=== PATIENT | female | born 1975 | race Caucasian/White ===

== ENCOUNTER 2018-11-21 14:20 | Emergency (ER) | payer BC ==
[2018-11-21] MEDS ORDERED: METOCLOPRAMIDE 10 MG/2mL INJ ONE (15:02)
[2018-11-21] MEDS ORDERED: DIPHENHYDRAMINE 50 MG/ML VIAL ONE (15:02)
[2018-11-21] MEDS ORDERED: IBUPROFEN 400 MG TAB ONE (15:02)
[2018-11-21] MEDS ORDERED: NA CHLORIDE 0.9% 1,000 ML ONE (15:03)
[2018-11-21] MEDS ORDERED: IBUPROFEN 200 MG TAB PO ONE (15:03)
[2018-11-21 15:04] LABS: Urine Blood NEGATIVE (NEG); Urine Glucose NEGATIVE (NEG); Urine Protein 1+ (NEG)
[2018-11-21 15:11] LABS: Urine Bacteria <20 /HPF (<20); Urine Culture Reflex Order NOT NEEDED; Urine RBC NONE SEEN /HPF (NONE SEEN)
[2018-11-21 15:40] LABS: Absolute Lymphocytes (CBC) 2.6 K/uL (0.7-4.9); Basophils % 1.1 % (0-1.3); Hematocrit 32.8 % (36.0-45.0); Lymphocytes % 39.5 % (15.3-44.8); MPV 9.4 fL (7.6-11.3); RBC Red Blood Cell Count 4.95 M/uL (3.86-4.86)
[2018-11-21 15:55] LABS: Albumin 3.3 g/dL (3.4-5.0); Bilirubin Total 0.4 mg/dL (0.2-1.0); Potassium 3.8 mmol/L (3.5-5.1); Protein, Total 7.6 g/dL (6.4-8.2)
[2018-11-21 16:47] LABS: Anisocytosis 1+; Blood Morphology Comment NOTED (NOT SEEN); Hypochromasia 1+; Platelet Estimate ADEQ; Urine White Blood Cell Casts OK
--- NOTE | 2018-11-21 17:20 | ER ---
Nurse's Notes [facility] Name: Torri Fine Age: 43 yrs Sex: Female : 1975 Arrival Date: 11/21/2018 Time: 14:25 Bed 17 Private MD: Diagnosis: Headache;Fever, unspecified Presentation: 11/21 14:31 Presenting complaint: Patient states: Fever and CLANCY since Friday. Took 1500mg of la1 tylenol at 1300 today. Went to urgent care and they sent me here because they were afraid I might have menengitis. Transition of care: patient was not received from another setting of care. Onset of symptoms was November 21, 2018. Risk Assessment: Do you want to hurt yourself or someone else? Patient reports no desire to harm self or others. Initial Sepsis Screen: Does the patient meet any 2 criteria? No. Patient's initial sepsis screen is negative. Does the patient have a suspected source of infection? No. Patient's initial sepsis screen is negative. Care prior to arrival: None. 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 - Social history:: Smoking status: Patient/guardian denies using tobacco. - Ebola Screening: : No symptoms or risks identified at this time. Screenin:50 Abuse screen: Denies threats or abuse. Nutritional screening: No deficits noted. em Tuberculosis screening: No symptoms or risk factors identified. Fall Risk None identified. Assessment: 14:50 General: Appears in no apparent distress. uncomfortable, Behavior is calm, cooperative, em Reports fever for > 3 days, fatigue for >3 days. Pain: Complains of pain in right eye and left eye Pain currently is 7 out of 10 on a pain scale. Pain began 4 days ago. Neuro: Level of Consciousness is awake, alert, obeys commands, Oriented to person, place, time, situation, Moves all extremities. Reports headache frontal area, since 4 days, does not feel like a typical migraine Denies weakness blurred vision photophobia. Cardiovascular: Capillary refill < 3 seconds Patient's skin is warm and dry. Respiratory: Airway is patent Respiratory effort is even, unlabored, Respiratory pattern is regular, symmetrical, Denies cough. GI: Reports nausea, Patient currently denies abdominal pain. : Denies burning with urination. EENT: Denies nasal congestion. Derm: Skin is intact, is healthy with good turgor, Skin is pink, warm \T\ dry. Musculoskeletal: Capillary refill < 3 seconds, Range of motion: intact in all extremities. 14:50 Reassessment: I agree with assessment completed by Claudio Coreas LVN . aa5 15:28 Reassessment: Patient appears in no apparent distress at this time. Patient and/or em family updated on plan of care and expected duration. Pain level reassessed. Patient is alert, oriented x 3, equal unlabored respirations, skin warm/dry/pink. 16:26 Reassessment: Patient appears in no apparent distress at this time. Patient and/or em family updated on plan of care and expected duration. Pain level reassessed. Patient is alert, oriented x 3, equal unlabored respirations, skin warm/dry/pink. reports pain is unchanged, rates pain 7/10, provider notified Patient states symptoms have not improved. 17:06 Reassessment: reports pain is 6/10, provider notified. em Vital Signs: 14:32 BP 113 / 75; Pulse 103; Resp 18; Temp 100.2; Pulse Ox 100% on R/A; Weight 124.74 kg; la1 Height 5 ft. 8 in. (172.72 cm); 15:52 BP 108 / 63; Pulse 92; Resp 20; Pulse Ox 99% on R/A; Pain 8/10; em 16:20 BP 108 / 54; Pulse 84; Resp 16; Pulse Ox 99% on R/A; Pain 7/10; em 17:29 BP 113 / 77; Pulse 75; Resp 18; Temp 98.5(O); Pulse Ox 99% on R/A; Pain 6/10; em 14:32 Body Mass Index 41.81 (124.74 kg, 172.72 cm) la1 ED Course: 14:25 Patient arrived in ED. mr 14:32 Triage completed. la1 14:33 Arm band placed on right wrist. la1 14:35 Dirk Joel PA is PHCP. [facility] 14:35 Jessee Hobbs MD is Attending Physician. bob 14:42 Claudio Coreas LVN is Primary Nurse. em 14:50 Patient has correct armband on for positive identification. Placed in gown. Bed in low em position. Call light in reach. Pulse ox on. NIBP on. 15:15 First set of blood cultures drawn. lt1 15:25 Initial lab(s) drawn, by ne, sent to lab. Inserted saline lock: 22 gauge in left em antecubital area, using aseptic technique. Blood collected. 15:39 Missed attempt(s): 22 gauge in right antecubital area. lt1 17:26 No provider procedures requiring assistance completed. IV discontinued, intact, em bleeding controlled, No redness/swelling at site. Pressure dressing applied. Administered Medications: 15:09 Drug: Motrin 600 mg Route: PO; em 16:20 Follow up: Response: No adverse reaction; Pain is unchanged, physician notified em 15:28 Drug: Reglan 10 mg Route: IVP; Site: left antecubital; aa5 16:51 Follow up: Response: No adverse reaction; Pain is unchanged, physician notified; Nausea em is decreased 15:28 Drug: NS 0.9% 1000 ml Route: IV; Rate: 1 bolus; Site: left antecubital; aa5 17:06 Follow up: IV Status: Completed infusion; IV Intake: 1000ml em 15:30 Drug: diphenhydrAMINE 12.5 mg Route: IVP; Site: left antecubital; aa5 16:52 Follow up: Response: No adverse reaction em Intake: 17:06 IV: 1000ml; Total: 1000ml. em Outcome: 17:19 Discharge ordered by . [facility] 17:27 Discharged to home ambulatory. em 17:27 Condition: good 17:27 Discharge instructions given to patient, Instructed on discharge instructions, follow up and referral plans. medication usage, Demonstrated understanding of instructions, follow-up care, medications, Prescriptions given X 1. 17:31 Patient left the ED. em Signatures: Dirk Joel PA PA eris Quijanoeleni Aretha mr Claudio Coreas LVN LVN em Yulia العلي, CINDI RN aa5 Judd Niño RN RN la1 Franci Chu lt1 Corrections: (The following items were deleted from the chart) 17:29 17:29 BP 113 / 77; Pulse 75bpm; Resp 18bpm; Pulse Ox 99% RA; Pain 08/31; em em
--- NOTE | 2018-11-21 17:20 | EDPHYS ---
Physician Documentation [facility] Name: Torri Fine Age: 43 yrs Sex: Female : 1975 Arrival Date: 11/21/2018 Time: 14:25 Bed 17 Private MD: ED Physician Jessee Hobbs HPI: 11/21 14:31 This 43 yrs old Female presents to ER via Ambulatory with complaints of jmm Headache, Fever. 14:31 The patient complains of pain to the right eye and left eye. The patient describes the jmm headache as aching. Onset: The symptoms/episode began/occurred gradually, 3 day(s) ago. Associated signs and symptoms: Pertinent positives: fever, Pertinent negatives: neck stiffness. This is a 43 year old female with a history of asthma, migraines that presents to the ED with complaints of headache with fever beginning this past Friday. Patient denies neck stiffness, headache was gradual onset. Denies cough, denies shortness of breath, denies abdominal pain, denies vomiting, denies sensitive to light. . 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 - Social history:: Smoking status: Patient/guardian denies using tobacco. - Ebola Screening: : No symptoms or risks identified at this time. ROS: 14:31 Cardiovascular: Negative for chest pain, palpitations, and edema, Respiratory: Negative jmm for shortness of breath, cough, wheezing, and pleuritic chest pain, Abdomen/GI: Negative for abdominal pain, nausea, vomiting, diarrhea, and constipation, Back: Negative for injury and pain. 14:31 Constitutional: Positive for fever. 14:31 Neuro: Positive for headache. 14:31 All other systems are negative. Exam: 14:31 Constitutional: This is a well developed, well nourished patient who is awake, alert, jmm and in no acute distress. Head/Face: atraumatic. Eyes: EOMI, no conjunctival erythema appreciated ENT: Moist Mucus Membranes Neck: Trachea midline, Supple Chest/axilla: Normal chest wall appearance and motion. Cardiovascular: Regular rate and rhythm. No edema appreciated Respiratory: Normal respirations, no respiratory distress appreciated Abdomen/GI: Non distended, soft Back: Normal ROM Skin: General appearance color normal MS/ Extremity: Moves all extremities, no obvious deformities appreciated, no edema noted to the lower extremities Neuro: Awake and alert, normal gait Psych: Behavior is normal, Mood is normal, Patient is cooperative and pleasant Vital Signs: 14:32 BP 113 / 75; Pulse 103; Resp 18; Temp 100.2; Pulse Ox 100% on R/A; Weight 124.74 kg; la1 Height 5 ft. 8 in. (172.72 cm); 15:52 BP 108 / 63; Pulse 92; Resp 20; Pulse Ox 99% on R/A; Pain 8/10; em 16:20 BP 108 / 54; Pulse 84; Resp 16; Pulse Ox 99% on R/A; Pain 7/10; em 17:29 BP 113 / 77; Pulse 75; Resp 18; Temp 98.5(O); Pulse Ox 99% on R/A; Pain 6/10; em 14:32 Body Mass Index 41.81 (124.74 kg, 172.72 cm) la1 MDM: 14:41 Patient medically screened. jose 17:17 Data reviewed: vital signs, nurses notes. Counseling: I had a detailed discussion with [facility] the patient and/or guardian regarding: the historical points, exam findings, and any diagnostic results supporting the discharge/admit diagnosis, lab results, the need for outpatient follow up, to return to the emergency department if symptoms worsen or persist or if there are any questions or concerns that arise at home. 17:17 ED course: Headache relieved in the ED. Patient refuses LP. Patient advised to follow [facility] up with pcp and otherwise given strict return precautions. Patient understood and agrees with the plan of care. . 11/21 14:31 Order name: Urine Culture [facility] 11/21 14:31 Order name: Urine Microscopic Only; Complete Time: 15:22 [facility] 11/21 14:51 Order name: CBC with Diff; Complete Time: 16:49 [facility] 11/21 14:51 Order name: CMP; Complete Time: 16:12 [facility] 11/21 14:51 Order name: Lactate; Complete Time: 16:12 [facility] 11/21 14:51 Order name: Procalcitonin; Complete Time: 16:12 [facility] 11/21 14:51 Order name: Blood Culture Adult (2) [facility] 11/21 14:52 Order name: Andrew Screen Profile; Complete Time: 16:12 [facility] 11/21 15:02 Order name: Urine Dipstick--Ancillary (enter results); Complete Time: 15:22 11/21 15:02 Order name: Urine --Ancillary (enter results); Complete Time: 15:22 11/21 15:51 Order name: Flu; Complete Time: 16:55 [facility] 11/21 16:44 Order name: CBC Smear Scan; Complete Time: 16:49 EDMS 11/21 14:31 Order name: Urine Dipstick-Ancillary (obtain specimen); Complete Time: 14:59 snw 11/21 14:51 Order name: Saline Lock; Complete Time: 15:39 [facility] 11/21 14:51 Order name: Urine Test (obtain specimen); Complete Time: 14:59 jm Administered Medications: 15:09 Drug: Motrin 600 mg Route: PO; em 16:20 Follow up: Response: No adverse reaction; Pain is unchanged, physician notified em 15:28 Drug: Reglan 10 mg Route: IVP; Site: left antecubital; aa5 16:51 Follow up: Response: No adverse reaction; Pain is unchanged, physician notified; Nausea em is decreased 15:28 Drug: NS 0.9% 1000 ml Route: IV; Rate: 1 bolus; Site: left antecubital; aa5 17:06 Follow up: IV Status: Completed infusion; IV Intake: 1000ml em 15:30 Drug: diphenhydrAMINE 12.5 mg Route: IVP; Site: left antecubital; aa5 16:52 Follow up: Response: No adverse reaction em Disposition: 11/21/18 17:19 Discharged to Home. Impression: Headache, Fever, unspecified. - Condition is Stable. - Discharge Instructions: Fever, Adult, General Headache Without Cause. - Prescriptions for Fiorinal 50- 325-40 mg Oral Capsule - take 1 capsule by ORAL route every 4 hours As needed - not to exceed 6 capsules per day; 12 capsule. - Medication Reconciliation Form, Thank You Letter, Antibiotic Education, Prescription Opioid Use form. - Follow up: Private Physician; When: 2 - 3 days; Reason: Recheck today's complaints, Continuance of care, Re-evaluation by your physician. Addendum: 11/23/2018 09:10 Co-signature as Attending Physician, Jessee Hobbs MD I agree with the assessment and c martino plan of care. Signatures: Dispatcher [employer] EDJessee Georges MD MD cha Therrien, Shelly, PROJECT DIRECTOR-C PROJECT DIRECTOR-Csnw Dirk Joel PA PA mikey Claudio Coreas, ENGINEERING DESIGNER ENGINEERING DESIGNER em Yulia العلي, RN RN aa5 Judd Niño RN RN la1 Corrections: (The following items were deleted from the chart) 11/21 17:31 17:19 11/21/2018 17:19 Discharged to Home. Impression: Headache; Fever, unspecified. em Condition is Stable. Forms are Medication Reconciliation Form, Thank You Letter, Antibiotic Education, Prescription Opioid Use. Follow up: Private Physician; When: 2 - 3 days; Reason: Recheck today's complaints, Continuance of care, Re-evaluation by your physician. bob
== END 2018-11-21 17:31 | disposition home or self-care (01) ==
LOC: ER 14:20
DX: R51 Headache (principal); R50.9 Fever, unspecified; Z88.2 Allergy status to sulfonamides; Z88.6 Allergy status to analgesic agent; Z88.1 Allergy status to other antibiotic agents
CPT/HCPCS: 96361; 87040 ×2; 87088; 85025; 87086; 36415; 86308; 81025; 83605; 80053; 84145; 87804 ×2; 96375; 96374; 99284; J2765; J7030; 81003; 81015

== ENCOUNTER 2019-02-16 18:50 | Emergency (ER) | payer BC ==
--- OUTSIDE RECORDS SUMMARY | 2019-02-16 18:52 | XMS REPORT ---
:1975 [facility] Address [address] [place] [address] [place] [id number] Care Team Providers Name Role Phone Unavailable Unavailable Unavailable Problems This patient has no known problems. Allergies, Adverse Reactions, Alerts This patient has no known allergies or adverse reactions. Medications This patient has no known medications.
--- OUTSIDE RECORDS SUMMARY | 2019-02-16 18:53 | XMS REPORT | Encounter Summary ---
:1975 Author Care Team Providers Name Role Phone Manuelito Cole MD Primary Care Provider [phone] Olivier Mcdowell Wig Maker [phone] Reason for Visit acid reflux Instructions 1. Gastroesophageal reflux disease general surgery referral 2. Viral syndrome Discussion Note: None recorded.Patient educational handouts: No information available. Plan of Care Reminders Provider Appointments None recorded. Lab None recorded. Referral General Aki Ewing MD Surgery Referral 09/10/2018 Procedures None recorded. Surgeries None recorded. Imaging None recorded. Medications Name Start Date EpiPen 2-Des 0.3 mg/0.3 mL injection, auto-injector Take 1 auto every day by injection route. use as needed for acute allergic reaction Medications Administered None recorded. Vitals Height Weight BMI Blood Pressure 68 in 278 lbs 42.3 kg/m2 126/81 mm[Hg] Lab Results None recorded. Allergies Code Code System Name Reaction Severity Status Onset Ceclor Vomiting Mild to Active Moderate 2670 RxNorm Codeine Hives Mild to Active Moderate Sulfa Other Active (Sulfonamide Antibiotics) Problems Name Status Onset Date Source Chronic Low Back Pain Active 10/17/2016 Asthma Active 11/12/2016 Encounter Depression Active 07/17/2017 Left Flank Pain Active 09/05/2017 Acute Maxillary Sinusitis Active 11/11/2017 Oral Contraception Active 12/08/2017 Contraception Education Active 12/08/2017 Gynecologic Examination Active 12/08/2017 Screening for Malignant Neoplasm of Active 12/08/2017 Breast History of Endometriosis Active 12/08/2017 Acute Allergic Reaction Active 01/26/2018 Intervertebral Disc Prolapse Active 04/10/2018 Low Back Pain Active 04/10/2018 Lumbar Radiculopathy Active 04/10/2018 Amenorrhea Active 07/13/2018 Urgent Desire to Urinate Active 07/13/2018 Viral Syndrome Active 08/25/2018 Gastroesophageal Reflux Disease Active 08/25/2018 Hypercholesterolemia Active Encounter Obesity Active Encounter Migraine Active Encounter Papilledema - Optic Disc Edema Due to Active Encounter Raised Intracranial Pressure HPV - Human Papillomavirus Test Positive Active Encounter Procedures Date Name Performed by 01/23/2016 Appendectomy Information not available Remove Tonsils and Adenoids Information not available Breast Surgery Information not available Cholecystectomy Information not available ENT Surgery Information not available Laparoscopy Information not available Vaccine List Vaccine Type influenza, intradermal, quadrivalent, preservative free 02/25/20170.1 mL influenza, recombinant, quadrIvalent,injectable, preservative free 01/26/20180.5 mL Social History Smoking Status Never Smoker Past Encounters 08/25/2018 Gastroesophageal Reflux Disease; Viral Syndrome Manuelito Cole MD: [address] [place] [address], [address], [place] [address], Ph. History of Present Illness Note: CC chronic GERD<div>hpi pt has had this x 20 yrs has been off and on PPI and H2 blockers for yrs has recently had worsening of sx</div>& lt;div>CC cough and cold sx</div><div>hpi family sick with virus& lt;/div><div>ros</div><div>gen above</div><div> cv neg</div><div>res above</div><div>gi above</div&gt ;Review of Systems: ROS as noted in the HPI Review of Systems None recorded. Physical Exam Dr. Cole Brief Adult Exam - M/F Reported By: Patient Constitutional: General Appearance: well-developed, obese. Level of Distress: mild distress. Ambulation: ambulating normally ENMT: Ears: no lesions on external ear, EACs clear, TMs clear, TM mobility normal. Nose: nares patent, nasal passages clear. Oropharynx: moist mucous membranes, no erythema, no exudates, tonsils not enlarged Lungs: Auscultation: breath sounds normal, good air movement, CTA except as noted, no wheezing, no rales/crackles, no rhonchi Cardiovascular: Heart Auscultation: RRR
--- OUTSIDE RECORDS SUMMARY | 2019-02-16 18:53 | XMS REPORT | Encounter Summary ---
:1975 Author Care Team Providers Name Role Phone Manuelito Cole MD Primary Care Provider [phone] Olivier Mcdowell Training Personnel Supervisor [phone] Reason for Visit Lower Back Pain Instructions 1. Lumbar radiculopathy MRI, lumbar spine, w/o contrast - pain in lower back radiating into left hip and leg 2. Low back pain 3. Intervertebral disc prolapse deciding about surgery for a herniated disc physical therapy referral Discussion Note: None recorded. Plan of Care Reminders Provider Appointments Return to on or around Manuelito Cole MD Office 05/11/2018 Lab None recorded. Referral Physical 04/17/2018 [facility] Referral [facility] (Physical Therapy) Procedures None recorded. Surgeries None recorded. Imaging MRI, Lumbar 04/10/2018 [place] [facility], W/o Contrast [facility] (Scheduling) Medications Name Start Date EpiPen 2-Des 0.3 mg/0.3 mL injection, auto-injector Take 1 auto every day by injection route. use as needed for acute allergic reaction Relpax 40 mg tablet Take 1 tablet every day by oral route. take as previously directed for migraine Xopenex HFA 45 mcg/actuation aerosol inhaler Inhale 2 puffs every 6 hours by inhalation route. use for asthma Medications Administered None recorded. Vitals Height Weight BMI Blood Pressure 68 in 281 lbs 42.7 kg/m2 174/74 mm[Hg] Lab Results Date Name Specimen Result Interpretation Description Value Range Status Address 03/25/2018 Rapid Strep Group Results Final [place] [facility], Throat [facility] (Lab): [address] [facility] 03/25/2018 Streptococcus No observation [facility], Culture, recorded. [facility] (Lab): [address] [facility] Allergies Code Code System Name Reaction Severity [...] Pain Active 04/10/2018 Lumbar Radiculopathy Active 04/10/2018 Hypercholesterolemia Active Encounter Obesity Active Encounter Migraine [...] Information not available Laparoscopy Information not available 04/10/2018 MRI, Lumbar Spine, W/o Contrast [facility] (Scheduling) [address] [place] [address] (Work Place) Vaccine List Vaccine Type influenza, intradermal, quadrivalent, preservative free 02/25/20170.1 mL influenza, recombinant, quadrIvalent,injectable, preservative free 01/26/20180.5 mL Social History Smoking Status Never Smoker Past Encounters 04/10/2018 Lumbar Radiculopathy; Low Back Pain; Intervertebral Disc Prolapse Manuelito Cole MD: [address] [place] [address], [address], [place] [address], Ph. 03/25/2018 Anthony Cantu MD: [address] [facility], [address], [place] [address], Ph. History of Present Illness Note: CC acute lower back pain <div>hpi pt has hx of this intermittent pain last yr she was set up to get MRI and was so did not get it, during the she had a bout with it and washosp with Iv Morphine to control the pain.</div><div>this episode has been present for several days, went to ED told had UTI and given macrobid and has not helped. pain across her lower back and into left hip and radiating down the left leg lilliana walking up stairs. moderate severity, has hadn/v with the pain</div> Review of Systems: ROS as noted in the HPI Review of Systems None recorded. Physical Exam Notes: vs reviewed<div>gen moderate pain</div><div>back exam pain across lower back into the left gluteal region into the upper leg, reflex present</div>
--- OUTSIDE RECORDS SUMMARY | 2019-02-16 18:53 | XMS REPORT | Continuity of Care Document ---
:1975 Author Organization [facility] Address [address] [place] [address] Phone Unavailable Care Team Providers Name Role Phone SHAE PACHECO MD Primary Care Physician Insurance Providers Guarantor Nayely Fine Address [address] [place] [address] Email [email or web address] Payer [facility] Policy Number [id number] Subscriber's Name Geronimo Fine Relationship Spouse Group Number [id number] Group Name NA Effective Date 16 Advance Directives Directive Response Recorded Date/Time Advance Directives No 07/17/15 6:19pm Advance Directive on File No 03/25/18 3:00pm Directive to Physicians/Living Will No 07/17/15 6:19pm Health Care Proxy No 07/17/15 6:19pm Organ Donor No 07/17/15 6:19pm Medical Power of Tile Molder No 07/17/15 6:19pm Patient/Family Given Education Material R/T Y - 03/25/18...SBM 03/25/18 3: 00pm Directives? Chief Complaint and Reason for Visit Chief Complaint Dyspnea/Respdistress Reason for Visit Upper respiratory infection UTI (urinary tract infection) Problems Medical Problem Onset Date Status 29 weeks gestation of Unknown 37 weeks gestation of Unknown Asthma with acute exacerbation in adult Unknown Bronchitis Unknown Cervicogenic headache Unknown Acute delivery delivered Unknown Diarrhea Unknown Acute Endometriosis Unknown Acute LVH (left ventricular hypertrophy) Unknown Macrosomia affecting management of mother Unknown Medication adverse effect Unknown Acute Nausea Unknown Acute Neck pain on right side Unknown Acute Pelvic pain Unknown Acute Pre-eclampsia Unknown UTI (urinary tract infection) Unknown Acute Past Problems Medical Problem Onset Date Status Acute bronchitis Unknown Acute Acute left flank pain Unknown Acute Cystitis Unknown Acute Left sided abdominal pain of unknown cause Unknown Acute Migraine headache Unknown Acute Nausea and vomiting Unknown Acute Unknown Acute Upper respiratory infection Unknown Acute Medications Current Home Medications Medication Dose Units Route Directions Days Qty Instructions Start Date Fluticasone 1 Puff RESPIRATORY Twice A Day 1 Inh Propionate/Juanjose (INHALATION) for Asthma 8 meterol * (Advair Diskus *) 500 /50 Aer Ibuprofen 1 Tab ORAL Every 6 Hours 30 (Motrin 800 As Needed as Tablet 8 Mg*) 800 Mg needed for Tab Pain 1 Tab ORAL Daily 90 Multivit-Min Tablet W/Fe-Fa * ( *) Tab Past Home Medications Medication Directions Ordered Status Montelukast Sodium (Singulair 4 Daily As Needed Discontinued Mg *) 4 Mg Gra, 4 Mg Oral Multiple Vitamin (Daily Vitamin) Once Daily Discontinued Vitamin Tab, 1 Tab Oral Ondansetron Hcl (Zofran Odt *) 4 Every 6 Hours (07-02-15) as Discontinued Mg Tab, 1 Tab Sublingual needed for Nausea Ondansetron Hcl (Zofran *) 4 Mg Every 6 Hours (07-02-15) Discontinued Tab, 1 Tab Oral Multivit-Min W/Fe-Fa * Daily Discontinued ( *) Tab, 1 Tab Oral Social History Social History Problem Response Recorded Date/Time Onset Date Status Hx Physical Abuse No 03/25/2018 3:00pm Not Applicable Not Applicable Smoking Status Start Date Stop Date Never smoker Hospital Discharge Instructions No hospital discharge instruction information available. Plan of Care Discharge Date 03/25/18 5:31pm Instructions/Education Provided Upper Respiratory Infection, Adult Urinary Tract Infection, Adult Forms Provided Portal Welcome Letter Prescriptions See Medication Section Referrals SHAE PACHECO MD Address: [address] [place] [id number] Additional Instructions/Education DIAGNOSIS: UTI, UPPER RESPIRATORY INFECTION PRESCRIPTION: MACROBID 100MG TWICE A DAY FOR 7 DAYS, BROMFED DM 10ML EVERY 4- 6 HOURS NEEDED FOR COUGH AND CONGESTION FOLLOW UP: WITH PRIMARY CARE IN 2 DAYS * RETURN TO EMERGENCY DEPARTMENT FOR ANY CHANGE IN CONDITION OR WORSENING* INSTRUCTIONS: DRINK PLENTY OF FLUIDS GOOD HANDWASHING MAY TAKE CLARITIN NEEDED DAILY PER DIRECTIONS FOR ALLERGIES MAY TAKE TYLENOL OR IBUPROFEN PER BOTTLE DIRECTIONS Functional Status No functional status information available. Allergies, Adverse Reactions, Alerts Allergen Type Severity Reaction Status Last Updated Cefaclor Allergy Severe Active 02/27/17 Codeine ([id number]) Allergy Severe Active 02/27/17 Nalbuphine ([id number]) Allergy Severe Active 01/12/18 Cephalosporins ([id number]) Allergy Severe Active 02/27/17 Sulfa Antibiotics ([id number]) Allergy Severe Active 02/27/17 Immunizations No immunization information available. Vital Signs Acute Vital Signs Vital Response Date/Time Blood Pressure 110/59 mm Hg 03/25/2018 5:37pm Pulse Pulse Rate (adult) 72 beats per minute (60 - 100) 03/25/2018 5:37pm Respiratory Rate 18 breaths per minute (10 - 24) 03/25/2018 5:37pm Temperature Source Oral 03/25/2018 5:37pm Height 5 ft 8 in 03/25/2018 3:00pm Weight 275 lb 03/25/2018 3:00pm Body Mass Index 41.8 kg/m^2 03/25/2018 3:00pm Results Laboratory Results Test Name Result Units Flags Reference Collection Result Comments Date/Time Date/Time Urine Color YELLOW 03/25/2018 03/25/2018 4:32pm 4:42pm Urine CLEAR CLEAR 03/25/2018 03/25/2018 Appearance 4:32pm 4:42pm Urine Glucose NEGATIVE NEGATIVE 03/25/2018 03/25/2018 4:32pm 4:42pm Urine Bilirubin NEGATIVE NEGATIVE 03/25/2018 03/25/2018 4:32pm 4:42pm Urine Ketones NEGATIVE NEGATIVE 03/25/2018 03/25/2018 4:32pm 4:42pm Urine Specific 1.029 1.003-1.030 03/25/2018 03/25/2018 [place] 4:32pm 4:42pm Urine Blood 2+ H NEGATIVE 03/25/2018 03/25/2018 (MODERATE) 4:32pm 4:42pm Urine pH 5.500 5-9 03/25/2018 03/25/2018 4:32pm 4:42pm Urine Protein TRACE NEGATIVE 03/25/2018 03/25/2018 4:32pm 4:42pm Urine NORMAL mg/dL 0.2-1.0 03/25/2018 03/25/2018 Urobilinogen 4:32pm 4:42pm Urine Nitrate NEGATIVE NEGATIVE 03/25/2018 03/25/2018 4:32pm 4:42pm Urine Leukocyte 3+ H NEGATIVE 03/25/2018 03/25/2018 Esterase 4:32pm 4:42pm Urine RBC 1-5 /hpf 0-5 03/25/2018 03/25/2018 4:32pm 4:42pm Urine WBC 20-29 /hpf H 0-5 03/25/2018 03/25/2018 4:32pm 4:42pm Urine 1-5 /hpf 0-5 03/25/2018 03/25/2018 Epithelial 4:32pm 4:42pm Cells Urine Bacteria SMALL(1+) /hpf None Detect 03/25/2018 03/25/2018 4:32pm 4:42pm Urine Casts 6-10 /lpf H None Detect 03/25/2018 03/25/2018 4:32pm 4:42pm Urine Culture YES 03/25/2018 03/25/2018 Reflexed 4:32pm 4:42pm Urine None seen /hpf None Detect 03/25/2018 03/25/2018 Pathogenic 4:32pm 4:42pm Casts Urine HCG, NEGATIVE NEG 03/25/2018 03/25/2018 Qualitative 4:32pm 4:39pm If a negative result is obtained but is suspected, a new specimen should be collected after 48-72 hours and tested. If waiting 48 hrs is not medically advisable, the test result should be confirmed with at quantitative hCG assay. Procedures Procedure Status Date Provider(s) X-ray of chest, two views Completed 03/25/18 MARTHA GUERIN CONSTRUCTION CHECKER, BENEFITS TECHNICIAN-BC Encounters Encounter Location Arrival/Admit Date Discharge/Depart Date Attending Provider Departed [place] 03/25/18 2:55pm 03/25/18 5:31pm ELEONORA FIGUEREDO MD Emergency Room [facility] Recent Diagnosis
--- OUTSIDE RECORDS SUMMARY | 2019-02-16 18:53 | XMS REPORT | Continuity of Care Document ---
:1975 Author Organization [facility] Address [address] [place] [address] Phone Unavailable Care Team Providers Name Role Phone SHAE PACHECO MD Primary Care Physician Insurance Providers Guarantor Nayely Fine Address [address] [place] [address] Email [email or web address] Payer [facility] Policy Number [id number] Subscriber's Name Geronimo Fine Relationship Spouse Group Number [id number] Group Name NA Effective Date 16 Payer Medicaid Policy Number [id number] Subscriber's Name Nayely Fine Relationship Self / Same As Patient Group Number NA Group Name NA Advance Directives Directive Response Recorded Date/Time Advance Directives No 07/17/15 6:19pm Advance Directive on File No 01/12/18 9:12am Directive to Physicians/Living Will No 07/17/15 6:19pm Health Care Proxy No 07/17/15 6:19pm Organ Donor No 07/17/15 6:19pm Medical Power of Loan Processing Supervisor No 07/17/15 6:19pm Patient/Family Given Education Material R/T Y - 01/12/18...[place] 01/12/18 9: 28am Directives? Chief Complaint and Reason for Visit Chief Complaint Dyspnea/Respdistress Reason for Visit Migraine headache Cystitis Problems Medical Problem Onset Date Status 29 [...] Nausea and vomiting Unknown Acute Unknown Acute Medications Current Home Medications Medication [...] Onset Date Status Hx Physical Abuse No 01/12/2018 9:12am Not Applicable Not Applicable Smoking Status Start Date Stop Date Never smoker Hospital Discharge Instructions No hospital discharge instruction information available. Plan of Care Discharge Date 01/12/18 11:48am Instructions/Education Provided Urinary Tract Infection, Adult Migraine Headache Forms Provided Portal Welcome Letter Prescriptions See Medication Section Referrals SHAE PACHECO MD Address: [address] [place] [address] Additional Instructions/Education WORK EXCUSE FOR TODAY. MACROBID Rx. TAKE TYLENOL & IBUPROFEN EVERY 6HRS NEEDED FOR HEADACHE. FOLLOW UP WITH PCP IF NOT BETTER WITHION 2-3 DAYS. Functional Status No functional status information available. Allergies, Adverse Reactions, Alerts Allergen Type Severity Reaction Status Last Updated Cefaclor Allergy Severe Active 02/27/17 Codeine ([id number]) Allergy Severe Active 02/27/17 Nalbuphine ([id number]) Allergy Severe Active 01/12/18 Cephalosporins ([id number]) Allergy Severe Active 02/27/17 Sulfa Antibiotics ([id number]) Allergy Severe Active 02/27/17 Immunizations No immunization information available. Vital Signs Acute Vital Signs Vital Response Date/Time Blood Pressure 106/61 mm Hg 01/12/2018 12:26pm Pulse Pulse Rate (adult) 71 beats per minute (60 - 100) 01/12/2018 12:26pm Respiratory Rate 20 breaths per minute (10 - 24) 01/12/2018 12:26pm Temperature Source Oral 01/12/2018 9:12am Height 5 ft 8 in 01/12/2018 9:12am Weight 290 lb 01/12/2018 9:12am Body Mass Index 44.1 kg/m^2 01/12/2018 9:12am Results Laboratory Results Test Name Result Units Flags Reference Collection Result Comments Date/Time Date/Time White Blood Count 9.5 K/ul 4.0-11.5 01/12/2018 01/12/2018 9:37am 9:55am Red Blood Count 5.25 M/ul H 3.80-5.20 01/12/2018 01/12/2018 9:37am 9:55am Hemoglobin 10.5 g/dl 10.5-15.7 01/12/2018 01/12/2018 9:37am 9:55am Hematocrit 35.7 % 34.0-50.0 01/12/2018 01/12/2018 9:37am 9:55am Mean Corpuscular 68.0 fl L 78-98 01/12/2018 01/12/2018 Volume 9:37am 9:55am Mean Corpuscular 20.0 pg L 26.2-33.4 01/12/2018 01/12/2018 Hemoglobin 9:37am 9:55am Mean Corpuscular 29.4 g/dl L 31.5-36.2 01/12/2018 01/12/2018 Hemoglobin Concent 9:37am 9:55am Red Cell 14.9 % 11.5-15.5 01/12/2018 01/12/2018 Distribution Width 9:37am 9:55am Platelet Count 406 K/ul H 137-338 01/12/2018 01/12/2018 9:37am 9:55am Mean Platelet 9.9 fl 8.4-11.8 01/12/2018 01/12/2018 Volume 9:37am 9:55am Neutrophils (%) 69.1 % 44.4-80.1 01/12/2018 01/12/2018 (Auto) 9:37am 9:55am Lymphocytes (%) 21.9 % 10.0-50.0 01/12/2018 01/12/2018 (Auto) 9:37am 9:55am Monocytes (%) 5.1 % 3.6-12.04 01/12/2018 01/12/2018 (Auto) 9:37am 9:55am Eosinophils (%) 2.8 % 0.0-5.41 01/12/2018 01/12/2018 (Auto) 9:37am 9:55am Basophils (%) 1.1 % H 0.0-0.79 01/12/2018 01/12/2018 (Auto) 9:37am 9:55am D-Dimer 428 ng/mL <500 01/12/2018 01/12/2018 9:40am 10:06am Prothrombin Time 9.9 SECONDS L 10.3-12.3 01/12/2018 01/12/2018 9:40am 10:23am THERAPEUTIC LEVEL: 1.5 to 1.9 times normal range of PT Prothromb Time 0.90 01/12/2018 01/12/2018 International 9:40am 10:23am Recommended therapeutic range for patients receiving Ratio warfarin (coumadin) therapy: INR is 2.0 to 3.0 Recommended range for patients with mechanical prosthetic heart valves: INR is 2.5 to 3.5 Activated Partial 24.5 SECONDS 22.5-37.0 01/12/2018 01/12/2018 Thromboplast Time 9:40am 10:23am Urine Color YELLOW 01/12/2018 01/12/2018 10:18am 10:30am Urine Appearance SL CLOUDY A CLEAR 01/12/2018 01/12/2018 10:18am 10:30am Urine Glucose NEGATIVE NEGATIVE 01/12/2018 01/12/2018 10:18am 10:30am Urine Bilirubin NEGATIVE NEGATIVE 01/12/2018 01/12/2018 10:18am 10:30am Urine Ketones NEGATIVE NEGATIVE 01/12/2018 01/12/2018 10:18am 10:30am Urine Specific 1.027 1.003-1.03 01/12/2018 01/12/2018 [place] 0 10:18am 10:30am Urine Blood NEGATIVE NEGATIVE 01/12/2018 01/12/2018 10:18am 10:30am Urine pH 6.000 5-9 01/12/2018 01/12/2018 10:18am 10:30am Urine Protein 1+ (30 H NEGATIVE 01/12/2018 01/12/2018 mg/dL) 10:18am 10:30am Urine Urobilinogen NORMAL mg/dL 0.2-1.0 01/12/2018 01/12/2018 10:18am 10:30am Urine Nitrate NEGATIVE NEGATIVE 01/12/2018 01/12/2018 10:18am 10:30am Urine Leukocyte NEGATIVE NEGATIVE 01/12/2018 01/12/2018 Esterase 10:18am 10:30am Urine RBC 1-5 /hpf 0-5 01/12/2018 01/12/2018 10:18am 10:29am Urine WBC 1-5 /hpf 0-5 01/12/2018 01/12/2018 10:18am 10:29am Urine Epithelial 6-10 /hpf 0-5 01/12/2018 01/12/2018 Cells 10:18am 10:29am Urine Bacteria LARGE /hpf H None 01/12/2018 01/12/2018 (3+) Detect 10:18am 10:29am Urine Casts 20-29 /lpf H None 01/12/2018 01/12/2018 Detect 10:18am 10:29am Urine Culture NO 01/12/2018 01/12/2018 Reflexed 10:18am 10:29am Random Glucose 127 mg/dL H 74-106 01/12/2018 01/12/2018 9:37am 9:55am Blood Urea 12 mg/dL 6-20 01/12/2018 01/12/2018 Nitrogen 9:37am 9:55am Serum Osmolality 277 L 280-300 01/12/2018 01/12/2018 9:37am 9:55am Creatinine 0.7 mg/dL 0.50-0.90 01/12/2018 01/12/2018 9:37am 9:55am Glomerular > 60.00 01/12/2018 01/12/2018 GFR RESULTS ARE REPORTED IN mL/min/1.73m2. Filtration Rate 9:37am 9:55am Calc Normal GFR: >60mL/min Moderately decreased GFR: 30-59 mL/min Severely decreased GFR: 15-29 mL/min Kidney Failure (or Dialysis): <15 mL/min The calculated eGFR is not valid for patients younger than 18 years or older than 75 years. BUN/Creatinine 17.1 1201/12/2018 01/12/2018 Ratio 9:37am 9:55am Sodium Level 138 mmol/L 135-145 01/12/2018 01/12/2018 9:37am 9:55am Potassium Level 3.5 mmol/L 3.5-5.2 01/12/2018 01/12/2018 9:37am 9:55am Chloride Level 101 mmol/L 98-108 01/12/2018 01/12/2018 9:37am 9:55am Carbon Dioxide 21 mmol/L 21-32 01/12/2018 01/12/2018 Level 9:37am 9:55am Anion Gap 19.5 mEq/L -01/12/2018 01/12/2018 9:37am 9:55am Calcium Level 9.1 mg/dL 8.6-10.0 01/12/2018 01/12/2018 9:37am 9:55am Total Protein 7.1 g/dL 6.6-8.7 01/12/2018 01/12/2018 9:37am 9:55am Albumin 4.0 g/dL 3.5-5.2 01/12/2018 01/12/2018 9:37am 9:55am Globulin 3.1 gm/dL 01/12/2018 01/12/2018 9:37am 9:55am Albumin/Globulin 1.3 >1.0 01/12/2018 01/12/2018 Ratio 9:37am 9:55am Total Bilirubin 0.3 mg/dL 0.0-1.2 01/12/2018 01/12/2018 9:37am 9:55am Aspartate Amino 18 U/L 15-32 01/12/2018 01/12/2018 Transf (AST/SGOT) 9:37am 9:55am Alanine 25 U/L 0-33 01/12/2018 01/12/2018 Aminotransferase 9:37am 9:55am (ALT/SGPT) XE-Ffn-T-Type 154 pg/mL H 0-125 01/12/2018 01/12/2018 Natriuretic 9:37am 10:00am Peptide Total Alkaline 69 U/L 35-105 01/12/2018 01/12/2018 Phosphatase 9:37am 9:55am Urine HCG, NEGATIVE NEG 01/12/2018 01/12/2018 Qualitative 10:18am 10:29am If a negative result is obtained but is suspected, a new specimen should be collected after 48-72 hours and tested. If waiting 48 hrs is not medically advisable, the test result should be confirmed with at quantitative hCG assay. Creatine Kinase 153 U/L 20-180 01/12/2018 01/12/2018 9:37am 9:55am Troponin I < 0.30 ng/mL 0.0-0.5 01/12/2018 01/12/2018 9:37am 10:00am Creatine Kinase MB 2.8 ng/ml 0.0-3.6 01/12/2018 01/12/2018 9:37am 10:00am DIAGNOSTIC CITERIA: CKMB CKMB RELATIVE INDEX SUGGESTIVE OF NON-AMI < or=5 N/A DOYLE ZONE (INCONCLUSIVE) > 5 < or=4 SUGGESTIVE OF AMI >5 > 4 Myoglobin 55 ng/mL 25-58 01/12/2018 01/12/2018 9:37am 10:10am Procedures Procedure Status Date Provider(s) CYTOPATH C/V THIN LAYER Completed 12/08/17 SCR MAMMO BI INCL CAD Completed 12/16/17 BREAST TOMOSYNTHESIS BI Completed 12/16/17 X-ray of chest, single view Completed 01/12/18 ELEONORA FIGUEREDO MD Encounters Encounter Location Arrival/Admit Date Discharge/Depart Date Attending Provider Departed [place] 01/12/18 9:08am 01/12/18 11:48am ELEONORA FIGUEREDO MD Emergency Room [facility] Registered [place] 12/16/17 3:15pm ADAIR HAYES [facility] Registered [place] [facility] Recent Diagnosis
--- OUTSIDE RECORDS SUMMARY | 2019-02-16 18:53 | XMS REPORT | Encounter Summary ---
:1975 Author Care Team Providers Name Role Phone Manuelito Cole MD Primary Care Provider [phone] Olivier Mcdowell Tool Profiling Machine Set Up Operator [phone] Reason for Visit possible UTI Instructions 1. Urgent desire to urinate urinalysis, dipstick 2. Amenorrhea secondary amenorrhea: care instructions hCG, qualitative, serum Discussion Note: None recorded. Plan of Care Reminders Provider Appointments None recorded. Lab Urinalysis, In-House Results Dipstick 07/13/2018 hCG, [facility] Qualitative, Serum 07/13/2018 Medical Center (Lab) Referral None recorded. Procedures None recorded. Surgeries None recorded. Imaging None recorded. Medications Name Start Date EpiPen 2-Des 0.3 mg/0.3 mL injection, auto-injector Take 1 auto every day by injection route. use as needed for acute allergic reaction Medications Administered None recorded. Vitals Height Blood Pressure 68 in 126/84 mm[Hg] Lab Results Date Name Specimen Result Interpretation Description Value Range Status Address 07/13/2018 Urinalysis, Leukocytes Negative In-House Dipstick Results: For Internal Use Only Nitrite negative In-House Results: For Internal Use Only Urobilinogen .2 In-House Results: For Internal Use Only Protein 30 In-House Results: For Internal Use Only Ph 5.5 In-House Results: For Internal Use Only Blood Negative In-House Results: For Internal Use Only Specific 1.030 In-House [place] Results: For Internal Use Only Ketone Negative In-House Results: For Internal Use Only Bilirubin Small In-House Results: For Internal Use Only Glucose Negative In-House Results: For Internal Use Only Appearance Clear In-House Results: For Internal Use Only Color Yellow In-House Results: For Internal Use Only Allergies Code Code System Name Reaction Severity [...] 07/13/2018 Urgent Desire to Urinate Active 07/13/2018 Hypercholesterolemia Active Encounter Obesity Active Encounter Migraine [...] History Smoking Status Never Smoker Past Encounters 07/13/2018 Urgent Desire to Urinate; Amenorrhea Manuelito Cole MD: [address] [place] [address], [address], [place] [address], Ph. History of Present Illness Note: CC urinary urgency<div>hpi is 1 wk late on period never late has had polyuria x 4 last night</div>Review of Systems: ROS as noted in the HPI Review of Systems None recorded. Physical Exam Notes: consult
--- OUTSIDE RECORDS SUMMARY | 2019-02-16 18:53 | XMS REPORT | Continuity of Care Document ---
:1975 Author Organization [facility] Address [address] [place] [address] Phone Unavailable Care Team Providers Name Role Phone SHAE PACHECO MD Primary Care Physician Insurance Providers Guarantor Nayely Fine Address [address] [place] [address] Email [email or web address] Payer [facility] Policy Number [id number] Subscriber's Name Geronimo Fine Relationship Spouse Group Number [id number] Group Name NA Effective Date 16 Advance Directives Directive Response Recorded Date/Time Advance Directives No 07/17/15 6:19pm Directive to Physicians/Living Will No 07/17/15 6:19pm Health Care Proxy No 07/17/15 6:19pm Organ Donor No 07/17/15 6:19pm Medical Power of Electronic Commerce Specialist No 07/17/15 6:19pm Patient/Family Given Education Material R/T Directives? No 06/04/18 1:53pm Problems Medical Problem Onset Date Status 29 weeks gestation of Unknown 37 weeks gestation of Unknown Asthma with acute exacerbation in adult Unknown Bronchitis Unknown Cervicogenic headache Unknown Acute delivery delivered Unknown Chronic radicular low back pain Unknown Diarrhea Unknown Acute Endometriosis Unknown Acute LVH (left ventricular hypertrophy) Unknown Low back pain Unknown Macrosomia affecting management of mother Unknown Medication adverse effect Unknown Acute Nausea Unknown Acute Neck pain on right side Unknown Acute Pelvic pain Unknown Acute Pre-eclampsia Unknown Thoracic, thoracolumbar and lumbosacral intervertebral disc Unknown disorder UTI (urinary tract infection) Unknown Acute Past [...] Route Directions Days Qty Instructions Start Date Ibuprofen 1 Tab ORAL Every 6 Hours 30 Tablet (Motrin *) As Needed as 8 800 Mg Tab needed for Pain 1 Tab ORAL Daily 90 Tablet Multivit-Min W/Fe-Fa * ( *) Tab Salmeterol 1 Puff RESPIRATORY Twice A Day 1 Inh Xinafoate/Flu (INHALATION) for Asthma 8 ticasone (Advair Diskus *) 500 /50 Aer Past Home Medications Medication Directions Ordered Status [...] discharge instruction information available. Plan of Care Prescriptions See Medication Section Functional Status No functional status information available. Allergies, Adverse Reactions, Alerts Allergen Type Severity Reaction Status Last Updated Cefaclor ([id number]) Allergy Severe Active 02/27/17 Codeine ([id number]) Allergy Severe Active 02/27/17 Nalbuphine ([id number]) Allergy Severe Active 01/12/18 Cephalosporins (K4137716171) Allergy Severe Active 02/27/17 Sulfa Antibiotics ([id number]) Allergy Severe Active 02/27/17 Immunizations No immunization information available. Vital Signs No vital sign information available. Results No relevant diagnostic test, laboratory data and/or discharge summary information available. Procedures No procedure information available. Encounters Encounter Location Arrival/Admit Date Discharge/Depart Date Attending Provider Discharged [place] 06/04/18 1:54pm 06/21/18 11:59pm SHAE PACHECO [facility] Recent Diagnosis Thoracic, thoracolumbar and lumbosacral intervertebral disc disorder Low back pain Chronic radicular low back pain
--- OUTSIDE RECORDS SUMMARY | 2019-02-16 18:54 | XMS REPORT | Encounter Summary ---
:1975 Author Care Team Providers Name Role Phone Manuelito Cole MD Primary Care Provider [phone] Olivier Mcdowell Legal Director [phone] Reason for Visit Problem Visit Instructions 1. Menstrual period late beta-HCG, quantitative, serum or plasma test, urine Discussion Note: None recorded.Patient educational handouts: No information available. Plan of Care Reminders Provider Appointments Well Woman Olivier Mcdowell, Exam 01/05/2019 9:00AM Lab beta-HCG, [place] Quantitative, Serum or 12/04/2018 [facility] Plasma [place] (Lab) In-House Results Test, Urine 12/05/2018 Referral None recorded. Procedures None recorded. Surgeries None recorded. Imaging None recorded. Medications Name Start Date EpiPen 2-Des 0.3 mg/0.3 mL injection, auto-injector Take 1 auto every day by injection route. use as needed for acute allergic reaction Medications Administered None recorded. Vitals Height Weight BMI Blood Pressure 5 ft 8 in 276.1 lbs 42 kg/m2 144/77 mm[Hg] Lab Results Date Name Specimen Result Interpretation Description Value Range Status Address 12/04/2018 beta-HCG, Normal HCG <0.1 0-5 Final [place] Quantitative, Quantitative mIU/mL mIU/mL [facility] Serum or Plasma [facility] (Lab): [address] [facility] Test, negative In-House Urine Test Results: For Internal Use Only Allergies Code Code System Name Reaction Severity Status Onset Ceclor Vomiting Mild to Active Moderate 8430 RxNorm Codeine Hives Mild to Active Moderate [...] Active 08/25/2018 Gastroesophageal Reflux Disease Active 08/25/2018 Acute Pharyngitis Active 10/16/2018 Acute Upper Respiratory Infection Active 12/03/2018 Seasonal Allergic Rhinitis Active 12/03/2018 Hypercholesterolemia Active Encounter Obesity Active Encounter Migraine Active Encounter Papilledema - Optic Disc Edema Due to Active Encounter Raised Intracranial Pressure HPV - Human Papillomavirus Test Positive Active Encounter Procedures Date Name Performed by 06/24/2017 Delivery Information not available 01/23/2016 Appendectomy Information not available Remove Tonsils and Adenoids Information not available Breast Surgery Information not available Cholecystectomy Information not available ENT Surgery Information not available Laparoscopy Information not available Vaccine List Vaccine Type influenza, intradermal, quadrivalent, preservative free 02/25/20170.1 mL influenza, recombinant, quadrIvalent,injectable, preservative free 01/26/20180.5 mL Social History Tobacco Smoking Status Never Smoker Past Encounters 12/04/2018 Menstrual Period Late Olivier Mcdowell MD: [address], [place] [address], Ph. [phone] 12/03/2018 Acute Upper Respiratory Infection; Seasonal Allergic Rhinitis Manuelito Cole MD: [address], [place] [address], Ph. History of Present Illness Note: Problem visit. Menses now two weeks late. Usually has very regular menses q month. She is currently seeking . No nausea, breast tenderness, or "feeling ." Home testsnegative. 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 Reported By: Patient Constitutional: Constitutional: no fatigue, no fever, no significant weight gain, no significant weight loss Skin: Skin: no abnormal moles, no rashes Eyes: Eyes: no irritation, no vision changes ENMT: ENMT: no hearing loss, no ear pain, no nose/sinus problems, no sore throat, no snoring, no dry mouth, no mouth ulcers Respiratory: Respiratory: no dyspnea / shortness of breath, no cough, no sputum production, no hemoptysis, no wheezing Cardiovascular: Cardiovascular: no chest pain, no palpitations, no orthopnea Gastrointestinal: Gastrointestinal: no heartburn, no dysphagia, no nausea, no vomiting, no abdominal pain, no bowel movement changes, no diarrhea, no constipation, no rectal bleeding Genitourinary: Genitourinary: no hematuria, no abnormal bleeding, no flank pain, no trouble urinating, no incontinence, no rash, no lesion, no discharge, no vaginal odor, no vaginal itching Endocrine: Menstrual: no menstrual problems, no PMDD symptoms. Menopausal: no menopausal symptoms. Sexual: no sexual problems Musculoskeletal: Musculoskeletal: no muscle aches, no muscle weakness, no arthralgias/joint pain, no back pain Neurological: Neurologic: no headaches, no dizziness, no LOC, no weakness, no numbness, no seizures Psychological: Psych: no depression, no alcoholism, no sleep disturbances Physical Exam None recorded.
--- OUTSIDE RECORDS SUMMARY | 2019-02-16 18:54 | XMS REPORT | Encounter Summary ---
:1975 Author Care Team Providers Name Role Phone Manuelito Cole MD Primary Care Provider [phone] Olivier Mcdowell Inspector And Tester [phone] Reason for Visit sore throat Instructions 1. Acute pharyngitis sore throat: care instructions rapid strep group A, throat Zithromax Z-Des 250 mg tablet Discussion Note: None recorded. Plan of Care Reminders Provider Appointments None recorded. Lab Rapid Strep 10/16/2018 In-House Results Group a, Throat Referral None recorded. Procedures None recorded. Surgeries None recorded. Imaging None recorded. Medications Name Start Date Ciprodex 0.3 %-0.1 % ear drops,suspension EpiPen 2-Des 0.3 mg/0.3 mL injection, auto-injector Take 1 auto every day by injection route. use as needed for acute allergic reaction estradiol 1 mg tablet letrozole 2.5 mg tablet progesterone micronized 200 mg capsule Zithromax Z-Des 250 mg tablet TAKE 2 TABLETS (500 MG) BY ORAL ROUTE ONCE DAILY FOR 1 DAY THEN 1 TABLET (250 MG) BY ORAL ROUTE ONCE DAILY FOR 4 DAYS take for throat infection Medications Administered None recorded. Vitals Height Weight BMI Blood Pressure 68 in 277 lbs 42.1 kg/m2 120/85 mm[Hg] Lab Results None recorded. Allergies Code [...] Disease Active 08/25/2018 Acute Pharyngitis Active 10/16/2018 Hypercholesterolemia Active Encounter Obesity Active Encounter Migraine [...] Tobacco Smoking Status Never Smoker Past Encounters 10/16/2018 Acute Pharyngitis Manuelito Cole MD: [address] [place] [address], [address], [place] [address], Ph. History of Present Illness Note: CC sore throat and ache x 2 days<div>hpi has recurrent strep, no n/v no cough </div><div>ros gen above</div><div>cv neg& lt;/div><div>heent above</div><div>resp neg</div> Review of Systems: ROS as noted in [...] clear. Oropharynx: moist mucous membranes, no erythema, tonsils not enlarged, exudates Lungs: Auscultation: breath sounds normal, good air movement, CTA except as noted, no wheezing, no rales/crackles, no rhonchi Cardiovascular: Heart Auscultation: RRR, no rubs, no gallops
--- OUTSIDE RECORDS SUMMARY | 2019-02-16 18:54 | XMS REPORT | Encounter Summary ---
:1975 Author Care Team Providers Name Role Phone Manuelito Cole MD Primary Care Provider [phone] Olivier Mcdowell Drilling Field Operator [phone] Reason for Visit congestion; cough / wheezing Instructions 1. Acute upper respiratory infection upper respiratory infection (cold): care instructions 2. Seasonal allergic rhinitis seasonal allergies: care instructions dexamethasone 10 mg/mL injection solution Depo-Medrol 40 mg/mL suspension for injection Discussion Note: None recorded. Plan of Care Reminders Provider Appointments Well Woman 01/05/2019 Olivier Mcdowell MD Exam 9:00AM Lab None recorded. Referral None recorded. Procedures None recorded. Surgeries None recorded. Imaging None recorded. Medications Name Start Date EpiPen 2-Des 0.3 mg/0.3 mL injection, auto-injector Take 1 auto every day by injection route. use as needed for acute allergic reaction estradiol 1 mg tablet hydrocodone 5 mg-acetaminophen 325 mg tablet letrozole 2.5 mg tablet progesterone micronized 200 mg capsule Medications Administered None recorded. Vitals Height Weight BMI Blood Pressure 68 in 275 lbs 16 oz 42 kg/m2 116/90 mm[Hg] Lab Results None recorded. Allergies Code [...] Tobacco Smoking Status Never Smoker Past Encounters 12/03/2018 Acute Upper Respiratory Infection; Seasonal Allergic Rhinitis Manuelito Cole MD: [address] [place] [address], [address], [place] [address], Ph. History of Present Illness Note: CC cough and congestion<div>hpi pt has been sick off and on x 2 wks with head congestion and cough went to ED and w/up neg</div><div&gt ;ros</div><div>gen above</div><div>heent sore throat< /div><div>resp above</div>Review of Systems: ROS as noted in the HPI Review of Systems None recorded. Physical Exam Dr. Cole Brief Adult Exam - M/F Reported By: Patient Constitutional: General Appearance: healthy-appearing, well-nourished, well-developed. Level of Distress: NAD. Ambulation: ambulating normally Neck: Neck: supple, trachea midline, no masses, FROM. Lymph Nodes: no cervical LAD, no supraclavicular LAD Lungs: Auscultation: rhonchi; few ronchi
--- OUTSIDE RECORDS SUMMARY | 2019-02-16 18:54 | XMS REPORT | Encounter Summary ---
:1975 Author Care Team Providers Name Role Phone Manuelito Cole MD Primary Care Provider [phone] Olivier Mcdowell Payment Analyst [phone] Reason for Visit Well woman exam Instructions 1. Gynecologic examination pap test, thinprep, cervical urinalysis, dipstick 2. Family history of malignant neoplasm of breast in first degree relative 3. Screening for malignant neoplasm of breast unlisted imaging order - mammo bilateral screening 4. History of cardiomyopathy 5. Trying to conceive FSH (follicle-stimulating hormone), serum 6. Bacterial disease screening wet [place], vaginal Discussion Note Pap done. Schedule mammogram. Counseled regarding prevention of STD's and discussed contraceptive options. Advised avoidance of tobacco, alcohol, and drugs . Encouraged good nutrition, regular exercise, and ideal body weight. Patient educational handouts: No information available. Plan of Care Reminders Provider Appointments None recorded. Lab [place], In-House Results Vaginal 01/12/2019 Pap Test, [facility] Thinprep, Cervical 01/12/2019 [facility] (Lab) Urinalysis, In-House Results Dipstick 01/12/2019 [facility] (Follicle-stimulating 01/12/2019 [facility] (Labs) Hormone), Serum (Xray) Referral None recorded. Procedures None recorded. Surgeries None recorded. Imaging Unlisted [facility] Imaging Order 01/12/2019 [facility] (Imaging) Medications Name Start Date EpiPen 2-Des 0.3 mg/0.3 mL injection, auto-injector Take 1 auto every day by injection route. use as needed for acute allergic reaction Women's Multivitamin Medications Administered None recorded. Vitals Height Weight BMI Blood Pressure 5 ft 8 in 271.9 lbs 41.3 kg/m2 112/75 mm[Hg] Results Lab Results Date Name Specimen Result Interpretation Description Value Range Status Address 01/12/2019 Urinalysis, Leukocytes Negative In-House Dipstick Results: For Internal Use Only Nitrite negative In-House Results: For Internal Use Only Urobilinogen .2 In-House Results: For Internal Use Only Protein Negative In-House Results: For Internal Use Only Ph 6.0 In-House Results: For Internal Use Only Blood Negative In-House Results: For Internal Use Only Specific 1.020 In-House [place] Results: For Internal Use Only Ketone Negative In-House Results: For Internal Use Only Bilirubin Negative In-House Results: For Internal Use Only Glucose Negative In-House Results: For Internal Use Only Appearance Clear In-House Results: For Internal Use Only Color Yellow In-House Results: For Internal Use Only [place], Clue Cells negative In-House Vaginal Results: For Internal Use Only Wbcs negative In-House Results: For Internal Use Only Trichomonads negative In-House Results: For Internal Use Only Epithelial normal In-House Cells Results: For Internal Use Only Rbcs negative In-House Results: For Internal Use Only Allergies [...] Active 12/03/2018 Seasonal Allergic Rhinitis Active 12/03/2018 Family History of Malignant Neoplasm of Active 01/12/2019 Breast in First Degree Relative Hypercholesterolemia Active Encounter Obesity Active Encounter Migraine [...] Information not available Laparoscopy Information not available 01/12/2019 Unlisted Imaging Order [facility] (Imaging) [address] [place] [address] (Work Place) Vaccine List Vaccine Type influenza, intradermal, quadrivalent, preservative free 02/25/20170.1 mL influenza, recombinant, quadrIvalent,injectable, preservative free 01/26/20180.5 mL Social History Tobacco Smoking Status Never Smoker Past Encounters 01/12/2019 Gynecologic Examination; Family History of Malignant Neoplasm of Breast in First Degree Relative; Screening for Malignant Neoplasm of Breast; History of Cardiomyopathy; Trying to Conceive; Bacterial Disease Screening Olivier Mcdowell MD: [address] [place] [address] [address], [place] [address], Ph. [phone] History of Present Illness Note: Well woman visit. 43 y/o , trying to conceive for the past one year. She has regular cycles (had isolated prolonged cycle of 42 days October to November). Menses 4-5 days, heavy and painfulthe first two days. No irregular bleeding. She has h/o endometriosis. had severe UTI, possible testiculitis during patient's last . Pre-eclampsia and possible cardiomyopathy at 37 weeks last . Mother of breast cancer at age 49. 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 Mood and Affect: active and alert, normal mood, normal affect Skin: Appearance: no rashes, no lesions Neck: Neck: supple, trachea midline, no masses, FROM. Thyroid: no enlargement, no nodules, non-tender Lungs: Respiratory Effort: no intercostal retractions, no accessory muscle usage. Auscultation: clear to auscultation, no wheezing, no rales/crackles, no rhonchi Cardiovascular: Auscultation: RRR, no murmur. Peripheral Vascular: no LLE edema, no RLE edema, no varicosities, no calf tenderness, no palpable cords, pedal pulses intact Abdomen: Auscultation/Inspection/Palpation: soft, non-distended, no tenderness, no hepatomegaly, no splenomegaly, no masses. Hernia: none palpated Breast: Inspection/Palpation: no skin changes, no abnormal secretions, nipple appearance normal, no tenderness, no distinct masses Female Genitalia: Vulva: no masses, no atrophy, no lesions. Vagina: no tenderness, no erythema, no abnormal vaginal discharge, no vesicle(s) or ulcers, no cystocele, no rectocele. Cervix: grossly normal, no discharge, no cervical motion tenderness, sample taken for a Pap smear. Uterus: normal size, normal shape, midline, no uterine prolapse, mobile, non-tender. Bladder/Urethra: normal meatus, no urethral discharge, no urethral mass, bladder non distended. Adnexa/Parametria: no parametrial tenderness, no parametrial mass, no adnexal tenderness, no ovarian mass Lymph Nodes: Palpation: non tender submandibular nodes, non tender axillary nodes, non tender inguinal nodes Rectal Exam: Rectum: normal perianal skin, no hemorrhoids
--- OUTSIDE RECORDS SUMMARY | 2019-02-16 18:54 | XMS REPORT | Encounter Summary ---
:1975 Author Care Team Providers Name Role Phone Manuelito Cole MD Primary Care Provider [phone] Olivier Mcdowell Plastic Molder [phone] Reason for Visit congestion; cough / wheezing Instructions 1. Acute maxillary sinusitis sinusitis: care instructions Zithromax Z-Des 250 mg tablet Discussion Note: [...] use as needed for acute allergic reaction Zithromax Z-Des 250 mg tablet TAKE 2 TABLETS (500 MG) BY ORAL ROUTE ONCE DAILY FOR 1 DAY THEN 1 TABLET (250 MG) BY ORAL ROUTE ONCE DAILY FOR 4 DAYS take as directed for sinus infection Medications Administered None recorded. Vitals Height Weight BMI Blood Pressure 68 in 247 lbs 7 oz 37.6 kg/m2 122/73 mm[Hg] Lab Results Date Name Specimen Result Interpretation Description Value Range Status Address 12/04/2018 beta-HCG, Normal HCG <0.1 0-5 Final [place] Quantitative, Quantitative mIU/mL mIU/mL [facility] Serum or [facility] ([facility] [address] [facility] Test, negative In-House Urine Test Results: For [...] Tobacco Smoking Status Never Smoker Past Encounters 12/09/2018 Acute Maxillary Sinusitis Manuelito Cole MD: [address], [place] [address], Ph. [phone] 12/04/2018 Menstrual Period Late Olivier Mcdowell MD: [address], [place] [address], Ph. [phone] 12/03/2018 Acute Upper Respiratory Infection; Seasonal Allergic Rhinitis Manuelito Cole MD: [address], [place] [address], Ph. [phone] History of Present Illness Note: CC f/up to steroid shot <div>hpi now having sig sinus drainage and congestion </div><div>CC not </div><div>hpi had menses 2 wks late</div>Review of Systems: ROS as noted in the HPI Review of Systems None recorded. Physical Exam Dr. Cole Brief Adult Exam - M/F Reported By: Patient Constitutional: General Appearance: healthy-appearing, well-nourished, well-developed. Level of Distress: NAD. Ambulation: ambulating normally ENMT: Ears: no lesions on external ear, EACs clear, TMs clear, TM mobility normal. Nose: nares patent, nasal passages clear. Oropharynx: moist mucous membranes, no erythema, no exudates, tonsils not enlarged Lungs: Auscultation: breath sounds normal, good air movement, CTA except as noted, no wheezing, no rales/crackles, no rhonchi Cardiovascular: Heart Auscultation: RRR, no rubs, no gallops Notes: sig max sinus pressure
[2019-02-16] MEDS ORDERED: NA CHLORIDE 0.9% 1,000 ML ONE (19:47)
[2019-02-16] MEDS ORDERED: ONDANSETRON 4 MG/2 ML VIAL ONE (19:47)
[2019-02-16] MEDS ORDERED: MORPHINE 4 MG/ML SYR ONE (19:47)
[2019-02-16 20:00] LABS: Absolute Lymphocytes (CBC) 1.6 K/uL (0.7-4.9); Basophils % 0.5 % (0-1.3); Hematocrit 34.6 % (36.0-45.0); RBC Red Blood Cell Count 5.27 M/uL (3.86-4.86)
[2019-02-16 20:05] LABS: ALT/SGPT 27 U/L (12-78); AST/SGOT 19 U/L (15-37); Albumin 3.5 g/dL (3.4-5.0); Alkaline Phosphatase 68 U/L (45-117); BUN Blood Urea Nitrogen 12 mg/dL (7-18); Bicarbonate 27 mmol/L (21-32); Bilirubin Direct < 0.1 mg/dL (0-0.2); Bilirubin Total 0.4 mg/dL (0.2-1.0); Glucose Level 86 mg/dL (74-106); Lipase 112 U/L (73-393); Potassium 3.6 mmol/L (3.5-5.1); Protein, Total 7.7 g/dL (6.4-8.2); Sodium Level 137 mmol/L (136-145)
[2019-02-16 20:11] LABS: Urine Blood NEGATIVE (NEG); Urine Glucose NEGATIVE (NEG); Urine Protein NEGATIVE (NEG); Urine Specific Gravity 1.015 (1.005-1.030); Urine pH 5.5 (5.0-7.0)
[2019-02-16 20:18] LABS: Blood Morphology Comment NOTED (NOT SEEN); Hypochromasia 1+; Platelet Estimate ADEQ; Urine White Blood Cell Casts OK
--- NOTE | 2019-02-16 21:00 | RAD REPORT ---
EXAM DESCRIPTION: CT - Abdomen Pelvis W Contrast - 02/16/2019 8:39 pm CLINICAL HISTORY: vomiting;Abd pain COMPARISON: None. TECHNIQUE: Biphasic, helical CT imaging of the abdomen and pelvis was performed following 100 ml non -ionic IV contrast. No oral contrast. All CT scans are performed using dose optimization technique as appropriate and may include automated exposure control or mA/KV adjustment according to patient size. FINDINGS: No suspicious findings in the lung bases. The liver, spleen, and pancreas show no suspicious findings. Cholecystectomy clips are present. No bi liary tree dilatation. Symmetric renal function is seen with no hydronephrosis or suspicious renal mass. No pyelonephritis o r acute parenchymal process. Urinary bladder is mostly contracted. No acute findings seen. No adrenal abnormality seen. Multiple pelvic floor phleboliths are present. Uterus and right ovary show no susp icious findings. Left ovary contains a 3.4 centimeter cyst. No cyst rupture or hemorrhage findings. No gastric dilatation or wall thickening. No dilated large or small bowel. There are multiple fluid-f illed nondilated small bowel loops that may reflect a nonspecific enteritis. No evidence for appendic itis. There appear to be clips the tip of the cecum so the patient may be status post appendectomy No free air, free fluid or inflammatory stranding. No hernia, mass or bulky lymphadenopathy. No suspicious bony findings. IMPRESSION: Mildly prominent nondilated small bowel loops are present and may reflect a nonspecific gastroenteritis. No obstruction, free air or surgically emergent finding. A 3.4 centimeter left ovarian cyst is present. No evidence for cyst rupture or hemorrhage.
--- NOTE | 2019-02-16 21:23 | EDPHYS ---
Physician Documentation [facility] Name: Torri Fine Age: 43 yrs Sex: Female : 1975 Arrival Date: 02/16/2019 Time: 19:14 Bed 6 Private MD: ED Physician Wilmar Bass HPI: 02/16 19:32 This 43 yrs old Female presents to ER via Ambulatory with complaints of pkl Nausea/Vomiting. 19:32 The patient presents to the emergency department with nausea, vomiting. Onset: The pkl symptoms/episode began/occurred just prior to arrival, 1.5 hour(s) ago. Associated signs and symptoms: Pertinent positives: abdominal pain. 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 - Social history:: Smoking status: Patient/guardian denies using tobacco, Patient/guardian denies using alcohol, street drugs. - Ebola Screening: : Patient negative for fever greater than or equal to 101.5 degrees Fahrenheit, and additional compatible Ebola Virus Disease symptoms Patient denies exposure to infectious person Patient denies travel to an Ebola-affected area in the 21 days before illness onset. ROS: 19:32 Eyes: Negative for injury, pain, redness, and discharge, ENT: Negative for injury, pkl pain, and discharge, Neck: Negative for injury, pain, and swelling, Cardiovascular: Negative for chest pain, palpitations, and edema, Respiratory: Negative for shortness of breath, cough, wheezing, and pleuritic chest pain. 19:32 Abdomen/GI: Positive for abdominal pain, nausea and vomiting, of the epigastric area. 19:32 Back: Negative for acute changes. 19:32 : Negative for urinary symptoms. 19:32 MS/extremity: Negative for acute changes. 19:32 Skin: Negative for rash. 19:32 Neuro: Negative for altered mental status. Exam: 19:32 Head/Face: Normocephalic, atraumatic. Eyes: Pupils equal round and reactive to light, pkl extra-ocular motions intact. Lids and lashes normal. Conjunctiva and sclera are non-icteric and not injected. Cornea within normal limits. Periorbital areas with no swelling, redness, or edema. ENT: Nares patent. No nasal discharge, no septal abnormalities noted. Tympanic membranes are normal and external auditory canals are clear. Oropharynx with no redness, swelling, or masses, exudates, or evidence of obstruction, uvula midline. Mucous membranes moist. Neck: Trachea midline, no thyromegaly or masses palpated, and no cervical lymphadenopathy. Supple, full range of motion without nuchal rigidity, or vertebral point tenderness. No Meningismus. Chest/axilla: Normal chest wall appearance and motion. Nontender with no deformity. No lesions are appreciated. Cardiovascular: Regular rate and rhythm with a normal S1 and S2. No gallops, murmurs, or rubs. Normal PMI, no JVD. No pulse deficits. Respiratory: Lungs have equal breath sounds bilaterally, clear to auscultation and percussion. No rales, rhonchi or wheezes noted. No increased work of breathing, no retractions or nasal flaring. 19:32 Abdomen/GI: Bowel sounds: normal, Palpation: soft, moderate abdominal tenderness, in the epigastric area. 19:32 Back: Exam negative for acute changes. 19:32 : Exam negative for acute changes. 19:32 Musculoskeletal/extremity: Exam is negative for acute changes. 19:32 Skin: Exam negative for rash. 19:32 Neuro: Orientation: is normal, Mentation: is normal, Cranial nerves: grossly normal, Motor: is normal. Vital Signs: 19:22 BP 117 / 84; Pulse 73; Resp 16; Temp 98.0(O); Pulse Ox 100% on R/A; Weight 104.33 kg ao (R); Height 5 ft. 5 in. (165.10 cm) (R); Pain 7/10; 20:27 BP 113 / 72; Pulse 72; Resp 18; Pulse Ox 100% ; ao 19:22 Body Mass Index 38.27 (104.33 kg, 165.10 cm) ao MDM: 19:16 Patient medically screened. pkl 21:21 Data reviewed: vital signs, nurses notes, lab test result(s), radiologic studies, CT pkl scan. 02/16 19:31 Order name: Basic Metabolic Panel; Complete Time: 20:30 pkl 02/16 19:31 Order name: CBC with Diff; Complete Time: 20:30 pkl 02/16 19:31 Order name: Creatinine for Radiology; Complete Time: 20:05 pkl 02/16 19:31 Order name: Hepatic Function; Complete Time: 20:30 pkl 02/16 19:31 Order name: Lipase; Complete Time: 20:30 pkl 02/16 19:55 Order name: Urine Dipstick--Ancillary (enter results); Complete Time: 20:30 mw2 02/16 19:31 Order name: CT Abd/Pelvis - IV Contrast Only; Complete Time: 21:15 pkl 02/16 19:55 Order name: Urine --Ancillary (enter results); Complete Time: 20:30 mw2 02/16 20:18 Order name: CBC Smear Scan; Complete Time: 20:30 EDMS 02/16 19:31 Order name: IV Saline Lock; Complete Time: 19:44 pkl 02/16 19:31 Order name: Labs collected and sent; Complete Time: 19:44 pkl Administered Medications: 19:50 Drug: NS 0.9% 1000 ml Route: IV; Rate: 1000 ml; Site: right antecubital; ao 19:51 Drug: morphine 4 mg Route: IVP; Site: left antecubital; ao 20:13 Follow up: Response: No adverse reaction; Pain is decreased; RASS: Alert and Calm (0) ao 19:51 Drug: Zofran 4 mg Route: IVP; Site: right antecubital; ao 20:13 Follow up: Response: No adverse reaction ao 21:33 Drug: Phenergan 12.5 mg Route: IVP; Site: right antecubital; ao 21:43 Follow up: Response: No adverse reaction ao 21:33 Drug: GI Cocktail without - (Maalox Suspension 30 ml, Lidocaine Liquid 2 % 15 ao ml) Route: PO; 21:43 Follow up: Response: No adverse reaction ao Disposition: 02/16/19 21:23 Discharged to Home. Impression: Abdominal pain ( Epigastric ). - Condition is Stable. - Prescriptions for Protonix 40 mg Oral Tablet, Delayed Release (E.C.) - take 1 tablet by ORAL route once daily; 15 tablet. Zofran 4 mg Oral Tablet - take 1 tablet by ORAL route every 12 hours As needed; 6 tablet. - Work release form, Medication Reconciliation Form, Thank You Letter, Antibiotic Education, Prescription Opioid Use form. - Follow up: Private Physician; When: 2 - 3 days; Reason: Re-evaluation by your physician. - Problem is new. - Symptoms have improved. Signatures: Dispatcher [employer] EDNY Wilmar Bass MD MD pkl Mert Melgoza RN RN ao Corrections: (The following items were deleted from the chart) 21:43 21:23 02/16/2019 21:23 Discharged to Home. Impression: Abdominal pain ( Epigastric ). ao Condition is Stable. Forms are Medication Reconciliation Form, Thank You Letter, Antibiotic Education, Prescription Opioid Use. Follow up: Private Physician; When: 2 - 3 days; Reason: Re-evaluation by your physician. Problem is new. Symptoms have improved. pkl
--- NOTE | 2019-02-16 21:23 | ER ---
Nurse's Notes [facility] Name: Torri Fine Age: 43 yrs Sex: Female : 1975 Arrival Date: 02/16/2019 Time: 19:14 Bed 6 Private MD: Diagnosis: Abdominal pain ( Epigastric ) Presentation: 02/16 19:19 Presenting complaint: Patient states: Abdominal pain started today with vomiting 6 ao times within 1 1/2 hours. Pt points to the epigastric area. Pt denies fever, diarrhea. Transition of care: patient was not received from another setting of care. Onset of symptoms was February 16, 2019 at 17:00. 19:19 Method Of Arrival: Ambulatory ao 19:21 Risk Assessment: Do you want to hurt yourself or someone else? Patient reports no ao desire to harm self or others. Initial Sepsis Screen: Does the patient meet any 2 criteria? Temp <36.0*C (96.8*F)) or > 38.3*C (100.9*F). No. Patient's initial sepsis screen is negative. Does the patient have a suspected source of infection? No. Patient's initial sepsis screen is negative. Care prior to arrival: None. 19:21 Acuity: OLIVER 3 ao Triage Assessment: 19:26 General: Appears in no apparent distress. uncomfortable. GI: Reports upper abdominal ao pain. 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 - Social history:: Smoking status: Patient/guardian denies using tobacco, Patient/guardian denies using alcohol, street drugs. - Ebola Screening: : Patient negative for fever greater than or equal to 101.5 degrees Fahrenheit, and additional compatible Ebola Virus Disease symptoms Patient denies exposure to infectious person Patient denies travel to an Ebola-affected area in the 21 days before illness onset. Screenin:26 Abuse screen: Denies threats or abuse. Denies injuries from another. Nutritional ao screening: No deficits noted. Tuberculosis screening: No symptoms or risk factors identified. Fall Risk None identified. Assessment: 19:24 General: Appears in no apparent distress. uncomfortable, Behavior is calm, cooperative, ao appropriate for age. Pain: Complains of pain in epigastric area Pain does not radiate. Pain currently is 7 out of 10 on a pain scale. Neuro: Level of Consciousness is awake, alert, obeys commands, Oriented to person, place, time, situation, Appropriate for age Moves all extremities. Full function Speech is normal. Cardiovascular: Capillary refill < 3 seconds Patient's skin is warm and dry. Respiratory: Airway is patent Respiratory effort is even, unlabored, Respiratory pattern is regular, symmetrical. GI: Abdomen is round obese, Bowel sounds present X 4 quads. : No signs and/or symptoms were reported regarding the genitourinary system. EENT: No signs and/or symptoms were reported regarding the EENT system. Derm: Skin is intact, Skin temperature is warm. Musculoskeletal: Circulation, motion, and sensation intact. Range of motion:. 20:27 Reassessment: Patient appears in no apparent distress at this time. Patient and/or ao family updated on plan of care and expected duration. Pain level reassessed. Vital Signs: 19:22 BP 117 / 84; Pulse 73; Resp 16; Temp 98.0(O); Pulse Ox 100% on R/A; Weight 104.33 kg ao (R); Height 5 ft. 5 in. (165.10 cm) (R); Pain 7/10; 20:27 BP 113 / 72; Pulse 72; Resp 18; Pulse Ox 100% ; ao 19:22 Body Mass Index 38.27 (104.33 kg, 165.10 cm) ao ED Course: 19:14 Patient arrived in ED. cl3 19:16 Wilmar Bass MD is Attending Physician. pkl 19:19 Mert Melgoza, RN is Primary Nurse. ao 19:21 Triage completed. ao 19:23 Arm band placed on right wrist. Patient placed in an exam room, on a stretcher, on ao pulse oximetry, Patient notified of wait time. 19:26 Patient has correct armband on for positive identification. Pulse ox on. NIBP on. ao 19:33 Radiology exam delayed due to lab results not completed at this time. (BUN/Creatinine). vm2 19:44 Inserted saline lock: 20 gauge in right antecubital area, using aseptic technique. ao Blood collected. 19:46 Radiology exam delayed due to lab results not completed at this time. (BUN/Creatinine). vm2 20:40 CT completed. Patient tolerated procedure well. Patient moved to CT. Patient moved back ny from CT. 20:40 CT Abd/Pelvis - IV Contrast Only In Process Unspecified. EDMS 21:42 No provider procedures requiring assistance completed. IV discontinued, intact, ao bleeding controlled, No redness/swelling at site. Pressure dressing applied. Administered Medications: 19:50 Drug: NS 0.9% 1000 ml Route: IV; Rate: 1000 ml; Site: right antecubital; ao 19:51 Drug: morphine 4 mg Route: IVP; Site: left antecubital; ao 20:13 Follow up: Response: No adverse reaction; Pain is decreased; RASS: Alert and Calm (0) ao 19:51 Drug: Zofran 4 mg Route: IVP; Site: right antecubital; ao 20:13 Follow up: Response: No adverse reaction ao 21:33 Drug: Phenergan 12.5 mg Route: IVP; Site: right antecubital; ao 21:43 Follow up: Response: No adverse reaction ao 21:33 Drug: GI Cocktail without - (Maalox Suspension 30 ml, Lidocaine Liquid 2 % 15 ao ml) Route: PO; 21:43 Follow up: Response: No adverse reaction ao Outcome: 21:23 Discharge ordered by . chanelle 21:42 Discharged to home ambulatory. ao 21:42 Condition: stable 21:42 Discharge instructions given to patient, Instructed on discharge instructions, follow up and referral plans. Demonstrated understanding of instructions, follow-up care, medications, Prescriptions given X 2. 21:43 Patient left the ED. ao Signatures: Dispatcher [employer] EDMS Wilmar Bass MD MD pkl Ortiz, Alex RN RN Colin Garzon Victoria 2 Mohinder Jensen 3
[2019-02-16] MEDS ORDERED: MAGNE/ALUM HYDROXD 30 ML UCUP ONE (21:29)
[2019-02-16] MEDS ORDERED: PROMETHAZINE 25 MG/ML VIAL ONE (21:29)
[2019-02-16] MEDS ORDERED: LIDOCAINE VISCOUS 2% SOLN 15 ML UDC ONE (21:30)
[2019-02-16 23:47] VITALS: TEMP 98; O2SAT 100
[2019-02-16 23:48] VITALS: BP 113/72
== END 2019-02-16 21:43 | disposition home or self-care (01) ==
LOC: ER 18:50
DX: R10.13 Epigastric pain (principal); Z88.2 Allergy status to sulfonamides; Z88.5 Allergy status to narcotic agent; Z88.8 Allergy status to other drugs, medicaments and biological substances
CPT/HCPCS: 85025; 80048; 36415; 81025; 80076; 81003; 83690; 74177; 99284; Q9967; J2550; J7030; J2405

== ENCOUNTER 2019-02-18 09:20 | Emergency (ER) | payer BC ==
--- OUTSIDE RECORDS SUMMARY | 2019-02-18 09:21 | XMS REPORT ---
:1975 [facility] [facility] [address] [place] [id number] Care Team Providers Name Role Phone Unavailable Unavailable Unavailable Problems This patient has no known problems. Allergies, Adverse Reactions, Alerts This patient has no known allergies or adverse reactions. Medications This patient has no known medications.
[2019-02-18] MEDS ORDERED: ONDANSETRON 4 MG/2 ML VIAL ONE (09:53)
[2019-02-18] MEDS ORDERED: NA CHLORIDE 0.9% 1,000 ML ONE (09:53)
[2019-02-18] MEDS ORDERED: DICYCLOMINE HCL 10 MG CAP ONE (09:53)
[2019-02-18] MEDS ORDERED: MEPERIDINE HCL 25 MG/0.5 ML ONE (09:53)
[2019-02-18 10:39] LABS: Absolute Lymphocytes (CBC) 1.4 K/uL (0.7-4.9); Basophils % 0.7 % (0-1.3); Lymphocytes % 23.7 % (15.3-44.8); MPV 9.5 fL (7.6-11.3); RBC Red Blood Cell Count 5.32 M/uL (3.86-4.86)
[2019-02-18 11:46] LABS: Anisocytosis 1+; Blood Morphology Comment NOTED (NOT SEEN); Hypochromasia 1+; Platelet Estimate ADEQ; Urine White Blood Cell Casts OK
[2019-02-18 11:50] LABS: ALT/SGPT 36 U/L (12-78); AST/SGOT 20 U/L (15-37); Albumin 3.4 g/dL (3.4-5.0); Alkaline Phosphatase 67 U/L (45-117); BUN Blood Urea Nitrogen 13 mg/dL (7-18); Bicarbonate 25 mmol/L (21-32); Bilirubin Direct < 0.1 mg/dL (0-0.2); Bilirubin Total 0.4 mg/dL (0.2-1.0); Glucose Level 84 mg/dL (74-106); Lipase 104 U/L (73-393); Potassium 3.3 mmol/L (3.5-5.1); Protein, Total 7.8 g/dL (6.4-8.2); Sodium Level 138 mmol/L (136-145)
[2019-02-18] MEDS ORDERED: POTASSIUM CL SA 10 MEQ TAB PO ONE (11:59)
--- NOTE | 2019-02-18 12:01 | ER ---
Nurse's Notes [facility] Name: Torri Fnie Age: 43 yrs Sex: Female : 1975 Arrival Date: 02/18/2019 Time: 09:21 Bed 15 Private MD: Diagnosis: Diarrhea, unspecified;Gastroenteritis Presentation: 02/18 09:27 Presenting complaint: Patient states: She was here on Friday for the same complaint, rb1 CT was done but did not show anything. Transition of care: patient was not received from another setting of care. Onset of symptoms was February 16, 2019. Risk Assessment: Do you want to hurt yourself or someone else? Patient reports no desire to harm self or others. Initial Sepsis Screen: Does the patient meet any 2 criteria? No. Patient's initial sepsis screen is negative. Does the patient have a suspected source of infection? No. Patient's initial sepsis screen is negative. Care prior to arrival: None. 09: Method Of Arrival: Ambulatory rb1 : Acuity: OLIVER 3 rb1 Triage Assessment: : General: Appears in no apparent distress. comfortable, Behavior is calm, cooperative, rb1 Reports fever for 12-24 hours. Pain: Complains of pain in epigastric area, right upper quadrant and left upper quadrant Pain currently is 7 out of 10 on a pain scale. Pain began Friday. Neuro: Level of Consciousness is awake, alert, obeys commands, Oriented to person, place, time, situation. Cardiovascular: Capillary refill < 3 seconds is brisk in bilateral fingers. Respiratory: Airway is patent Respiratory effort is even, unlabored, Respiratory pattern is regular, symmetrical. GI: Reports diarrhea, nausea, vomiting. : No signs and/or symptoms were reported regarding the genitourinary system. Derm: Skin is pink, warm \T\ dry. 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 - Social history:: Smoking status: Patient/guardian denies using tobacco. - Ebola Screening: : Patient negative for fever greater than or equal to 101.5 degrees Fahrenheit, and additional compatible Ebola Virus Disease symptoms. Screenin:27 Abuse screen: Denies threats or abuse. Nutritional screening: Has had N/V for 3 or more rb1 days. Tuberculosis screening: No symptoms or risk factors identified. Fall Risk None identified. Assessment: 09:27 General: See triage assessment. rb1 09:27 GI: Bowel sounds present X 4 quads. Abd is soft. rb1 10:27 Reassessment: Patient appears in no apparent distress at this time. No changes from rb1 previously documented assessment. 11:25 Reassessment: Patient appears in no apparent distress at this time. Patient and/or rb1 family updated on plan of care and expected duration. Pain level reassessed. Patient is alert, oriented x 3, equal unlabored respirations, skin warm/dry/pink. Vital Signs: 09:27 BP 102 / 68; Pulse 86; Resp 20; Temp 98.0(O); Pulse Ox 100% on R/A; Weight 120.2 kg rb1 (R); Height 5 ft. 8 in. (172.72 cm) (R); Pain 7/10; 10:27 BP 98 / 68; Pulse 72; Resp 18; Pulse Ox 99% on R/A; rb1 11:25 BP 100 / 68; Pulse 85; Resp 16; Pulse Ox 99% on R/A; rb1 09:27 Body Mass Index 40.29 (120.20 kg, 172.72 cm) rb1 ED Course: 09:21 Patient arrived in ED. mr 09:27 Arm band placed on right wrist. rb1 09:27 Patient has correct armband on for positive identification. Bed in low position. Call rb1 light in reach. Side rails up X 1. Pulse ox on. NIBP on. Warm blanket given. 09:34 Ivan Flynn PA is PHCP. jr8 09:35 Jessee Hobbs MD is Attending Physician. jr8 09:35 Julianne Hand, CINDI is Primary Nurse. rb1 09:38 Triage completed. rb1 10:28 Inserted saline lock: 22 gauge in left antecubital area, using aseptic technique. Blood rb1 collected. 11:59 Ligia Jenkins MD is Referral Physician. jr8 12:09 No provider procedures requiring assistance completed. IV discontinued, intact, rb1 bleeding controlled, No redness/swelling at site. Pressure dressing applied. Administered Medications: 10:28 Drug: Zofran 4 mg Route: IVP; Site: left antecubital; rb1 10:43 Follow up: Response: No adverse reaction rb1 10: Drug: Bentyl 20 mg Route: PO; rb1 10:43 Follow up: Response: No adverse reaction rb1 10: Drug: Demerol 25 mg Route: IVP; Site: left antecubital; rb1 10:43 Follow up: Response: No adverse reaction; Pain is decreased rb1 10: Drug: NS 0.9% 1000 ml Route: IV; Rate: 1000 ml; Site: left antecubital; rb1 11:23 Follow up: IV Status: Completed infusion rb1 12:00 Drug: Potassium Chloride 40 mEq Route: PO; rb1 12:50 Follow up: Response: Medication administered at discharge. rb1 Output: 10:05 Stool: 1 (Loose Stool) ; Total: 0ml. rb1 Outcome: 12:01 Discharge ordered by jrMarylin 12:09 Patient left the ED. rb1 12:09 Discharged to home ambulatory. rb1 12:09 Condition: stable 12:09 Discharge instructions given to patient, Instructed on discharge instructions, follow up and referral plans. medication usage, Demonstrated understanding of instructions, follow-up care, medications, Prescriptions given X 4. Signatures: Aretha Wilkinson Josh, PA PA jr8 Julianne Hand, RN RN rb1
--- NOTE | 2019-02-18 12:02 | EDPHYS ---
Physician Documentation [facility] Name: Torri Fine Age: 43 yrs Sex: Female : 1975 Arrival Date: 02/18/2019 Time: 09:21 Bed 15 Private MD: ED Physician Jessee Hobbs HPI: 02/18 10:10 This 43 yrs old Female presents to ER via Ambulatory with complaints of jr8 Abdominal Pain, Nausea/Vomiting/Diarrhea. 10:10 The patient presents with abdominal pain in the upper abdomen. Onset: The jr8 symptoms/episode began/occurred gradually, 3 day(s) ago. The symptoms do not radiate. Associated signs and symptoms: Pertinent positives: nausea, vomiting, and diarrhea. The symptoms are described as crampy. Modifying factors: The symptoms are alleviated by nothing, the symptoms are aggravated by nothing. Severity of pain: At its worst the pain was moderate in the emergency department the pain is unchanged. The patient has not experienced similar symptoms in the past. The patient has been recently seen at the [facility] Emergency Department, this week, for similar complaints labs were performed, CT scan was performed, the patient was told to return for a recheck. Patient was evaluated 3 days ago for same complaint. Came back today for worsening of pain and feels dehydrated. Stated that she had near syncopal episode while in shower. Multiple episodes of large volume diarrhea. Had doxycycline about 2 weeks prior to this for bronchitis. No recent travel or sick contacts . 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 - Social history:: Smoking status: Patient/guardian denies using tobacco. - Ebola Screening: : Patient negative for fever greater than or equal to 101.5 degrees Fahrenheit, and additional compatible Ebola Virus Disease symptoms. ROS: 10:10 Constitutional: Negative for fever, chills, and weight loss. jr8 10:10 Abdomen/GI: Positive for abdominal pain, nausea, vomiting, and diarrhea, abdominal cramps, Negative for abdominal distension, anorexia, dysphagia, hematemesis, black/tarry stool, rectal pain, rectal bleeding, bowel incontinence, flatulence. 10:10 All other systems are negative. Exam: 10:10 Eyes: Pupils equal round and reactive to light, extra-ocular motions intact. Lids and jr8 lashes normal. Conjunctiva and sclera are non-icteric and not injected. Cornea within normal limits. Periorbital areas with no swelling, redness, or edema. ENT: Nares patent. No nasal discharge, no septal abnormalities noted. Tympanic membranes are normal and external auditory canals are clear. Oropharynx with no redness, swelling, or masses, exudates, or evidence of obstruction, uvula midline. Mucous membranes moist. Neck: Trachea midline, no thyromegaly or masses palpated, and no cervical lymphadenopathy. Supple, full range of motion without nuchal rigidity, or vertebral point tenderness. No Meningismus. Cardiovascular: Regular rate and rhythm with a normal S1 and S2. No gallops, murmurs, or rubs. Normal PMI, no JVD. No pulse deficits. Respiratory: Lungs have equal breath sounds bilaterally, clear to auscultation and percussion. No rales, rhonchi or wheezes noted. No increased work of breathing, no retractions or nasal flaring. Back: No spinal tenderness. No costovertebral tenderness. Full range of motion. Skin: Warm, dry with normal turgor. Normal color with no rashes, no lesions, and no evidence of cellulitis. MS/ Extremity: Pulses equal, no cyanosis. Neurovascular intact. Full, normal range of motion. Neuro: Awake and alert, GCS 15, oriented to person, place, time, and situation. Cranial nerves II-XII grossly intact. Motor strength 5/5 in all extremities. Sensory grossly intact. Cerebellar exam normal. Normal gait. 10:10 Abdomen/GI: Inspection: obese Bowel sounds: active, all quadrants, Palpation: soft, in all quadrants, moderate abdominal tenderness, in the right upper quadrant and left upper quadrant, mass, is not appreciated, rebound tenderness, is not appreciated, voluntary guarding, is not appreciated, involuntary guarding, is not appreciated, no appreciated organomegaly, Indicators: McBurney's point is not tender, Diallo's sign is negative, Rovsing's sign is negative, Liver: tenderness, is not appreciated. Vital Signs: 09:27 BP 102 / 68; Pulse 86; Resp 20; Temp 98.0(O); Pulse Ox 100% on R/A; Weight 120.2 kg rb1 (R); Height 5 ft. 8 in. (172.72 cm) (R); Pain 7/10; 10:27 BP 98 / 68; Pulse 72; Resp 18; Pulse Ox 99% on R/A; rb1 11:25 BP 100 / 68; Pulse 85; Resp 16; Pulse Ox 99% on R/A; rb1 09:27 Body Mass Index 40.29 (120.20 kg, 172.72 cm) rb1 MDM: 09:36 Patient medically screened. [facility] 11:51 Data reviewed: vital signs, nurses notes, lab test result(s), and as a result, I will jr8 discharge patient. Data interpreted: Pulse oximetry: on room air is 99 %. Interpretation: normal. 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 ED course: Patient improving. No acute guarding or rebound tenderness on abdominal exam. Labs not grossly different from 3 days ago. Recommend f/u with GI at this time. Stool cultures obtained and pending results. Return precautions given . 02/18 09:36 Order name: Basic Metabolic Panel [facility] 02/18 09:36 Order name: CBC with Diff [facility] 02/18 09:36 Order name: Creatinine for Radiology [facility] 02/18 09:36 Order name: Hepatic Function [facility] 02/18 09:36 Order name: Lipase [facility] 02/18 10:04 Order name: Occult Blood [facility] 02/18 10:04 Order name: Stool Culture [facility] 02/18 10:04 Order name: Ova And Parasites [facility] 02/18 10:04 Order name: Fecal Leukocyte Stain [facility] 02/18 10:04 Order name: CDIFF [facility] 02/18 10:42 Order name: CBC with Automated Diff; Complete Time: 11:50 EDMS 02/18 11:16 Order name: Creatinine (Radiology Only); Complete Time: 11:17 EDMS 02/18 11:46 Order name: CBC Smear Scan; Complete Time: 11:50 EDMS 02/18 11:50 Order name: Basic Metabolic Panel; Complete Time: 11:50 EDMS 02/18 09:36 Order name: IV Saline Lock; Complete Time: :33 jr8 02/18 09:36 Order name: Labs collected and sent; Complete Time: :33 jr8 02/18 09:46 Order name: Misc. Order: Need stool sample; Complete Time: : 8 02/18 11:50 Order name: Liver (Hepatic) Function; Complete Time: 11:50 EDMS 02/18 11:50 Order name: Lipase; Complete Time: 11:50 EDMS Administered Medications: 10:28 Drug: Zofran 4 mg Route: IVP; Site: left antecubital; rb1 10:43 Follow up: Response: No adverse reaction rb1 10:28 Drug: Bentyl 20 mg Route: PO; rb1 10:43 Follow up: Response: No adverse reaction rb1 10:28 Drug: Demerol 25 mg Route: IVP; Site: left antecubital; rb1 10:43 Follow up: Response: No adverse reaction; Pain is decreased rb1 10:28 Drug: NS 0.9% 1000 ml Route: IV; Rate: 1000 ml; Site: left antecubital; rb1 11:23 Follow up: IV Status: Completed infusion rb1 12:00 Drug: Potassium Chloride 40 mEq Route: PO; rb1 12:50 Follow up: Response: Medication administered at discharge. rb1 Disposition: 02/18/19 12:01 Discharged to Home. Impression: Diarrhea, unspecified, Gastroenteritis. - Condition is Stable. - Discharge Instructions: Diarrhea, Adult. - Prescriptions for Bentyl 20 mg Oral Tablet - take 1 tablet by ORAL route every 6 hours As needed; 20 tablet. Cipro 500 mg Oral Tablet - take 1 tablet by ORAL route every 12 hours for 10 days; 20 tablet. Flagyl 500 mg Oral Tablet - take 1 tablet by ORAL route every 6 hours for 10 days; 40 tablet. Zofran 4 mg Oral Tablet - take 1 tablet by ORAL route every 12 hours As needed; 20 tablet. - Medication Reconciliation Form, Thank You Letter, Antibiotic Education, Prescription Opioid Use form. - Follow up: Ligia Jenkins MD; When: 5 - 6 days; Reason: Recheck today's complaints, Continuance of care, Re-evaluation by your physician. - Problem is new. - Symptoms have improved. Addendum: 02/22/2019 10:36 Co-signature as Attending Physician, Jessee Hobbs MD I agree with the assessment and c martino plan of care. Signatures: Dispatcher [employer] EDAZ Jessee Hobbs MD MD cha Roszak, Josh, PA PA jr8 Julianne Hand, RN RN rb1 Corrections: (The following items were deleted from the chart) 02/18 12:09 12:01 02/18/2019 12:01 Discharged to Home. Impression: Diarrhea, unspecified; rb1 Gastroenteritis. Condition is Stable. Forms are Medication Reconciliation Form, Thank You Letter, Antibiotic Education, Prescription Opioid Use. Follow up: Ligia Jenkins; When: 5 - 6 days; Reason: Recheck today's complaints, Continuance of care, Re-evaluation by your physician. Problem is new. Symptoms have improved. jr8
[2019-02-18 12:24] VITALS: TEMP 98
[2019-02-18 12:25] VITALS: BP 98/68; O2SAT 99
[2019-02-18 14:09] LABS: C.diff Antigen/Toxin Ag neg : Tox neg (NEG : NEG)
== END 2019-02-18 12:09 | disposition home or self-care (01) ==
LOC: ER 09:20
DX: K52.9 Noninfective gastroenteritis and colitis, unspecified (principal); Z88.1 Allergy status to other antibiotic agents; Z88.2 Allergy status to sulfonamides; Z88.5 Allergy status to narcotic agent
CPT/HCPCS: 96361; 87045; 85025; 80048; 36415; 89055; 87177; 82274; 80076; 87046; 87209; 87324; 83690; 87449; 96375; 96374; 99284; J2175; J7030; J2405

== ENCOUNTER 2019-04-02 01:33 | Emergency (ER) | payer BC ==
--- OUTSIDE RECORDS SUMMARY | 2019-04-02 01:36 | XMS REPORT ---
:1975 [facility] Address [facility] [place] [address] [place] [id number] Care Team Providers Name Role Phone Unavailable Unavailable Unavailable Problems This patient has no known problems. Allergies, Adverse Reactions, Alerts This patient has no known allergies or adverse reactions. Medications This patient has no known medications.
[2019-04-02] MEDS ORDERED: ONDANSETRON 4 MG/2 ML VIAL ONE (02:11)
[2019-04-02] MEDS ORDERED: NA CHLORIDE 0.9% 1,000 ML ONE (02:11)
[2019-04-02] MEDS ORDERED: MORPHINE 4 MG/ML SYR ONE (02:13)
[2019-04-02] MEDS ORDERED: KETOROLAC 30 MG/ML INJ ONE (02:50)
[2019-04-02 02:57] LABS: ALT/SGPT 27 U/L (12-78); AST/SGOT 15 U/L (15-37); Albumin 3.3 g/dL (3.4-5.0); Alkaline Phosphatase 70 U/L (45-117); BUN Blood Urea Nitrogen 13 mg/dL (7-18); Bicarbonate 24 mmol/L (21-32); Bilirubin Direct < 0.1 mg/dL (0-0.2); Bilirubin Total 0.2 mg/dL (0.2-1.0); Glucose Level 112 mg/dL (74-106); Lipase 147 U/L (73-393); Potassium 3.9 mmol/L (3.5-5.1); Protein, Total 7.4 g/dL (6.4-8.2); Sodium Level 139 mmol/L (136-145)
[2019-04-02 02:59] LABS: Absolute Lymphocytes (CBC) 2.5 K/uL (0.7-4.9); Basophils % 1.1 % (0-1.3); Hematocrit 32.6 % (36.0-45.0); Lymphocytes % 26.4 % (15.3-44.8); RBC Red Blood Cell Count 4.98 M/uL (3.86-4.86)
[2019-04-02 03:30] LABS: Urine Blood 3+ (NEG); Urine Glucose NEGATIVE (NEG); Urine Protein 3+ (NEG); Urine Specific Gravity 1.025 (1.005-1.030)
[2019-04-02 03:31] LABS: Urine Bacteria 20-50 /HPF (<20); Urine Culture Reflex Order NOT NEEDED; Urine RBC >50 /HPF (NONE SEEN); Urine Urothelial Cells <5 /HPF (NONE SEEN)
--- NOTE | 2019-04-02 04:02 | ER ---
Nurse's Notes [facility] Name: Torri Fine Age: 43 yrs Sex: Female : 1975 Arrival Date: 04/02/2019 Time: 01:37 Bed 5 Private MD: Diagnosis: Urinary tract infection. Bilateral ovarian cysts Presentation: 04/02 01:55 Presenting complaint: Patient states: she woke up from sleeping with severe L low back aa1 pain and feeling the urge to urinate. States she thinks she may have a kidney stone. Transition of care: patient was not received from another setting of care. Onset of symptoms was April 02, 2019. Risk Assessment: Do you want to hurt yourself or someone else? Patient reports no desire to harm self or others. Initial Sepsis Screen: Does the patient meet any 2 criteria? HR > 90 bpm. Does the patient have a suspected source of infection? No. Patient's initial sepsis screen is negative. Care prior to arrival: None. 01:55 Method Of Arrival: Ambulatory aa1 01:55 Acuity: OLIVER 3 aa1 Triage Assessment: 01:58 General: Appears in no apparent distress. uncomfortable, Behavior is cooperative, aa1 appropriate for age, restless. 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 - Social history:: Smoking status: Patient/guardian denies using tobacco. - Ebola Screening: : No symptoms or risks identified at this time. Screenin:31 Abuse screen: Denies threats or abuse. Nutritional screening: No deficits noted. jd3 Tuberculosis screening: No symptoms or risk factors identified. Fall Risk IV access (20 points). Ambulatory Aid- None/Bed Rest/Nurse Assist (0 pts). Gait- Normal/Bed Rest/Wheelchair (0 pts) Mental Status- Oriented to own ability (0 pts). Total Abraham Fall Scale indicates No Risk (0-24 pts). Assessment: 02:00 General: Appears in no apparent distress. uncomfortable, Behavior is calm, cooperative, jd3 appropriate for age. 02:00 Pain: Complains of pain in left flank Quality of pain is described as sharp. Neuro: jd3 Level of Consciousness is awake, alert, obeys commands, Oriented to person, place, time, situation. Cardiovascular: Denies chest pain, Capillary refill < 3 seconds Patient's skin is warm and dry. Respiratory: Airway is patent Respiratory effort is even, unlabored, Respiratory pattern is regular, symmetrical, Denies cough, shortness of breath. GI: Reports nausea, Patient currently denies diarrhea, vomiting. : Reports pain in left flank(s), urgency. EENT: No signs and/or symptoms were reported regarding the EENT system. Derm: Skin is intact, Skin is dry, Skin is normal, Skin temperature is warm. Musculoskeletal: Circulation, motion, and sensation intact. Range of motion: intact in all extremities. 03:49 Reassessment: Patient appears in no apparent distress at this time. Patient and/or jd3 family updated on plan of care and expected duration. Pain level reassessed. Patient is alert, oriented x 3, equal unlabored respirations, skin warm/dry/pink. Patient states feeling better. 04:11 Reassessment: Patient appears in no apparent distress at this time. Patient and/or jd3 family updated on plan of care and expected duration. Pain level reassessed. Patient is alert, oriented x 3, equal unlabored respirations, skin warm/dry/pink. awaiting IV medication to infuse before discharge. Patient states feeling better. 05:17 Reassessment: Patient appears in no apparent distress at this time. Patient and/or jd3 family updated on plan of care and expected duration. Pain level reassessed. Patient is alert, oriented x 3, equal unlabored respirations, skin warm/dry/pink. pt reported understanding of discharge instructions. even and steady gait to front of ER. Patient states feeling better. Vital Signs: 01:58 BP 126 / 70; Pulse 91; Resp 20; Temp 99.1; Pulse Ox 100% on R/A; Weight 120.2 kg; aa1 Height 5 ft. 8 in. (172.72 cm); Pain 8/10; 03:49 Pulse 85; Resp 18 S; Pulse Ox 99% on R/A; jd3 04:11 BP 93 / 50; Pulse 88; Resp 18 S; Pulse Ox 100% on R/A; jd3 01:58 Body Mass Index 40.29 (120.20 kg, 172.72 cm) aa1 ED Course: 01:37 Patient arrived in ED. cl3 01:40 Wilmar Bass MD is Attending Physician. pkl 01:56 Lauri Amaro RN is Primary Nurse. jd3 01:57 Triage completed. aa1 01:58 Arm band placed on right wrist. aa1 02:30 Inserted saline lock: 20 gauge in right wrist, using aseptic technique. Blood collected.jd3 02:31 Patient has correct armband on for positive identification. Placed in gown. Bed in low jd3 position. Call light in reach. Side rails up X 1. 03:10 CT completed. Patient tolerated procedure well. Patient moved to CT via stretcher. Patient moved back from CT. 03:[address] In Process Unspecified. EDMS 05:18 No provider procedures requiring assistance completed. IV discontinued, intact, jd3 bleeding controlled, No redness/swelling at site. Pressure dressing applied. Administered Medications: 02:30 Drug: Zofran 4 mg Route: IVP; Site: right wrist; jd3 04:13 Follow up: Response: No adverse reaction jd3 02:31 Drug: NS 0.9% 1000 ml Route: IV; Rate: 1000 ml; Site: right wrist; jd3 03:30 Follow up: Response: No adverse reaction; IV Status: Completed infusion; IV Intake: jd3 1000ml 02:31 Drug: morphine 4 mg Route: IVP; Site: right wrist; jd3 03:30 Follow up: Response: No adverse reaction; RASS: Alert and Calm (0) jd3 02:51 Drug: TORadol 30 mg Route: IVP; Site: right wrist; jd3 03:50 Follow up: Response: No adverse reaction jd3 04:11 Drug: Cipro 400 mg Volume: 200 ml; Route: IVPB; Infused Over: 60 mins; Site: right jd3 wrist; 05:18 Follow up: Response: No adverse reaction; IV Status: Completed infusion jd3 Intake: 03:30 IV: 1000ml; Total: 1000ml. jd3 Outcome: 04:02 Discharge ordered by . chanelle 05:18 Discharged to home ambulatory, with family. jd3 05:18 Condition: stable 05:18 Discharge instructions given to patient, Instructed on discharge instructions, follow up and referral plans. medication usage, Demonstrated understanding of instructions, follow-up care, medications, Prescriptions given X 2. 05:19 Patient left the ED. jcaity Signatures: Dispatcher [employer] EDEvelyn Campos RN RN aa1 Wilmar Bass MD MD pkl Hagler, Ervin eh Davies, Jonathon, RN RN jd3 Mohinder Jensen cl3 Corrections: (The following items were deleted from the chart) 03:49 02:00 : Reports pain in left flank(s), angela miller
--- NOTE | 2019-04-02 04:03 | EDPHYS ---
Physician Documentation [facility] Name: Torri Fine Age: 43 yrs Sex: Female : 1975 Arrival Date: 04/02/2019 Time: 01:37 Bed 5 Private MD: ED Physician Wilmar Bass HPI: 04/02 02:04 This 43 yrs old Female presents to ER via Ambulatory with complaints of pkl Possible Kidney Stone. 02:04 The patient complains of pain in the left flank. The pain does not radiate. Onset: The pkl symptoms/episode began/occurred just prior to arrival, 1 hour(s) ago. Associated signs and symptoms: Pertinent positives: nausea. 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 - Social history:: Smoking status: Patient/guardian denies using tobacco. - Ebola Screening: : No symptoms or risks identified at this time. ROS: 02:04 Eyes: Negative for injury, pain, redness, and discharge, ENT: Negative for injury, pkl pain, and discharge, Neck: Negative for injury, pain, and swelling, Cardiovascular: Negative for chest pain, palpitations, and edema, Respiratory: Negative for shortness of breath, cough, wheezing, and pleuritic chest pain, Abdomen/GI: Negative for abdominal pain, nausea, vomiting, diarrhea, and constipation. 02:04 Back: Positive for flank pain, on the left. 02:04 : Positive for urinary symptoms, urgency . 02:04 MS/extremity: Negative for acute changes. 02:04 Skin: Negative for rash. 02:04 Neuro: Negative for altered mental status, loss of consciousness. Exam: 02:04 Head/Face: Normocephalic, atraumatic. Eyes: Pupils equal round and reactive to light, pkl extra-ocular motions intact. Lids and lashes normal. Conjunctiva and sclera are non-icteric and not injected. Cornea within normal limits. Periorbital areas with no swelling, redness, or edema. ENT: Nares patent. No nasal discharge, no septal abnormalities noted. Tympanic membranes are normal and external auditory canals are clear. Oropharynx with no redness, swelling, or masses, exudates, or evidence of obstruction, uvula midline. Mucous membranes moist. Neck: Trachea midline, no thyromegaly or masses palpated, and no cervical lymphadenopathy. Supple, full range of motion without nuchal rigidity, or vertebral point tenderness. No Meningismus. Chest/axilla: Normal chest wall appearance and motion. Nontender with no deformity. No lesions are appreciated. Cardiovascular: Regular rate and rhythm with a normal S1 and S2. No gallops, murmurs, or rubs. Normal PMI, no JVD. No pulse deficits. Respiratory: Lungs have equal breath sounds bilaterally, clear to auscultation and percussion. No rales, rhonchi or wheezes noted. No increased work of breathing, no retractions or nasal flaring. Abdomen/GI: Soft, non-tender, with normal bowel sounds. No distension or tympany. No guarding or rebound. No evidence of tenderness throughout. 02:04 Back: pain, that is moderate, of the left flank. 02:04 : Exam negative for acute changes. 02:04 Musculoskeletal/extremity: Exam is negative for acute changes. 02:04 Skin: Exam negative for rash. 02:04 Neuro: Orientation: is normal, Mentation: is normal, Cranial nerves: grossly normal, Motor: is normal. Vital Signs: 01:58 BP 126 / 70; Pulse 91; Resp 20; Temp 99.1; Pulse Ox 100% on R/A; Weight 120.2 kg; aa1 Height 5 ft. 8 in. (172.72 cm); Pain 8/10; 03:49 Pulse 85; Resp 18 S; Pulse Ox 99% on R/A; jd3 04:11 BP 93 / 50; Pulse 88; Resp 18 S; Pulse Ox 100% on R/A; jd3 01:58 Body Mass Index 40.29 (120.20 kg, 172.72 cm) aa1 MDM: 01:41 Patient medically screened. pkl 04:00 Data reviewed: vital signs, nurses notes, lab test result(s), radiologic studies, CT pkl scan. 04/02 01:52 Order name: Urine Culture 04/02 01:52 Order name: Urine Microscopic Only; Complete Time: 03:51 04/02 01:55 Order name: Basic Metabolic Panel; Complete Time: 03:24 04/02 01:55 Order name: CBC with Diff 04/02 01:55 Order name: Creatinine for Radiology; Complete Time: 03:24 04/02 01:55 Order name: Hepatic Function; Complete Time: 03:24 04/02 01:55 Order name: Lipase; Complete Time: 03:24 04/02 01:55 Order name: Stone Protocol CT 04/02 02:13 Order name: Urine Dipstick--Ancillary (enter results); Complete Time: 03:51 04/02 02:13 Order name: Urine --Ancillary (enter results); Complete Time: 03:51 04/02 01:55 Order name: IV Saline Lock; Complete Time: 02:27 04/02 01:55 Order name: Labs collected and sent; Complete Time: 02:27 aa Administered Medications: 02:30 Drug: Zofran 4 mg Route: IVP; Site: right wrist; jd3 04:13 Follow up: Response: No adverse reaction jd3 02:31 Drug: NS 0.9% 1000 ml Route: IV; Rate: 1000 ml; Site: right wrist; jd3 03:30 Follow up: Response: No adverse reaction; IV Status: Completed infusion; IV Intake: jd3 1000ml 02:31 Drug: morphine 4 mg Route: IVP; Site: right wrist; jd3 03:30 Follow up: Response: No adverse reaction; RASS: Alert and Calm (0) jd3 02:51 Drug: TORadol 30 mg Route: IVP; Site: right wrist; jd3 03:50 Follow up: Response: No adverse reaction jd3 04:11 Drug: Cipro 400 mg Volume: 200 ml; Route: IVPB; Infused Over: 60 mins; Site: right jd3 wrist; 05:18 Follow up: Response: No adverse reaction; IV Status: Completed infusion jd3 Disposition: 04/02/19 04:02 Discharged to Home. Impression: Urinary tract infection. Bilateral ovarian cysts. - Condition is Stable. - Prescriptions for Ultram 50 mg Oral Tablet - take 1 tablet by ORAL route every 8 hours As needed; 15 tablet. Cipro 500 mg Oral Tablet - take 1 tablet by ORAL route 2 times per day for 7 days; 14 tablet. - Medication Reconciliation Form, Thank You Letter, Antibiotic Education, Prescription Opioid Use form. - Follow up: Private Physician; When: 2 - 3 days; Reason: Re-evaluation by your physician. - Problem is new. - Symptoms have improved. Signatures: Dispatcher [employer] EDEvelyn Campos RN RN aa1 Wilmar Bass MD MD pkl Lauri Amaro RN RN jd3 Corrections: (The following items were deleted from the chart) 05:19 04:02 04/02/2019 04:02 Discharged to Home. Impression: Urinary tract infection. jd3 Bilateral ovarian cysts. Condition is Stable. Forms are Medication Reconciliation Form, Thank You Letter, Antibiotic Education, Prescription Opioid Use. Follow up: Private Physician; When: 2 - 3 days; Reason: Re-evaluation by your physician. Problem is new. Symptoms have improved. pkl
[2019-04-02] MEDS ORDERED: CIPROFLOXACIN 400mg IV 400 MG/200 ML BAG IV ONE (04:09)
[2019-04-02 05:32] VITALS: TEMP 99.1
[2019-04-02 05:34] VITALS: BP 93/50; O2SAT 100
[2019-04-02 07:02] LABS: Anisocytosis 1+; Blood Morphology Comment NOTED (NOT SEEN); Hypochromasia 1+; Platelet Estimate ADEQ; Platelets, Giant FEW PRESENT; Urine White Blood Cell Casts OK
--- NOTE | 2019-04-02 12:44 | RAD REPORT ---
EXAM DESCRIPTION: CT - Stone Protocol - 04/02/2019 3:59 am CLINICAL HISTORY: The patient is 43 years old and is Female; FLANK PAIN TECHNIQUE: Axial computed tomography images of the abdomen and pelvis without intravenous contrast. Sagittal and coronal reformatted images were created and reviewed. This CT exam was performed usi ng one or more of the following dose reduction techniques: automated exposure control, adjustment o f the mA and/or kV according to patient size, and/or use of iterative reconstruction technique. DLP: 1517 mGy*cm COMPARISON: CT abdomen and pelvis with IV contrast dated February 16, 2019. FINDINGS: LUNG BASES: Lung bases are clear. HEART: Visualized heart is normal. ABDOMEN: LIVER: Unremarkable. GALLBLADDER AND BILE DUCTS: Prior cholecystectomy. No ductal dilation. PANCREAS: Unremarkable. No ductal dilation. SPLEEN: Multiple splenic granulomas. ADRENALS: Unremarkable. No mass. KIDNEYS AND URETERS: Unremarkable. No obstructing stones. No hydronephrosis. STOMACH AND BOWEL: Unremarkable. No obstruction. No mucosal thickening. PELVIS: APPENDIX: Prior appendectomy. BLADDER: Bladder is decompressed. No stones. REPRODUCTIVE: Bilateral ovarian cysts measuring up to 3.6 cm on the left. ABDOMEN and PELVIS: INTRAPERITONEAL SPACE: Unremarkable. No free air. No significant fluid collection. BONES/JOINTS: No acute fracture. No dislocation. SOFT TISSUES: Unremarkable. VASCULATURE: Multiple pelvic phleboliths. No abdominal aortic aneurysm. LYMPH NODES: Unremarkable. No enlarged lymph nodes. IMPRESSION: 1. No acute abdominal or pelvic abnormality. 2. Bilateral ovarian cysts measuring up to 3.6 cm on the left. Recommend follow-up pelvic US in 6-1 2 weeks. Reference: J Am Tin Radiol 2013;10:675-681. 3. Continued splenic evidence of prior or granulomatous disease. Electronically signed by: Sathish Lopez DO 04/02/2019 3:25 AM RURAL MAIL CARRIER Due to temporary technical issues with the PACS/Fluency reporting system, reports are being signed by the in house radiologist as a courtesy to ensure prompt reporting. The interpreting radiologist is lilly kennedy responsible for the content of the report.
== END 2019-04-02 05:19 | disposition home or self-care (01) ==
LOC: ER 01:33
DX: N39.0 Urinary tract infection, site not specified (principal); N83.202 Unspecified ovarian cyst, left side; N83.201 Unspecified ovarian cyst, right side; R11.0 Nausea; Z88.1 Allergy status to other antibiotic agents; Z88.2 Allergy status to sulfonamides; Z88.5 Allergy status to narcotic agent
CPT/HCPCS: 96365; 96361; 87088; 85025; 87086; 80048; 36415; 81025; 80076; 83690; 76377; 74176; 96375; 99284; J7030; J2405; J0744; 81003; 81015

== ENCOUNTER 2019-04-05 07:49 | Emergency (ER) | payer BC ==
--- OUTSIDE RECORDS SUMMARY | 2019-04-05 07:50 | XMS REPORT ---
:1975 [facility] [facility] [address] [place] [address] Care Team Providers Name Role Phone Unavailable Unavailable Unavailable Problems This patient has no known problems. Allergies, Adverse Reactions, Alerts This patient has no known allergies or adverse reactions. Medications This patient has no known medications.
[2019-04-05 08:40] LABS: Urine Blood NEGATIVE (NEG); Urine Glucose NEGATIVE (NEG); Urine Protein NEGATIVE (NEG); Urine Specific Gravity >1.030 (1.005-1.030)
[2019-04-05 08:40] LABS: Urine Bacteria <20 /HPF (<20); Urine Culture Reflex Order NOT NEEDED; Urine RBC <5 /HPF (NONE SEEN)
--- NOTE | 2019-04-05 08:42 | EDPHYS ---
Physician Documentation [facility] Name: Torri Fine Age: 43 yrs Sex: Female : 1975 Arrival Date: 04/05/2019 Time: 07:51 Bed 14 Private MD: ED Physician Geo Hughes HPI: 04/05 10:17 This 43 yrs old Female presents to ER via Ambulatory with complaints of Low snw Back Pain, Urinary Problem. 10:17 The patient presents with pain continued lower abd/back pressure with dysuria, taking snw Cipro. W/u in ED a few days ago. No culture info available. Will add abx and have pt continue current abx therapy. 10:19 The patient presents with urinary symptoms, dysuria, frequency. Onset: The snw symptoms/episode began/occurred gradually, 1 week(s) ago, and became persistent. Associated signs and symptoms: The patient has no apparent associated signs or symptoms. Severity of symptoms: At their worst the symptoms were moderate. The patient has experienced similar episodes in the past. The patient has been recently seen at the [facility] Emergency Department, this week, for similar complaints labs were performed, CT scan was performed, was given a prescription for antibiotics, was given a prescription for pain medications. Pt understands and agrees with plan of care. 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 - Social history:: Smoking status: Patient/guardian denies using tobacco. - Ebola Screening: : Patient negative for fever greater than or equal to 101.5 degrees Fahrenheit, and additional compatible Ebola Virus Disease symptoms Patient denies exposure to infectious person Patient denies travel to an Ebola-affected area in the 21 days before illness onset No symptoms or risks identified at this time. ROS: 10:16 Constitutional: Negative for fever, chills, and weight loss, Eyes: Negative for injury, snw pain, redness, and discharge, ENT: Negative for injury, pain, and discharge, Neck: Negative for injury, pain, and swelling, Cardiovascular: Negative for chest pain, palpitations, and edema, Respiratory: Negative for shortness of breath, cough, wheezing, and pleuritic chest pain, Abdomen/GI: Negative for abdominal pain, nausea, vomiting, diarrhea, and constipation, Back: Negative for injury and pain, MS/Extremity: Negative for injury and deformity, Skin: Negative for injury, rash, and discoloration, Neuro: Negative for headache, weakness, numbness, tingling, and seizure, Psych: Negative for depression, anxiety, suicide ideation, homicidal ideation, and hallucinations. 10:16 : Positive for urinary symptoms, burning with urination, lower abdominal pressure, small, frequent voids. Exam: 10:16 Constitutional: This is a well developed, well nourished patient who is awake, alert, snw and in no acute distress. Head/Face: Normocephalic, atraumatic. Eyes: Pupils equal round and reactive to light, extra-ocular motions intact. Lids and lashes normal. Conjunctiva and sclera are non-icteric and not injected. Cornea within normal limits. Periorbital areas with no swelling, redness, or edema. ENT: Nares patent. No nasal discharge, no septal abnormalities noted. Tympanic membranes are normal and external auditory canals are clear. Oropharynx with no redness, swelling, or masses, exudates, or evidence of obstruction, uvula midline. Mucous membranes moist. Neck: Trachea midline, no thyromegaly or masses palpated, and no cervical lymphadenopathy. Supple, full range of motion without nuchal rigidity, or vertebral point tenderness. No Meningismus. Chest/axilla: Normal chest wall appearance and motion. Nontender with no deformity. No lesions are appreciated. Cardiovascular: Regular rate and rhythm with a normal S1 and S2. No gallops, murmurs, or rubs. Normal PMI, no JVD. No pulse deficits. Respiratory: Lungs have equal breath sounds bilaterally, clear to auscultation and percussion. No rales, rhonchi or wheezes noted. No increased work of breathing, no retractions or nasal flaring. Abdomen/GI: Soft, non-tender, with normal bowel sounds. No distension or tympany. No guarding or rebound. No evidence of tenderness throughout. Back: No spinal tenderness. No costovertebral tenderness. Full range of motion. Skin: Warm, dry with normal turgor. Normal color with no rashes, no lesions, and no evidence of cellulitis. MS/ Extremity: Pulses equal, no cyanosis. Neurovascular intact. Full, normal range of motion. Neuro: Awake and alert, GCS 15, oriented to person, place, time, and situation. Cranial nerves II-XII grossly intact. Motor strength 5/5 in all extremities. Sensory grossly intact. Cerebellar exam normal. Normal gait. Psych: Awake, alert, with orientation to person, place and time. Behavior, mood, and affect are within normal limits. Vital Signs: 08:00 BP 118 / 55; Pulse 89; Resp 16; Temp 97.9; Pulse Ox 99% on R/A; Weight 120.2 kg; Height iw 5 ft. 8 in. (172.72 cm); Pain 6/10; 08:00 Body Mass Index 40.29 (120.20 kg, 172.72 cm) iw MDM: 08:18 Patient medically screened. snw 08:45 Data reviewed: vital signs, nurses notes. Data interpreted: Pulse oximetry: on room air snw is 99 %. Interpretation: normal. Counseling: I had a detailed discussion with the patient and/or guardian regarding: the historical points, exam findings, and any diagnostic results supporting the discharge/admit diagnosis, lab results, the need for outpatient follow up, to return to the emergency department if symptoms worsen or persist or if there are any questions or concerns that arise at home. Special discussion: Based on the history and exam findings, there is no indication for further emergent testing or inpatient evaluation. I discussed with the patient/guardian the need to see the primary care provider for further evaluation of the symptoms. I discussed with the patient/guardian the need to see the urologist for further evaluation of the symptoms. 04/05 08:20 Order name: Urine Culture snw 04/05 08:20 Order name: Urine Microscopic Only; Complete Time: 08:45 snw 04/05 08:37 Order name: Urine Dipstick--Ancillary (enter results); Complete Time: 08:40 bd 04/05 08:37 Order name: Urine --Ancillary (enter results); Complete Time: 08:40 bd 04/05 08:20 Order name: Urine Dipstick-Ancillary (obtain specimen); Complete Time: 08:20 snw Administered Medications: 08:51 Drug: Macrobid 100 mg Route: PO; jl7 09:11 Follow up: Response: No adverse reaction jl7 08:52 Drug: TORadol 30 mg Route: IM; Site: left deltoid; jl7 09:10 Follow up: Response: No adverse reaction jl7 Disposition: 17:20 Co-signature as Attending Physician, Geo Hughes MD. rn Disposition: 04/05/19 08:41 Discharged to Home. Impression: Urinary tract infection, site not specified, Other and unspecified ovarian cysts. - Condition is Stable. - Discharge Instructions: Dysuria, Urinary Tract Infection, Adult, Dietary Guidelines to Help Prevent Kidney Stones, Rehydration, Adult. - Prescriptions for Macrobid 100 mg Oral Capsule - take 1 capsule by ORAL route every 12 hours for 10 days; 20 capsule. Diclofenac Sodium 75 mg Oral Tablet Sustained Release - take 1 tablet by ORAL route 2 times per day; 30 tablet. - Work release form, Medication Reconciliation Form, Thank You Letter, Antibiotic Education, Prescription Opioid Use form. - Follow up: Emergency Department; When: As needed; Reason: Worsening of condition. Follow up: Private Physician; When: 2 - 3 days; Reason: Recheck today's complaints, Continuance of care, Re-evaluation by your physician. Signatures: Dispatcher [employer] EDMS Ольга Franks, AKASH-C CORPORATE LAW SPECIALIST-Csnw Veronica Rose RN RN iw Nieto, Roman, MD MD rn Leal, Jahala, RN RN jl7 Corrections: (The following items were deleted from the chart) 09:11 08:41 04/05/2019 08:41 Discharged to Home. Impression: Urinary tract infection, site jl7 not specified; Other and unspecified ovarian cysts. Condition is Stable. Forms are Medication Reconciliation Form, Thank You Letter, Antibiotic Education, Prescription Opioid Use. Follow up: Emergency Department; When: As needed; Reason: Worsening of condition. Follow up: Private Physician; When: 2 - 3 days; Reason: Recheck today's complaints, Continuance of care, Re-evaluation by your physician. snw
--- NOTE | 2019-04-05 08:42 | ER ---
Nurse's Notes [facility] Name: Torri Fine Age: 43 yrs Sex: Female : 1975 Arrival Date: 04/05/2019 Time: 07:51 Bed 14 Private MD: Diagnosis: Urinary tract infection, site not specified;Other and unspecified ovarian cysts Presentation: 04/05 07:57 Presenting complaint: Patient states: 2 days ago had urinary frequency, blood in urine, iw and flank pain, felt like a kidney stone, was seen here and was put on cipro, still having left flank pain, blood in urine, only urinating small amount. Transition of care: patient was not received from another setting of care. Onset of symptoms was April 03, 2019. Risk Assessment: Do you want to hurt yourself or someone else? Patient reports no desire to harm self or others. Initial Sepsis Screen: Does the patient meet any 2 criteria? No. Patient's initial sepsis screen is negative. Does the patient have a suspected source of infection? No. Patient's initial sepsis screen is negative. Care prior to arrival: None. 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 - Social history:: Smoking status: Patient/guardian denies using tobacco. - Ebola Screening: : Patient negative for fever greater than or equal to 101.5 degrees Fahrenheit, and additional compatible Ebola Virus Disease symptoms Patient denies exposure to infectious person Patient denies travel to an Ebola-affected area in the 21 days before illness onset No symptoms or risks identified at this time. Screenin:15 Abuse screen: Denies threats or abuse. Denies injuries from another. Nutritional jl7 screening: No deficits noted. Tuberculosis screening: No symptoms or risk factors identified. Fall Risk None identified. Assessment: 08:15 General: Appears in no apparent distress. uncomfortable, Behavior is calm, cooperative, jl7 appropriate for age. Pain: Complains of pain in left flank Pain currently is 8 out of 10 on a pain scale. Quality of pain is described as sharp, Pain began 2-3 days ago. Is continuous. Neuro: Level of Consciousness is awake, alert, obeys commands, Oriented to person, place, time, situation. Cardiovascular: Patient's skin is warm and dry. Respiratory: Airway is patent Respiratory effort is even, unlabored, Respiratory pattern is regular, symmetrical. : Reports pain in left flank(s), urinary frequency. Derm: Skin is pink, warm \T\ dry. Vital Signs: 08:00 BP 118 / 55; Pulse 89; Resp 16; Temp 97.9; Pulse Ox 99% on R/A; Weight 120.2 kg; Height iw 5 ft. 8 in. (172.72 cm); Pain 6/10; 08:00 Body Mass Index 40.29 (120.20 kg, 172.72 cm) iw ED Course: 07:51 Patient arrived in ED. rg4 07:59 Triage completed. iw 08:00 Arm band placed on. iw 08:02 Vadim Martin, RN is Primary Nurse. jl7 08:15 Patient has correct armband on for positive identification. Bed in low position. Call jl7 light in reach. Pulse ox on. NIBP on. 08:15 Urine collected: clean catch specimen. dh3 08:16 Ольга Franks [facility]-C [facility] snw 08:16 Geo Hughes MD is Attending Physician. snw 08:55 No provider procedures requiring assistance completed. Patient did not have IV access jl7 during this emergency room visit. Administered Medications: 08:51 Drug: Macrobid 100 mg Route: PO; jl7 09:11 Follow up: Response: No adverse reaction jl7 08:52 Drug: TORadol 30 mg Route: IM; Site: left deltoid; jl7 09:10 Follow up: Response: No adverse reaction jl7 Outcome: 08:41 Discharge ordered by . snw 09:11 Discharged to home ambulatory. jl7 09:11 Condition: stable 09:11 Discharge instructions given to patient, family, Instructed on discharge instructions, follow up and referral plans. medication usage, Demonstrated understanding of instructions, follow-up care, medications, Prescriptions given X 2. 09:11 Patient left the ED. jl7 Signatures: Ольга Franks, SIZE WORKER-C SIZE WORKER-Csnw Veronica Rose, RN Kiya Jaramillo rg4 Vadim Martin RN RN jl7 Jo Desai 3
[2019-04-05] MEDS ORDERED: KETOROLAC 30 MG/ML INJ ONE (08:49)
[2019-04-05] MEDS ORDERED: NITROFURAN MACRO 100 MG CAP PO ONE (08:49)
[2019-04-05 09:18] VITALS: BP 118/55; TEMP 97.9; O2SAT 99
== END 2019-04-05 09:11 | disposition home or self-care (01) ==
LOC: ER 07:49
DX: N39.0 Urinary tract infection, site not specified (principal); N83.209 Unspecified ovarian cyst, unspecified side; Z88.6 Allergy status to analgesic agent; Z88.2 Allergy status to sulfonamides; Z88.1 Allergy status to other antibiotic agents
CPT/HCPCS: 81003; 81015; 81025; 87086; 87088; 96372; 99284

== ENCOUNTER 2019-07-10 18:25 | Emergency (ER) | payer BC ==
--- OUTSIDE RECORDS SUMMARY | 2019-07-10 18:27 | XMS REPORT ---
:1975 Author Organization [facility] t Address [address] [facility] [address] [place] [address] Care Team Providers Name Role Phone Unavailable Unavailable Unavailable Problems This patient has no known problems. Allergies, Adverse Reactions, Alerts This patient has no known allergies or adverse reactions. Medications This patient has no known medications.
--- OUTSIDE RECORDS SUMMARY | 2019-07-10 18:30 | XMS REPORT | Encounter Summary ---
:1975 Author Care Team Providers Name Role Phone Manuelito Cole MD Primary Care Provider [phone] Olivier Mcdowell Construction Equipment Mechanic Helper [phone] Reason for Visit Problem Visit Instructions 1. Low back pain urinalysis, dipstick 2. Acute cystitis 3. Cyst of right ovary US, transvaginal 4. Cyst of left ovary Discussion Note At least 15 min. of face to face ti me with the patient, >50% spent on counseling. Patient educational handouts: No information available. Plan of Care Reminders Provider Appointments None recorded. Lab Urinalysis, In-Ho use Results Dipstick 04/05/2019 Referral None recorded. Procedures None recorded. Surgeries None recorded. Imaging US, In-House Re sults Transvaginal 04/05/2019 Medications Name Start Date Advair HFA 45 mcg-21 mcg/actuation aerosol inhaler amoxicillin 875 mg-potassium clavulanate 125 mg tablet ciyjomekhvyijuz-olojexgojuhnxot-MX 2 mg-30 mg-10 mg/5 mL oral syrup ciprofloxacin 500 mg tablet diclofenac sodium 75 mg tablet,delayed release doxycycline hyclate 100 mg tablet EpiPen 2-Des 0.3 mg/0.3 mL injection, auto-injector Take 1 auto every day by injection route. use as needed for acute allergic reaction letrozole 2.5 mg tablet nitrofurantoin monohydrate/macrocrystals 100 mg capsul e prednisone 20 mg tablet tramadol 50 mg tablet Women's Multivitamin Medications Administered None recorded. Vitals Height Weight BMI Blood Pressure 5 ft 8 in 137.1 lbs 20.8 kg/m2 109/74 mm[Hg] Results Lab Results Date Name Specimen Result Interpretation Description Value Range Status Address 04/05/2019 Urinalysis, Leukocytes Negative In-House Dipstick Results: For Internal Use Only Nitrite negative In-Leni se Results: For Internal Use Only Urobilinogen .2 In- House Results: For Internal Use Only Protein Trace In-House Results: For Internal Use Only Ph 5.5 In-House Results: For Internal Use Only Blood Negative In-House Results: For Internal Use Only Specific 1.030 In-Hous e [place] Results: For Internal Use Only Ketone Trace In-House Results: For Internal Use Only Bilirubin Negative In-H ouse Results: For Internal Use Only Glucose Negative In-Leni se Results: For Internal Use Only Appearance Clear In-Ho use Results: For Internal Use Only Color Yellow In-House Results: For Internal Use Only US, Transvaginal No observation In-House recorded. Results : For Internal Use Only Allergies Code Code [...] Family History of Malignant Neoplasm of Active 01/13/20 19 Breast in First Degree Relative Hypercholesterolemia Active Encounter Obesity Active Encounter Migraine Active Encounter Papilledema - Optic Disc Edema Due to Active Encounter Raised Intracranial Pressure HPV - Human Papillomavirus Test Positive Active Encounter Procedures Date Name Performed by 06/24/2017 Delivery Information not avai lable 01/23/2016 Appendectomy Information not avai lable Remove Tonsils and Adenoids Information not available Breast Surgery Information not avai lable Cholecystectomy Information not avai lable ENT Surgery Information not avai lable Laparoscopy Information not avai lable 04/05/2019 US, Transvaginal [place] [address] Vaccine List Vaccine Type influenza, intradermal, quadrivalent, pr eservative free 02/25/20170.1 mL influenza, recombinant, quadrIvalent,inj ectable, preservative free 01/26/20180.5 mL Social History Tobacco Smoking Status Never Smoker Past Encounters 04/05/2019 Low Back Pain; Acute Cystitis; Cyst of R ight Ovary; Cyst of Left Ovary Olivier Mcdowell MD: [address] [place] [address] [address], [place] [address], Ph. [phone] History of Present Illness Note: Problem visit. Complains of sudden onset of left lower back pain three days ago. She also had urinary frequency, urgency, and hematuria. Went to ER at [facility] in [place] - CT showed "bilateral ovarian cysts, measuring up to 3.6 cm on the left. No obstructing stones. No hydronephrosis." She was prescribed Cipro, Macrobid, and Ultram. The pain has persisted as well as the hematuria. Review of Systems None recorded. Physical Exam Pelvic Reported By: Patient Magnetizer: Magnetizer: present Female Genitalia: Vulva: no masses, no atrophy , no lesions. Bladder/Urethra: normal meatus, no urethral discharg e, no urethral mass, bladder non distended. Vagina no tendern ess, no erythema, no abnormal vaginal discharge, no vesicle(s) or ulcers, no cystocele, no rectocele. Cervix: grossly normal, no d ischarge, cervical motion tenderness. Uterus: normal size, normal shape, midline, mobile, no uterine prolapse, tender. Adnexa/Par ametria: no parametrial tenderness, no parametrial mass, no ovarian mass, adnexal tenderness
[2019-07-10 18:53] LABS: Urine Blood NEGATIVE (NEG); Urine Glucose NEGATIVE (NEG); Urine Protein NEGATIVE (NEG); Urine Specific Gravity >1.030 (1.005-1.030)
[2019-07-10] MEDS ORDERED: ONDANSETRON 4 MG/2 ML VIAL ONE (18:53)
[2019-07-10] MEDS ORDERED: NA CHLORIDE 0.9% 1,000 ML ONE (18:53)
[2019-07-10] MEDS ORDERED: MORPHINE 4 MG/ML SYR ONE (18:53)
[2019-07-10 19:14] LABS: Absolute Lymphocytes (CBC) 2.5 K/uL (0.7-4.9); Basophils % 1.4 % (0-1.3); Hematocrit 38.4 % (36.0-45.0); Lymphocytes % 28.9 % (15.3-44.8); MPV 9.6 fL (7.6-11.3); RBC Red Blood Cell Count 5.37 M/uL (3.86-4.86)
[2019-07-10 19:25] LABS: ALT/SGPT 23 U/L (12-78); AST/SGOT 15 U/L (15-37); Albumin 3.4 g/dL (3.4-5.0); Alkaline Phosphatase 72 U/L (45-117); BUN Blood Urea Nitrogen 15 mg/dL (7-18); Bicarbonate 29 mmol/L (21-32); Bilirubin Direct < 0.1 mg/dL (0-0.2); Bilirubin Total 0.2 mg/dL (0.2-1.0); Glucose Level 92 mg/dL (74-106); Lipase 171 U/L (73-393); Potassium 3.8 mmol/L (3.5-5.1); Protein, Total 7.9 g/dL (6.4-8.2); Sodium Level 141 mmol/L (136-145)
--- NOTE | 2019-07-10 19:33 | RAD REPORT ---
EXAM DESCRIPTION: CT - Stone Protocol - 07/10/2019 7:12 pm CLINICAL HISTORY: Flank pain. FLANK PAIN COMPARISON: Stone Protocol dated 04/02/2019 TECHNIQUE: Axial images were obtained without oral or IV contrast. Lack of contrast limits solid org an and vascular assessment. The [id number] spans the entirety of the system partially obscuring uppermost abdomen and lung bases. Coronal reformatted images were obtained and reviewed. All CT scans are performed using dose optimization technique as appropriate and may include automated exposure control or mA/KV adjustment according to patient size. FINDINGS: The lower lung martinez are clear. Cholecystectomy clips. Imaged portions of the liver and spleen show no suspicious findings on non-contrast imaging. The panc reas and adrenal glands are normal. No pathologic lymphadenopathy in the abdomen or pelvis. No urinary tract stones or obstructive uropathy. No bowel obstruction, free air, free fluid or abscess. Appendectomy. No significant bony abnormality. Small bilateral ovarian follicles. IMPRESSION: No urinary tract stones or obstructive uropathy.
[2019-07-10 19:41] LABS: Anisocytosis 1+; Blood Morphology Comment NOTED (NOT SEEN); Hypochromasia 1+; Platelet Estimate ADEQ; Urine White Blood Cell Casts OK
[2019-07-10] MEDS ORDERED: DIAZEPAM 10 MG/2 ML INJ SYRINGE ONE (19:53)
[2019-07-10] MEDS ORDERED: KETOROLAC 30 MG/ML INJ ONE (19:58)
--- NOTE | 2019-07-10 21:11 | RAD REPORT ---
EXAM DESCRIPTION: US - Pelvis Complete - 07/10/2019 8:47 pm CLINICAL HISTORY: pelvic pain Pelvic pain. COMPARISON: No comparisons FINDINGS: The uterus is normal in size, shape and echotexture. The uterus measures 9.2 x 6.1 x 5.1 c m. The endometrial stripe measures 7 mm, normal. Both ovaries are normal in size, shape and echotexture. The right ovary measures 4.0 x 2.9 x 1.9 cm. The left ovary measures 4.5 x 3.9 x 3.3 cm. 3.5 cm left ovarian follicle. 3.1 cm right ovarian foll icle. No adnexal masses. Normal Doppler blood flow was demonstrated to both ovaries. No significant pelvic ascites. IMPRESSION: No acute abnormality detected.
[2019-07-10] MEDS ORDERED: FENTANYL CITR 100 MCG/2 ML ONE (21:31)
--- NOTE | 2019-07-10 21:36 | ER ---
Nurse's Notes [facility] Name: Torri Fine Age: 43 yrs Sex: Female : 1975 Arrival Date: 07/10/2019 Time: 18:26 Bed 5 Private MD: Diagnosis: Abdominal and pelvic pain Presentation: 07/09 18:30 Chief complaint: Patient states: RLQ and RL back pain started around 1600 today. ca1 Reports burning with urination. Denies Urinary urgency and frequency. Reports history of Kidney stones. Denies N/V/diarrhea. Coronavirus screen: Proceed with normal triage. Patient denies a cough. Patient denies shortness of breath or difficulty breathing. Patient denies measured and/or subjective temperature greater than 100.4F prior to today's visit. Patient denies travel on a cruise ship or to a country the [facility] currently lists as an affected area. Patient denies contact with known and/or suspected case of COVID-19. Ebola Screen: Patient negative for fever greater than or equal to 101.5 degrees Fahrenheit, and additional compatible Ebola Virus Disease symptoms Patient denies exposure to infectious person. Patient denies travel to an Ebola-affected area in the 21 days before illness onset. No symptoms or risks identified at this time. Initial Sepsis Screen: Does the patient meet any 2 criteria? No. Patient's initial sepsis screen is negative. Does the patient have a suspected source of infection? No. Patient's initial sepsis screen is negative. Risk Assessment: Do you want to hurt yourself or someone else? Patient reports no desire to harm self or others. Onset of symptoms was July 10, 2019. 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 - Social history:: Smoking status: Patient denies any tobacco usage or history of. Screenin:39 Abuse screen: Denies threats or abuse. Denies injuries from another. Nutritional ls4 screening: No deficits noted. Tuberculosis screening: No symptoms or risk factors identified. Fall Risk Assessment: 16:45 General: Appears in no apparent distress. uncomfortable, Behavior is calm, cooperative, jl7 appropriate for age. Pain: Complains of pain in right low back and right lower quadrant Pain currently is 8 out of 10 on a pain scale. Quality of pain is described as stabbing, Pain began suddenly, 3 hours ago. Is continuous. Neuro: Level of Consciousness is awake, alert, obeys commands, Oriented to person, place, time, situation. Cardiovascular: Patient's skin is warm and dry. Respiratory: Airway is patent Respiratory effort is even, unlabored, Respiratory pattern is regular, symmetrical. GI: Abdomen is round non-distended, Patient currently denies diarrhea, nausea, vomiting. : Denies burning with urination. Derm: Skin is pink, warm \T\ dry. 19:21 General: Appears in no apparent distress. comfortable, Behavior is calm, cooperative, rr5 appropriate for age, came back from CT scan. Pain: Complains of pain in abdomen Pain radiates to back Pain currently is 6 out of 10 on a pain scale. Quality of pain is described as aching, Pain began suddenly, Is intermittent. Neuro: Level of Consciousness is awake, alert, obeys commands, Oriented to person, place, time, situation. Cardiovascular: Capillary refill < 3 seconds Patient's skin is warm and dry. Respiratory: Airway is patent Respiratory effort is even, unlabored, Respiratory pattern is regular, symmetrical. GI: Abdomen is round non-distended, Bowel sounds present X 4 quads. Abd is soft and non tender X 4 quads. Reports lower abdominal pain, Patient currently denies nausea, vomiting. : No signs and/or symptoms were reported regarding the genitourinary system. EENT: No signs and/or symptoms were reported regarding the EENT system. Derm: Skin is intact, is healthy with good turgor, Skin temperature is warm. Musculoskeletal: Circulation, motion, and sensation intact. Capillary refill < 3 seconds. 19:51 Reassessment: Patient appears in no apparent distress at this time. BP 98/58 mmHg ED rr5 provider aware. Valium order not given, other intervention used. 20:40 Reassessment: Patient appears in no apparent distress at this time. No changes from rr5 previously documented assessment. Patient is alert, oriented x 3, equal unlabored respirations, skin warm/dry/pink. ultrasound at bedside. 21:15 Reassessment: Patient appears in no apparent distress at this time. ED provider ordered rr5 additional pain medicine. Patient states symptoms have not improved. 21:51 Reassessment: Patient appears in no apparent distress at this time. Patient is alert, rr5 oriented x 3, equal unlabored respirations, skin warm/dry/pink. discharge instruction given and explained without complaints made. awaiting for ride home. Patient states feeling better. Patient states symptoms have improved. Vital Signs: 18:30 BP 118 / 52; Pulse 79; Resp 18 S; Temp 98.2(O); Pulse Ox 100% ; Weight 122.47 kg (R); ca1 Height 5 ft. 8 in. (172.72 cm) (R); Pain 8/10; 19:20 BP 101 / 55; Pulse 58; Resp 17; Temp 97.9; Pulse Ox 100% ; Pain 6/10; rr5 19:52 BP 98 / 58; Pulse 57; Resp 19; Pulse Ox 99% ; rr5 21:00 BP 110 / 62; Pulse 59; Resp 19; Pulse Ox 99% ; Pain 7/10; rr5 21:51 BP 108 / 72; Pulse 58; Resp 16; Temp 97.8; Pulse Ox 100% on R/A; rr5 18:30 Body Mass Index 41.05 (122.47 kg, 172.72 cm) ca1 ED Course: 16:55 Missed attempt(s): 20 gauge in left forearm. Bleeding controlled, band aid applied, jl7 catheter tip intact. 18:26 Patient arrived in ED. as 18:28 Dirk Joel PA is PHCP. bob 18:28 Geo Hughes MD is Attending Physician. jmm 18:32 Triage completed. ca1 18:33 Arm band placed on right wrist. ca1 18:39 Patient has correct armband on for positive identification. Bed in low position. Call ls4 light in reach. Side rails up X 1. 18:45 Urine collected: clean catch specimen, clear, Amount Voided: 80mL. ca1 18:55 Inserted saline lock: 22 gauge in right antecubital area, using aseptic technique. kj1 Blood collected. 18:55 Initial lab(s) drawn, by me, sent to lab. kj1 19:05 Vadim Martin, CINDI is Primary Nurse. jl7 19:06 Primary Nurse role handed off by Vadim Martin RN jl7 19:12 CT completed. Patient tolerated procedure well. Patient moved back from CT. mw3 19:12 CT Stone Protocol In Process Unspecified. EDMS 19:21 Farooq Smyth, RN is Primary Nurse. rr5 20:46 Ultrasound completed. Patient tolerated well. sg3 20:47 US Pelvis Complete In Process Unspecified. EDMS 22:22 No provider procedures requiring assistance completed. IV discontinued, intact, rr5 bleeding controlled, No redness/swelling at site. Pressure dressing applied. Administered Medications: 19:00 Drug: NS 0.9% 1000 ml Route: IV; Rate: 1 bolus; Site: right antecubital; jl7 20:30 Follow up: Response: No adverse reaction; IV Status: Completed infusion; IV Intake: rr5 1000ml 19:01 Drug: Zofran (Ondansetron) 4 mg Route: IVP; Site: right antecubital; jl7 20:00 Follow up: Response: No adverse reaction rr5 19:03 Drug: morphine 4 mg Route: IVP; Site: right antecubital; jl7 20:55 Follow up: Response: No adverse reaction; Pain is decreased; RASS: Alert and Calm (0) rr5 19:55 Drug: Ketorolac 30 mg Route: IVP; Site: right antecubital; rr5 20:55 Follow up: Response: No adverse reaction; No change in condition; Pain is unchanged, rr5 physician notified 19:56 Not Given (Other Intervention Used): Valium 5 mg IVP once rr5 21:31 Drug: fentaNYL (PF) 50 mcg {Note: rass 0.} Route: IVP; Site: right antecubital; rr5 22:22 Follow up: Response: No adverse reaction; Pain is decreased; RASS: Alert and Calm (0) rr5 Intake: 20:30 IV: 1000ml; Total: 1000ml. rr5 Outcome: 21:35 Discharge ordered by . jmm 22:22 Discharged to home via wheelchair, with family. rr5 22:22 Condition: stable 22:22 Discharge instructions given to patient, Instructed on discharge instructions, follow up and referral plans. medication usage, Demonstrated understanding of instructions, follow-up care, medications, Prescriptions given X 2. 22:25 Patient left the ED. rr5 Signatures: Dispatcher [employer] EDMS Dirk Joel PA PA jmm Martinez, Amelia as Leal, Jahala, RN RN jl7 Parvin Sawant 3 Sara Amado 3 Amy Richter RN RN ls4 Farooq Smyth RN RN rr5 Lupe Alvarez RN RN ca1 Ilsa Goldstein kj1 Corrections: (The following items were deleted from the chart) 19:37 19:21 GI: Abdomen is round non-distended, Bowel sounds present X 4 quads. Abd is soft rr5 and non tender X 4 quads. Reports upper abdominal pain, Patient currently denies nausea, vomiting, rr5
--- NOTE | 2019-07-10 21:36 | EDPHYS ---
Physician Documentation [facility] Name: Torri Fine Age: 43 yrs Sex: Female : 1975 Arrival Date: 07/10/2019 Time: 18:26 Bed 5 Private MD: ED Physician Geo Hughes HPI: 07/09 18:00 This 43 yrs old Female presents to ER via Ambulatory with complaints of jmm Abdominal Pain, Back Pain. 18:00 The patient presents with abdominal pain in the right upper quadrant, right lower jmm quadrant. Onset: The symptoms/episode began/occurred acutely, 2 hour(s) ago. Associated signs and symptoms: Pertinent negatives: nausea and vomiting, diarrhea. The symptoms are described as achy, sharp. Modifying factors: The symptoms are alleviated by nothing, the symptoms are aggravated by movement. 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 - Social history:: Smoking status: Patient denies any tobacco usage or history of. ROS: 18:00 Constitutional: Negative for fever, chills, and weight loss, Cardiovascular: Negative jmm for chest pain, palpitations, and edema, Respiratory: Negative for shortness of breath, cough, wheezing, and pleuritic chest pain. 18:00 Abdomen/GI: Positive for abdominal pain. 18:00 Back: Positive for pain at rest. 18:00 All other systems are negative. Exam: 18:00 Constitutional: This is a well developed, well nourished patient who is awake, alert, jmm and in no acute distress. Head/Face: atraumatic. Eyes: EOMI, no conjunctival erythema appreciated ENT: Moist Mucus Membranes Neck: Trachea midline, Supple Chest/axilla: Normal chest wall appearance and motion. Cardiovascular: Regular rate and rhythm. No edema appreciated Respiratory: Normal respirations, no respiratory distress appreciated Abdomen/GI: Non distended, soft Back: Normal ROM Skin: General appearance color normal MS/ Extremity: Moves all extremities, no obvious deformities appreciated, no edema noted to the lower extremities Neuro: Awake and alert, normal gait Psych: Behavior is normal, Mood is normal, Patient is cooperative and pleasant Vital Signs: 18:30 BP 118 / 52; Pulse 79; Resp 18 S; Temp 98.2(O); Pulse Ox 100% ; Weight 122.47 kg (R); ca1 Height 5 ft. 8 in. (172.72 cm) (R); Pain 8/10; 19:20 BP 101 / 55; Pulse 58; Resp 17; Temp 97.9; Pulse Ox 100% ; Pain 6/10; rr5 19:52 BP 98 / 58; Pulse 57; Resp 19; Pulse Ox 99% ; rr5 21:00 BP 110 / 62; Pulse 59; Resp 19; Pulse Ox 99% ; Pain 7/10; rr5 21:51 BP 108 / 72; Pulse 58; Resp 16; Temp 97.8; Pulse Ox 100% on R/A; rr5 18:30 Body Mass Index 41.05 (122.47 kg, 172.72 cm) ca1 MDM: 18:41 Patient medically screened. [facility] 21:15 Data reviewed: vital signs, nurses notes. Counseling: I had a detailed discussion with bob the patient and/or guardian regarding: the historical points, exam findings, and any diagnostic results supporting the discharge/admit diagnosis, lab results, radiology results, the need for outpatient follow up, smoking cessation. ED course: Pain in the ED has mildly decreased. 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 Patient is otherwise given strict return precautions. Patient understood and agrees with the plan of care. . 07/09 18:44 Order name: Basic Metabolic Panel; Complete Time: 19:29 [facility] 07/09 18:44 Order name: CBC with Diff; Complete Time: 19:45 [facility] 07/09 18:44 Order name: Creatinine for Radiology; Complete Time: 19:29 [facility] 07/09 18:44 Order name: Hepatic Function; Complete Time: 19:29 [facility] 07/09 18:44 Order name: Lipase; Complete Time: 19:29 [facility] 07/09 18:46 Order name: Urine Dipstick--Ancillary (enter results); Complete Time: 19:09 [facility] 07/09 18:44 Order name: CT Stone Protocol; Complete Time: 19:37 [facility] 07/09 18:46 Order name: Urine --Ancillary (enter results); Complete Time: 19:09 tn5 07/09 19:41 Order name: CBC Smear Scan; Complete Time: 19:45 EDMS 07/09 19:46 Order name: US Pelvis Complete; Complete Time: 21:12 [facility] 07/09 18:38 Order name: Urine Test (obtain specimen); Complete Time: 18:44 ca1 07/09 18:38 Order name: Urine Dipstick-Ancillary (obtain specimen); Complete Time: 18:44 ca1 07/09 18:44 Order name: IV Saline Lock; Complete Time: 19:06 [facility] 07/09 18:44 Order name: Labs collected and sent; Complete Time: 19:06 [facility] Administered Medications: 19:00 Drug: NS 0.9% 1000 ml Route: IV; Rate: 1 bolus; Site: right antecubital; jl7 20:30 Follow up: Response: No adverse reaction; IV Status: Completed infusion; IV Intake: rr5 1000ml 19:01 Drug: Zofran (Ondansetron) 4 mg Route: IVP; Site: right antecubital; jl7 20:00 Follow up: Response: No adverse reaction rr5 19:03 Drug: morphine 4 mg Route: IVP; Site: right antecubital; jl7 20:55 Follow up: Response: No adverse reaction; Pain is decreased; RASS: Alert and Calm (0) rr5 19:55 Drug: Ketorolac 30 mg Route: IVP; Site: right antecubital; rr5 20:55 Follow up: Response: No adverse reaction; No change in condition; Pain is unchanged, rr5 physician notified 19:56 Not Given (Other Intervention Used): Valium 5 mg IVP once rr5 21:31 Drug: fentaNYL (PF) 50 mcg {Note: rass 0.} Route: IVP; Site: right antecubital; rr5 22:22 Follow up: Response: No adverse reaction; Pain is decreased; RASS: Alert and Calm (0) rr5 Disposition: 07/10 07:12 Co-signature as Attending Physician, Geo Hughes MD. rn Disposition: 07/10/19 21:35 Discharged to Home. Impression: Abdominal and pelvic pain. - Condition is Stable. - Discharge Instructions: Abdominal Pain, Adult, Pelvic Pain, Female. - Prescriptions for Ultracet 37.5- 325 mg Oral Tablet - take 1 tablet by ORAL route every 6 hours - for up to 5 days; do not exceed 8 tablets per day.; 20 tablet. orphenadrine citrate 100 mg Oral Tablet Sustained Release - take 1 tablet by ORAL route 2 times per day As needed; 20 tablet. - Medication Reconciliation Form, Thank You Letter, Antibiotic Education, Prescription Opioid Use form. - Follow up: Private Physician; When: 2 - 3 days; Reason: Recheck today's complaints, Continuance of care, Re-evaluation by your physician. Signatures: Dispatcher [employer] EDDirk Munson PA PA jmm Nieto, Roman, MD MD rn Vadim Martin RN RN jl7 Farooq Smyth RN RN rr5 Lupe Alvarez RN RN ca1 Corrections: (The following items were deleted from the chart) 07/09 22:25 21:35 07/10/2019 21:35 Discharged to Home. Impression: Abdominal and pelvic pain. rr5 Condition is Stable. Forms are Medication Reconciliation Form, Thank You Letter, Antibiotic Education, Prescription Opioid Use. Follow up: Private Physician; When: 2 - 3 days; Reason: Recheck today's complaints, Continuance of care, Re-evaluation by your physician. bob
[2019-07-10 22:39] VITALS: BP 108/72; TEMP 97.8; O2SAT 100
== END 2019-07-10 22:25 | disposition home or self-care (01) ==
LOC: ER 18:25
DX: R10.2 Pelvic and perineal pain (principal); Z87.442 Personal history of urinary calculi; Z88.1 Allergy status to other antibiotic agents; Z88.2 Allergy status to sulfonamides; Z88.5 Allergy status to narcotic agent
CPT/HCPCS: 96361; 85025; 80048; 36415; 81025; 80076; 81003; 83690; 76377; 74176; 76856; 96375; 96374; 99284; J3360; J3010; J7030; J2405

== ENCOUNTER 2021-12-22 05:06 | Emergency (ER) | payer BC ==
--- OUTSIDE RECORDS SUMMARY | 2021-12-22 05:11 | XMS REPORT | Continuity of Care Document ---
:1975 Author Organization [facility] t Address [address] [place] [address] Care Team Providers Name Role Phone PCP, PATIENT DOES NOT HAVE A Primary Care Physician Unavaila ble CHRETIEN_F Attending Clinician Unavailable Laly Britton Attending Clinician [phone] G_Pappas Attending Clinician Unavailable JOHN NORTON Attending Clinician Unavailable Yaya Lai Attending Clinician John Norton MD Attending Clinician HEAVEN ANDRADE Attending Clinician Unavailable Heaven Samson Attending Clinician WATERS_S Attending Clinician Unavailable Ольга Okeefe Attending Clinician [phone] Pippa Shine Attending Clinician Unknown, Attending Attending Clinician Unavailable PIPPA BEAVERS Attending Clinician Unavailable Doctor Unassigned, Carlton Attending Clinician Unavailable Jailyn Arredondo MD Attending Clinician HORTENCIA Attending Clinician Unavailable CHRETIEN_F Admitting Clinician Unavailable G_Pappas Admitting Clinician Unavailable WATERS_S Admitting Clinician Unavailable TURNER_FA Admitting Clinician Unavailable Payers Payer Name Policy Type Policy Number Effective Date Expiration Date Sergio martinez [place] [id number] 2017 00:00:00 [place] [id number] 2017 00:00:00 [place] [id number] 2017 00:00:00 Problems Condition Condition Condition Status Onset Resolution Last Treating Co mments Source Name Details Category Date Date Treatment Clinician Date Missed Missed Problem Active [place] miscarriag Miscarriag 5-06 da e e 00:00: Medical 00 Group Uterine Uterine Problem Active [place] scar from Scar from 4-21 da previous Previous 00:00: Medica l surgery in Surgery in 00 Gr oup , , childbirth Childbirth and the and the puerperium [place]uer[place] with with problem Problem Multigravi Multigravi Problem Active [facility] da of da of 4-21 da advanced Advanced 00:00: Medica l maternal Maternal 00 Group age Age History of History of Problem Active [facility] delivery Delivery 4-21 da of of 00:00: Medical macrosomal Macrosomal 00 Gr oup infant Infant History of History of Problem Active [facility] pre-eclamp Pre-eclamp 4-21 da sherron sherron 00:00: Medical 00 Group Secondary 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 Dysmenorrh 8-24 da ea ea 00:00: Medical 00 Group Menorrhagi Menorrhagi Problem Active [facility] a a 8-24 da 00:00: Medical 00 Group Family Family Problem Active 2018-03 [place] history of History of 0-22 da malignant Malignant 00:00: Medi waqar neoplasm Neoplasm 00 Group of breast of Breast in first in First degree Degree relative Relative Seasonal Seasonal Problem Active [facility] allergic Allergic 9-12 da rhinitis Rhinitis 00:00: Medica l 00 Group Gastroesop Gastroesop Problem Active [facility] hageal hageal 6-04 da reflux Reflux 00:00: Medical disease Disease 00 Group Amenorrhea Amenorrhea Problem Active 2019-0 [facility] 4-22 da 00:00: Medical 00 Group Interverte Interverte Problem Active [facility] bral disc bral Disc 1-18 da prolapse Prolapse 00:00: Medica l 00 Group Low back Low Back Problem Active [facility] pain Pain 1-18 da 00:00: Medical 00 Group Lumbar Lumbar Problem Active [facility] radiculopa Radiculopa 1-18 da thy thy 00:00: Medical Group History of History of Problem Active [facility] endometrio Endometrio 9-17 da sis sis 00:00: Medical Group Left flank Left Flank Problem Active [facility] pain Pain 6-15 da 00:00: Medical Group Asthma Asthma Problem Active [facility] 8-22 da 00:00: Medical Group Chronic Chronic Problem Active [facility] low back Low Back 7-27 da pain Pain 00:00: Medical Group No known No known Disease Unive rs active active ity of problems problems [facility] Hyperchole Hyperchole Problem Active M [facility] sterolemia sterolemia da Medical Group Obesity Obesity Problem Active [facility] Migraine Migraine Problem Active [facility] Papilledem Papilledem Problem Active M [facility] a - optic a - Optic da disc edema Disc Edema Me dical due to Due to Group raised Raised intracrani Intracrani al al pressure Pressure 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 Un bhupinder (Sulfona ty to See comments 0-25 it y of mide adverse 00:00: [place] Antibiot reaction 00 Medica l ics) s Branch Cefaclor Propensi Active Nausea 2018-03 Univer s ty to and/or 0-25 ity of adverse Vomiting 00:00: [place] reaction 00 Medical s Branch Codeine Propensi Active Hives 2018-03 Univers ty to 0-25 ity of adverse 00:00: [place] reaction 00 Medical s Branch Sulfa Propensi Active Unknown - 2018-03 Eye drop. Un bhupinder (Sulfona ty to See comments 0-25 it y of mide adverse 00:00: [place] Antibiot reaction 00 Medica l ics) s Branch CEFACLOR DRUG Active N/V 2018-03 Univers INGREDI 0-25 ity of 00:00: [place] 00 Medical Branch CECLOR Allergy Active Mild to Vomiting [place] [facility] to moderate da substanc Medical e Group Codeine Allergy Active Mild to Hives [place] to moderate da substan Medical e Group SULFA Allergy Active Other [place] (SULFONA to da MIDE substan Medical ANTIBIOT e Group ICS) Social History Social Habit Start Date Stop Date Quantity Comments Source ASSERTION [facility] Medical [place] History [facility] o f Alcohol Std [place] [facility] Drinks Branch History [facility] University o f Alcohol Binge [place] Medic al Branch History [facility] o f Alcohol Comment [place] [facility] ical Branch Exposure to 2021-08-30 2021-09-09 Not sure [facility] SARS-CoV-2 00:00:00 09:42:00 [facility] (event) Branch Alcohol intake 2021-09-09 2021-09-09 Ex-drinker [facility] 00:00:00 00:00:00 (finding) [facility] Tobacco use and 2019-01-15 2019-01-15 Smokeless tobacco Un iversity of exposure 00:00:00 00:00:00 non-user [place] [facility] [place] History SDOH 2019-01-15 2019-01-15 2 University o f Alcohol Frequency 00:00:00 00:00:00 [facility] edical Branch Sex Ass[birth year] At [birth year] Universit y of 00:00:00 00:00:00 [facility] Smoking Status Start Date Stop Date Source Never smoked tobacco [facility] Medications Ordered Filled Start Stop Current Ordering Indication Dosage Frequency Signature Comments Components Source Medication Medication Date Date Medication? Clinician (SIG) Name Name methylPREDN Yes [id number] Take by Univers ISolone 8-01 mouth ity of (MEDROL, 00:00: SEE-INSTRU [place] JIM,) 4 mg 00 CTIONS. Medica l tablets follow Branch package directions methylPREDN 0 Yes [id number] Take by Univers ISolone 09-09 mouth ity of (MEDROL, 00:00: SEE-INSTRU [place] JIM,) 4 mg 00 CTIONS. Medica l tablets follow Branch package directions methylPREDN 2021- No [id number] Take by Univers ISolone 6 08-01 mouth ity of (MEDROL, 00:00: [place] 4 mg 00 :00 CTIONS. Medica l tablets follow Branch package directions amoxicillin 2021- No [id number] 1{tbl} Take 1 Univers -clavulanat 4-10 -18 tablet by it y of e [id number] 00:00: 04:59 [place] mg per 00 :00 (two) Medical tablet times Branch daily for 7 days. citalopram 2021- No citalopram Univers 20 mg 2-06 02-06 20 mg ity of tablet 11:08: 00:00 tablet TK [place] 29 :00 1 T PO QD Medical Branch azithromyci 0 Yes [id number] 250mg Take 1 Univers n 2-06 tablet by ity of (ZITHROMAX) 00:00: mouth [place] 250 mg 00 daily. Medical tablet Branch methylPREDN 0 Yes [id number] Take by Univers ISolone 2-06 mouth ity of (MEDROL, 00:00: SEE-INSTRU [place] JIM,) 4 mg 00 CTIONS. Medica l tablets follow Branch package directions azithromyci 2021-0 Yes [id number] 250mg Take 1 Univers n 2-06 tablet by ity of (ZITHROMAX) 00:00: mouth [place] 250 mg 00 daily. Medical tablet Branch methylPREDN 2021-0 Yes [id number] Take by Univers ISolone 2-06 mouth ity of (MEDROL, 00:00: SEE-INSTRU [place] JIM,) 4 mg 00 CTIONS. Medica l tablets follow Branch package directions azithromyci 0 Yes [id number] 250mg Take 1 Univers n 2-06 tablet by ity of (ZITHROMAX) 00:00: mouth [place] 250 mg 00 daily. Medical tablet Branch methylPREDN 0 Yes [id number] Take by [facility] ISolone 2-06 mouth ity of (MEDROL, 00:00: SEE-INSTRU [place] as JIM,) 4 mg 00 CTIONS. Medica l tablets follow Branch package directions azithromyci 0 Yes [id number] 250mg Take 1 Univers n 2- tablet by ity of (ZITHROMAX) 00:00: mouth [place] 250 mg 00 daily. Medical tablet Branch methylPREDN 2021- No [id number] Take by [facility] ISolone 2-06 08-01 mouth ity of (MEDROL, 00:00: 00:00 [place] JIM,) 4 mg 00 :00 CTIONS. Medica l tablets follow Branch package directions maalox:diph 2020-03 Yes [id number] [facility] enhydrAMINE 1-13 spit 5 mL ity of :lidocaine 00:00: before [place] 2 % viscous 00 meals. Medica l 1:1:1 Branch maalox:diph 2020-03 Yes [id number] [facility] enhydrAMINE 1-13 spit 5 mL ity of :lidocaine 00:00: before [place] 2 % viscous 00 meals. Medica l 1:1:1 Branch maalox:diph 2020-03 Yes [id number] [facility] enhydrAMINE 1-13 spit 5 mL ity of :lidocaine 00:00: before [place] 2 % viscous 00 meals. Medica l 1:1:1 Branch maalox:diph 2020-03 Yes [id number] [facility] enhydrAMINE 1-13 spit 5 mL ity of :lidocaine 00:00: before [place] 2 % viscous 00 meals. Medica l 1:1:1 Branch maalox:diph 2020-03 Yes [id number] [facility] enhydrAMINE 1-13 spit 5 mL ity of :lidocaine 00:00: before [place] 2 % viscous 00 meals. Medica l 1:1:1 Branch maalox:diph 2020-03 Yes [id number] [facility] enhydrAMINE 1-13 spit 5 mL ity of :lidocaine 00:00: before [place] 2 % viscous 00 meals. Medica l 1:1:1 Branch citalopram Yes citalopram U nivers 20 mg 6-06 20 mg ity of tablet 09:13: tablet TK [place] 1 T PO QD Medical Branch citalopram Yes citalopram U nivers 20 mg 6-06 20 mg ity of tablet 09:13: tablet TK [place] 1 T PO QD Medical Branch naproxen Yes [id number] 500mg Take 1 Univers 500 mg 3-24 [id number] tablet by ity of tablet 00:00: mouth 2 [place] (two) Medical times Branch daily with meals. naproxen Yes [id number] 500mg Take 1 Univers 500 mg 3-24 [id number] tablet by ity of tablet 00:00: mouth 2 [place] (two) Medical times Branch daily with meals. naproxen 2021- No [id number] 500mg Take 1 Univers 500 mg 3-24 02-06 [id number] tablet by ity o f tablet 00:00: 00:00 mouth 2 [place] 00 :00 (two) Medical times Branch daily with meals. proMETHazin Yes [id number] 25mg Take 1 Univers e 25 mg 1-03 tablet by ity of tablet 00:00: mouth [place] 00 every 4 Medical (four) Branch hours as needed for Nausea and Vomiting (N/V). proMETHazin Yes [id number] 25mg Take 1 Univers e 25 mg 1-03 tablet by ity of tablet 00:00: mouth [place] 00 every 4 Medical (four) Branch hours as needed for Nausea and Vomiting (N/V). proMETHazin 2021- No [id number] 25mg Take 1 Univers e 25 mg 1-03 02-06 tablet by ity of tablet 00:00: 00:00 mouth [place] 00 :00 every 4 Medical (four) Branch hours as needed for Nausea and Vomiting (N/V). Advair Advair No Advair [place] Diskus 500 Diskus 500 Diskus 500 da mcg-50 mcg-50 mcg-50 Medical mcg/dose mcg/dose mcg/dose Viji up powder for powder for powder for inhalation inhalation inhalation INHALE ONE INHALE ONE INHALE ONE PUFF BY PUFF BY PUFF BY MOUTH TWICE MOUTH TWICE MOUTH DAILY DAILY TWICE DAILY Advair HFA Advair HFA No Advair HFA [place] 45 mcg-21 45 mcg-21 45 mcg-21 da mcg/actuati mcg/actuati mcg/actuat Medical on aerosol on aerosol ion Viji up inhaler inhaler aerosol inhaler albuterol albuterol No albuterol [place] sulfate 2.5 sulfate 2.5 sulfate da mg/3 mL mg/3 mL 2.5 mg/3 Medic al (0.083 %) (0.083 %) mL (0.083 Group solution solution %) for for solution nebulizatio nebulizatio for n USE 1 n USE 1 nebulizati AMPULE VIA AMPULE VIA on USE 1 NEBULIZER NEBULIZER AMPULE VIA EVERY 6 TO EVERY 6 TO NEBULIZER 8 HOURS FOR 8 HOURS FOR EVERY 6 TO 7 DAYS 7 DAYS 8 HOURS FOR 7 DAYS albuterol albuterol No albuterol [place] sulfate HFA sulfate HFA sulfate da 90 90 HFA 90 Medical mcg/actuati mcg/actuati mcg/actuat Group on aerosol on aerosol ion inhaler inhaler aerosol INHALE 2 INHALE 2 inhaler PUFFS BY PUFFS BY INHALE 2 MOUTH EVERY MOUTH EVERY PUFFS BY 6 TO 8 6 TO 8 MOUTH HOURS FOR 7 HOURS FOR 7 EVERY 6 TO DAYS DAYS 8 HOURS FOR 7 DAYS EpiPen EpiPen No 1auto(s Q1D EpiPen [place] [facility] 2-Jim 0.3 2-Jim 0.3 ) 2-Jim 0.3 da mg/0.3 mL mg/0.3 mL mg/0.3 mL Medical injection, injection, injection, Group auto-inject auto-inject auto-injec or Take 1 or Take 1 tor Take 1 auto every auto every auto every day by day by day by injection injection injection route. use route. use route. use as needed as needed as needed for acute for acute for acute allergic allergic allergic reaction reaction reaction FeroSul 325 FeroSul 325 No FeroSul [place] mg (65 mg mg (65 mg 325 mg (65 da iron) iron) mg iron) Medical tablet TAKE tablet TAKE tablet Group 1 TABLET BY 1 TABLET BY TAKE 1 MOUTH WITH MOUTH WITH TABLET BY FOOD TWICE FOOD TWICE MOUTH WITH DAILY. DAILY. FOOD TWICE DAILY. ibuprofen ibuprofen No ibuprofen [place] 800 mg 800 mg 800 mg da tablet one tablet one tablet one Medical p.o. q 6 p.o. q 6 p.o. q 6 Viji up hrs PRN hrs PRN hrs PRN pain pain pain methylpredn methylpredn No methylpred [place] isolone 4 isolone 4 nisolone 4 da mg tablets mg tablets mg tablets Medical in a dose in a dose in a dose Group pack FOLLOW pack FOLLOW pack PACKAGE PACKAGE FOLLOW DIRECTIONS. DIRECTIONS. PACKAGE DIRECTIONS . progesteron progesteron No progestero [place] e e ne da micronized micronized micronized Medical 200 mg 200 mg 200 mg Group capsule capsule capsule TAKE 1 TAKE 1 TAKE 1 CAPSULE BY CAPSULE BY CAPSULE BY MOUTH TWICE MOUTH TWICE MOUTH DAILY DAILY TWICE DAILY Women's Women's No Women's [place] [facility] Multivitami Multivitami Multivitam da n n in Medical Group Immunizations Ordered Immunization Filled Immunization Date Status Commen ts Source Name Name influenza, influenza, 2018-01-26 Completed [place] recombinant, recombinant, 14:35:00 Medical Gr oup quadrIvalent,injecta quadrIvalent,inject ble, preservative able, preservative free free influenza, influenza, 2017-02-25 Completed [place] intradermal, intradermal, 15:04:07 Medical Gr oup quadrivalent, quadrivalent, preservative free preservative free Vital Signs Vital Name Observation Time Observation Value Comments Source Systolic blood 2021-10-22 23:00:00 107 mm[Hg] [facility] Diastolic blood 2021-10-22 23:00:00 75 mm[Hg] [facility] Heart rate 2021-10-22 23:00:00 91 /min [facility] Body temperature 2021-10-22 23:00:00 36.67 Ema [facility] Respiratory rate 2021-10-22 23:00:00 16 /min [facility] Body height 2021-10-22 23:00:00 172.7 cm [facility] Body weight 2021-10-22 23:00:00 137.122 kg [facility] BMI 2021-10-22 23:00:00 45.96 kg/m2 [facility] Oxygen saturation in 2021-10-22 23:00:00 97 /min [facility] blood by [facility] Pulse oximetry Branch Systolic blood 2021-09-09 14:43:00 118 mm[Hg] Univer sity of pressure [facility] Diastolic blood 2021-09-09 14:43:00 81 mm[Hg] Unive rsity of pressure [facility] Heart rate 2021-09-09 14:43:00 92 /min Universi [facility] Body temperature 2021-09-09 14:43:00 37.17 Ema [facility] 2021-09-09 14:43:00 19 /min [facility] Body height 2021-09-09 14:43:00 172.7 cm Universi ty [facility] Body weight 2021-09-09 14:43:00 139.027 kg Universi ty [facility] BMI 2021-09-09 14:43:00 46.60 kg/m2 [facility] Oxygen saturation in 2021-09-09 14:43:00 97 /min University of Arterial blood by [facility] Pulse oximetry Branch BP Diastolic 2021-08-07 00:00:00 90 mm[Hg] [facility] Height 2021-08-07 00:00:00 68 [in_i] [facility] BMI (Body Mass 2021-08-07 00:00:00 46.6 kg/m2 [facility] Medical Index) Group BP Systolic 2021-08-07 00:00:00 152 mm[Hg] [facility] Body Weight 2021-08-07 00:00:00 306.2 [lb_av] [facility] BP Diastolic 2021-07-27 00:00:00 77 mm[Hg] [facility] Height 2021-07-27 00:00:00 68 [in_i] [facility] BMI (Body Mass 2021-07-27 00:00:00 46 kg/m2 [facility] Medical Index) Group BP Systolic 2021-07-27 00:00:00 125 mm[Hg] [facility] Body Weight 2021-07-27 00:00:00 302.7 [lb_av] [facility] BP Diastolic 2021-07-13 00:00:00 85 mm[Hg] [facility] Height 2021-07-13 00:00:00 68 [in_i] [facility] BMI (Body Mass 2021-07-13 00:00:00 45.9 kg/m2 [facility] Medical Index) Group BP Systolic 2021-07-13 00:00:00 138 mm[Hg] [facility] Body Weight 2021-07-13 00:00:00 301.8 [lb_av] [facility] Systolic blood 2021-07-01 14:57:00 97 mm[Hg] Univer sity of pressure [facility] Diastolic blood 2021-07-01 14:57:00 68 mm[Hg] Unive rsity of [facility] Heart rate 2021-07-01 14:57:00 87 /min Universi ty of [facility] Body temperature 2021-07-01 14:57:00 36.94 Ema Univ ersity of [facility] Respiratory rate 2021-07-01 14:57:00 17 /min Univ ersity of [facility] Body height 2021-07-01 14:57:00 172.7 cm Universi ty of [facility] Body weight 2021-07-01 14:57:00 136.714 kg Universi ty of [facility] BMI 2021-07-01 14:57:00 45.83 kg/m2 Universi ty [facility] Oxygen saturation in 2021-07-01 14:57:00 98 /min University Arterial blood by [facility] Pulse oximetry Branch Systolic blood 2021-04-29 16:59:00 121 mm[Hg] Univer sity of pressure [facility] Diastolic blood 2021-04-29 16:59:00 74 mm[Hg] Unive rsity of pressure [facility] Heart rate 2021-04-29 16:59:00 99 /min Universi ty of [facility] Body temperature 2021-04-29 16:59:00 37 Ema Univ ersity of [facility] Respiratory rate 2021-04-29 16:59:00 18 /min Univ ersity of [facility] Body height 2021-04-29 16:59:00 172.7 cm Universi ty of [facility] Body weight 2021-04-29 16:59:00 137.803 kg Universi ty [facility] BMI 2021-04-29 16:59:00 46.19 kg/m2 Universi ty [facility] Oxygen saturation in 2021-04-29 16:59:00 97 /min University of Arterial blood by [facility] Pulse oximetry Branch Systolic blood 2021-02-03 16:37:00 126 mm[Hg] Univer sity of pressure [facility] Diastolic blood 2021-02-03 16:37:00 85 mm[Hg] Unive rsity of pressure [facility] Heart rate 2021-02-03 16:37:00 76 /min Universi ty [facility] Body temperature 2021-02-03 16:37:00 36.56 [facility] 2021-02-03 16:37:00 18 /min Univ ersity [facility] Body weight 2021-02-03 16:37:00 140.161 kg Universi ty [facility] BMI 2021-02-03 16:37:00 46.98 kg/m2 Universi ty [facility] Oxygen saturation in 2021-02-03 16:37:00 100 /min [facility] Arterial blood by [facility] Pulse oximetry Branch BP Diastolic 2020-11-14 00:00:00 93 mm[Hg] [facility] Height 2020-11-14 00:00:00 68 [in_i] [facility] BMI (Body Mass 2020-11-14 00:00:00 47.1 kg/m2 [facility] BP Systolic 2020-11-14 00:00:00 136 mm[Hg] [facility] Body Weight 2020-11-14 00:00:00 309.5 [lb_av] [facility] BP Diastolic 2020-04-18 00:00:00 88 mm[Hg] [facility] Height 2020-04-18 00:00:00 68 [in_i] [facility] BMI (Body Mass 2020-04-18 00:00:00 44.2 kg/m2 [facility] [place] Medical Index) Group BP Systolic 2020-04-18 00:00:00 111 mm[Hg] [facility] Body Weight 2020-04-18 00:00:00 290.8 [lb_av] [facility] BP Diastolic 2020-02-01 00:00:00 89 mm[Hg] [facility] Height 2020-02-01 00:00:00 68 [in_i] [facility] BMI (Body Mass 2020-02-01 00:00:00 46.5 kg/m2 [facility] Medical Index) Group BP Systolic 2020-02-01 00:00:00 127 mm[Hg] [facility] Body Weight 2020-02-01 00:00:00 306 [lb_av] [facility] BP Diastolic 2019-04-05 00:00:00 74 mm[Hg] [facility] Height 2019-04-05 00:00:00 68 [in_i] [facility] BMI (Body Mass 2019-04-05 00:00:00 20.8 kg/m2 [facility] Medical Index) Group BP Systolic 2019-04-05 00:00:00 109 mm[Hg] [facility] Body Weight 2019-04-05 00:00:00 137.1 [lb_av] [facility] BP Diastolic 2019-01-12 00:00:00 75 mm[Hg] [facility] Height 2019-01-12 00:00:00 68 [in_i] [facility] BMI (Body Mass 2019-01-12 00:00:00 41.3 kg/m2 [facility] Medical Index) Group BP Systolic 2019-01-12 00:00:00 112 mm[Hg] [facility] Body Weight 2019-01-12 00:00:00 271.9 [lb_av] [facility] BP Diastolic 2018-12-09 00:00:00 73 mm[Hg] [facility] Height 2018-12-09 00:00:00 68 [in_i] [facility] BMI (Body Mass 2018-12-09 00:00:00 37.6 kg/m2 [facility] Medical Index) Group BP Systolic 2018-12-09 00:00:00 122 mm[Hg] [facility] Body Weight 2018-12-09 00:00:00 3959 [oz_av] [facility] BP Diastolic 2018-12-04 00:00:00 77 mm[Hg] [facility] Height 2018-12-04 00:00:00 68 [in_i] [facility] BMI (Body Mass 2018-12-04 00:00:00 42 kg/m2 [facility] Medical Index) Group BP Systolic 2018-12-04 00:00:00 144 mm[Hg] [facility] Body Weight 2018-12-04 00:00:00 276.1 [lb_av] [facility] BP Diastolic 2018-12-03 00:00:00 90 mm[Hg] [facility] Height 2018-12-03 00:00:00 68 [in_i] [facility] BMI (Body Mass 2018-12-03 00:00:00 42 kg/m2 [facility] Medical Index) Group BP Systolic 2018-12-03 00:00:00 116 mm[Hg] [facility] Body Weight 2018-12-03 00:00:00 4416 [oz_av] [facility] BP Diastolic 2018-10-16 00:00:00 85 mm[Hg] [facility] Height 2018-10-16 00:00:00 68 [in_i] [facility] BMI (Body Mass 2018-10-16 00:00:00 42.1 kg/m2 [facility] Medical Index) Group BP Systolic 2018-10-16 00:00:00 120 mm[Hg] [facility] Body Weight 2018-10-16 00:00:00 4432 [oz_av] [facility] BP Diastolic 2018-08-25 00:00:00 81 mm[Hg] [facility] Height 2018-08-25 00:00:00 68 [in_i] [facility] BMI (Body Mass 2018-08-25 00:00:00 42.3 kg/m2 [facility] Medical Index) Group BP Systolic 2018-08-25 00:00:00 126 mm[Hg] [facility] Body Weight 2018-08-25 00:00:00 4448 [oz_av] [facility] BP Diastolic 2018-07-13 00:00:00 84 mm[Hg] [facility] Height 2018-07-13 00:00:00 68 [in_i] [facility] BP Systolic 2018-07-13 00:00:00 126 mm[Hg] [facility] BP Diastolic 2018-04-10 00:00:00 74 mm[Hg] [facility] Height 2018-04-10 00:00:00 68 [in_i] [facility] BMI (Body Mass 2018-04-10 00:00:00 42.7 kg/m2 [facility] pl[facility] cutter Medical Index) Group BP Systolic 2018-04-10 00:00:00 174 mm[Hg] [facility] Body Weight 2018-04-10 00:00:00 4496 [facility] [facility] Procedures Procedure Date / Time Performing Clinician Source Performed POCT SARS-COV-2 ANTIGEN 2021-10-22 23:15:00 Yaya Samaniego [facility] (BINAX NOW) Medical Branch POCT MOLECULAR STREP 2021-10-22 23:02:00 John Norton [facility] ULTRASOUND, 2021-07-27 00:00:00 [facility] WITH Group IMAGE DOCUMENTAITON, TRANSVAGINAL ULTRASOUND, 2021-07-13 00:00:00 [place] UTERUS REAL TIME WITH Group IMAGE DOCUMENTAITON, TRANSVAGINAL POCT MOLECULAR STREP 2021-04-29 17:04:00 Unknown, Attending [facility] ASSIGNMENT OF BENEFITS 2021-04-29 16:45:27 Doctor Unassigned, Un [facility] COVID-19 (MOLECULAR 2021-02-03 16:36:00 John Norton [facility] TESTING [facility] NUCLEIC ACID AMPLIFICATION) LAB ONLY COVID 2021-02-03 16:36:00 John Norton [place] [facility] [place] INTERPRETATION Medical Branch US, transvaginal 2019-04-05 00:00:00 Sabiha christine Group unlisted imaging order 2019-01-12 00:00:00 [facility] MRI, lumbar spine, w/o 2018-04-10 00:00:00 [place] [facility] contrast Group Delivery 2017-06-24 00:00:00 [facility] Appendectomy 2016-01-23 00:00:00 [facility] Remove Tonsils and [facility] Dilation & Curettage [facility] Plan of Care Planned Activity Planned Date Details Comments Source Diagnostic Test 2021-08-07 urinalysis, [facility] Pending 00:00:00 dipstick [code = Group urinalysis, dipstick] Encounters Start End Encounter Admission Attending Care Care Encounter Source Date/Time Date/Time Type Type Clinicians Facility Department ID 2021-12-19 2021-12-19 Outpatient CHRETIEN_F [facility] [id number] [place] 00:00:00 00:00:00 [facility] 2021-12-04 2021-12-04 Outpatient CHRETIEN_F [facility] [id number] [place] 00:00:00 00:00:00 913 [facility] 2021-12-04 2021-12-04 Outpatient Tobi [facility] [id number] 00:00:00 00:00:00 Laly [id number] 2021-11-07 2021-11-07 Outpatient CHRETIEN_F [facility] [id number] [place] 00:00:00 00:00:00 [facility]17 [facility] 2021-11-04 2021-11-04 Outpatient G_[facility]appas [facility] [id number] [place] 00:00:00 00:00:00 0814 [facility] 2021-10-24 2021-10-24 Outpatient CHRETIEN_F [facility] [id number] [place] 00:00:00 00:00:00 803 [facility] 2021-10-24 2021-10-24 Outpatient Chretien, [facility] [id number] adc-[id number] 00:00:00 00:00:00 Laly [id number] 2021-10-24 2021-10-24 Outpatient Chretien, [facility] [id number] 00:00:00 00:00:00 Laly [id number] 2021-10-22 2021-10-22 [facility] [id number] Univers 18:00:00 18:29:12 [facility] 2021-10-22 2021-10-22 Urgent FedeYaya schulte [facility] [id number] Univers 18:00:00 18:29:12 [facility] [id number] [facility] [id number] Tor as STEVE?BLEA [phone] [address] MEDICAL OFFICE BUILDING 2021-10-22 2021-10-22 Outpatient R [facility] [id number] Univers 18:00:00 18:00:00 [id number] [facility] 2021-10-09 2021-10-09 Outpatient CHRETIEN_F [facility] 7906 - [place] 02:53:00 02:53:00 719 [facility] 2021-09-10 2021-09-10 Outpatient CHRETIEN_F [facility] 7906 - [place] 04:32:00 04:32:00 620 [facility] 2021-09-10 2021-09-10 Outpatient Chretien, [facility] [id number] 00:00:00 00:00:00 Laly [id number] 2021-09-09 2021-09-09 [facility] [id number] Univers 09:40:00 10:03:27 [facility] 2021-09-09 2021-09-09 [facility] [id number] Univers 09:40:00 10:03:27 [facility] [id number] it y of [place] [id number] Tor as STEVE?BLEA [phone] Me ignacio [address] MEDICAL OFFICE BUILDING 2021-09-09 2021-09-09 Outpatient R [facility] [id number] Univers 09:40:00 09:40:00 [id number] ity [facility] 2021-08-30 2021-08-30 Outpatient G_Pappas MMG [facility] [id number] [place] 02:34:00 02:34:00 0609 da [facility] 2021-08-29 2021-08-29 Outpatient CHRETIEN_F [facility] [id number] [place] 02:29:00 02:29:00 608 [facility] 2021-08-07 2021-08-07 Oliv[place] Villar[place] - [id number] [place] 00:00:00 00:00:00 Discovery July 0517 beba MD: [address] [place] [address] , Ph. [phone] 2021-07-27 2021-07-27 Olivier Villarreal_[place] - [address] 2 [place] 00:00:00 00:00:00 Discovery July 0506 beba WALLER: [address] [place] [address] , Ph. [phone] 2021-07-13 2021-07-13 [place]app[place] - [address] 2 [place] 00:00:00 00:00:00 Discovery July 0422 da MD: [address] [place] [address] , Ph. [phone] 2021-07-12 2021-07-12 Outpatient G_Pappas MMG [facility] [id number] [place] 10:47:00 10:47:00 0421 [facility] 2021-07-01 2021-07-01 Urgent Heaven Andrade [facility] [id number] Univers 10:00:00 10:20:00 Care Song, [facility] [id number] ity [facility] [id number] Tor as STEVE?BLEA [phone] [address] MEDICAL OFFICE BUILDING 2021-07-01 2021-07-01 Outpatient R [facility] [id number] Univers 10:00:00 10:00:00 [id number] [facility] 2021-07-01 2021-07-01 Out[facility] R [facility] [id number] Univers 10:00:00 10:00:00 [facility] 2021-06-29 2021-06-29 Outpatient WATERS_S [facility] [id number] [place] 12:35:00 12:35:00 408 [facility] 2021-05-22 2021-05-22 Outpatient WATERS_S [facility] [id number] [place] 05:20:00 05:20:00 301 [facility] 2021-05-22 2021-05-22 Outpatient Okeefe, [facility] [id number] 00:00:00 00:00:00 Ольга [id number] 2021-05-09 2021-05-09 Outpatient WATERS_S [facility] [id number] [place] 04:53:00 04:53:00 216 [facility] 2021-05-09 2021-05-09 Outpatient Okeefe, [facility] [id number] 00:00:00 00:00:00 Ольга [id number] 2021-04-29 2021-04-29 Urgent Pippa Beavers [facility] [id number] Univers 11:00:00 11:18:22 Care Unknown, [facility] [id number] ity of [place] [id number] Tor as STEVE?BLEA [phone] Oh ignacio [address] MEDICAL OFFICE BUILDING 2021-04-29 2021-04-29 Outpatient R [facility] [id number] Univers 11:00:00 11:18:22 PIPPA ity [facility] 2021-04-29 2021-04-29 Outpatient R [facility] [id number] Univers 11:00:00 11:00:00 [id number] ity [facility] 2021-04-29 2021-04-29 Orders Doctor ABHISHEK 1.2.840.114 [id number] Univers 00:00:00 00:00:00 Only Unassigned, LUCINDA [id number] [facility] [id number] Tor as [phone] [address] 2021-02-27 2021-02-27 Outpatient WATERS_S [facility] [id number] [place] 04:26:00 04:26:00 207 [facility] 2021-02-27 2021-02-27 Outpatient Okeeef, [facility] [id number] 00:00:00 00:00:00 Ольга [id number] 2021-02-05 2021-02-05 Outpatient WATERS_S [facility] [id number] [place] 04:46:00 04:46:00 115 [facility] 2021-02-05 2021-02-05 Outpatient [place]keefe, [facility] [id number] 00:00:00 00:00:00 Ольга [id number] 2021-02-05 2021-02-05 Outpatient [place]keefe, [facility] [id number] 00:00:00 00:00:00 Ольга [id number] 2021-02-03 2021-02-03 Jailyn Isaacs [facility] 1.2.840.114 [id number] Univers 10:25:27 11:09:44 [facility] [id number] david malone [place] [id number] Tor as STEVE?BLEA [phone] Oh ignacio [address] MEDICAL OFFICE BUILDING 2021-01-24 2021-01-24 Outpatient WATERS_S [facility] [id number] [place] 12:36:00 12:36:00 103 [facility] 2021-01-24 2021-01-24 Outpatient [place]keefe, [facility] [id number] 00:00:00 00:00:00 Ольга [id number] 2020-12-13 2020-12-13 Outpatient WATERS_S [facility] [id number] [place] 03:17:00 03:17:00 922 [facility] 2020-12-13 2020-12-13 Outpatient [place]fe, [facility] [id number] 00:00:00 00:00:00 Ольга [id number] 2020-11-17 2020-11-17 Outpatient WATERS_S [facility] [id number] [place] 12:33:00 12:33:00 827 [facility] 2020-11-16 2020-11-16 Outpatient WATERS_S [facility] [id number] [place] 01:00:00 01:00:00 826 [facility] 2020-11-16 2020-11-16 Outpatient [place]keefe, [facility] [id number] 00:00:00 00:00:00 Ольга [id number] 2020-11-16 2020-11-16 Outpatient [place], [facility] [id number] 00:00:00 00:00:00 Ольга [id number] 2020-11-14 2020-11-14 Olivier De La Cruz [facility] [place] [place] - [id number] [place] 00:00:00 00:00:00 Discovery July 0824 beba WALLER: 600 [facility] [address], [place] [address] , Ph. [phone] 2020-09-18 2020-09-18 Outpatient WATERS_S [facility] [id number] [place] 04:01:00 04:01:00 628 [facility] 2020-09-18 2020-09-18 Outpatient [place]fe, [facility] [id number] 00:00:00 00:00:00 Ольга [id number] 2020-09-18 2020-09-18 Outpatient [place]keefe, [facility] [id number] 00:00:00 00:00:00 Ольга [id number] 2020-08-29 2020-08-29 Outpatient WATERS_S [facility] [id number] [place] 10:39:00 10:39:00 608 [facility] 2020-08-29 2020-08-29 Outpatient Okeefe, [facility] [id number] 00:00:00 00:00:00 Ольга [id number] 2020-07-20 2020-07-20 Outpatient WATERS_S [facility] [id number] [place] 12:28:00 12:28:00 429 [facility] 2020-07-20 2020-07-20 Outpatient [place], [facility] [id number] 00:00:00 00:00:00 Ольга [id number] 2020-04-18 2020-04-18 Olivier De La Cruz [facility] [place] [place] - [address] [place] 00:00:00 00:00:00 Discovery July 0126 beba WALLER: 600 [facility] [address], [place] [address] , Ph. [phone] 2020-03-10 2020-03-10 Outpatient TURNER_FA [facility] [id number] [place] 08:57:00 08:57:00 218 [facility] 2020-02-09 2020-02-09 Outpatient G_Pappas MMG [facility] [id number] [place] 02:24:00 02:24:[address] [facility] 2020-02-01 2020-02-01 Olivier G_[place] MM[place] - [id number] [place] 00:00:00 00:00:00 Discovery July 1110 beba MD: [address] [place] [address] , Ph. [phone] 2020-01-21 2020-01-21 Outpatient G_Pappas MMG [facility] [id number] [place] 11:55:00 11:55:00 1030 da [facility] 2019-04-08 2019-04-08 Outpatient G_Pappas MMG MMG [id number] [place] 11:52:00 11:52:00 0116 beba [facility] 2019-04-05 2019-04-05 Olivier G_[place] MM[place] - [id number] [place] 00:00:00 00:00:00 Discovery July 0113 beba MD: [address] [place] [phone] , Ph. [phone] 2019-01-12 2019-01-12 [place] - [id number] [place] 00:00:00 00:00:00 Discovery July 1022 beba MD: [address] [place] [address], [place] [address] , Ph. [phone] 2018-12-09 2018-12-09 Shae Ascencio [facility] [place] [place] - [id number] [place] 00:00:00 00:00:00 MD Tara: [address] [place] [address] 201[facility] [address] , Ph. 2018-12-04 2018-12-04 [place] - [address] [place] 00:00:00 00:00:00 Discovery July 0913 beba WALLER: [address] [place] [address] [facility] [address], [place] [address] , Ph. [phone] 2018-12-03 2018-12-03 [place] - [address] [place] 00:00:00 00:00:00 MD Tara: [address] [place] [address] [facility] [address], [facility] [address] , Ph. 2018-10-16 2018-10-16 [place] - [id number] [place] 00:00:00 00:00:00 MD Tara: [address] [place] [address], [facility] [address], [facility] [address] , Ph. 2018-08-25 2018-08-25 [place] - [id number] [place] 00:00:00 00:00:00 MD Tara: [address] [place] [address], [facility] [address], [place] [address] , Ph. 2018-07-13 2018-07-13 [place] - [id number] [place] 00:00:00 00:00:00 MD Tara: [address] [place] [address], [place] [address], [place] [address] , Ph. 2018-04-10 2018-04-10 [place] - [id number] [place] 00:00:00 00:00:00 MD Tara: [address] [place] [address], [place] [address], [place] [address] , Ph. 2018-03-25 2018-03-25 [place] - [address] [place] 00:00:00 00:00:00 [place] 0102 beba Cantu, Medical Medical MD: 600 [facility] [address], [place] [address] , Ph. Results Test Description Test Time Test Comments Results Result Comments Source POCT SARS-COV-2 ANTIGEN ([facility]AX NOW) 2021-10-22 23:30:00 Test Item Value Reference Range Interpretation Comme nts POCT SARS-COV-2 ANTIGEN (test code = 5076) Not Detected Not Detecte d On board controls acceptable with C Line (test code = Yes 3574) Lab Interpretation (test code = 53345-6) Normal [facility] [id number] 23:10:36 Test Item Value Reference Range Interpretation Comments POCT Molecular Strep (test code = Negative Negative 56908-2) Lab Interpretation (test code = Normal 87185-5) [facility] macro (dipstick) panel - Urine 2021-08-07 09:27:09 Test Item Value Reference Range Interpretation Comments Leukocytes (test code = Leukocytes) Negative Nitrite (test code = Nitrite) negative Urobilinogen (test code = .2 Urobilinogen) Protein (test code = Protein) Negative pH (test code = pH) 6.0 Blood (test code = Blood) Small Specific [place] (test code = 1.025 Specific [place]) Ketone (test code = Ketone) Negative Bilirubin (test code = Bilirubin) Negative Glucose (test code = Glucose) Negative Appearance (test code = Appearance) Clear Color (test code = Color) Yellow [facility] W Auto Differential panel - [id number] 08:25:00 Test Item Value Reference Range Interpretation Comments white blood count (test code = 8.7 K/uL 4.0-11.5 white blood count) red blood count (test code = red 5.11 M/uL 3.80-5.20 blood count) hemoglobin (test code = 12.1 g/dL 10.5-15.7 hemoglobin) hematocrit (test code = 40.9 % 34.0-50.0 hematocrit) MCV [Entitic volume] (test code = 80.0 fL 86.0-100.0 L 67097-5) mean corpuscular hemoglobin (test 23.7 pg 26.2-33.4 L code = mean corpuscular hemoglobin) mean corpuscular HGB conc (test 29.6 g/dL 30.0-34.0 L code = mean corpuscular HGB conc) red cell distribution width (test 14.6 % 12.0-15.5 code = red cell distribution width) platelet count (test code = 349 K/uL 165-450 platelet count) mean platelet volume (test code = 11.8 fL 9.4-12.6 mean platelet volume) Segmented neutrophils/100 62.8 % 44.4-80.1 leukocytes in Blood (test code = 23464-1) Immature granulocytes [#/volume] 0.04 K/uL 0.00-0.03 H in Blood (test code = 27540-3) lymphocyte% (test code = 27.6 % 10.0-50.0 lymphocyte%) mono % (test code = mono %) 6.1 % 3.6-12.0 eos % (test code = eos %) 2.4 % 0.0-5.4 Basophils/100 leukocytes in 0.6 % 0.1-1.2 Specimen (test code = 44701-0) Band form neutrophils [#/volume] 5.48 K/uL 1.56-6.13 in Blood (test code = 10312-2) Lymphocytes [#/volume] in Specimen 2.41 K/uL 1.18-3.74 by Automated count (test code = 77633-2) mono # (test code = mono #) 0.53 K/uL 0.24-0.86 eos # (test code = eos #) 0.21 K/uL 0.04-0.36 basophil # (test code = basophil 0.05 K/uL 0.01-0.08 #) NRBC% (test code = NRBC%) 0 /100 WBC 0-0.2 NRBC# (test code = NRBC#) 0 K/uL [facility] Group[facility] macro (dipstick) panel - [id number] 10:17:35 Test Item Value Reference Range Interpretation Comments Leukocytes (test code = Leukocytes) Negative Nitrite (test code = Nitrite) negative Urobilinogen (test code = .2 Urobilinogen) Protein (test code = Protein) Negative pH (test code = pH) 5.5 Blood (test code = Blood) Negative Specific [place] (test code = 1.025 Specific [place]) Ketone (test code = Ketone) Negative Bilirubin (test code = Bilirubin) Negative Glucose (test code = Glucose) Negative Appearance (test code = Appearance) Clear Color (test code = Color) Yellow [facility] (dipstick) panel - [id number] 10:17:35 Test Item Value Reference Range Interpretation Comments Leukocytes (test code = Leukocytes) Negative Nitrite (test code = Nitrite) negative Urobilinogen (test code = .2 Urobilinogen) Protein (test code = Protein) Negative pH (test code = pH) 5.5 Blood (test code = Blood) Negative Specific [place] (test code = 1.025 Specific [place]) Ketone (test code = Ketone) Negative Bilirubin (test code = Bilirubin) Negative Glucose (test code = Glucose) Negative Appearance (test code = Appearance) Clear Color (test code = Color) Yellow [facility] + reflex to HR HPV if [id number] 00:00:00 Test Item Value Reference Range Interpretation Comments TP reflex HPV ASCUS (test code = TP normal reflex HPV ASCUS) [facility] + reflex to HR HPV if [id number] 00:00:00 Test Item Value Reference Range Interpretation Comments TP reflex HPV ASCUS (test code = TP normal reflex HPV ASCUS) [facility] observation [Identifier] in Vaginal fluid by Wet [id number] 16:05:37 Test Item Value Reference Range Interpretation Comments Clue Cells (test code = Clue Cells) negative WBCs (test code = WBCs) negative Trichomonads (test code = negative Trichomonads) Epithelial cells (test code = normal Epithelial cells) RBCs (test code = RBCs) negative [facility] GroupMicroscopic observation [Identifier] in Vaginal fluid by Wet [id number] 16:05:37 Test Item Value Reference Range Interpretation Comments Clue Cells (test code = Clue Cells) negative WBCs (test code = WBCs) negative Trichomonads (test code = negative Trichomonads) Epithelial cells (test code = normal Epithelial cells) RBCs (test code = RBCs) negative [facility] [Identifier] in Vaginal fluid by Wet [id number] 16:05:37 Test Item Value Reference Range Interpretation Comments Clue Cells (test code = Clue Cells) negative WBCs (test code = WBCs) negative Trichomonads (test code = negative Trichomonads) Epithelial cells (test code = normal Epithelial cells) RBCs (test code = RBCs) negative [facility] HospitalUrinalysis macro (dipstick) panel - [id number] 09:48:10 Test Item Value Reference Range Interpretation Comments Leukocytes (test code = Leukocytes) Negative Nitrite (test code = Nitrite) negative Urobilinogen (test code = .2 Urobilinogen) Protein (test code = Protein) Negative pH (test code = pH) 5.5 Blood (test code = Blood) Negative Specific [place] (test code = 1.030 Specific [place]) Ketone (test code = Ketone) Negative Bilirubin (test code = Bilirubin) Negative Glucose (test code = Glucose) Negative Appearance (test code = Appearance) Clear Color (test code = Color) Yellow [facility] HospitalUrinalysis macro (dipstick) panel - [id number] 09:48:10 Test Item Value Reference Range Interpretation Comments Leukocytes (test code = Leukocytes) Negative Nitrite (test code = Nitrite) negative Urobilinogen (test code = .2 Urobilinogen) Protein (test code = Protein) Negative pH (test code = pH) 5.5 Blood (test code = Blood) Negative Specific [place] (test code = 1.030 Specific [place]) Ketone (test code = Ketone) Negative Bilirubin (test code = Bilirubin) Negative Glucose (test code = Glucose) Negative Appearance (test code = Appearance) Clear Color (test code = Color) Yellow [facility] Hospital[facility]ysis macro (dipstick) panel - [id number] 09:48:10 Test Item Value Reference Range Interpretation Comments Leukocytes (test code = Leukocytes) Negative Nitrite (test code = Nitrite) negative Urobilinogen (test code = .2 Urobilinogen) Protein (test code = Protein) Negative pH (test code = pH) 5.5 Blood (test code = Blood) Negative Specific [place] (test code = 1.030 Specific [place]) Ketone (test code = Ketone) Negative Bilirubin (test code = Bilirubin) Negative Glucose (test code = Glucose) Negative Appearance (test code = Appearance) Clear Color (test code = Color) Yellow [facility] test, [id number] 09:47:14 Test Item Value Reference Range Interpretation Comments Test (test code = positive Test) [facility], [id number] 09:47:14 Test Item Value Reference Range Interpretation Comments Test (test code = positive Test) [facility], [id number] 09:47:14 Test Item Value Reference Range Interpretation Comments Test (test code = positive Test) [facility] HospitalBacteria identified in Urine by [id number] 09:30:00Bacteria Ur [facility] W Auto Differential panel - [id number] 09:30:00 Test Item Value Reference Range Interpretation Comments white blood count (test code = 9.3 K/uL 4.0-11.5 white blood count) red blood count (test code = red 5.10 M/uL 3.80-5.20 blood count) hemoglobin (test code = 12.2 g/dL 10.5-15.7 hemoglobin) hematocrit (test code = 40.1 % 34.0-50.0 hematocrit) MCV [Entitic volume] (test code = 78.6 fL 86.0-100.0 L 02696-4) mean corpuscular hemoglobin (test 23.9 pg 26.2-33.4 L code = mean corpuscular hemoglobin) mean corpuscular HGB conc (test 30.4 g/dL 30.0-34.0 code = mean corpuscular HGB conc) red cell distribution width (test 14.7 % 12.0-15.5 code = red cell distribution width) platelet count (test code = 376 K/uL 165-450 platelet count) mean platelet volume (test code = 11.4 fL 9.4-12.6 mean platelet volume) Segmented neutrophils/100 69.6 % 44.4-80.1 leukocytes in Blood (test code = 01715-3) Immature granulocytes [#/volume] 0.04 K/uL 0.00-0.03 H in Blood (test code = 37218-3) lymphocyte% (test code = 21.5 % 10.0-50.0 lymphocyte%) mono % (test code = mono %) 6.3 % 3.6-12.0 eos % (test code = eos %) 1.7 % 0.0-5.4 Basophils/100 leukocytes in 0.5 % 0.1-1.2 Specimen (test code = 38060-7) Band form neutrophils [#/volume] 6.49 K/uL 1.56-6.13 H in Blood (test code = 01504-2) Lymphocytes [#/volume] in Specimen 2.01 K/uL 1.18-3.74 by Automated count (test code = 50616-3) mono # (test code = mono #) 0.59 K/uL 0.24-0.86 eos # (test code = eos #) 0.16 K/uL 0.04-0.36 basophil # (test code = basophil 0.05 K/uL 0.01-0.08 #) NRBC% (test code = NRBC%) 0 /100 WBC 0-0.2 NRBC# (test code = NRBC#) 0 K/uL [facility] in [id number] 09:30:00 Test Item Value Reference Range Interpretation Comments Rh [Type] in Blood (test code = 4+ 31477-1) ABO and Rh group panel - Blood Ab positive (test code = 37231-5) [facility] [Presence] in Serum or Plasma 2021-07-13 09:30:00 Test Item Value Reference Range Interpretation Comments Blood group antibody screen negative [Presence] in Serum or Plasma (test code = 890-4) [facility]lamydia trachomatis+Neisseria gonorrhoeae DNA [Presence] in Cervix by ELENO with probe [id number] 09:30:00 Test Item Value Reference Range Interpretation Comments Chlamydia sp Ag [Presence] in CT not detected Specimen (test code = 67361-8) [id number] (test code = gtc0602) NG not detected [facility] sensitivity testing, [id number] 09:30:00 Test Item Value Reference Range Interpretation Comments Gentamicin [Susceptibility] by <=2 Minimum inhibitory concentration (BREE) (test code = 267-5) Ampicillin [Susceptibility] by >16 Minimum inhibitory concentration (BREE) (test code = 28-1) Cefazolin [Susceptibility] by 2 ug/mL Minimum inhibitory concentration (BREE) (test code = 76-0) Trimethoprim+Sulfamethoxazole =0.5 [Susceptibility] by Minimum inhibitory concentration (BREE) (test code = 516-5) Tetracycline [Susceptibility] by <=2 Minimum inhibitory concentration (BREE) (test code = 496-0) Amoxicillin+Clavulanate =4/2 [Susceptibility] by Minimum inhibitory concentration (BREE) (test code = 20-8) Tobramycin [Susceptibility] by <=2 Minimum inhibitory concentration (BREE) (test code = 508-2) Nitrofurantoin [Susceptibility] by 32 ug/mL Minimum inhibitory concentration (BREE) (test code = 363-2) cefOXitin [Susceptibility] by <=4 Minimum inhibitory concentration (BREE) (test code = 116-4) levoFLOXacin [Susceptibility] by <=0.5 Minimum inhibitory concentration (BREE) (test code = 42316-7) cefTAZidime [Susceptibility] by <=2 Minimum inhibitory concentration (BREE) (test code = 133-9) cefTRIAXone [Susceptibility] by <=1 Minimum inhibitory concentration (BREE) (test code = 141-2) Ciprofloxacin [Susceptibility] by <=0.25 Minimum inhibitory concentration (BREE) (test code = 185-9) Ampicillin+Sulbactam =8/4 [Susceptibility] by Minimum inhibitory concentration (BREE) (test code = 32-3) Ertapenem [Susceptibility] by <=0.25 Minimum inhibitory concentration (BREE) (test code = 38633-2) Aztreonam [Susceptibility] by <=2 Minimum inhibitory concentration (BREE) (test code = 44-8) Cefepime [Susceptibility] by Minimum <=1 inhibitory concentration (BREE) (test code = 6644-9) Meropenem [Susceptibility] by <=0.5 Minimum inhibitory concentration (BREE) (test code = 6652-2) Moxifloxacin [Susceptibility] by <=1 Minimum inhibitory concentration (BREE) (test code = 88193-8) Amikacin [Susceptibility] by Minimum <=8 inhibitory concentration (BREE) (test code = 12-5) Piperacillin+Tazobactam =4/4 [Susceptibility] by Minimum inhibitory concentration (BREE) (test code = 412-7) Ceftaroline [Susceptibility] by <=0.25 Minimum inhibitory concentration (BREE) (test code = 56363-0) Tigecycline [Susceptibility] by <=1 Minimum inhibitory concentration (BREE) (test code = 21446-2) [facility] by [id number] 09:30:00Bacteria Ur [facility] W Auto Differential panel - [id number] 09:30:00 Test Item Value Reference Range Interpretation Comments white blood count (test code = 9.3 K/uL 4.0-11.5 white blood count) red blood count (test code = red 5.10 M/uL 3.80-5.20 blood count) hemoglobin (test code = 12.2 g/dL 10.5-15.7 hemoglobin) hematocrit (test code = 40.1 % 34.0-50.0 hematocrit) MCV [Entitic volume] (test code = 78.6 fL 86.0-100.0 L 20160-0) mean corpuscular hemoglobin (test 23.9 pg 26.2-33.4 L code = mean corpuscular hemoglobin) mean corpuscular HGB conc (test 30.4 g/dL 30.0-34.0 code = mean corpuscular HGB conc) red cell distribution width (test 14.7 % 12.0-15.5 code = red cell distribution width) platelet count (test code = 376 K/uL 165-450 platelet count) mean platelet volume (test code = 11.4 fL 9.4-12.6 mean platelet volume) Segmented neutrophils/100 69.6 % 44.4-80.1 leukocytes in Blood (test code = 86113-5) Immature granulocytes [#/volume] 0.04 K/uL 0.00-0.03 H in Blood (test code = 70647-2) lymphocyte% (test code = 21.5 % 10.0-50.0 lymphocyte%) mono % (test code = mono %) 6.3 % 3.6-12.0 eos % (test code = eos %) 1.7 % 0.0-5.4 Basophils/100 leukocytes in 0.5 % 0.1-1.2 Specimen (test code = 30470-0) Band form neutrophils [#/volume] 6.49 K/uL 1.56-6.13 H in Blood (test code = 41070-6) Lymphocytes [#/volume] in Specimen 2.01 K/uL 1.18-3.74 by Automated count (test code = 52001-8) mono # (test code = mono #) 0.59 K/uL 0.24-0.86 eos # (test code = eos #) 0.16 K/uL 0.04-0.36 basophil # (test code = basophil 0.05 K/uL 0.01-0.08 #) NRBC% (test code = NRBC%) 0 /100 WBC 0-0.2 NRBC# (test code = NRBC#) 0 K/uL [facility] GroupABO and Rh group [Type] in [id number] 09:30:00 Test Item Value Reference Range Interpretation Comments Rh [Type] in Blood (test code = 4+ 37399-3) ABO and Rh group panel - Blood Ab positive (test code = 35135-9) [facility] GroupBlood [facility] antibody screen [Presence] in Serum or Plasma 2021-07-13 09:30:00 Test Item Value Reference Range Interpretation Comments Blood group antibody screen negative [Presence] in Serum or Plasma (test code = 890-4) [facility] GroupChlamydia trachomatis+Neisseria gonorrhoeae DNA [Presence] in Cervix by ELENO with probe [id number] 09:30:00 Test Item Value Reference Range Interpretation Comments Chlamydia sp Ag [Presence] in CT not detected Specimen (test code = 00078-1) [id number] (test code = mbn5807) NG not detected [facility] Groupantibiotic sensitivity testing, [id number] 09:30:00 Test Item Value Reference Range Interpretation Comments Gentamicin [Susceptibility] by <=2 Minimum inhibitory concentration (BREE) (test code = 267-5) Ampicillin [Susceptibility] by >16 Minimum inhibitory concentration (BREE) (test code = 28-1) Cefazolin [Susceptibility] by 2 ug/mL Minimum inhibitory concentration (BREE) (test code = 76-0) Trimethoprim+Sulfamethoxazole =0.5 [Susceptibility] by Minimum inhibitory concentration (BREE) (test code = 516-5) Tetracycline [Susceptibility] by <=2 Minimum inhibitory concentration (BREE) (test code = 496-0) Amoxicillin+Clavulanate =4/2 [Susceptibility] by Minimum inhibitory concentration (BREE) (test code = 20-8) Tobramycin [Susceptibility] by <=2 Minimum inhibitory concentration (BREE) (test code = 508-2) Nitrofurantoin [Susceptibility] by 32 ug/mL Minimum inhibitory concentration (BREE) (test code = 363-2) cefOXitin [Susceptibility] by <=4 Minimum inhibitory concentration (BREE) (test code = 116-4) levoFLOXacin [Susceptibility] by <=0.5 Minimum inhibitory concentration (BREE) (test code = 19479-0) cefTAZidime [Susceptibility] by <=2 Minimum inhibitory concentration (BREE) (test code = 133-9) cefTRIAXone [Susceptibility] by <=1 Minimum inhibitory concentration (BREE) (test code = 141-2) Ciprofloxacin [Susceptibility] by <=0.25 Minimum inhibitory concentration (BREE) (test code = 185-9) Ampicillin+Sulbactam =8/4 [Susceptibility] by Minimum inhibitory concentration (BREE) (test code = 32-3) Ertapenem [Susceptibility] by <=0.25 Minimum inhibitory concentration (BREE) (test code = 08936-6) Aztreonam [Susceptibility] by <=2 Minimum inhibitory concentration (BREE) (test code = 44-8) Cefepime [Susceptibility] by Minimum <=1 inhibitory concentration (BREE) (test code = 6644-9) Meropenem [Susceptibility] by <=0.5 Minimum inhibitory concentration (BREE) (test code = 6652-2) Moxifloxacin [Susceptibility] by <=1 Minimum inhibitory concentration (BREE) (test code = 99187-2) Amikacin [Susceptibility] by Minimum <=8 inhibitory concentration (BREE) (test code = 12-5) Piperacillin+Tazobactam =4/4 [Susceptibility] by Minimum inhibitory concentration (BREE) (test code = 412-7) Ceftaroline [Susceptibility] by <=0.25 Minimum inhibitory concentration (BREE) (test code = 04595-5) Tigecycline [Susceptibility] by <=1 Minimum inhibitory concentration (BREE) (test code = 54713-9) [facility]HIV [facility] [Presence] in [id number] 00:00:00HIV P24 AgHIV-1/2 [facility]MaThe[facility] GroupReagin Ab [Presence] in Serum by RPR 2021-07-13 00:00:00 Test Item Value Reference Range Interpretation Comments Reagin Ab [Presence] in Serum by nonreactive nonreactive RPR (test code = 26845-2) [facility]Hepatitis B virus surface Ag [Presence] in Serum 2021-07-13 00:00:00 Test Item Value Reference Range Interpretation Comments .hepatitis B surface antigen (test negative negative code = .hepatitis B surface antigen) [facility]HIV [facility] [Presence] in [id number] 00:00:00HIV P24 AgHIV-1/2 AbSt. [facility] HospitalReagin Ab [Presence] in Serum by RPR 2021-07-13 00:00:00 Test Item Value Reference Range Interpretation Comments Reagin Ab [Presence] in Serum by nonreactive nonreactive RPR (test code = 95486-0) [facility]Hep[facility] virus surface Ag [Presence] in Serum 2021-07-13 00:00:00 Test Item Value Reference Range Interpretation Comments .hepatitis B surface antigen (test negative negative code = .hepatitis B surface antigen) [facility] HospitalPOCT MOLECULAR [id number] 17:11:45 Test Item Value Reference Range Interpretation Comments POCT Molecular Strep (test code = Negative Negative 01209-1) Lab Interpretation (test code = Normal 05645-5) [facility], [id number] 10:29:00 Test Item Value Reference Range Interpretation Comments Test (test code = negative Test) [facility] HospitalUrinalysis macro (dipstick) panel - [id number] 10:21:00 Test Item Value Reference Range Interpretation Comments Leukocytes (test code = Leukocytes) Negative Nitrite (test code = Nitrite) negative Urobilinogen (test code = .2 Urobilinogen) Protein (test code = Protein) Negative pH (test code = pH) 5.5 Blood (test code = Blood) Negative Specific [place] (test code = 1.025 Specific [place]) Ketone (test code = Ketone) Negative Bilirubin (test code = Bilirubin) Negative Glucose (test code = Glucose) Negative Appearance (test code = Appearance) Clear Color (test code = Color) [facility] - [id number] 16:13:50 Test Item Value Reference Range Interpretation Comments Leukocytes (test code = Leukocytes) Trace Nitrite (test code = Nitrite) negative Urobilinogen (test code = .2 Urobilinogen) Protein (test code = Protein) Negative pH (test code = pH) 6.5 Blood (test code = Blood) Negative Specific [place] (test code = 1.025 Specific [place]) Ketone (test code = Ketone) Trace Bilirubin (test code = Bilirubin) Negative Glucose (test code = Glucose) Negative Appearance (test code = Appearance) Clear Color (test code = Color) [facility] (dipstick) panel - [id number] 15:30:32 Test Item Value Reference Range Interpretation Comments Leukocytes (test code = Leukocytes) Negative Nitrite (test code = Nitrite) negative Urobilinogen (test code = .2 Urobilinogen) Protein (test code = Protein) Trace pH (test code = pH) 5.5 Blood (test code = Blood) Negative Specific [place] (test code = 1.030 Specific [place]) Ketone (test code = Ketone) Trace Bilirubin (test code = Bilirubin) Negative Glucose (test code = Glucose) Negative Appearance (test code = Appearance) Clear Color (test code = Color) [facility]Ur[facility] macro (dipstick) panel - [id number] 09:12:32 Test Item Value Reference Range Interpretation Comments Leukocytes (test code = Leukocytes) Negative Nitrite (test code = Nitrite) negative Urobilinogen (test code = .2 Urobilinogen) Protein (test code = Protein) Negative pH (test code = pH) 6.0 Blood (test code = Blood) Negative Specific [place] (test code = 1.020 Specific [place]) Ketone (test code = Ketone) Negative Bilirubin (test code = Bilirubin) Negative Glucose (test code = Glucose) Negative Appearance (test code = Appearance) Clear Color (test code = Color) [facility] HospitalChoriogonadotropin.beta subunit [Units/volume] in Serum or [id number] 01:03:00 Test Item Value Reference Range Interpretation Comments HCG quantitative (test code = HCG <0.1 0-5 quantitative) [facility] HospitalChoriogonadotropin.beta subunit [Units/volume] in Serum or [id number] 01:03:00 Test Item Value Reference Range Interpretation Comments HCG quantitative (test code = HCG <0.1 0-5 quantitative) [facility] HospitalUrinalysis macro (dipstick) panel - [id number] 14:48:00 Test Item Value Reference Range Interpretation Comments Leukocytes (test code = Leukocytes) Negative Nitrite (test code = Nitrite) negative Urobilinogen (test code = .2 Urobilinogen) Protein (test code = Protein) 30 pH (test code = pH) 5.5 Blood (test code = Blood) Negative Specific [place] (test code = 1.030 Specific [place]) Ketone (test code = Ketone) Negative Bilirubin (test code = Bilirubin) Small Glucose (test code = Glucose) Negative Appearance (test code = Appearance) Clear Color (test code = Color) Yellow [facility]rap[facility], [id number] 02:06:00Results [facility]
[2021-12-22] MEDS ORDERED: PHENAZOPYRIDINE 100MG TAB PO ONE (05:31)
[2021-12-22] MEDS ORDERED: NA CHLORIDE 0.9% 1,000 ML ONE ×2 (05:32→06:11)
[2021-12-22] MEDS ORDERED: Levofloxacin 750mg IV 750 MG/150 ML BAG IV ONE (05:32)
[2021-12-22] MEDS ORDERED: ONDANSETRON 4 MG/2 ML VIAL ONE (05:32)
[2021-12-22] MEDS ORDERED: HYDROMORPHONE HCL 1 MG/ML INJ ONE (05:32)
[2021-12-22 05:53] LABS: Urine Blood 3+ (Negative); Urine Glucose Trace (Negative); Urine Protein 3+ (Negative); Urine Specific Gravity 1.025 (1.005-1.030)
[2021-12-22 06:12] LABS: Absolute Lymphocytes (CBC) 2.3 K/uL (0.7-4.9); Hematocrit 37.8 % (36.0-45.0); Lymphocytes % 17.9 % (15.3-44.8); MCV 73.4 fL (80-100); MPV 8.8 fL (7.6-11.3); RBC Red Blood Cell Count 5.15 M/uL (3.86-4.86)
[2021-12-22 06:14] LABS: Urine Specific Gravity/Preg 1.025 (1.005-1.030)
[2021-12-22 06:28] LABS: Albumin 3.6 g/dL (3.4-5.0); Bilirubin Total 0.4 mg/dL (0.2-1.0); Potassium 3.6 mmol/L (3.5-5.1); Protein, Total 8.2 g/dL (6.4-8.2)
--- NOTE | 2021-12-22 06:37 | RAD REPORT ---
EXAM DESCRIPTION: CT - Stone Protocol - 12/22/2021 6:11 am CLINICAL HISTORY: FLANKpain, dysuria, hematuria and history of kidney stones COMPARISON: Stone Protocol dated 07/10/2019; Pelvis Complete dated 07/10/2019; Abdomen Pelvis W Cont rast dated 02/16/2019 TECHNIQUE: Axial 3 mm thick images were obtained without oral or IV contrast. The [id number] span s the entirety of the system including uppermost abdomen and lung bases. All CT scans are performed using dose optimization technique as appropriate and may include automated exposure control or mA/KV adjustment according to patient size. FINDINGS: No hydronephrosis is present and no obstructing ureteral calculi. Numerous phleboliths are seen along the pelvic floor. No nonobstructing calculi seen. No suspicious renal masses. Isodense ma sses and pyelonephritis are not excluded on a stone protocol CT scan. No significant adrenal finding. Urinary bladder is fully contracted. No bladder calculi are seen. Cystitis cannot be excluded. Asher of the bladder are slightly shaggy but difficult to fully assessed in the contracted state. Uterus and right ovary are similar to prior imaging. Size and shape of the left ovary have not change d. Left ovary is positioned superiorly in the pelvis. There is an exophytic 6.0 centimeter homogeneou s cystic mass (12 HU) projecting from the left lateral margin of the ovary. This has enlarged from 3. 7 cm on the 2020 study. No septation, thickened capsule, mural nodule, calcification or other complic ating characteristic. Imaged portions of the liver, spleen and pancreas show no suspicious findings on non-contrast imaging . No gallbladder or biliary tree abnormality identified. No suspicious bowel findings. No appendicitis findings. No active GI process seen. No hernia, mass or bulky lymphadenopathy noted. No free air, free fluid or inflammatory stranding. No significant bony abnormality. IMPRESSION: Asher of the urinary bladder are shaggy in appearance. However, assessment is quite limi emelina in the fully contracted state. Cystitis is not excluded on this examination. There is no hydronephrosis, obstructing calculus or acute renal/ ureteral finding. Isodense masses and pyelonephritis are not excluded on stone protocol technique. The patient has a 6 cm homogeneous left ovarian cystic mass that shows benign characteristics but has enlarged from 3.7 centimeter measurement in 2020. This may still be a functional cyst but cystadenom a is a differential consideration and continued surveillance is needed. Density is lower than usually seen with endometrioma.
[2021-12-22 07:27] LABS: Urine Bacteria >50 /HPF (<20); Urine RBC >50 /HPF (None Seen)
[2021-12-22 07:28] LABS: Urine Mucus 1+ /HPF (None Seen)
[2021-12-22] MEDS ORDERED: TOBRAMYCIN IV ONE (08:00)
[2021-12-22] MEDS ORDERED: NA CHLORIDE 0.9% IV ONE (08:00)
[2021-12-22] MEDS ORDERED: KETOROLAC 30 MG/ML INJ ONE (08:17)
--- NOTE | 2021-12-22 09:04 | RAD REPORT ---
EXAM DESCRIPTION: US - Transvaginal Study Probe - 12/22/2021 8:17 am CLINICAL HISTORY: ABD PAIN COMPARISON: Pelvis Complete dated 07/10/2019; Stone Protocol dated 12/22/2021 TECHNIQUE: Endovaginal sonography was performed. FINDINGS: Endometrial stripe is 10 mm with no focal endometrial abnormality. No myometrial mass. A 6.5 cm thin-walled anechoic cyst is present in the left adnexa. A separate or discrete left ovary w as not seen. The CT study did not show a suspicious ovarian stroma process. This left adnexal cyst is the correlate to the cyst seen on the CT study. No mural nodule, septation or other non simple cyst feature. No blood or fluid in the cul de sac. IMPRESSION: A 6.5 cm anechoic cyst in the left adnexae is correlate to the CT finding. The cyst shows benign or simple cyst characteristics but there has been growth since [address] imaging. Continued surveillance is needed. Follow-up sonography in 6 months could be performed to monitor for any further growth or change in characteristics.
--- NOTE | 2021-12-22 09:18 | ER ---
Nurse's Notes [facility] Name: Torri Fine Age: 46 yrs Sex: Female : 1975 Arrival Date: 12/22/2021 Time: 05:10 Bed 16 Private MD: Diagnosis: UTI/ Urinary tract infection, site not specified;Dysuria;Other ovarian cysts Presentation: 12/22 05:12 Chief complaint: Patient states: "I am having severe urinary frequency, burning, as6 there's blood in my urine and I am having a lot of pressure". Coronavirus screen: At this time, the client does not indicate any symptoms associated with coronavirus-19. Ebola Screen: No symptoms or risks identified at this time. Initial Sepsis Screen: Does the patient meet any 2 criteria? No. Patient's initial sepsis screen is negative. Does the patient have a suspected source of infection? No. Patient's initial sepsis screen is negative. Risk Assessment: Do you want to hurt yourself or someone else? Patient reports no desire to harm self or others. Onset of symptoms was December 22, 2021. 05:12 Method Of Arrival: Ambulatory as6 05:12 Acuity: OLIVER 3 as6 Triage Assessment: 05:18 General: Appears uncomfortable, Behavior is cooperative, restless. Pain: Complains of as6 pain in suprapubic area Quality of pain is described as pressure. : Reports burning with urination, urgency, urinary frequency. 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 - Social history:: Smoking status: Patient denies any tobacco usage or history of. - Family history:: not pertinent. Screenin:15 Abuse screen: Denies threats or abuse. Nutritional screening: No deficits noted. ke1 Tuberculosis screening: No symptoms or risk factors identified. Fall Risk None identified. Assessment: 06:20 Pain: Complains of pain in suprapubic area Pain currently is 8 out of 10 on a pain ke1 scale. Quality of pain is described as crampy. 07:15 General: Appears uncomfortable, Behavior is cooperative. Pain: Complains of pain in em6 suprapubic area Pain does not radiate. Pain currently is 4 out of 10 on a pain scale. Quality of pain is described as crampy. Neuro: Level of Consciousness is awake, alert, obeys commands, Oriented to person, place, time, situation. Cardiovascular: Heart tones present Patient's skin is warm and dry. Respiratory: Airway is patent Respiratory effort is even, unlabored, Respiratory pattern is regular, symmetrical, Breath sounds are clear bilaterally. GI: Abdomen is non-distended, Reports lower abdominal pain. : Reports urinary frequency. EENT: No signs and/or symptoms were reported regarding the EENT system. Derm: No signs and/or symptoms reported regarding the dermatologic system. Musculoskeletal: Circulation, motion, and sensation intact. Range of motion: intact in all extremities. 08:30 Reassessment: No changes from previously documented assessment. Patient and/or family em6 updated on plan of care and expected duration. Pain level reassessed. Patient is alert, oriented x 3, equal unlabored respirations, skin warm/dry/pink. notified provider of pain. new order given . 08:30 Pain: Complains of pain in suprapubic area Pain does not radiate. Pain currently is 7 em6 out of 10 on a pain scale. Quality of pain is described as crampy, pressure. 09:25 Reassessment: Patient and/or family updated on plan of care and expected duration. Pain em6 level reassessed. Patient is alert, oriented x 3, equal unlabored respirations, skin warm/dry/pink. Reassessment: waiting on tobramycin to finish to discharge . Pain: Complains of pain in suprapubic area Pain does not radiate. Pain currently is 4 out of 10 on a pain scale. Vital Signs: 05:12 BP 133 / 67; Pulse 85; Resp 18 S; Temp 98.1(O); Pulse Ox 95% on R/A; Weight 136.08 kg as6 (R); Height 5 ft. 8 in. (172.72 cm) (R); Pain 8/10; 06:46 Pain 6/10; ke1 06:46 Pain 6/10; ke1 07:30 BP 121 / 64; Pulse 75; Resp 18; Pulse Ox 100% on R/A; em6 08:30 BP 123 / 66; Pulse 73; Resp 16; Pulse Ox 99% on R/A; em6 09:46 BP 116 / 66; Pulse 68; Resp 16; Pulse Ox 99% on R/A; em6 05:12 Body Mass Index 45.61 (136.08 kg, 172.72 cm) as6 ED Course: 05:10 Patient arrived in ED. bp1 05:11 Jessee Hobbs MD is Attending Physician. jose 05:16 Triage completed. as6 05:17 Arm band placed on. as6 05:28 Nicole Denise, RN is Primary Nurse. ke1 06:20 Inserted saline lock: 20 gauge in right antecubital area, using aseptic technique. tw5 06:43 Bed in low position. Call light in reach. Side rails up X 1. ke1 07:54 Primary Nurse role handed off by Nicole Denise, RN em6 07:54 Kiki Hagan, RN is Primary Nurse. em6 08:10 Urine Culture Sent. em6 08:10 Urine Microscopic Only Sent. em6 08:10 CBC with Diff Sent. em6 08:10 Comprehensive Metabolic Panel Sent. em6 08:10 Urine --Ancillary (enter results) Sent. em6 09:10 US Transvaginal Study (Probe) Sent. eb 09:18 Lavon Cope MD is Referral Physician. sd2 09:18 Sally Gaines MD is Referral Physician. sd2 09:46 No provider procedures requiring assistance completed. IV discontinued, intact, em6 bleeding controlled, No redness/swelling at site. Pressure dressing applied. Administered Medications: 06:30 Drug: Dilaudid (HYDROmorphone) 1 mg Route: IVP; Site: right antecubital; ke1 06:46 Follow up: Pain 6/10 Adult; Response: Pain is decreased ke1 06:30 Drug: Zofran (Ondansetron) 4 mg Route: IVP; Site: right antecubital; ke1 06:46 Follow up: Response: Nausea is decreased ke1 06:30 Drug: Pyridium (phenazopyridine) 200 mg Route: PO; ke1 06:46 Follow up: Pain 6/10 Adult; Response: Pain is decreased ke1 06:31 Drug: levofloxacin 750 mg Volume: 150 ml; Route: IVPB; Infused Over: 90 mins; Site: ke1 right antecubital; 08:41 Follow up: Response: No adverse reaction; IV Status: Completed infusion; IV Intake: em6 150ml 06:31 Drug: NS 0.9% 1000 ml Route: IV; Rate: 1 bolus; Site: right antecubital; ke1 07:53 Follow up: Response: No adverse reaction; IV Status: Completed infusion; IV Intake: em6 1000ml 06:31 Drug: NS 0.9% 1000 ml Route: IV; Rate: 1 bolus; Site: right antecubital; ke1 07:53 Follow up: Response: No adverse reaction; IV Status: Completed infusion; IV Intake: em6 1000ml 07:35 Not Given (Other Intervention Used): Tobramycin 400 mg IVPB once over 1 hrs; (mix in jd3 100 mL NS) 08:24 Drug: Ketorolac 15 mg Route: IVP; Site: right antecubital; em6 09:18 Follow up: Response: No adverse reaction em6 08:41 Drug: Tobramycin 400 mg Route: IVPB; Infused Over: 1 hrs; Site: right antecubital; em6 09:47 Follow up: Response: No adverse reaction; IV Status: Completed infusion; IV Intake: em6 100ml Medication: 09:27 VIS not applicable for this client. em6 Intake: 07:53 IV: 1000ml; Total: 1000ml. em6 07:53 IV: 1000ml; Total: 2000ml. em6 08:41 IV: 150ml; Total: 2150ml. em6 09:47 IV: 100ml; Total: 2250ml. em6 Outcome: 09:18 Discharge ordered by . sd2 09:46 Discharged to home ambulatory. em6 09:46 Condition: stable 09:46 Discharge instructions given to patient, Instructed on discharge instructions, follow up and referral plans. medication usage, Demonstrated understanding of instructions, follow-up care, medications, Prescriptions given X 3. 09:47 Patient left the ED. em6 Signatures: Jessee Hobbs MD MD cha Botello, Elizabeth eb Paniauga, Brittany bp1 Wood, Tiffany tw5 Dong Trujillo RN RN as6 Nicole Denise RN RN ke1 Heather Hill MD MD sd2 Kiki Hagan RN RN em6 Lauri Amaro RN jd3 Corrections: (The following items were deleted from the chart) 08:43 08:30 Reassessment: No changes from previously documented assessment. Patient and/or em6 family updated on plan of care and expected duration. Pain level reassessed. Patient is alert, oriented x 3, equal unlabored respirations, skin warm/dry/pink. em6 08:43 08:42 Pain: Complains of pain in suprapubic area Pain does not radiate. Pain currently em6 is 7 out of 10 on a pain scale. Quality of pain is described as crampy, pressure, em6
--- NOTE | 2021-12-22 09:18 | EDPHYS ---
Physician Documentation [facility] Name: Torri Fine Age: 46 yrs Sex: Female : 1975 Arrival Date: 12/22/2021 Time: 05:10 Bed 16 Private MD: SOFIA Physician Jessee Hobbs HPI: 12/22 06:11 This 46 yrs old Female presents to ER via Ambulatory with complaints of UTI jose symptoms. 06:11 The patient presents with urinary symptoms, dysuria, frequency, hematuria, urgency. jose Onset: The symptoms/episode began/occurred just prior to arrival, this morning. Modifying factors: The symptoms are alleviated by nothing, the symptoms are aggravated by nothing. Associated signs and symptoms: The patient has no apparent associated signs or symptoms. Severity of symptoms: At their worst the symptoms were moderate, in the emergency department the symptoms are unchanged. The patient has not experienced similar symptoms in the past. 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 - Social history:: Smoking status: Patient denies any tobacco usage or history of. - Family history:: not pertinent. ROS: 06:11 Constitutional: Negative for fever, chills, and weight loss, Eyes: Negative for injury, jose pain, redness, and discharge, ENT: Negative for injury, pain, and discharge, Neck: Negative for injury, pain, and swelling, Cardiovascular: Negative for chest pain, palpitations, and edema, Respiratory: Negative for shortness of breath, cough, wheezing, and pleuritic chest pain, Abdomen/GI: Negative for abdominal pain, nausea, vomiting, diarrhea, and constipation, Back: Negative for injury and pain, MS/Extremity: Negative for injury and deformity, Skin: Negative for injury, rash, and discoloration, Neuro: Negative for headache, weakness, numbness, tingling, and seizure, Psych: Negative for depression, anxiety, suicide ideation, homicidal ideation, and hallucinations, Allergy/Immunology: Negative for hives, rash, and allergies, Endocrine: Negative for neck swelling, polydipsia, polyuria, polyphagia, and marked weight changes, Hematologic/Lymphatic: Negative for swollen nodes, abnormal bleeding, and unusual bruising. 06:11 : Positive for urinary symptoms, pelvic pain, urinary frequency, small amounts, hematuria, burning with urination, difficulty urinating. Exam: 06:11 Constitutional: This is a well developed, well nourished patient who is awake, alert, jose and in no acute distress. Head/Face: Normocephalic, atraumatic. Eyes: Pupils equal round and reactive to light, extra-ocular motions intact. Lids and lashes normal. Conjunctiva and sclera are non-icteric and not injected. Cornea within normal limits. Periorbital areas with no swelling, redness, or edema. ENT: Nares patent. No nasal discharge, no septal abnormalities noted. Tympanic membranes are normal and external auditory canals are clear. Oropharynx with no redness, swelling, or masses, exudates, or evidence of obstruction, uvula midline. Mucous membranes moist. Neck: Trachea midline, no thyromegaly or masses palpated, and no cervical lymphadenopathy. Supple, full range of motion without nuchal rigidity, or vertebral point tenderness. No Meningismus. Chest/axilla: Normal chest wall appearance and motion. Nontender with no deformity. No lesions are appreciated. Cardiovascular: Regular rate and rhythm with a normal S1 and S2. No gallops, murmurs, or rubs. Normal PMI, no JVD. No pulse deficits. Respiratory: Lungs have equal breath sounds bilaterally, clear to auscultation and percussion. No rales, rhonchi or wheezes noted. No increased work of breathing, no retractions or nasal flaring. Back: No spinal tenderness. No costovertebral tenderness. Full range of motion. Skin: Warm, dry with normal turgor. Normal color with no rashes, no lesions, and no evidence of cellulitis. MS/ Extremity: Pulses equal, no cyanosis. Neurovascular intact. Full, normal range of motion. Neuro: Awake and alert, GCS 15, oriented to person, place, time, and situation. Cranial nerves II-XII grossly intact. Motor strength 5/5 in all extremities. Sensory grossly intact. Cerebellar exam normal. Normal gait. Psych: Awake, alert, with orientation to person, place and time. Behavior, mood, and affect are within normal limits. 06:11 Abdomen/GI: Inspection: distension, that is mild, Bowel sounds: normal, Palpation: mild abdominal tenderness, in the suprapubic area, Liver: no appreciated palpable abnormalities, Hernia: not appreciated. Vital Signs: 05:12 BP 133 / 67; Pulse 85; Resp 18 S; Temp 98.1(O); Pulse Ox 95% on R/A; Weight 136.08 kg as6 (R); Height 5 ft. 8 in. (172.72 cm) (R); Pain 8/10; 06:46 Pain 6/10; ke1 06:46 Pain 6/10; ke1 07:30 BP 121 / 64; Pulse 75; Resp 18; Pulse Ox 100% on R/A; em6 08:30 BP 123 / 66; Pulse 73; Resp 16; Pulse Ox 99% on R/A; em6 09:46 BP 116 / 66; Pulse 68; Resp 16; Pulse Ox 99% on R/A; em6 05:12 Body Mass Index 45.61 (136.08 kg, 172.72 cm) as6 MDM: 05:20 Patient medically screened. [place] 06:21 Data reviewed: vital signs, nurses notes, lab test result(s), CBC, electrolytes, jose radiologic studies, CT scan. Data interpreted: radiation monitor: rate is 85 beats/min, rhythm is regular, Pulse oximetry: on room air is 95 %. Counseling: I had a detailed discussion with the patient and/or guardian regarding: the historical points, exam findings, and any diagnostic results supporting the discharge/admit diagnosis, lab results, radiology results, the need for outpatient follow up, for definitive care, an nurse coordinator, a urologist. 12/22 05:12 Order name: Urine Culture [place] 12/22 05:12 Order name: Urine Microscopic Only [place] 12/22 05:22 Order name: CBC with Diff [place] 12/22 05:22 Order name: Comprehensive Metabolic Panel [place] 12/22 05:53 Order name: Urine --Ancillary (enter results) 12/22 05:54 Order name: Urine Dipstick-Ancillary; Complete Time: 05:57 EDMS 12/22 05:22 Order name: CT Stone Protocol [place] 12/22 06:13 Order name: CBC with Automated Diff; Complete Time: 06:56 EDMS 10/01 06:15 Order name: Urine --Ancillary; Complete Time: 06:56 EDMS 12/22 06:28 Order name: Comprehensive Metabolic Panel; Complete Time: 06:56 EDMS 12/22 06:37 Order name: CT; Complete Time: 06:56 EDMS 12/22 07:02 Order name: US Transvaginal Study (Probe) [place] 12/22 07:28 Order name: Urine Microscopic Only; Complete Time: 08:14 EDMS 12/22 09:04 Order name: US; Complete Time: 09:17 EDMS 12/22 05:12 Order name: Urine Dipstick-Ancillary (obtain specimen); Complete Time: 06:10 jose 12/22 05:12 Order name: Urine Test (obtain specimen); Complete Time: 06:10 [place] Administered Medications: 06:30 Drug: Dilaudid (HYDROmorphone) 1 mg Route: IVP; Site: right antecubital; ke1 06:46 Follow up: Pain 6/10 Adult; Response: Pain is decreased ke1 06:30 Drug: Zofran (Ondansetron) 4 mg Route: IVP; Site: right antecubital; ke1 06:46 Follow up: Response: Nausea is decreased ke1 06:30 Drug: Pyridium (phenazopyridine) 200 mg Route: PO; ke1 06:46 Follow up: Pain 6/10 Adult; Response: Pain is decreased ke1 06:31 Drug: levofloxacin 750 mg Volume: 150 ml; Route: IVPB; Infused Over: 90 mins; Site: ke right antecubital; 08:41 Follow up: Response: No adverse reaction; IV Status: Completed infusion; IV Intake: em6 150ml 06:31 Drug: NS 0.9% 1000 ml Route: IV; Rate: 1 bolus; Site: right antecubital; ke1 07:53 Follow up: Response: No adverse reaction; IV Status: Completed infusion; IV Intake: em6 1000ml 06:31 Drug: NS 0.9% 1000 ml Route: IV; Rate: 1 bolus; Site: right antecubital; ke1 07:53 Follow up: Response: No adverse reaction; IV Status: Completed infusion; IV Intake: em6 1000ml 07:35 Not Given (Other Intervention Used): Tobramycin 400 mg IVPB once over 1 hrs; (mix in jd3 100 mL NS) 08:24 Drug: Ketorolac 15 mg Route: IVP; Site: right antecubital; em6 09:18 Follow up: Response: No adverse reaction em6 08:41 Drug: Tobramycin 400 mg Route: IVPB; Infused Over: 1 hrs; Site: right antecubital; em6 09:47 Follow up: Response: No adverse reaction; IV Status: Completed infusion; IV Intake: em6 100ml Disposition Summary: 12/22/21 09:18 Discharge Ordered Location: Home sd2 Problem: new sd2 Symptoms: have improved sd2 Condition: Stable sd2 Diagnosis - UTI/ Urinary tract infection, site not specified sd2 - Dysuria sd2 - Other ovarian cysts sd2 Followup: jose - With: Private Physician - When: 2 - 3 days - Reason: Recheck today's complaints, Continuance of care, Re-evaluation by your physician Followup: jose - With: - When: 2 - 3 days - Reason: Recheck today's complaints, Continuance of care, Re-evaluation by your physician Followup: jose - With: - When: 2 - 3 days - Reason: Recheck today's complaints, Re-evaluation by your physician Discharge Instructions: - Discharge Summary Sheet jose - Dysuria jose - Urinary Tract Infection, Adult jose - Urinary Tract Infection, Adult, [id number] [place] Forms: - Medication Reconciliation Form sd2 - Thank You Letter sd2 - Antibiotic Education sd2 - Prescription Opioid Use sd2 Prescriptions: - Pyridium 200 mg Oral Tablet - take 1 tablet by ORAL route every 8 hours for 3 days; 9 tablet; Refills: 0, [place] Product Selection Permitted - Tramadol 50 mg Oral Tablet - take 1 tablet by ORAL route every 8 hours as needed; 20 tablet; Refills: 0, [place] Product Selection Permitted - levofloxacin 500 mg Oral Tablet - take 1 tablet by ORAL route once daily for 8-10 days; 9 tablet; Refills: 0, [place] Product Selection Permitted Signatures: Dispatcher [employer] Jessee Dean MD MD cha Davies, Jonathon, RN RN Dong Killian RN RN as6 Nicole Denise RN RN ke1 Dunlop, Stephanie, MD MD sd2 Kiki Hagan RN RN em6
[2021-12-22 13:48] VITALS: TEMP 98.1
[2021-12-22 14:04] VITALS: O2SAT 99
[2021-12-22 14:05] VITALS: BP 116/66
== END 2021-12-22 09:47 | disposition home or self-care (01) ==
LOC: ER 05:06
DX: N39.0 Urinary tract infection, site not specified (principal); N83.299 Other ovarian cyst, unspecified side; Z88.2 Allergy status to sulfonamides; Z88.5 Allergy status to narcotic agent; Z88.8 Allergy status to other drugs, medicaments and biological substances
CPT/HCPCS: 96365; 96367; 87088; 85025; 87086; 36415; 81025; 80053; 76377; 74176; 76830; 96375; 99284; 96366; J1170; J7030 ×2; J3260; J2405; 81003; 81015

== ENCOUNTER 2022-09-15 02:49 | Emergency (ER) | payer BC ==
--- OUTSIDE RECORDS SUMMARY | 2022-09-15 02:56 | XMS REPORT | Continuity of Care Document ---
:1975 Author Organization [facility] t Address [address] [place] [address] Care Team Providers Name Role Phone PCP, PATIENT DOES NOT HAVE A Primary Care Physician Unavaila ble TOBI_F Attending Clinician Unavailable JORDAN ANDUJAR Attending Clinician Unavailable Jordan Redding Attending Clinician Unknown, Attending Attending Clinician Unavailable UNKNOWN, ATTENDING Attending Clinician Unavailable Yaya Lai Attending Clinician YAYA SAMANIEGO Attending Clinician Unavailable G_Pappas Attending Clinician Unavailable Laly Britton Attending Clinician [phone] RHIANNON NORTON Attending Clinician Unavailable Rhiannon Norton MD Attending Clinician ELVIN ANDRADE Attending Clinician Unavailable Elvin Samson Attending Clinician CARI_S Attending Clinician Unavailable Ольга Okeefe Attending Clinician [phone] Laurel Shine Attending Clinician LAUREL BEAVERS Attending Clinician Unavailable Doctor Unassigned, [place] Attending Clinician Unavailable Jailyn Arredondo MD Attending Clinician ERYN_NAV Attending Clinician Unavailable CHRETIEN_F Admitting Clinician Unavailable G_Pappas Admitting Clinician Unavailable WATERS_S Admitting Clinician Unavailable HORTENCIA Admitting Clinician Unavailable Payers Payer Name Policy Type Policy Number Effective Date Expiration Date S ource [place] [id number] 2017 00:[id number] 2022 [place] [id number] 2017 00:00:00 Problems Condition Condition Condition Status Onset Resolution Last Treating Co mments Source Name Details Category Date Date Treatment Clinician Date Allergic Allergic Problem Active [place] rhinitis Rhinitis 4-04 Commun i 00:00: ty 00 [facility] Candidiasi Candidiasi Problem Active [facility] [place] s of s of 2-10 Communi vagina Vagina 00:00: ty 00 [facility] Left flank Left Flank Problem Active [facility] [place] pain Pain 2-03 Communi 00:00: ty 00 [facility] Acute Acute Problem Active [place] urinary Urinary 1-30 Communi tract Tract 00:00: ty infection Infection 00 [facility] Type 2 Type 2 Problem Active 2021-03 [place] diabetes Diabetes 2-01 Commun i mellitus Mellitus 00:00: ty 00 [facility] Hyperinsul Hyperinsul Problem Active 2021-03 S [place] inism inism 2- Communi 00:00: ty 00 [facility] Vitamin D Vitamin D Problem Active 2021-03 [place] r[place] deficiency Deficiency 2-01 Co mmuni 00:00: ty 00 [facility] Anemia Anemia Problem Active 2021-03 [place] 1-28 Communi 00:00: ty 00 [facility]osp[facility] Clin[facility] Insomnia Insomnia Problem Active 2021-03 [place] y 1-28 Communi 00:00: ty 00 [facility] Multiple Multiple Problem Active 2021-03 [place] joint pain Joint Pain 1-28 Co mmuni 00:00: ty 00 [facility] Recurrent Recurrent Problem Active 2021-03 [place] urinary Urinary 0-25 Communi tract Tract 00:00: ty infection Infection 00 [facility] Acute Acute Problem Active [place] pharyngiti Pharyngiti 9-13 Co mmuni s s 00:00: ty 00 [facility] Streptococ Streptococ Problem Active S [place] waqar sore waqar Sore 8-03 Commun i throat Throat 00:00: ty 00 [facility] Cough Cough Problem Active [place] 8-03 Communi 00:00: ty 00 [facility] COVID-19 Covid-19 Problem Active [place] y 8-03 Communi 00:00: ty 00 [facility] Acute Acute Problem Active [place] right Right 8- Communi otitis Otitis 00:00: ty media Media 00 [facility] Acute Acute Problem Active [place] sinusitis Sinusitis 6-20 Comm uni 00:00: ty 00 [facility] Missed Missed Problem Active [place] miscarriag Miscarriag 5-06 da e e 00:00: Medical Group Uterine Uterine Problem Active [place] scar [...] Pre-eclamp 4-21 da sherron sherron 00:00: Medical Group Secondary 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 Dysmenorrh 8-24 da ea ea 00:00: Medical 00 Group Menorrhagi Menorrhagi Problem Active M [place] a a 8-24 da 00:00: Medical 00 Group Depressive Depressive Problem Active 2019-03 S [place] disorder Disorder 1-27 Commun i 00:00: ty 00 [facility] Seasonal Seasonal Problem Active [place] allergy Allergy 3-17 Communi 00:00: ty 00 [facility] Low back Low Back Problem Active [place] pain Pain 3-17 Communi 00:00: ty 00 [facility] Acute Acute Problem Active 2018-03 [place] asthma Asthma 1-14 Communi 00:00: ty 00 [facility] Asthma Asthma Problem Active 2018-03 [place] 0-25 Communi 00:00: ty 00 [facility] Body mass Body Mass Problem Active 2018-03 [place] index 40+ Index 40+ 0-25 Comm uni - severely - Severely 00:00: ty obese Obese 00 [facility] Family Family Problem Active 2018-03 [place] history of History of 0-22 da malignant Malignant 00:00: [facility] waqar neoplasm Neoplasm 00 Group of breast of Breast in first in First degree Degree relative Relative Seasonal Seasonal Problem Active [place] allergic Allergic 9-12 da rhinitis Rhinitis 00:00: Medica l 00 Group Gastroesop Gastroesop Problem Active M [facility] hageal hageal 6-04 da reflux Reflux 00:00: Medical disease Disease 00 Group Amenorrhea Amenorrhea Problem Active M [facility] 4-22 da 00:00: Medical 00 Group Interverte Interverte Problem Active M [place] bral disc bral Disc 1-18 da prolapse Prolapse 00:00: Medica l 00 Group Low back Low Back Problem Active [place] pain Pain 1-18 da 00:00: Medical 00 Group Lumbar Lumbar Problem Active [place] radiculopa Radiculopa 1-18 da thy thy 00:00: Medical 00 Group History of History of Problem Active M [place] endometrio Endometrio 9-17 da sis sis 00:00: Medical 00 Group Left flank Left Flank Problem Active M [place] pain Pain 6-15 da 00:00: Medical 00 Group Asthma Asthma Problem Active [place] 8-22 da 00:00: Medical 00 Group Chronic Chronic Problem Active [place] low back Low Back 7-27 da pain Pain 00:00: Medical 00 Group No known No known Disease Unive rs active active ity of problems problems [facility] Hyperchole Hyperchole Problem Active M [facility] sterolemia [...] ents Source Name Type Date Date Clinician Sulfa Propensi Active Unknown - 2018-03 Eye [...] ity of 00:00: [place] 00 Medical Branch CODEINE DRUG Active Hives 2018-03 Univers INGREDI 0-25 ity of 00:00: [place] 00 Medical Branch SULFA Drug Active Unknown-Cmnt 2018-03 Univ ers (SULFONA Class 0-25 ity of MIDE 00:00: [place] ANTIBIOT 00 Medical ICS) Branch CECLOR Allergy Active Mild to Vomiting [place] to moderate da substanc Medical e Group Codeine Allergy Active Mild to Hives [place] to moderate da substanc Medical e Group SULFA Allergy Active Other [place] (SULFONA to da MIDE substanc Medical ANTIBIOT e Group ICS) Social History Social Habit Start Date Stop Date Quantity Comments Source ASSERTION [facility] Medical Branch History [facility] University o f Alcohol Std [place] Medical Drinks Branch History [facility] University o f Alcohol Binge [place] [facility] al Branch History [facility] University o f Alcohol Comment [place] Med ical Branch Exposure to 2022-05-31 2022-06-10 Not sure [facility] SARS-CoV-2 00:00:00 20:19:[address] [facility] (event) Branch Tobacco use and 2022-06-10 2022-06-10 Smokeless tobacco Un iversity of exposure 00:00:00 00:00:00 non-user [facility] Alcohol intake 2022-06-10 2022-06-10 Ex-drinker University 00:00:00 00:00:00 (finding) [facility] History SDOH 2019-01-15 2019-01-15 2 University o f Alcohol Frequency 00:00:00 00:00:[address] [facility] [place] Sex Assigned At [birth year] Universit y of 00:00:00 00:00:00 [facility] Smoking Status Start Date Stop Date Source Never smoked tobacco [facility] Medications Ordered Filled Start Stop Current Ordering Indication Dosage Frequency Signature Comments Components Source Medication Medication Date Date Medication? Clinician (SIG) Name Name russel 2022- No [id number] .[id number][in_u Place 0.5 Univers n 5 mg/gram 06-10 [id number] s] Inches in ity of (0.5 %) 00:00: 04:59 left eye 4 Tor as ophthalmic 00 :00 (four) Medical ointment times Branch daily for 7 days. ketorolac ketorolac No ketorolac [place] 60 mg/2 mL 60 mg/2 mL 2-03 60 mg/2 mL Communi intramuscul intramuscul 09:36: intramuscu ty ar ar 00 lar Hospita solutionInj solutionInj solutionIn l ect 60 mg ect 60 mg ject 60 mg Clinics by by by intramuscul intramuscul intramuscu ar route. ar route. lar route. ceftriaxone ceftriaxone No ceftriaxon [place] 1 gram 1 gram 2-03 e 1 gram Communi solution solution 09:35: solution t y for for 00 for Hospita injectionTa injectionTa injectionT l ke 1 g by ke 1 g by claudia 1 g by Clinics injection injection injection route. route. route. lidocaine lidocaine No lidocaine [place] (PF) 10 (PF) 10 2-03 (PF) 10 Commun i mg/mL (1 %) mg/mL (1 %) 09:35: mg/mL (1 ty injection injection 00 %) Hospi ta solutionTak solutionTak injection l e 2.1 mL by e 2.1 mL by solutionTa Clinics injection injection ke 2.1 mL route. route. by injection route. ketorolac ketorolac 2022-0 No Q6H ketorolac [place] 60 mg/2 mL 60 mg/2 mL 2-02 60 mg/2 mL Communi intramuscul intramuscul 17:02: intramuscu ty ar ar 00 lar Hospita solutionInj solutionInj solutionIn l ect 1 mL ect 1 mL ject 1 mL Cl inics every 6 every 6 every 6 hours by hours by hours by intramuscul intramuscul intramuscu ar route. ar route. lar route. ceftriaxone ceftriaxone No ceftriaxon [place] 1 gram 1 gram 2-02 e 1 gram Communi solution solution 17:00: solution t y for for 00 for Hospita injectionTa injectionTa injectionT l ke 1 g by ke 1 g by claudia 1 g by Clinics injection injection injection route. route. route. lidocaine lidocaine No lidocaine [place] (PF) 10 (PF) 10 2-02 (PF) 10 Commun i mg/mL (1 %) mg/mL (1 %) 17:00: mg/mL (1 ty injection injection 00 %) Hospi ta solutionTak solutionTak injection l e 2.1 mL by e 2.1 mL by solutionTa Clinics injection injection ke 2.1 mL route. route. by injection route. methylPREDN 2-0 Yes [id number] Take by [facility] [employer] 10-22 mouth ity of (MEDROL, 00:00: SEE-INSTRU [place] JIM,) 4 mg 00 CTIONS. Medica l tablets follow Branch package directions methylPREDN 2021-0 Yes [id number] Take by [facility] ISolone 10-22 mouth ity of (MEDROL, 00:00: SEE-INSTRU [place] JIM,) 4 mg 00 CTIONS. Medica l tablets follow Branch package directions methylPREDN 2-0 Yes [id number] Take by [facility] ISolone 10-22 mouth ity of (MEDROL, 00:00: SEE-INSTRU [place] JIM,) 4 mg 00 CTIONS. Medica l tablets follow Branch package directions methylPREDN Yes [id number] Take by Univers ISolone 09-09 mouth ity of (MEDROL, 00:00: SEE-INSTRU [place] JIM,) 4 mg 00 CTIONS. Medica l tablets follow Branch package directions methylPREDN 2021- No [id number] Take by Univers ISolone 6-19 08- mouth ity of (MEDROL, 00:00: 00:00 [place] JIM,) 4 mg 00 :00 CTIONS. Medica l tablets follow Branch package directions amoxicillin 2021- No [id number] 1{tbl} Take 1 Univers -clavulanat 4-10 -18 tablet by it y of e [id number] 00:00: 04:59 mouth 2 [place] mg per 00 :00 (two) Medical tablet times Branch daily for 7 days. citalopram 2021- No citalopram Univers 20 mg 2-06 02-06 20 mg ity of tablet 11:08: 00:00 tablet TK [place] 29 :00 1 T PO QD Medical Branch azithromyci 0 Yes [id number] 250mg Take 1 Univers n 2-06 tablet by ity of (ZITHROMAX) 00:00: mouth [place] 250 mg 00 daily. Medical tablet Branch methylPREDN Yes [id number] Take by Univers ISolone 2-06 mouth ity of (MEDROL, 00:00: SEE-INSTRU [place] JIM,) 4 mg 00 CTIONS. Medica l tablets follow Branch package directions azithromyci 0 Yes [id number] 250mg Take 1 Univers n 2-06 tablet by ity of (ZITHROMAX) 00:00: mouth [place] 250 mg 00 daily. Medical tablet Branch methylPREDN 2021-0 Yes [id number] Take by Univers ISolone 2-06 mouth ity of (MEDROL, 00:00: SEE-INSTRU [place] JIM,) 4 mg 00 CTIONS. Medica l tablets follow Branch package directions azithromyci 0 Yes [id number] 250mg Take 1 Univers n 2-06 tablet by ity of (ZITHROMAX) 00:00: mouth [place] 250 mg 00 daily. Medical tablet Branch methylPREDN 2022-0 Yes [id number] Take by Univers ISolone 2-06 mouth ity of (MEDROL, 00:00: SEE-INSTRU [place] JIM,) 4 mg 00 CTIONS. Medica l tablets follow Branch package directions azithromyci 2021-0 Yes [id number] 250mg Take 1 Univers n 2-06 tablet by ity of (ZITHROMAX) 00:00: mouth [place] 250 mg 00 daily. Medical tablet Branch azithromyci 0 Yes [id number] 250mg Take 1 Univers n 2-06 tablet by ity of (ZITHROMAX) 00:00: mouth [place] 250 mg 00 daily. Medical tablet Branch azithromyci 0 Yes [id number] 250mg Take 1 Univers n 2-06 tablet by ity of (ZITHROMAX) 00:00: mouth [place] 250 mg 00 daily. Medical tablet Branch methylPREDN 2021- No [id number] Take by Univers ISolone 2-06 08-01 mouth ity of (MEDROL, 00:00: 00:00 [place]-INSTRU [place] JIM,) 4 mg 00 :00 CTIONS. Medica l tablets follow Branch package directions maalox:diph 2020-03 Yes [id number] [facility] enhydrAMINE 1-13 spit 5 mL ity of :lidocaine 00:00: before [place] 2 % viscous 00 meals. Medica l 1:1:1 Branch maalox:diph 2020-03 Yes [id number] [facility] enhydrAMINE 1-13 spit 5 mL ity of :lidocaine 00:00: before [place] 2 % viscous 00 meals. Medica l 1:1:1 Branch maalox:diph 2020-03 Yes [id number] [facility] enhydrAMINE 1-13 spit 5 mL ity of :lidocaine 00:00: before [place] 2 % viscous 00 meals. Medica l 1:1:1 Branch maalox:diph 2020-03 Yes [id number] [facility] enhydrAMINE 1-13 spit 5 mL ity of :lidocaine 00:00: before [place] 2 % viscous 00 meals. Medica l 1:1:1 Branch maalox:diph 2020-03 Yes [id number] [facility] enhydrAMINE 1-13 spit 5 mL ity of :lidocaine 00:00: before [place] 2 % viscous 00 meals. Medica l 1:1:1 Branch maalox:diph 2020-03 Yes [id number] [facility] enhydrAMINE 1-13 spit 5 mL ity of :lidocaine 00:00: before [place] 2 % viscous 00 meals. Medica l 1:1:1 Branch maalox:diph 2020-03 Yes [id number] [facility] enhydrAMINE 1- spit 5 mL ity of :lidocaine 00:00: before [place] 2 % viscous 00 meals. Medica l 1:1:1 Branch maalox:diph 2020-03 Yes [id number] [facility] enhydrAMINE 1- spit 5 mL ity of :lidocaine 00:00: before [place] 2 % viscous 00 meals. Medica l 1:1:1 Branch nitrofurant nitrofurant No nitrofuran [place] oin oin 08 toin Communi monohydrate monohydrate 00:00: monohydrat ty /macrocryst /macrocryst 00 e/macrocry Hospita als 100 mg als 100 mg stals 100 l capsule capsule mg capsule Cli nics TAKE 1 TAKE 1 TAKE 1 CAPSULE BY CAPSULE BY CAPSULE BY MOUTH TWICE MOUTH TWICE MOUTH DAILY FOR 7 DAILY FOR 7 TWICE DAYS DAYS DAILY FOR 7 DAYS citalopram Yes citalopram U nivers 20 mg 6-06 20 mg ity of tablet 09:13: tablet [place] 05 1 T PO QD Medical Branch citalopram Yes citalopram U nivers 20 mg 6-06 20 mg ity of tablet 09:13: tablet TK [place] 05 1 T PO QD Medical Branch naproxen Yes [id number] 500mg Take 1 Univers 500 mg 3-24 [id number] tablet by ity of tablet 00:00: mouth 2 (two) Medical times Branch daily with meals. naproxen Yes [id number] 500mg Take 1 Univers 500 mg 3-24 [id number] tablet by ity of tablet 00:00: mouth 2 (two) Medical times Branch daily with meals. naproxen 2021- No [id number] 500mg Take 1 Univers 500 mg 3-24 - [id number] tablet by ity o f tablet 00:00: 00:00 mouth 2 [place] 00 :00 (two) Medical times Branch daily with meals. proMETHazin Yes [id number] 25mg Take 1 Univers e 25 mg 1-03 tablet by ity of tablet 00:00: mouth [place] 00 every 4 Medical (four) Branch hours as needed for Nausea and Vomiting (N/V). proMETHazin Yes [id number] 25mg Take 1 Univers e 25 mg 1-03 tablet by ity of tablet 00:00: mouth [place] 00 every 4 Medical (four) Branch hours as needed for Nausea and Vomiting (N/V). proMETHazin 2021- No [id number] 25mg Take 1 Univers e 25 mg 1-05 23- tablet by ity of tablet 00:00: 00:00 [...] Multivitam da n n in Medical Group Advair Advair No Advair [place] Diskus 500 [...] DAYS DAYS 8 HOURS FOR 7 DAYS azithromyci azithromyci No azithromyc [place] n 500 mg n 500 mg in 500 mg da tablet TAKE tablet TAKE tablet Medical 1 TABLET BY 1 TABLET BY TAKE 1 Group MOUTH EVERY MOUTH EVERY TABLET BY DAY FOR 5 DAY FOR 5 MOUTH DAYS DAYS EVERY DAY FOR 5 DAYS BinaxNOW BinaxNOW No BinaxNOW [place] COVID-19 Ag COVID-19 Ag COVID-19 da Self Test Self Test Ag Self Me dical kit TEST kit TEST Test kit Group DIRECTED DIRECTED TEST TODAY TODAY DIRECTED TODAY ciprofloxac ciprofloxac No ciprofloxa [place] in 500 mg in 500 mg elizabeth 500 mg da tablet TAKE tablet TAKE tablet Medical 1 TABLET BY 1 TABLET BY TAKE 1 Group MOUTH EVERY MOUTH EVERY TABLET BY 12 HOURS 12 HOURS MOUTH FOR 10 DAYS FOR 10 DAYS EVERY 12 HOURS FOR 10 DAYS eletriptan eletriptan No eletriptan [place] 40 mg 40 mg 40 mg da tablet TAKE tablet TAKE tablet Medical 1 TABLET BY 1 TABLET BY TAKE 1 Group MOUTH AT MOUTH AT TABLET BY ONSET OF ONSET OF MOUTH AT HEADACHE - HEADACHE - ONSET OF MAY REPEAT MAY REPEAT HEADACHE - IN 2 HOURS IN 2 HOURS MAY REPEAT IF NEEDED IF NEEDED IN 2 HOURS IF NEEDED EpiPen EpiPen No 1auto(s Q1D EpiPen [place] [...] acute allergic allergic allergic reaction reaction reaction erythromyci erythromyci No erythromyc [place] n 5 mg/gram n 5 mg/gram in 5 d a (0.5 %) eye (0.5 %) eye mg/gram Medical ointment ointment (0.5 %) Grou p APPLY 1/2 APPLY 1/2 eye INCH IN INCH IN ointment LEFT EYE LEFT EYE APPLY 1/2 FOUR TIMES FOUR TIMES INCH IN DAILY FOR 7 DAILY FOR 7 LEFT EYE DAYS DAYS FOUR TIMES DAILY FOR 7 DAYS FeroSul 325 FeroSul 325 No FeroSul [place] mg (65 mg mg (65 mg 325 mg (65 da iron) iron) mg iron) Medical tablet TAKE tablet TAKE tablet Group 1 TABLET BY 1 TABLET BY TAKE 1 MOUTH WITH MOUTH WITH TABLET BY FOOD TWICE FOOD TWICE MOUTH WITH DAILY. DAILY. FOOD TWICE DAILY. fluconazole fluconazole No fluconazol [place] 100 mg 100 mg e 100 mg da tablet TAKE tablet TAKE tablet Medical 1 TABLET BY 1 TABLET BY TAKE 1 Group MOUTH EVERY MOUTH EVERY TABLET BY DAY FOR 3 DAY FOR 3 MOUTH DAYS DAYS EVERY DAY FOR 3 DAYS fluconazole fluconazole No fluconazol [place] 150 mg 150 mg e 150 mg da tablet TAKE tablet TAKE tablet Medical 1 TABLET BY 1 TABLET BY TAKE 1 Group MOUTH MOUTH TABLET BY DIRECTED DIRECTED MOUTH 1 TIME DOSE 1 TIME DOSE DIRECTED 1 TIME DOSE glipizide glipizide No glipizide [place] ER 5 mg ER 5 mg ER 5 mg da tablet, tablet, tablet, Medica l extended extended extended [place]iji up release 24 release 24 release 24 hr TAKE 1 hr TAKE 1 hr TAKE 1 TABLET BY TABLET BY TABLET BY MOUTH EVERY MOUTH EVERY MOUTH DAY DAY EVERY DAY guanfacine guanfacine No guanfacine [place] ER 1 mg ER 1 mg ER 1 mg da tablet,exte tablet,exte tablet,ext Medical nded nded ended Group release 24 release 24 release 24 hr TAKE 1 hr TAKE 1 hr TAKE 1 TABLET BY TABLET BY TABLET BY MOUTH EVERY MOUTH EVERY MOUTH DAY AT DAY AT EVERY DAY BEDTIME BEDTIME AT BEDTIME ibuprofen ibuprofen No ibuprofen [place] 800 mg 800 mg 800 mg da tablet one tablet one tablet one Medical p.o. q 6 p.o. q 6 p.o. q 6 [place] up hrs PRN hrs PRN hrs PRN pain pain pain levofloxaci levofloxaci No levofloxac [place] n 500 mg n 500 mg in 500 mg da tablet TAKE tablet TAKE tablet Medical 1 TABLET BY 1 TABLET BY TAKE 1 Group MOUTH EVERY MOUTH EVERY TABLET BY DAY DAY MOUTH EVERY DAY metformin metformin No metformin [place] ER 500 mg ER 500 mg ER 500 mg da tablet,exte tablet,exte tablet,ext Medical nded nded ended Group release 24 release 24 release 24 hr TAKE 1 hr TAKE 1 hr TAKE 1 TABLET BY TABLET BY TABLET BY MOUTH EVERY MOUTH EVERY MOUTH DAY DAY EVERY DAY methylpredn methylpredn No methylpred [place] isolone 4 isolone 4 nisolone 4 da mg tablets mg tablets mg tablets Medical in a dose in a dose in a dose Group pack FOLLOW pack FOLLOW pack PACKAGE PACKAGE FOLLOW DIRECTIONS DIRECTIONS PACKAGE DIRECTIONS naproxen naproxen No naproxen [place] sodium 550 sodium 550 sodium 550 da mg tablet mg tablet mg tablet Medical TAKE 1 TAKE 1 TAKE 1 Group TABLET BY TABLET BY TABLET BY MOUTH EVERY MOUTH EVERY MOUTH 12 HOURS 12 HOURS EVERY 12 NEEDED FOR NEEDED FOR HOURS PAIN PAIN NEEDED FOR PAIN nitrofurant nitrofurant No nitrofuran [place] oin oin toin da monohydrate monohydrate monohydrat Medical /macrocryst /macrocryst e/macrocry Group als 100 mg als 100 mg stals 100 capsule capsule mg capsule TAKE 1 TAKE 1 TAKE 1 CAPSULE BY CAPSULE BY CAPSULE BY MOUTH EVERY MOUTH EVERY MOUTH 12 HOURS 12 HOURS EVERY 12 FOR 10 DAYS FOR 10 DAYS HOURS FOR 10 DAYS nystatin nystatin No nystatin [place] 100,000 100,000 100,000 da unit/gram unit/gram unit/gram Medical topical topical topical Group cream APPLY cream APPLY cream TO THE TO THE APPLY TO AFFECTED AFFECTED THE AREA(S) BY AREA(S) BY AFFECTED TOPICAL TOPICAL AREA(S) BY ROUTE 2 ROUTE 2 TOPICAL TIMES PER TIMES PER ROUTE 2 DAY DAY TIMES PER DAY OneTouch OneTouch No OneTouch [place] Delica Plus Delica Plus Delica da Lancet 33 Lancet 33 Plus Medic al gauge CHECK gauge CHECK Lancet 33 Group BLOOD SUGAR BLOOD SUGAR gauge EVERY EVERY CHECK MORNING MORNING BLOOD SUGAR EVERY MORNING OneTouch OneTouch No OneTouch [place] Ultra Test Ultra Test Ultra Test da strips strips strips Medical CHECK BLOOD CHECK BLOOD CHECK Group SUGARS SUGARS BLOOD EVERY EVERY SUGARS MORNING MORNING EVERY MORNING OneTouch OneTouch No OneTouch [place] Ultra2 Ultra2 Ultra2 da Meter USE Meter USE Meter USE Medical DIRECTED DIRECTED G faisal TO TEST TO TEST DIRECTED BLOOD SUGAR BLOOD SUGAR TO TEST BLOOD SUGAR progesteron progesteron No progestero [place] e e ne da micronized micronized micronized Medical 200 mg 200 mg 200 mg Group capsule capsule capsule TAKE 1 TAKE 1 TAKE 1 CAPSULE BY CAPSULE BY CAPSULE BY MOUTH TWICE MOUTH TWICE MOUTH DAILY DAILY TWICE DAILY promethazin promethazin No promethazi [place] e-DM 6.25 e-DM 6.25 ne-DM 6.25 da mg-15 mg/5 mg-15 mg/5 mg-15 mg/5 Medical mL oral mL oral mL oral Group syrup TAKE syrup TAKE syrup TAKE 5 ML BY 5 ML BY 5 ML BY MOUTH EVERY MOUTH EVERY MOUTH 6 HOURS 6 HOURS EVERY 6 NEEDED FOR NEEDED FOR HOURS COUGH COUGH NEEDED FOR COUGH tramadol 50 tramadol 50 No tramadol [place] mg tablet mg tablet 50 mg da TAKE 1 TAKE 1 tablet Medical TABLET BY TABLET BY TAKE 1 [place] up MOUTH EVERY MOUTH EVERY TABLET BY 8 HOURS 8 HOURS MOUTH NEEDED NEEDED EVERY 8 HOURS NEEDED [facility]'s [place] Multivitami Multivitami Multivitam da n n in Medical Group venlafaxine venlafaxine No 1capsul Q1D venlafaxin [place] ER 75 mg ER 75 mg e(s) e ER 75 mg C ommuni capsule,ext capsule,ext capsule,ex ty ended ended tended Hospita release 24 release 24 release 24 l hr Take 1 hr Take 1 hr Take 1 Clinics capsule capsule capsule every day every day every day by oral by oral by oral route. route. route. erythromyci erythromyci No erythromyc [place] n 5 mg/gram n 5 mg/gram in 5 C ommuni (0.5 %) eye (0.5 %) eye mg/gram ty ointment ointment (0.5 %) Hosp farzaneh APPLY 1 CM APPLY 1 CM eye l RIBBON INTO RIBBON INTO ointment Clinics THE LOWER THE LOWER APPLY 1 CM CONJUNCTIVA CONJUNCTIVA RIBBON L SAC(S) IN L SAC(S) IN INTO THE THE THE LOWER AFFECTED AFFECTED CONJUNCTIV EYE(S) BY EYE(S) BY AL SAC(S) OPHTHALMIC OPHTHALMIC IN THE ROUTE 3 ROUTE 3 AFFECTED TIMES PER TIMES PER EYE(S) BY DAY DAY OPHTHALMIC ROUTE 3 TIMES PER DAY FeroSul 325 FeroSul 325 No FeroSul [place] mg (65 mg mg (65 mg 325 mg (65 Communi iron) iron) mg iron) ty tablet TAKE tablet TAKE tablet Hospita 1 TABLET BY 1 TABLET BY TAKE 1 l MOUTH WITH MOUTH WITH TABLET BY Clinics FOOD TWICE FOOD TWICE MOUTH WITH DAILY. DAILY. FOOD TWICE DAILY. mupirocin 2 mupirocin 2 No mupirocin [place] % topical % topical 2 % Commu ni ointment ointment topical ty APPLY A APPLY A ointment Hospi ta SMALL SMALL APPLY A l AMOUNT TO AMOUNT TO SMALL Clin ics both nares both nares AMOUNT TO BY TOPICAL BY TOPICAL both nares ROUTE q hs ROUTE q hs BY TOPICAL x 1 week x 1 week ROUTE q hs x 1 week erythromyci erythromyci No erythromyc [place] n 5 mg/gram n 5 mg/gram in 5 C ommuni (0.5 %) eye (0.5 %) eye mg/gram ty ointment ointment (0.5 %) Hosp farzaneh APPLY 1 CM APPLY 1 CM eye l RIBBON INTO RIBBON INTO ointment Clinics THE LOWER THE LOWER APPLY 1 CM CONJUNCTIVA CONJUNCTIVA RIBBON L SAC(S) IN L SAC(S) IN INTO THE THE THE LOWER AFFECTED AFFECTED CONJUNCTIV EYE(S) BY EYE(S) BY AL SAC(S) OPHTHALMIC OPHTHALMIC IN THE ROUTE 3 ROUTE 3 AFFECTED TIMES PER TIMES PER EYE(S) BY DAY DAY OPHTHALMIC ROUTE 3 TIMES PER DAY FeroSul 325 FeroSul 325 No FeroSul [place] mg (65 mg mg (65 mg 325 mg (65 [facility] iron) iron) mg iron) ty tablet TAKE tablet TAKE tablet Hospita 1 TABLET BY 1 TABLET BY TAKE 1 l MOUTH WITH MOUTH WITH TABLET BY Clinics FOOD TWICE FOOD TWICE MOUTH WITH DAILY. DAILY. FOOD TWICE DAILY. mupirocin 2 mupirocin 2 No mupirocin [place] % topical % topical 2 % Commu ni ointment ointment topical ty APPLY A APPLY A ointment Hospi ta SMALL SMALL APPLY A l AMOUNT TO AMOUNT TO SMALL Clin ics both nares both nares AMOUNT TO BY TOPICAL BY TOPICAL both nares ROUTE q hs ROUTE q hs BY TOPICAL x 1 week x 1 week ROUTE q hs x 1 week acetylcyste acetylcyste No 2capsul BID acetylcyst [place] ine 600 mg ine 600 mg e(s) eine 600 [facility] capsule capsule mg capsule ty Take 2 Take 2 Take 2 Hospita capsules capsules capsules l twice a day twice a day twice a Clinics by oral by oral day by route for route for oral route 30 days. 30 days. for 30 days. albuterol albuterol No 2puff(s Q7H albuterol [place] sulfate HFA sulfate HFA ) sulfate [facility] 90 90 HFA 90 ty mcg/actuati mcg/actuati mcg/actuat Hospita on aerosol on aerosol ion l inhaler inhaler aerosol Clinic s Inhale 2 Inhale 2 inhaler puffs every puffs every Inhale 2 6-8 hours 6-8 hours puffs by by every 6-8 inhalation inhalation hours by route for 7 route for 7 inhalation days. days. route for 7 days. azithromyci azithromyci No 1 Q1D azithromyc [place] n 500 mg n 500 mg in 500 mg [facility] tablet Take tablet Take tablet ty 1 tablet 1 tablet Take 1 Hospi ta every day every day tablet l by oral by oral every day Clin ics route for 5 route for 5 by oral days. days. route for 5 days. Estarylla Estarylla No Estarylla [place] 0.25 mg-35 0.25 mg-35 0.25 mg-35 [facility] mcg tablet mcg tablet mcg tablet ty [facility] FeroSul 325 FeroSul 325 No FeroSul [place] mg (65 mg mg (65 mg 325 mg (65 [facility] iron) iron) mg iron) ty tablet TAKE tablet TAKE tablet Hospita 1 TABLET BY 1 TABLET BY TAKE 1 l MOUTH WITH MOUTH WITH TABLET BY Clinics FOOD TWICE FOOD TWICE MOUTH WITH DAILY. DAILY. FOOD TWICE DAILY. ibuprofen ibuprofen No ibuprofen [place] 800 mg 800 mg 800 mg [facility] tablet tablet [facility] ivermectin ivermectin No 2 BID ivermectin [place] 3 mg tablet 3 mg tablet 3 mg C [facility] Take 2 Take 2 tablet ty tablets tablets Take 2 Hospita twice a day twice a day tablets l by oral by oral twice a Clinic s route. route. day by oral route. levothyroxi levothyroxi No levothyrox [place] ne 25 mcg ne 25 mcg ine 25 mcg [facility] tablet TAKE tablet TAKE tablet ty 1 TABLET BY 1 TABLET BY TAKE 1 Hospita MOUTH EVERY MOUTH EVERY TABLET BY l DAY DAY MOUTH Clinics EVERY DAY prednisone prednisone No 1 BID prednisone [place] 20 mg 20 mg 20 mg [facility] tablet Take tablet Take tablet ty 1 tablet 1 tablet Take 1 Hospi ta twice a day twice a day tablet l by oral by oral twice a Clinic s route for 5 route for 5 day by days. days. oral route for 5 days. acetylcyste acetylcyste No 2capsul BID acetylcyst [place] ine 600 mg ine 600 mg e(s) eine 600 [facility] capsule capsule mg capsule ty Take 2 Take 2 Take 2 Hospita capsules capsules capsules l twice a day twice a day twice a Clinics by oral by oral day by route for route for oral route 30 days. 30 days. for 30 days. albuterol albuterol No 2puff(s Q7H albuterol [place] sulfate HFA sulfate HFA ) sulfate [facility] 90 90 HFA 90 ty mcg/actuati mcg/actuati mcg/actuat Hospita on aerosol on aerosol ion l inhaler inhaler aerosol Clinic s Inhale 2 Inhale 2 inhaler puffs every puffs every Inhale 2 6-8 hours 6-8 hours puffs by by every 6-8 inhalation inhalation hours by route for 7 route for 7 inhalation days. days. route for 7 days. azithromyci azithromyci No 1 Q1D azithromyc [place] n 500 mg n 500 mg in 500 mg [facility] tablet Take tablet Take tablet ty 1 tablet 1 tablet Take 1 Hospi ta every day every day tablet l by oral by oral every day Clin ics route for 5 route for 5 by oral days. days. route for 5 days. Estarylla Estarylla No Estarylla [place] 0.25 mg-35 0.25 mg-35 0.25 mg-35 [facility] mcg tablet mcg tablet mcg tablet ty [facility] fenofibrate fenofibrate No 2 Q1D fenofibrat [place] 54 mg 54 mg e 54 mg [facility] tablet Take tablet Take tablet ty 2 tablets 2 tablets Take 2 Hos moises every day every day tablets l by oral by oral every day Clin ics route for route for by oral 30 days. 30 days. route for 30 days. FeroSul 325 FeroSul 325 No FeroSul [place] mg (65 mg mg (65 mg 325 mg (65 [facility] iron) iron) mg iron) ty tablet TAKE tablet TAKE tablet Hospita 1 TABLET BY 1 TABLET BY TAKE 1 l MOUTH WITH MOUTH WITH TABLET BY Clinics FOOD TWICE FOOD TWICE MOUTH WITH DAILY. DAILY. FOOD TWICE DAILY. ibuprofen ibuprofen No ibuprofen [place] 800 mg 800 mg 800 mg [facility] tablet tablet tablet ty [facility] ivermectin ivermectin No 2 BID ivermectin [place] 3 mg tablet 3 mg tablet 3 mg C [facility] Take 2 Take 2 tablet ty tablets tablets Take 2 Hospita twice a day twice a day tablets l by oral by oral twice a Clinic s route. route. day by oral route. levothyroxi levothyroxi No levothyrox [place] ne 25 mcg ne 25 mcg ine 25 mcg Communi tablet TAKE tablet TAKE tablet ty 1 TABLET BY 1 TABLET BY TAKE 1 Hospita MOUTH EVERY MOUTH EVERY TABLET BY l DAY DAY MOUTH Clinics EVERY DAY prednisone prednisone No 1 BID prednisone [place] 20 mg 20 mg 20 mg [facility] tablet Take tablet Take tablet ty 1 tablet 1 tablet Take 1 Hospi ta twice a day twice a day tablet l by oral by oral twice a Clinic s route for 5 route for 5 day by days. days. oral route for 5 days. albuterol albuterol No albuterol [place] sulfate HFA sulfate HFA sulfate [facility] 90 90 HFA 90 ty mcg/actuati mcg/actuati mcg/actuat Hospita on aerosol on aerosol ion l inhaler inhaler aerosol Clinic s INHALE 2 INHALE 2 inhaler PUFFS BY PUFFS BY INHALE 2 MOUTH EVERY MOUTH EVERY PUFFS BY 6 TO 8 6 TO 8 MOUTH HOURS FOR 7 HOURS FOR 7 EVERY 6 TO DAYS DAYS 8 HOURS FOR 7 DAYS amoxicillin amoxicillin No 1 Q12H amoxicilli [place] [id number] n 875 Communi mg-potassiu mg-potassiu mg-potassi ty m m um Hospita clavulanate clavulanate clavulanat l 125 mg 125 mg e 125 mg Clinics tablet Take tablet Take tablet 1 tablet 1 tablet Take 1 every 12 every 12 tablet hours by hours by every 12 oral route oral route hours by for 10 for 10 oral route days. days. for 10 days. Ciprodex Ciprodex No Ciprodex Swe randy 0.3 %-0.1 % 0.3 %-0.1 % 0.3 %-0.1 [facility] ear ear % ear ty drops,suspe drops,suspe drops,susp Hospita nsion nsion ension l INSTILL 4 INSTILL 4 INSTILL 4 Clinics DROPS INTO DROPS INTO DROPS INTO AFFECTED AFFECTED AFFECTED EAR(S) BY EAR(S) BY EAR(S) BY OTIC ROUTE OTIC ROUTE OTIC ROUTE 2 TIMES PER 2 TIMES PER 2 TIMES DAY FOR 7 DAY FOR 7 PER DAY DAYS DAYS FOR 7 DAYS Estarylla Estarylla No Estarylla [place] 0.25 mg-35 0.25 mg-35 0.25 mg-35 [facility] mcg tablet mcg tablet mcg tablet ty Hospita l Clinics Multi Multi No Multi [place] Vitamin Vitamin Vitamin Commun i ty Hospita l Clinics doxycycline doxycycline No 1capsul BID doxycyclin [place] hyclate 100 hyclate 100 e(s) e hyclate Communi mg capsule mg capsule 100 mg t y Take 1 Take 1 capsule Hospita capsule capsule Take 1 l twice a day twice a day capsule Clinics by oral by oral twice a route for route for day by 10 days. 10 days. oral route for 10 days. Estarylla Estarylla No Estarylla [place] 0.25 mg-35 0.25 mg-35 0.25 mg-35 [facility] mcg tablet mcg tablet mcg tablet ty [facility] Multi Multi No Multi [place] Vitamin Vitamin Vitamin Commun i ty [facility] Clinics acetylcyste acetylcyste No 2capsul BID acetylcyst [place] ine 600 mg ine 600 mg e(s) eine 600 [facility] capsule capsule mg capsule ty Take 2 Take 2 Take 2 Hospita capsules capsules capsules l twice a day twice a day twice a Clinics by oral by oral day by route for route for oral route 30 days. 30 days. for 30 days. albuterol albuterol No 3mL Q7H albuterol [place] sulfate 2.5 sulfate 2.5 sulfate [facility] mg/3 mL mg/3 mL 2.5 mg/3 ty (0.083 %) (0.083 %) mL (0.083 Hospita solution solution %) l for for solution Clinics nebulizatio nebulizatio for n Inhale 3 n Inhale 3 nebulizati mL every mL every on Inhale 6-8 hours 6-8 hours 3 mL every by by 6-8 hours nebulizatio nebulizatio by n route for n route for nebulizati 7 days. 7 days. on route for 7 days. albuterol albuterol No 2puff(s Q7H albuterol [place] sulfate HFA sulfate HFA ) sulfate [facility] 90 90 HFA 90 ty mcg/actuati mcg/actuati mcg/actuat Hospita on aerosol on aerosol ion l inhaler inhaler aerosol Clinic s Inhale 2 Inhale 2 inhaler puffs every puffs every Inhale 2 6-8 hours 6-8 hours puffs by by every 6-8 inhalation inhalation hours by route for 7 route for 7 inhalation days. days. route for 7 days. Estarylla Estarylla No Estarylla [place] 0.25 mg-35 0.25 mg-35 0.25 mg-35 [facility] mcg tablet mcg tablet mcg tablet ty [facility] ivermectin ivermectin No 2 BID ivermectin [place] 3 mg tablet 3 mg tablet 3 mg [facility] Take 2 Take 2 tablet ty tablets tablets Take 2 Hospita twice a day twice a day tablets l by oral by oral twice a Clinic s route for 5 route for 5 day by days. days. oral route for 5 days. Multi Multi No Multi [place] Vitamin Vitamin Vitamin Commun i ty Hospita l Clinics prednisone prednisone No 1 BID prednisone [place] 20 mg 20 mg 20 mg [facility] tablet Take tablet Take tablet ty 1 tablet 1 tablet Take 1 Hospi ta twice a day twice a day tablet l by oral by oral twice a Clinic s route for 5 route for 5 day by days. days. oral route for 5 days. Xarelto Xarelto No 1startr Xarelto Swe randy DVT-PE DVT-PE pk(s) DVT-PE [facility] Treatment Treatment Treatment ty 30-Day 30-Day 30-Day Hospita Starter 15 Starter 15 Starter 15 l mg(42)-20 mg(42)-20 mg(42)-20 Clinics mg(9) mg(9) mg(9) tablet pack tablet pack tablet Take 1 Take 1 pack Take startr pk startr pk 1 startr by oral by oral pk by oral route for route for route for 30 days. 30 days. 30 days. acetylcyste acetylcyste No 2capsul BID acetylcyst [place] ine 600 mg ine 600 mg e(s) eine 600 [facility] capsule capsule mg capsule ty Take 2 Take 2 Take 2 Hospita capsules capsules capsules l twice a day twice a day twice a Clinics by oral by oral day by route for route for oral route 30 days. 30 days. for 30 days. albuterol albuterol No 3mL Q7H albuterol [place] sulfate 2.5 sulfate 2.5 sulfate [facility] mg/3 mL mg/3 mL 2.5 mg/3 ty (0.083 %) (0.083 %) mL (0.083 Hospita solution solution %) l for for solution Clinics nebulizatio nebulizatio for n Inhale 3 n Inhale 3 nebulizati mL every mL every on Inhale 6-8 hours 6-8 hours 3 mL every by by 6-8 hours nebulizatio nebulizatio by n route for n route for nebulizati 7 days. 7 days. on route for 7 days. albuterol albuterol No 2puff(s Q7H albuterol [place] sulfate HFA sulfate HFA ) sulfate [facility] 90 90 HFA 90 ty mcg/actuati mcg/actuati mcg/actuat Hospita on aerosol on aerosol ion l inhaler inhaler aerosol Clinic s Inhale 2 Inhale 2 inhaler puffs every puffs every Inhale 2 6-8 hours 6-8 hours puffs by by every 6-8 inhalation inhalation hours by route for 7 route for 7 inhalation days. days. route for 7 days. Estarylla Estarylla No Estarylla [place] 0.25 mg-35 0.25 mg-35 0.25 mg-35 [facility] mcg tablet mcg tablet mcg tablet ty [facility] ivermectin ivermectin No 2 BID ivermectin [place] 3 mg tablet 3 mg tablet 3 mg [facility] Take 2 Take 2 tablet ty tablets tablets Take 2 Hospita twice a day twice a day tablets l by oral by oral twice a Clinic s route for 5 route for 5 day by days. days. oral route for 5 days. Multi Multi No Multi [place] Vitamin Vitamin Vitamin Commun i ty [facility] prednisone prednisone No 1 BID prednisone [place] 20 mg 20 mg 20 mg [facility] tablet Take tablet Take tablet ty 1 tablet 1 tablet Take 1 Hospi ta twice a day twice a day tablet l by oral by oral twice a Clinic s route for 5 route for 5 day by days. days. oral route for 5 days. Xarelto Xarelto No 1startr Xarelto Swe randy DVT-PE DVT-PE pk(s) DVT-PE [facility] Treatment Treatment Treatment ty 30-Day 30-Day 30-Day Hospita Starter 15 Starter 15 Starter 15 l mg(42)-20 mg(42)-20 mg(42)-20 Clinics mg(9) mg(9) mg(9) tablet pack tablet pack tablet Take 1 Take 1 pack Take startr pk startr pk 1 startr by oral by oral pk by oral route for route for route for 30 days. 30 days. 30 days. albuterol albuterol No 2puff(s Q7H albuterol [place] sulfate HFA sulfate HFA ) sulfate [facility] 90 90 HFA 90 ty mcg/actuati mcg/actuati mcg/actuat Hospita on aerosol on aerosol ion l inhaler inhaler aerosol Clinic s Inhale 2 Inhale 2 inhaler puffs every puffs every Inhale 2 6-8 hours 6-8 hours puffs by by every 6-8 inhalation inhalation hours by route for 7 route for 7 inhalation days. days. route for 7 days. azithromyci azithromyci No 1 Q1D azithromyc [place] n 500 mg n 500 mg in 500 mg [facility] tablet Take tablet Take tablet ty 1 tablet 1 tablet Take 1 Hospi ta every day every day tablet l by oral by oral every day Clin ics route for 5 route for 5 by oral days. days. route for 5 days. Multi Multi No Multi [place] Vitamin Vitamin Vitamin Commun i ty [facility] promethazin promethazin No 1 Q7H promethazi [place] e 25 mg e 25 mg ne 25 mg Commu ni tablet Take tablet Take tablet ty 1 tablet 1 tablet Take 1 Hospi ta every 6-8 every 6-8 tablet l hours by hours by every 6-8 Cl inics oral route. oral route. hours by oral route. Advil Advil No Advil [place] [facility] ty [facility] albuterol albuterol No 2puff(s Q7H albuterol [place] sulfate HFA sulfate HFA ) sulfate [facility] 90 90 HFA 90 ty mcg/actuati mcg/actuati mcg/actuat Hospita on aerosol on aerosol ion l inhaler inhaler aerosol Clinic s Inhale 2 Inhale 2 inhaler puffs every puffs every Inhale 2 6-8 hours 6-8 hours puffs by by every 6-8 inhalation inhalation hours by route for 7 route for 7 inhalation days. days. route for 7 days. diclofenac diclofenac No 1 BID diclofenac [place] sodium 75 sodium 75 sodium 75 [facility] mg mg mg ty tablet,reddy tablet,reddy tablet,del Hospita yed release yed release ayed l Take 1 Take 1 release Clinics tablet tablet Take 1 twice a day twice a day tablet by oral by oral twice a route as route as day by needed. needed. oral route as needed. doxycycline doxycycline No 1capsul BID doxycyclin [place] hyclate 100 hyclate 100 e(s) e hyclate Commun[facility] mg capsule mg capsule 100 mg t y Take 1 Take 1 capsule Hospita capsule capsule Take 1 l twice a day twice a day capsule Clinics by oral by oral twice a route for route for day by 10 days. 10 days. oral route for 10 days. Advil Advil No Advil [place] [facility] ty [facility] albuterol albuterol No albuterol [place] sulfate 2.5 sulfate 2.5 sulfate [facility] mg/3 mL mg/3 mL 2.5 mg/3 ty (0.083 %) (0.083 %) mL (0.083 Hospita solution solution %) l for for solution Clinics nebulizatio nebulizatio for n INHALE 1 n INHALE 1 nebulizati VIAL VIA VIAL VIA on INHALE NEBULIZER NEBULIZER 1 VIAL VIA EVERY 6 TO EVERY 6 TO NEBULIZER 8 HOURS FOR 8 HOURS FOR EVERY 6 TO 7 DAYS 7 DAYS 8 HOURS FOR 7 DAYS albuterol albuterol No 2puff(s Q7H albuterol [place] sulfate HFA sulfate HFA ) sulfate [facility] 90 90 HFA 90 ty mcg/actuati mcg/actuati mcg/actuat Hospita on aerosol on aerosol ion l inhaler inhaler aerosol Clinic s Inhale 2 Inhale 2 inhaler puffs every puffs every Inhale 2 6-8 hours 6-8 hours puffs by by every 6-8 inhalation inhalation hours by route for 7 route for 7 inhalation days. days. route for 7 days. fluconazole fluconazole No fluconazol [place] 150 mg 150 mg e 150 mg [facility] tablet TAKE tablet TAKE tablet ty 1 TABLET BY 1 TABLET BY TAKE 1 Hospita MOUTH EVERY MOUTH EVERY TABLET BY l DAY DAY MOUTH Clinics DIRECTED DIRECTED EVERY DAY DIRECTED prednisone prednisone No 1 BID prednisone [place] 20 mg 20 mg 20 mg [facility] tablet Take tablet Take tablet ty 1 tablet 1 tablet Take 1 Hospi ta twice a day twice a day tablet l by oral by oral twice a Clinic s route for 5 route for 5 day by days. days. oral route for 5 days. promethazin promethazin No 5mL Q5H promethazi [place] e-DM 6.25 e-DM 6.25 ne-DM 6.25 [facility]i mg-15 mg/5 mg-15 mg/5 mg-15 mg/5 ty mL oral mL oral mL oral Hospit a syrup Take syrup Take syrup Take l 5 mL every 5 mL every 5 mL every Clinics 4-6 hours 4-6 hours 4-6 hours by oral by oral by oral route. route. route. Advil Advil No Advil [place] [facility] ty [facility] l Clinics albuterol albuterol No albuterol [place] sulfate 2.5 sulfate 2.5 sulfate [facility] mg/3 mL mg/3 mL 2.5 mg/3 ty (0.083 %) (0.083 %) mL (0.083 Hospita solution solution %) l for for solution Clinics nebulizatio nebulizatio for n USE 1 n USE 1 nebulizati AMPULE VIA AMPULE VIA on USE 1 NEBULIZER NEBULIZER AMPULE VIA EVERY 6 TO EVERY 6 TO NEBULIZER 8 HOURS FOR 8 HOURS FOR EVERY 6 TO 7 DAYS 7 DAYS 8 HOURS FOR 7 DAYS albuterol albuterol No 2puff(s Q7H albuterol [place] sulfate HFA sulfate HFA ) sulfate [facility] 90 90 HFA 90 ty mcg/actuati mcg/actuati mcg/actuat Hospita on aerosol on aerosol ion l inhaler inhaler aerosol Clinic s Inhale 2 Inhale 2 inhaler puffs every puffs every Inhale 2 6-8 hours 6-8 hours puffs by by every 6-8 inhalation inhalation hours by route for 7 route for 7 inhalation days. days. route for 7 days. azithromyci azithromyci No 1 Q1D azithromyc [place] n 500 mg n 500 mg in 500 mg [facility] tablet Take tablet Take tablet ty 1 tablet 1 tablet Take 1 Hospi ta every day every day tablet l by oral by oral every day Clin ics route for 5 route for 5 by oral days. days. route for 5 days. prednisone prednisone No 1 BID prednisone [place] 20 mg 20 mg 20 mg [facility] tablet Take tablet Take tablet ty 1 tablet 1 tablet Take 1 Hospi ta twice a day twice a day tablet l by oral by oral twice a Clinic s route for 5 route for 5 day by days. days. oral route for 5 days. Advil Advil No Advil [place] [facility] ty [facility] l Clinics albuterol albuterol No albuterol [place] sulfate 2.5 sulfate 2.5 sulfate [facility] mg/3 mL mg/3 mL 2.5 mg/3 ty (0.083 %) (0.083 %) mL (0.083 Hospita solution solution %) l for for solution Clinics nebulizatio nebulizatio for n USE 1 n USE 1 nebulizati AMPULE VIA AMPULE VIA on USE 1 NEBULIZER NEBULIZER AMPULE VIA EVERY 6 TO EVERY 6 TO NEBULIZER 8 HOURS FOR 8 HOURS FOR EVERY 6 TO 7 DAYS 7 DAYS 8 HOURS FOR 7 DAYS albuterol albuterol No 2puff(s Q7H albuterol [place] sulfate HFA sulfate HFA ) sulfate [facility] 90 90 HFA 90 ty mcg/actuati mcg/actuati mcg/actuat Hospita on aerosol on aerosol ion l inhaler inhaler aerosol Clinic s Inhale 2 Inhale 2 inhaler puffs every puffs every Inhale 2 6-8 hours 6-8 hours puffs by by every 6-8 inhalation inhalation hours by route for 7 route for 7 inhalation days. days. route for 7 days. azithromyci azithromyci No 1 Q1D azithromyc [place] n 500 mg n 500 mg in 500 mg [facility] tablet Take tablet Take tablet ty 1 tablet 1 tablet Take 1 Hospi ta every day every day tablet l by oral by oral every day Clin ics route for 5 route for 5 by oral days. days. route for 5 days. eletriptan eletriptan No eletriptan [place] 40 mg 40 mg 40 mg [facility] tablet TAKE tablet TAKE tablet ty 1 TABLET BY 1 TABLET BY TAKE 1 Hospita MOUTH AT MOUTH AT TABLET BY l ONSET OF ONSET OF MOUTH AT Cli nics HEADACHE - HEADACHE - ONSET OF MAY REPEAT MAY REPEAT HEADACHE - IN 2 HOURS IN 2 HOURS MAY REPEAT IF NEEDED IF NEEDED IN 2 HOURS IF NEEDED promethazin promethazin No 5mL Q4H promethazi [place] e-DM 6.25 e-DM 6.25 ne-DM 6.25 Communi mg-15 mg/5 mg-15 mg/5 mg-15 mg/5 ty mL oral mL oral mL oral Hospit a syrup Take syrup Take syrup Take l 5 mL every 5 mL every 5 mL every Clinics 4 hours by 4 hours by 4 hours by oral route oral route oral route as needed. as needed. as needed. Advil Advil No Advil [place] [facility] ty [facility] l Clinics albuterol albuterol No albuterol [place] sulfate 2.5 sulfate 2.5 sulfate [facility] mg/3 mL mg/3 mL 2.5 mg/3 ty (0.083 %) (0.083 %) mL (0.083 Hospita solution solution %) l for for solution Clinics nebulizatio nebulizatio for n USE 1 n USE 1 nebulizati AMPULE VIA AMPULE VIA on USE 1 NEBULIZER NEBULIZER AMPULE VIA EVERY 6 TO EVERY 6 TO NEBULIZER 8 HOURS FOR 8 HOURS FOR EVERY 6 TO 7 DAYS 7 DAYS 8 HOURS FOR 7 DAYS albuterol albuterol No 2puff(s Q7H albuterol [place] sulfate HFA sulfate HFA ) sulfate [facility] 90 90 HFA 90 ty mcg/actuati mcg/actuati mcg/actuat Hospita on aerosol on aerosol ion l inhaler inhaler aerosol Clinic s Inhale 2 Inhale 2 inhaler puffs every puffs every Inhale 2 6-8 hours 6-8 hours puffs by by every 6-8 inhalation inhalation hours by route for 7 route for 7 inhalation days. days. route for 7 days. azithromyci azithromyci No 1 Q1D azithromyc [place] n 500 mg n 500 mg in 500 mg [facility] tablet Take tablet Take tablet ty 1 tablet 1 tablet Take 1 Hospi ta every day every day tablet l by oral by oral every day Clin ics route for 5 route for 5 by oral days. days. route for 5 days. eletriptan eletriptan No eletriptan [place] 40 mg 40 mg 40 mg [facility] tablet TAKE tablet TAKE tablet ty 1 TABLET BY 1 TABLET BY TAKE 1 Hospita MOUTH AT MOUTH AT TABLET BY l ONSET OF ONSET OF MOUTH AT Cli nics HEADACHE - HEADACHE - ONSET OF MAY REPEAT MAY REPEAT HEADACHE - IN 2 HOURS IN 2 HOURS MAY REPEAT IF NEEDED IF NEEDED IN 2 HOURS IF NEEDED promethazin promethazin No 5mL Q4H promethazi [place] e-DM 6.25 e-DM 6.25 ne-DM 6.25 [facility]i mg-15 mg/5 mg-15 mg/5 mg-15 mg/5 ty mL oral mL oral mL oral Hospit a syrup Take syrup Take syrup Take l 5 mL every 5 mL every 5 mL every Clinics 4 hours by 4 hours by 4 hours by oral route oral route oral route as needed. as needed. as needed. Advil Advil No Advil [place] [facility] Clinics albuterol albuterol No albuterol [place] sulfate 2.5 sulfate 2.5 sulfate [facility] mg/3 mL mg/3 mL 2.5 mg/3 ty (0.083 %) (0.083 %) mL (0.083 Hospita solution solution %) l for for solution Clinics nebulizatio nebulizatio for n USE 1 n USE 1 nebulizati AMPULE VIA AMPULE VIA on USE 1 NEBULIZER NEBULIZER AMPULE VIA EVERY 6 TO EVERY 6 TO NEBULIZER 8 HOURS FOR 8 HOURS FOR EVERY 6 TO 7 DAYS 7 DAYS 8 HOURS FOR 7 DAYS albuterol albuterol No 2puff(s Q7H albuterol [place] sulfate HFA sulfate HFA ) sulfate [facility] 90 90 HFA 90 ty mcg/actuati mcg/actuati mcg/actuat Hospita on aerosol on aerosol ion l inhaler inhaler aerosol Clinic s Inhale 2 Inhale 2 inhaler puffs every puffs every Inhale 2 6-8 hours 6-8 hours puffs by by every 6-8 inhalation inhalation hours by route for 7 route for 7 inhalation days. days. route for 7 days. azithromyci azithromyci No 1 Q1D azithromyc [place] n 500 mg n 500 mg in 500 mg [facility] tablet Take tablet Take tablet ty 1 tablet 1 tablet Take 1 Hospi ta every day every day tablet l by oral by oral every day Clin ics route for 5 route for 5 by oral days. days. route for 5 days. eletriptan eletriptan No eletriptan [place] 40 mg 40 mg 40 mg [facility] tablet TAKE tablet TAKE tablet ty 1 TABLET BY 1 TABLET BY TAKE 1 Hospita MOUTH AT MOUTH AT TABLET BY l ONSET OF ONSET OF MOUTH AT Cli nics HEADACHE - HEADACHE - ONSET OF MAY REPEAT MAY REPEAT HEADACHE - IN 2 HOURS IN 2 HOURS MAY REPEAT IF NEEDED IF NEEDED IN 2 HOURS IF NEEDED Medrol Medrol No 1dose Medrol [place] (Jim) 4 mg (Jim) 4 mg pk(s) (Jim) 4 mg [facility] tablets in tablets in tablets in ty a dose pack a dose pack a dose Hospita Take 1 dose Take 1 dose pack Take l pk by oral pk by oral 1 dose pk Clinics route as route as by oral directed. directed. route as directed. promethazin promethazin No 5mL Q4H promethazi [place] e-DM 6.25 e-DM 6.25 ne-DM 6.25 [facility]i mg-15 mg/5 mg-15 mg/5 mg-15 mg/5 ty mL oral mL oral mL oral Hospit a syrup Take syrup Take syrup Take l 5 mL every 5 mL every 5 mL every Clinics 4 hours by 4 hours by 4 hours by oral route oral route oral route as needed. as needed. as needed. Advil Advil No Advil [place] [facility] ty [facility] amoxicillin amoxicillin No 1 Q12H amoxicilli [place] [id number] n 875 Communi mg-potassiu mg-potassiu mg-potassi ty m m [facility] clavulanate clavulanate clavulanat l 125 mg 125 mg e 125 mg Clinics tablet Take tablet Take tablet 1 tablet 1 tablet Take 1 every 12 every 12 tablet hours by hours by every 12 oral route oral route hours by for 10 for 10 oral route days. days. for 10 days. eletriptan eletriptan No eletriptan [place] 40 mg 40 mg 40 mg [facility] tablet TAKE tablet TAKE tablet ty 1 TABLET BY 1 TABLET BY TAKE 1 Hospita MOUTH AT MOUTH AT TABLET BY l ONSET OF ONSET OF MOUTH AT Cli nics HEADACHE - HEADACHE - ONSET OF MAY REPEAT MAY REPEAT HEADACHE - IN 2 HOURS IN 2 HOURS MAY REPEAT IF NEEDED IF NEEDED IN 2 HOURS IF NEEDED tramadol 50 tramadol 50 No tramadol [place] mg tablet mg tablet 50 mg Comm uni TAKE 1 TAKE 1 tablet ty TABLET BY TABLET BY TAKE 1 Hos mo[facility] MOUTH EVERY MOUTH EVERY TABLET BY l 8 HOURS 8 HOURS MOUTH Cl inics NEEDED NEEDED EVERY 8 HOURS NEEDED Advil Advil No Advil [place] [facility] eletriptan eletriptan No eletriptan [place] 40 mg 40 mg 40 mg [facility] tablet TAKE tablet TAKE tablet ty 1 TABLET BY 1 TABLET BY TAKE 1 Hospita MOUTH AT MOUTH AT TABLET BY l ONSET OF ONSET OF MOUTH AT Cli nics HEADACHE - HEADACHE - ONSET OF MAY REPEAT MAY REPEAT HEADACHE - IN 2 HOURS IN 2 HOURS MAY REPEAT IF NEEDED IF NEEDED IN 2 HOURS IF NEEDED guanfacine guanfacine No 1 Q1D guanfacine [place] ER 1 mg ER 1 mg ER 1 mg Commun i tablet,exte tablet,exte tablet,ext ty nded nded ended Hospita release 24 release 24 release 24 l hr Take 1 hr Take 1 hr Take 1 Clinics tablet tablet tablet every day every day every day by oral by oral by oral route at route at route at bedtime. bedtime. bedtime. binaxnow binaxnow No binaxnow [facility] cov kit cov kit cov kit [facility] BinaxNOW BinaxNOW No BinaxNOW [facility] COVID-19 Ag COVID-19 Ag COVID-19 [facility] Self Test Self Test Ag Self ty kit TEST kit TEST Test kit Hospita DIRECTED DIRECTED TEST l TODAY TODAY DIRECTED Clinics TODAY Celebrex Celebrex No 1capsul Q1D Celebrex [place] 100 mg 100 mg e(s) 100 mg [facility] capsule capsule capsule ty Take 1 Take 1 Take 1 Hospita capsule capsule capsule l every day every day every day Clinics by oral by oral by oral route. route. route. eletriptan eletriptan No eletriptan [place] 40 mg 40 mg 40 mg [facility] tablet TAKE tablet TAKE tablet ty 1 TABLET BY 1 TABLET BY TAKE 1 Hospita MOUTH AT MOUTH AT TABLET BY l ONSET OF ONSET OF MOUTH AT Cli nics HEADACHE - HEADACHE - ONSET OF MAY REPEAT MAY REPEAT HEADACHE - IN 2 HOURS IN 2 HOURS MAY REPEAT IF NEEDED IF NEEDED IN 2 HOURS IF NEEDED guanfacine guanfacine No guanfacine [place] ER 1 mg ER 1 mg ER 1 mg Commun i tablet,exte tablet,exte tablet,ext ty nded nded ended Hospita release 24 release 24 release 24 l hr TAKE 1 hr TAKE 1 hr TAKE 1 Clinics TABLET BY TABLET BY TABLET BY MOUTH EVERY MOUTH EVERY MOUTH DAY AT DAY AT EVERY DAY BEDTIME BEDTIME AT BEDTIME Mounjaro Mounjaro No 2.5mg Q1W [facility] 2.5 mg/0.5 2.5 mg/0.5 2.5 mg/0.5 Commun[facility] mL mL mL ty subcutaneou subcutaneou subcutaneo Hospita s pen s pen us pen l injector injector injector Cli nics Inject 2.5 Inject 2.5 Inject 2.5 mg every mg every mg every week by week by week by subcutaneou subcutaneou subcutaneo s route. s route. us route. azithromyci azithromyci No 1 Q1D azithromyc [place] n 500 mg n 500 mg in 500 mg [facility] tablet Take tablet Take tablet ty 1 tablet 1 tablet Take 1 Hospi ta every day every day tablet l by oral by oral every day Clin ics route for 5 route for 5 by oral days. days. route for 5 days. binaxnow binaxnow No binaxnow [facility] cov kit cov kit cov kit [facility] BinaxNOW BinaxNOW No BinaxNOW [facility] COVID-19 Ag COVID-19 Ag COVID-19 [facility] Self Test Self Test Ag Self ty kit TEST kit TEST Test kit Hospita DIRECTED DIRECTED TEST l TODAY TODAY DIRECTED Clinics TODAY celecoxib celecoxib No celecoxib [place] 100 mg 100 mg 100 mg [facility] capsule capsule capsule ty Take 1 Take 1 Take 1 Hospita capsule capsule capsule l every day every day every day Clinics by oral by oral by oral route. route. route. eletriptan eletriptan No eletriptan [place] 40 mg 40 mg 40 mg [facility] tablet TAKE tablet TAKE tablet ty 1 TABLET BY 1 TABLET BY TAKE 1 Hospita MOUTH AT MOUTH AT TABLET BY l ONSET OF ONSET OF MOUTH AT Cli nics HEADACHE - HEADACHE - ONSET OF MAY REPEAT MAY REPEAT HEADACHE - IN 2 HOURS IN 2 HOURS MAY REPEAT IF NEEDED IF NEEDED IN 2 HOURS IF NEEDED guanfacine guanfacine No guanfacine [place] ER 1 mg ER 1 mg ER 1 mg Commun i tablet,exte tablet,exte tablet,ext ty nded nded ended Hospita release 24 release 24 release 24 l hr TAKE 1 hr TAKE 1 hr TAKE 1 Clinics TABLET BY TABLET BY TABLET BY MOUTH EVERY MOUTH EVERY MOUTH DAY AT DAY AT EVERY DAY BEDTIME BEDTIME AT BEDTIME metformin metformin No metformin [place] ER 500 mg ER 500 mg ER 500 mg Commun[facility] tablet,exte tablet,exte tablet,ext ty nded nded ended Hospita release 24 release 24 release 24 l hr TAKE 1 hr TAKE 1 hr TAKE 1 Clinics TABLET BY TABLET BY TABLET BY MOUTH EVERY MOUTH EVERY MOUTH DAY DAY EVERY DAY Mounjaro Mounjaro No 2.5mg Q1W [facility] 2.5 mg/0.5 2.5 mg/0.5 2.5 mg/0.5 Communi mL mL mL ty subcutaneou subcutaneou subcutaneo Hospita s pen s pen us pen l injector injector injector Cli nics Inject 2.5 Inject 2.5 Inject 2.5 mg every mg every mg every week by week by week by subcutaneou subcutaneou subcutaneo s route. s route. us route. binaxnow binaxnow No binaxnow [facility] cov kit cov kit cov kit [facility] BinaxNOW BinaxNOW No BinaxNOW [facility] COVID-19 Ag COVID-19 Ag COVID-19 [facility] Self Test Self Test Ag Self ty kit TEST kit TEST Test kit Hospita DIRECTED DIRECTED TEST l TODAY TODAY DIRECTED Clinics TODAY celecoxib celecoxib No celecoxib [place] 100 mg 100 mg 100 mg [facility] capsule capsule capsule ty Take 1 Take 1 Take 1 Hospita capsule capsule capsule l every day every day every day Clinics by oral by oral by oral route. route. route. eletriptan eletriptan No eletriptan [place] 40 mg 40 mg 40 mg [facility] tablet TAKE tablet TAKE tablet ty 1 TABLET BY 1 TABLET BY TAKE 1 Hospita MOUTH AT MOUTH AT TABLET BY l ONSET OF ONSET OF MOUTH AT Cli nics HEADACHE - HEADACHE - ONSET OF MAY REPEAT MAY REPEAT HEADACHE - IN 2 HOURS IN 2 HOURS MAY REPEAT IF NEEDED IF NEEDED IN 2 HOURS IF NEEDED Macrobid Macrobid No 1capsul Q12H Macrobid [place] 100 mg 100 mg e(s) 100 mg [facility] capsule capsule capsule ty Take 1 Take 1 Take 1 Hospita capsule capsule capsule l every 12 every 12 every 12 Cli nics hours by hours by hours by oral route oral route oral route for 10 for 10 for 10 days. days. days. metformin metformin No metformin [place] ER 500 mg ER 500 mg ER 500 mg [facility] tablet,exte tablet,exte tablet,ext ty nded nded ended Hospita release 24 release 24 release 24 l hr TAKE 1 hr TAKE 1 hr TAKE 1 Clinics TABLET BY TABLET BY TABLET BY MOUTH EVERY MOUTH EVERY MOUTH DAY DAY EVERY DAY binaxnow binaxnow No binaxnow [facility] cov kit cov kit cov kit [facility] BinaxNOW BinaxNOW No BinaxNOW [facility] COVID-19 Ag COVID-19 Ag COVID-19 Commun[facility] Self Test Self Test Ag Self ty kit TEST kit TEST Test kit Hospita DIRECTED DIRECTED TEST l TODAY TODAY DIRECTED Clinics TODAY ceftriaxone ceftriaxone No 1g ceftriaxon [place] 1 gram 1 gram e 1 gram [facility] solution solution solution ty for for for Hospita injection injection injection l Take 1 g by Take 1 g by Take 1 g Clinics injection injection by route. route. injection route. ciprofloxac ciprofloxac No 1 Q12H ciprofloxa [place] in 500 mg in 500 mg elizabeth 500 mg [facility] tablet Take tablet Take tablet ty 1 tablet 1 tablet Take 1 Hospi ta every 12 every 12 tablet l hours by hours by every 12 Cli nics oral route oral route hours by for 10 for 10 oral route days. days. for 10 days. eletriptan eletriptan No eletriptan [place] 40 mg 40 mg 40 mg [facility] tablet TAKE tablet TAKE tablet ty 1 TABLET BY 1 TABLET BY TAKE 1 Hospita MOUTH AT MOUTH AT TABLET BY l ONSET OF ONSET OF MOUTH AT Cli nics HEADACHE - HEADACHE - ONSET OF MAY REPEAT MAY REPEAT HEADACHE - IN 2 HOURS IN 2 HOURS MAY REPEAT IF NEEDED IF NEEDED IN 2 HOURS IF NEEDED ketorolac ketorolac No 1mL Q6H ketorolac [place] 60 mg/2 mL 60 mg/2 mL 60 mg/2 mL Communi intramuscul intramuscul intramuscu ty ar solution ar solution lar H ospita Inject 1 mL Inject 1 mL solution l every 6 every 6 Inject 1 Clini cs hours by hours by mL every 6 intramuscul intramuscul hours by ar route. ar route. intramuscu lar route. lidocaine lidocaine No 2.1mL lidocaine [place] (PF) 10 (PF) 10 (PF) 10 Commun i mg/mL (1 %) mg/mL (1 %) mg/mL (1 ty injection injection %) Hospi ta solution solution injection l Take 2.1 mL Take 2.1 mL solution Clinics by by Take 2.1 injection injection mL by route. route. injection route. Macrobid Macrobid No 1capsul Q12H Macrobid [place] 100 mg 100 mg e(s) 100 mg Communi capsule capsule capsule ty Take 1 Take 1 Take 1 Hospita capsule capsule capsule l every 12 every 12 every 12 Cli nics hours by hours by hours by oral route oral route oral route for 10 for 10 for 10 days. days. days. metformin metformin No metformin [place] ER 500 mg ER 500 mg ER 500 mg Commun[facility] tablet,exte tablet,exte tablet,ext ty nded nded ended Hospita release 24 release 24 release 24 l hr TAKE 1 hr TAKE 1 hr TAKE 1 Clinics TABLET BY TABLET BY TABLET BY MOUTH EVERY MOUTH EVERY MOUTH DAY DAY EVERY DAY binaxnow binaxnow No binaxnow [facility] cov kit cov kit cov kit [facility] BinaxNOW BinaxNOW No BinaxNOW [facility] COVID-19 Ag COVID-19 Ag COVID-19 Communi Self Test Self Test Ag Self ty kit TEST kit TEST Test kit Hospita DIRECTED DIRECTED TEST l TODAY TODAY DIRECTED Clinics TODAY ceftriaxone ceftriaxone No 1g ceftriaxon [place] 1 gram 1 gram e 1 gram [facility] solution solution solution ty for for for Hospita injection injection injection l Take 1 g by Take 1 g by Take 1 g Clinics injection injection by route. route. injection route. ciprofloxac ciprofloxac No ciprofloxa [place] in 500 mg in 500 mg elizabeth 500 mg [facility] tablet Take tablet Take tablet ty 1 tablet 1 tablet Take 1 Hospi ta every 12 every 12 tablet l hours by hours by every 12 Cli nics oral route oral route hours by for 10 for 10 oral route days. days. for 10 days. eletriptan eletriptan No eletriptan [place] 40 mg 40 mg 40 mg [facility] tablet TAKE tablet TAKE tablet ty 1 TABLET BY 1 TABLET BY TAKE 1 Hospita MOUTH AT MOUTH AT TABLET BY l ONSET OF ONSET OF MOUTH AT Cli nics HEADACHE - HEADACHE - ONSET OF MAY REPEAT MAY REPEAT HEADACHE - IN 2 HOURS IN 2 HOURS MAY REPEAT IF NEEDED IF NEEDED IN 2 HOURS IF NEEDED ketorolac ketorolac No 60mg ketorolac [place] 60 mg/2 mL 60 mg/2 mL 60 mg/2 mL Communi intramuscul intramuscul intramuscu ty ar solution ar solution lar H ospita Inject 60 Inject 60 solution l mg by mg by Inject 60 Clinics intramuscul intramuscul mg by ar route. ar route. intramuscu lar route. lidocaine lidocaine No 2.1mL lidocaine [place] (PF) 10 (PF) 10 (PF) 10 Commun i mg/mL (1 %) mg/mL (1 %) mg/mL (1 ty injection injection %) Hospi ta solution solution injection l Take 2.1 mL Take 2.1 mL solution Clinics by by Take 2.1 injection injection mL by route. route. injection route. metformin metformin No metformin [place] ER 500 mg ER 500 mg ER 500 mg Commun[facility] tablet,exte tablet,exte tablet,ext ty nded nded ended Hospita release 24 release 24 release 24 l hr TAKE 1 hr TAKE 1 hr TAKE 1 Clinics TABLET BY TABLET BY TABLET BY MOUTH EVERY MOUTH EVERY MOUTH DAY DAY EVERY DAY nitrofurant nitrofurant No nitrofuran [place] oin oin toin Communi monohydrate monohydrate monohydrat ty /macrocryst /macrocryst e/macrocry Hospita als 100 mg als 100 mg stals 100 l capsule capsule mg capsule Cli nics TAKE 1 TAKE 1 TAKE 1 CAPSULE BY CAPSULE BY CAPSULE BY MOUTH EVERY MOUTH EVERY MOUTH 12 HOURS 12 HOURS EVERY 12 FOR 10 DAYS FOR 10 DAYS HOURS FOR 10 DAYS eletriptan eletriptan No eletriptan [place] 40 mg 40 mg 40 mg [facility] tablet TAKE tablet TAKE tablet ty 1 TABLET BY 1 TABLET BY TAKE 1 Hospita MOUTH AT MOUTH AT TABLET BY l ONSET OF ONSET OF MOUTH AT Cli nics HEADACHE - HEADACHE - ONSET OF MAY REPEAT MAY REPEAT HEADACHE - IN 2 HOURS IN 2 HOURS MAY REPEAT IF NEEDED IF NEEDED IN 2 HOURS IF NEEDED glipizide glipizide No glipizide [place] ER 5 mg ER 5 mg ER 5 mg Commun i tablet, tablet, tablet, ty extended extended extended Hos mo[facility] release 24 release 24 release 24 l hr TAKE 1 hr TAKE 1 hr TAKE 1 Clinics TABLET BY TABLET BY TABLET BY MOUTH EVERY MOUTH EVERY MOUTH DAY DAY EVERY DAY metformin metformin No 1 Q1D metformin [place] ER 500 mg ER 500 mg ER 500 mg Commun[facility] tablet,exte tablet,exte tablet,ext ty nded nded ended Hospita release 24 release 24 release 24 l hr Take 1 hr Take 1 hr Take 1 Clinics tablet tablet tablet every day every day every day by oral by oral by oral route. route. route. eletriptan eletriptan No eletriptan [place] 40 mg 40 mg 40 mg [facility] tablet TAKE tablet TAKE tablet ty 1 TABLET BY 1 TABLET BY TAKE 1 Hospita MOUTH AT MOUTH AT TABLET BY l ONSET OF ONSET OF MOUTH AT Cli nics HEADACHE - HEADACHE - ONSET OF MAY REPEAT MAY REPEAT HEADACHE - IN 2 HOURS IN 2 HOURS MAY REPEAT IF NEEDED IF NEEDED IN 2 HOURS IF NEEDED metformin metformin No metformin [place] ER 500 mg ER 500 mg ER 500 mg Commun[facility] tablet,exte tablet,exte tablet,ext ty nded nded ended Hospita release 24 release 24 release 24 l hr TAKE 1 hr TAKE 1 hr TAKE 1 Clinics TABLET BY TABLET BY TABLET BY MOUTH EVERY MOUTH EVERY MOUTH DAY DAY EVERY DAY OneTouch OneTouch No OneTouch [facility] 33 [place] 33 Plus ty gauge CHECK gauge CHECK [facility] BLOOD SUGAR BLOOD SUGAR gauge l EVERY EVERY CHECK Clinics MORNING MORNING BLOOD SUGAR EVERY MORNING OneTouch OneTouch No OneTouch [facility] Ultra Test Ultra Test Ultra Test Communi strips strips strips ty CHECK BLOOD CHECK BLOOD CHECK [facility] SUGARS SUGARS BLOOD l EVERY EVERY SUGARS Clinics MORNING MORNING EVERY MORNING OneTouch OneTouch No OneTouch [facility] Ultra2 Ultra2 Ultra2 Communi Meter USE Meter USE Meter USE ty DIRECTED DIRECTED H ospita TO TEST TO TEST DIRECTED l BLOOD SUGAR BLOOD SUGAR TO TEST Clinics BLOOD SUGAR prednisone prednisone No 1 BID prednisone [place] 20 mg 20 mg 20 mg [facility] tablet Take tablet Take tablet ty 1 tablet 1 tablet Take 1 Hospi ta twice a day twice a day tablet l by oral by oral twice a Clinic s route for 5 route for 5 day by days. days. oral route for 5 days. promethazin promethazin No 5mL Q6H promethazi [place] e-DM 6.25 e-DM 6.25 ne-DM 6.25 Communi mg-15 mg/5 mg-15 mg/5 mg-15 mg/5 ty mL oral mL oral mL oral Hospit a syrup Take syrup Take syrup Take l 5 mL every 5 mL every 5 mL every Clinics 6 hours by 6 hours by 6 hours by oral route oral route oral route as needed. as needed. as needed. azithromyci azithromyci No 1 Q1D azithromyc [place] n 500 mg n 500 mg in 500 mg [facility] tablet Take tablet Take tablet ty 1 tablet 1 tablet Take 1 Hospi ta every day every day tablet l by oral by oral every day Clin ics route for 5 route for 5 by oral days. days. route for 5 days. eletriptan eletriptan No eletriptan [place] 40 mg 40 mg 40 mg [facility] tablet TAKE tablet TAKE tablet ty 1 TABLET BY 1 TABLET BY TAKE 1 Hospita MOUTH AT MOUTH AT TABLET BY l ONSET OF ONSET OF MOUTH AT Cli nics HEADACHE - HEADACHE - ONSET OF MAY REPEAT MAY REPEAT HEADACHE - IN 2 HOURS IN 2 HOURS MAY REPEAT IF NEEDED IF NEEDED IN 2 HOURS IF NEEDED metformin metformin No metformin [place] ER 500 mg ER 500 mg ER 500 mg [facility] tablet,exte tablet,exte tablet,ext ty nded nded ended Hospita release 24 release 24 release 24 l hr TAKE 1 hr TAKE 1 hr TAKE 1 Clinics TABLET BY TABLET BY TABLET BY MOUTH EVERY MOUTH EVERY MOUTH DAY DAY EVERY DAY OneTouch OneTouch No OneTouch [facility] 33 [place] 33 Plus ty gauge CHECK gauge CHECK [facility] 33 [facility] BLOOD SUGAR BLOOD SUGAR gauge l EVERY EVERY CHECK Clinics MORNING MORNING BLOOD SUGAR EVERY MORNING OneTouch OneTouch No OneTouch [facility] Ultra Test Ultra Test Ultra Test Communi strips strips strips ty CHECK BLOOD CHECK BLOOD CHECK [facility] SUGARS SUGARS BLOOD l EVERY EVERY SUGARS Clinics MORNING MORNING EVERY MORNING OneTouch OneTouch No OneTouch [facility] Ultra2 Ultra2 Ultra2 Communi Meter USE Meter USE Meter USE ty DIRECTED DIRECTED H ospita TO TEST TO TEST DIRECTED l BLOOD SUGAR BLOOD SUGAR TO TEST Clinics BLOOD SUGAR Zyrtec 10 Zyrtec 10 No 1 Q1D Zyrtec 10 [place] mg tablet mg tablet mg tablet Communi Take 1 Take 1 Take 1 ty tablet tablet tablet Hospita every day every day every day l by oral by oral by oral Clinic s route. route. route. prednisone prednisone No 1 BID prednisone [place] 20 mg 20 mg 20 mg [facility]i tablet Take tablet Take tablet ty 1 tablet 1 tablet Take 1 Hospi ta twice a day twice a day tablet l by oral by oral twice a Clinic s route for 5 route for 5 day by days. days. oral route for 5 days. Silvadene 1 Silvadene 1 No Silvadene [place] % topical % topical 1 % Commu ni cream APPLY cream APPLY topical ty A 1/16 [facility] A 1/16 [facility] cream Hospita (1.5 MM) (1.5 MM) APPLY A l THICK LAYER THICK LAYER 1/16 [facility] Clinics TO ENTIRE TO ENTIRE (1.5 MM) BURN AREA BURN AREA THICK BY TOPICAL BY TOPICAL LAYER TO ROUTE 2 ROUTE 2 ENTIRE TIMES PER TIMES PER BURN AREA DAY DAY BY TOPICAL ROUTE 2 TIMES PER DAY Immunizations Ordered Immunization Filled Immunization Date Status Commen Source Name Name Influenza, Influenza, 2019-02-24 Completed [place] [facility] ty injectable, MDCK, injectable, MDCK, 16:48:00 Hospital Clin[facility] quadrivalent quadrivalent Influenza, Influenza, 2019-02-24 Completed [place] [facility] ty injectable, MDCK, injectable, MDCK, 16:48:00 Hospital Clinics quadrivalent quadrivalent Influenza, Influenza, 2019-02-24 Completed [place] [facility] ty injectable, MDCK, injectable, MDCK, 16:48:00 Hospital Clinics quadrivalent quadrivalent Influenza, Influenza, 2019-02-24 Completed [place] [facility] ty injectable, MDCK, injectable, MDCK, 16:48:00 Hospital Clinics quadrivalent quadrivalent Influenza, Influenza, 2019-02-24 Completed [place] [facility] ty injectable, MDCK, injectable, MDCK, 16:48:00 Hospital Clinics quadrivalent quadrivalent Influenza, Influenza, 2019-02-24 Completed [place] [facility] ty injectable, MDCK, injectable, MDCK, 16:48:00 Hospital Clinics quadrivalent quadrivalent Influenza, Influenza, 2019-02-24 Completed [place] [facility] ty injectable, MDCK, injectable, MDCK, 16:48:00 Hospital Clinics quadrivalent quadrivalent Influenza, Influenza, 2019-02-24 Completed [place] [facility] ty injectable, MDCK, injectable, MDCK, 16:48:00 Hospital Clinics quadrivalent quadrivalent Influenza, Influenza, 2019-02-24 Completed [place] [facility] ty injectable, MDCK, injectable, MDCK, 16:48:00 Hospital Clinics quadrivalent quadrivalent Influenza, Influenza, 2019-02-24 Completed [place] [facility] ty injectable, MDCK, injectable, MDCK, 16:48:00 Hospital Clinics quadrivalent quadrivalent Influenza, Influenza, 2019-02-24 Completed [place] [facility] ty injectable, MDCK, injectable, MDCK, 16:48:00 Hospital Clinics quadrivalent quadrivalent Influenza, Influenza, 2019-02-24 Completed [place] [facility] ty injectable, MDCK, injectable, MDCK, 16:48:00 Hospital Clinics quadrivalent quadrivalent Influenza, Influenza, 2019-02-24 Completed [place] [facility] ty injectable, MDCK, injectable, MDCK, 16:48:00 Hospital Clinics quadrivalent quadrivalent Influenza, Influenza, 2019-02-24 Completed [place] [facility] ty injectable, MDCK, injectable, MDCK, 16:48:00 Hospital Clinics quadrivalent quadrivalent Influenza, Influenza, 2019-02-24 Completed [place] [facility] ty injectable, MDCK, injectable, MDCK, 16:48:00 Hospital Clinics quadrivalent quadrivalent Influenza, Influenza, 2019-02-24 Completed [place] [facility] ty injectable, MDCK, injectable, MDCK, 16:48:00 Hospital Clinics quadrivalent quadrivalent Influenza, Influenza, 2019-02-24 Completed [place] [facility] ty injectable, MDCK, injectable, MDCK, 16:48:00 Hospital Clinics quadrivalent quadrivalent Influenza, Influenza, 2019-02-24 Completed [place] [facility] ty injectable, MDCK, injectable, MDCK, 16:48:00 Hospital Clinics quadrivalent quadrivalent Influenza, Influenza, 2019-02-24 Completed [place] [facility] ty injectable, MDCK, injectable, MDCK, 16:48:00 Hospital Clinics quadrivalent quadrivalent Influenza, Influenza, 2019-02-24 Completed [place] [facility] ty injectable, MDCK, injectable, MDCK, 16:48:00 Hospital Clinics quadrivalent quadrivalent Influenza, Influenza, 2019-02-24 Completed [place] [facility] ty injectable, MDCK, injectable, MDCK, 16:48:00 Hospital Clinics quadrivalent quadrivalent Influenza, Influenza, 2019-02-24 Completed [place] [facility] ty injectable, MDCK, injectable, MDCK, 16:48:00 Hospital Clinics quadrivalent quadrivalent Influenza, Influenza, 2019-02-24 Completed [place] [facility] ty injectable, MDCK, injectable, MDCK, 16:48:00 Hospital Clinics quadrivalent quadrivalent Influenza, Influenza, 2019-02-24 Completed [place] [facility] ty injectable, MDCK, injectable, MDCK, 16:48:00 Hospital Clinics quadrivalent quadrivalent Influenza, Influenza, 2019-02-24 Completed [place] [facility] ty injectable, MDCK, injectable, MDCK, 16:48:00 Hospital Clinics quadrivalent quadrivalent Influenza, Influenza, 2019-02-24 Completed [place] [facility] ty injectable, MDCK, injectable, MDCK, 16:48:00 Hospital Clinics quadrivalent quadrivalent Influenza, Influenza, 2019-02-24 Completed [place] [facility] ty injectable, MDCK, injectable, MDCK, 16:48:00 Hospital Clinics quadrivalent quadrivalent Tdap Tdap 2019-01-12 Completed [place] [facility] 16:40:00 Hospital Clini cs Tdap Tdap 2019-01-12 Completed [place] [facility] ty 16:40:00 Hospital Cl[facility] cs Tdap Tdap 2019-01-12 Completed [place] [facility] ty 16:40:00 Hospital Clini cs Tdap Tdap 2019-01-12 Completed [place] [facility] ty 16:40:00 Hospital Clini cs Tdap Tdap 2019-01-12 Completed [place] [facility] ty 16:40:00 Hospital Clini cs Tdap Tdap 2019-01-12 Completed [place] [facility] ty 16:40:00 Hospital Cl[facility] cs Tdap Tdap 2019-01-12 Completed [place] [facility] ty 16:40:00 Hospital Cl[facility] cs Tdap Tdap 2019-01-12 Completed [place] [facility] ty 16:40:00 Hospital Cl[facility] cs Tdap Tdap 2019-01-12 Completed [place] [facility] ty 16:40:00 Hospital Cl[facility] cs Tdap Tdap 2019-01-12 Completed [place] [facility] 16:40:00 Hospital Cl[facility] cs Tdap Tdap 2019-01-12 Completed [place] [facility] ty 16:40:00 Hospital Cl[facility] cs Tdap Tdap 2019-01-12 Completed [place] [facility] 16:40:00 Hospital Cl[facility] cs Tdap Tdap 2019-01-12 Completed [place] [facility] 16:40:00 Hospital Cl[facility] cs Tdap Tdap 2019-01-12 Completed [place] [facility] 16:40:00 Hospital Cl[facility] cs Tdap Tdap 2019-01-12 Completed [place] [facility] 16:40:00 Hospital Cl[facility] cs Tdap Tdap 2019-01-12 Completed [place] [facility] 16:40:00 Hospital Cl[facility] cs Tdap Tdap 2019-01-12 Completed [place] [facility] 16:40:00 Hospital Cl[facility] cs Tdap Tdap 2019-01-12 Completed [place] [facility] 16:40:00 Hospital Cl[facility] cs Tdap Tdap 2019-01-12 Completed [place] [facility] 16:40:00 Hospital Cl[facility] cs Tdap Tdap 2019-01-12 Completed [place] [facility] 16:40:00 Hospital Cl[facility] cs Tdap Tdap 2019-01-12 Completed [place] [facility] 16:40:00 Hospital Cl[facility] cs Tdap Tdap 2019-01-12 Completed [place] [facility] 16:40:00 Hospital Cl[facility] cs Tdap Tdap 2019-01-12 Completed [place] [facility] 16:40:00 Hospital Cl[facility] cs Tdap Tdap 2019-01-12 Completed [place] [facility] 16:40:00 Hospital Cl[facility] cs Tdap Tdap 2019-01-12 Completed [place] [facility] 16:40:00 Hospital Cl[facility] cs Tdap Tdap 2019-01-12 Completed [place] [facility] 16:40:00 Hospital Cl[facility] cs Tdap Tdap 2019-01-12 Completed [place] [facility] 16[facility]40:00 [facility] Cl[facility] cs influenza, influenza, 2018-01-26 Completed [facility] recombinant, recombinant, 14:35:00 [facility] quadrIvalent,injecta quadrIvalent,inject ble, preservative able, preservative free free influenza, influenza, 2018-01-26 Completed [facility] recombinant, recombinant, 14:35:00 [facility] quadrIvalent,injecta quadrIvalent,inject ble, preservative able, preservative free free influenza, influenza, 2017-02-25 Completed [facility] intradermal, intradermal, 15:04:07 [facility] quadrivalent, quadrivalent, preservative free preservative free influenza, influenza, 2017-02-25 Completed [facility] intradermal, intradermal, 15:04:07 [facility] quadrivalent, quadrivalent, preservative free preservative free Vital Signs Vital Name Observation Time Observation Value Comments Source BP Diastolic 2022-09-02 00:00:00 82 mm[Hg] [facility] Height 2022-09-02 00:00:00 68 [in_i] [facility] BMI (Body Mass 2022-09-02 00:00:00 47.9 kg/m2 [facility] [employer] Medical Index) Group BP Systolic 2022-09-02 00:00:00 125 mm[Hg] [facility] Body Weight 2022-09-02 00:00:00 315 [lb_av] [facility] BP Diastolic 2022-07-23 00:00:00 76 mm[Hg] [facility] Height 2022-07-23 00:00:00 68 [in_i] [facility] BMI (Body Mass 2022-07-23 00:00:00 48.4 kg/m2 [facility]) [facility] BP Systolic 2022-07-23 00:00:00 140 mm[Hg] [facility] Body Weight 2022-07-23 00:00:00 5088 [oz_av] [facility] s BP Diastolic 2022-06-25 00:00:00 88 mm[Hg] [facility] Height 2022-06-25 00:00:00 68 [in_i] [facility] BMI (Body Mass 2022-06-25 00:00:00 47.9 kg/m2 [facility]) [facility] BP Systolic 2022-06-25 00:00:00 144 mm[Hg] [facility] Body Weight 2022-06-25 00:00:00 5036.8 [oz_av] [facility] s Systolic blood 2022-06-11 01:28:00 122 mm[Hg] Univer sity of pressure [facility] Diastolic blood 2022-06-11 01:28:00 79 mm[Hg] Unive rsity of pressure [facility] Heart rate 2022-06-11 01:28:00 76 /min [facility] Body temperature 2022-06-11 01:28:00 36.61 [facility] 2022-06-11 01:28:00 18 /min [facility] Body height 2022-06-11 01:28:00 172.7 cm [facility] Body weight 2022-06-11 01:28:00 136.079 kg [facility] BMI 2022-06-11 01:28:00 45.61 kg/m2 [facility] Oxygen saturation in 2022-06-11 01:28:00 99 /min [facility] Arterial blood by [facility] Pulse oximetry Branch BP Diastolic 2022-05-30 00:00:00 59 mm[Hg] [facility] Height 2022-05-30 00:00:00 68 [in_i] [facility] s BMI (Body Mass 2022-05-30 00:00:00 47.6 kg/m2 [facility] BP Systolic 2022-05-30 00:00:00 122 mm[Hg] [facility] Body Weight 2022-05-30 00:00:00 5004.8 [oz_av] [facility] s BP Diastolic 2022-04-26 00:00:00 80 mm[Hg] [facility] Height 2022-04-26 00:00:00 68 [in_i] [facility] s BP Systolic 2022-04-26 00:00:00 143 mm[Hg] [facility] s BP Diastolic 2022-04-25 00:00:00 69 mm[Hg] [facility] Height 2022-04-25 00:00:00 68 [in_i] [facility] BP Systolic 2022-04-25 00:00:00 113 mm[Hg] [facility] BP Diastolic 2022-04-22 00:00:00 77 mm[Hg] [facility] Height 2022-04-22 00:00:00 68 [in_i] [facility] s BMI (Body Mass 2022-04-22 00:00:00 47.5 kg/m2 [facility] s BP Systolic 2022-04-22 00:00:00 112 mm[Hg] [facility] Body Weight 2022-04-22 00:00:00 5001.6 [oz_av] [facility] s Systolic blood 2022-03-19 20:16:00 123 mm[Hg] Univer sity of pressure [facility] Diastolic blood 2022-03-19 20:16:00 82 mm[Hg] Unive rsity of pressure [facility] Heart rate 2022-03-19 20:16:00 81 /min Universi ty [facility] Body temperature 2022-03-19 20:16:00 37 Ema [facility] Res[facility] rate 2022-03-19 20:16:00 20 /min [facility] Body height 2022-03-19 20:16:[address] [facility] Body weight 2022-03-19 20:16:[address] [facility] BMI 2022-03-19 20:16:00 47.32 kg/m2 [facility] Oxygen saturation in 2022-03-19 20:16:00 97 /min [facility] Arterial blood by [facility] Pulse oximetry Branch BP Diastolic 2022-03-11 00:00:00 69 mm[Hg] [facility] s Height 2022-03-11 00:00:00 68 [in_i] [facility] BMI (Body Mass 2022-03-11 00:00:00 47.1 kg/m2 [facility] BP Systolic 2022-03-11 00:00:00 109 mm[Hg] [facility] Body Weight 2022-03-11 00:00:00 4960 [oz_av] [facility] Height 2022-02-21 00:00:00 68 [in_i] [facility] s BP Systolic 2022-02-21 00:00:00 109 mm[Hg] [facility] s BP Diastolic 2022-02-21 00:00:00 69 mm[Hg] [facility] BP Diastolic 2022-02-18 00:00:00 75 mm[Hg] [facility] Height 2022-02-18 00:00:00 68 [in_i] [facility] BMI (Body Mass 2022-02-18 00:00:00 47.8 kg/m2 [facility] s BP Systolic 2022-02-18 00:00:00 113 mm[Hg] [facility] Body Weight 2022-02-18 00:00:00 5030.4 [oz_av] [facility] s BP Diastolic 2022-01-15 00:00:00 68 mm[Hg] [facility] Height 2022-01-15 00:00:00 68 [in_i] [facility] BMI (Body Mass 2022-01-15 00:00:00 47.3 kg/m2 [facility]) [facility] BP Systolic 2022-01-15 00:00:00 113 mm[Hg] [facility] Body Weight 2022-01-15 00:00:00 4979.2 [oz_av] [facility] s BP Diastolic 2021-12-04 00:00:00 77 mm[Hg] [facility] Height 2021-12-04 00:00:00 68 [in_i] [facility] BMI (Body Mass 2021-12-04 00:00:00 46.7 kg/m2 [facility] s BP Systolic 2021-12-04 00:00:00 125 mm[Hg] [facility] Body Weight 2021-12-04 00:00:00 4918.4 [oz_av] [facility] s BP Diastolic 2021-10-24 00:00:00 78 mm[Hg] [facility] Height 2021-10-24 00:00:00 68 [in_i] [facility] BMI (Body Mass 2021-10-24 00:00:00 45.6 kg/m2 [facility] s BP Systolic 2021-10-24 00:00:00 127 mm[Hg] [facility] Body Weight 2021-10-24 00:00:00 4793.6 [oz_av] [facility] s Systolic blood 2021-10-22 23:00:00 107 mm[Hg] Univer sity of pressure [facility] Diastolic blood 2021-10-22 23:00:00 75 mm[Hg] Unive rsity of [facility] Heart rate 2021-10-22 23:00:00 91 /min Universi ty of [facility] Body temperature 2021-10-22 23:00:00 36.67 Ema [facility] Respiratory rate 2021-10-22 23:00:00 16 /min [facility] Body height 2021-10-22 23:00:00 172.7 cm Universi ty [facility] Body weight 2021-10-22 23:00:[facility] 2021-10-22 23:00:00 45.96 kg/m2 [facility] Oxygen saturation in 2021-10-22 23:00:00 97 /min [facility] Arterial blood by [facility] Pulse oximetry Branch BP Diastolic 2021-09-10 00:00:00 81 mm[Hg] [facility] Height 2021-09-10 00:00:00 68 [in_i] [facility] BMI (Body Mass 2021-09-10 00:00:00 45.6 kg/m2 [facility] s BP Systolic 2021-09-10 00:00:00 123 mm[Hg] [facility] Body Weight 2021-09-10 00:00:00 4800 [oz_av] [facility] s Systolic blood 2021-09-09 14:43:00 118 mm[Hg] Univer sity of [facility] Diastolic blood 2021-09-09 14:43:00 81 mm[Hg] Unive rsity of [facility] Heart rate 2021-09-09 14:43:00 92 /min Universi ty [facility] Body temperature 2021-09-09 14:43:00 37.17 Ema [facility] Respiratory rate 2021-09-09 14:43:00 19 /min [facility] Body height 2021-09-09 14:43:00 172.7 cm [facility] Body weight 2021-09-09 14:43:00 139.027 kg [facility] BMI 2021-09-09 14:43:00 46.60 kg/m2 [facility] Oxygen saturation in 2021-09-09 14:43:00 97 /min [facility] Arterial blood by [facility] Pulse oximetry Branch BP Diastolic 2021-08-07 00:00:00 90 mm[Hg] [facility] Height 2021-08-07 00:00:00 68 [in_i] [facility] BMI (Body Mass 2021-08-07 00:00:00 46.6 kg/m2 [facility] Medical Index) Group BP Systolic 2021-08-07 00:00:00 152 mm[Hg] [facility] Body Weight 2021-08-07 00:00:00 306.2 [lb_av] [facility] BP Diastolic 2021-07-27 00:00:00 77 mm[Hg] [facility] Height 2021-07-27 00:00:00 68 [in_i] [facility] BMI (Body Mass 2021-07-27 00:00:00 46 kg/m2 [facility] Medical Index) Group BP Systolic 2021-07-27 00:00:00 125 mm[Hg] [facility] Body Weight 2021-07-27 00:00:00 302.7 [lb_av] [facility] BP Diastolic 2021-07-13 00:00:00 85 mm[Hg] [facility] Height 2021-07-13 00:00:00 68 [in_i] [facility] BMI (Body Mass 2021-07-13 00:00:00 45.9 kg/m2 [facility] Medical Index) Group BP Systolic 2021-07-13 00:00:00 138 mm[Hg] [facility] Body Weight 2021-07-13 00:00:00 301.8 [lb_av] [facility] Systolic blood 2021-07-01 14:57:00 97 mm[Hg] Univer sity of pressure [facility] Diastolic blood 2021-07-01 14:57:00 68 mm[Hg] Unive rsity of [facility] Heart rate 2021-07-01 14:57:00 87 /min [facility]i [facility] Body temperature 2021-07-01 14:57:00 36.94 Ema [facility] Res[facility] rate 2021-07-01 14:57:00 17 /min [facility] Body height 2021-07-01 14:57:00 172.7 cm [facility] Body weight 2021-07-01 14:57:00 136.714 kg [facility] BMI 2021-07-01 14:57:00 45.83 kg/m2 [facility] Oxygen saturation in 2021-07-01 14:57:00 98 /min [facility] Arterial blood by [facility] Pulse oximetry Branch BP Diastolic 2021-05-22 00:00:00 70 mm[Hg] [facility] Height 2021-05-22 00:00:00 68 [in_i] [facility] s BMI (Body Mass 2021-05-22 00:00:00 46.6 kg/m2 [facility] s BP Systolic 2021-05-22 00:00:00 118 mm[Hg] [facility] Body Weight 2021-05-22 00:00:00 4899.2 [oz_av] [facility] s BP Diastolic 2021-05-09 00:00:00 76 mm[Hg] [facility] Height 2021-05-09 00:00:00 68 [in_i] [facility] s BMI (Body Mass 2021-05-09 00:00:00 45.2 kg/m2 [facility]) [facility] BP Systolic 2021-05-09 00:00:00 126 mm[Hg] [facility] Body Weight 2021-05-09 00:00:00 4758.4 [oz_av] [facility] s Systolic blood 2021-04-29 16:59:00 121 mm[Hg] Univer sity of pressure [facility] Diastolic blood 2021-04-29 16:59:00 74 mm[Hg] Unive rsity of [facility] Heart rate 2021-04-29 16:59:00 99 /min [facility] Body temperature 2021-04-29 16:59:00 37 Ema [facility] Res[facility] 2021-04-29 16:59:00 18 /min [facility] Body height 2021-04-29 16:59:00 172.7 cm [facility] Body weight 2021-04-29 16:59:00 137.803 kg [facility] BMI 2021-04-29 16:59:00 46.19 kg/m2 [facility] Oxygen saturation in 2021-04-29 16:59:00 97 /min [facility] blood by [facility] Pulse oximetry Branch BP Diastolic 2021-02-27 00:00:00 80 mm[Hg] [facility] Height 2021-02-27 00:00:00 68 [in_i] [facility] s BMI (Body Mass 2021-02-27 00:00:00 45.6 kg/m2 [facility] s BP Systolic 2021-02-27 00:00:00 121 mm[Hg] [facility] Body Weight 2021-02-27 00:00:00 4796.8 [oz_av] [facility] s BP Diastolic 2021-02-05 00:00:00 71 mm[Hg] [facility] Height 2021-02-05 00:00:00 68 [in_i] [facility] s BP Systolic 2021-02-05 00:00:00 122 mm[Hg] [facility] s Systolic blood 2021-02-03 16:37:00 126 mm[Hg] Univer sity of pressure [facility] Diastolic blood 2021-02-03 16:37:00 85 mm[Hg] Unive rsity of pressure [facility] Heart rate 2021-02-03 16:37:00 76 /min [facility] Body temperature 2021-02-03 16:37:00 36.56 [facility] Respiratory rate 2021-02-03 16:37:00 18 /min [facility] Body weight 2021-02-03 16:37:[address] [facility] BMI 2021-02-03 16:37:00 46.98 kg/m2 [facility] Oxygen saturation in 2021-02-03 16:37:00 100 /min [facility] Arterial blood by [facility] Pulse oximetry Branch BP Diastolic 2021-01-24 00:00:00 78 mm[Hg] [facility] Height 2021-01-24 00:00:00 68 [in_i] [facility] s BMI (Body Mass 2021-01-24 00:00:00 47 kg/m2 [facility]) [facility] BP Systolic 2021-01-24 00:00:00 129 mm[Hg] [facility] Body Weight 2021-01-24 00:00:00 4944 [oz_av] [facility] s BP Diastolic 2020-12-13 00:00:00 68 mm[Hg] [facility] Height 2020-12-13 00:00:00 68 [in_i] [facility] s BMI (Body Mass 2020-12-13 00:00:00 47.5 kg/m2 [facility]) [facility] BP Systolic 2020-12-13 00:00:00 135 mm[Hg] [facility] Body Weight 2020-12-13 00:00:00 4998.4 [oz_av] [facility] s BP Diastolic 2020-11-16 00:00:00 71 mm[Hg] [facility] Height 2020-11-16 00:00:00 68 [in_i] [facility] BMI (Body Mass 2020-11-16 00:00:00 46.8 kg/m2 [facility]) [facility] BP Systolic 2020-11-16 00:00:00 124 mm[Hg] [facility] Body Weight 2020-11-16 00:00:00 4924.8 [oz_av] [facility] BP Diastolic 2020-11-14 00:00:00 93 mm[Hg] [facility] Height 2020-11-14 00:00:00 68 [in_i] [facility] BMI (Body Mass 2020-11-14 00:00:00 47.1 kg/m2 [facility] Medical Index) Group BP Systolic 2020-11-14 00:00:00 136 mm[Hg] [facility] Body Weight 2020-11-14 00:00:00 309.5 [lb_av] [facility] BP Diastolic 2020-09-18 00:00:00 78 mm[Hg] [facility] BP Systolic 2020-09-18 00:00:00 127 mm[Hg] [facility] Body Weight 2020-09-18 00:00:00 4915.2 [oz_av] [facility] BP Diastolic 2020-08-29 00:00:00 68 mm[Hg] [facility] Height 2020-08-29 00:00:00 68 [in_i] [facility] BMI (Body Mass 2020-08-29 00:00:00 48.5 kg/m2 [facility]) [facility] BP Systolic 2020-08-29 00:00:00 115 mm[Hg] [facility] Body Weight 2020-08-29 00:00:00 5108 [oz_av] [facility] Body Weight 2020-07-20 00:00:00 4880 [oz_av] [facility] s BP Diastolic 2020-07-20 00:00:00 82 mm[Hg] [facility] Height 2020-07-20 00:00:00 68 [in_i] [facility] BMI (Body Mass 2020-07-20 00:00:00 46.4 kg/m2 [facility] s BP Systolic 2020-07-20 00:00:00 149 mm[Hg] [facility] BP Diastolic 2020-04-18 00:00:00 88 mm[Hg] [facility] Height 2020-04-18 00:00:00 68 [in_i] [facility] BMI (Body Mass 2020-04-18 00:00:00 44.2 kg/m2 [facility] Medical Index) Group BP Systolic 2020-04-18 00:00:00 111 mm[Hg] [facility] Body Weight 2020-04-18 00:00:00 290.8 [lb_av] [facility] BP Diastolic 2020-02-01 00:00:00 89 mm[Hg] [facility] Height 2020-02-01 00:00:00 68 [in_i] [facility] BMI (Body Mass 2020-02-01 00:00:00 46.5 kg/m2 [facility] Medical Index) Group BP Systolic 2020-02-01 00:00:00 127 mm[Hg] [facility] Body Weight 2020-02-01 00:00:00 306 [lb_av] [facility] BP Diastolic 2019-04-05 00:00:00 74 mm[Hg] [facility] Height 2019-04-05 00:00:00 68 [in_i] [facility] BMI (Body Mass 2019-04-05 00:00:00 20.8 kg/m2 [facility] Medical Index) Group BP Systolic 2019-04-05 00:00:00 109 mm[Hg] [facility] Body Weight 2019-04-05 00:00:00 137.1 [lb_av] [facility] BP Diastolic 2019-01-12 00:00:00 75 mm[Hg] [facility] Height 2019-01-12 00:00:00 68 [in_i] [facility] BMI (Body Mass 2019-01-12 00:00:00 41.3 kg/m2 [facility] Medical Index) Group BP Systolic 2019-01-12 00:00:00 112 mm[Hg] [facility] Body Weight 2019-01-12 00:00:00 271.9 [lb_av] [facility] BP Diastolic 2018-12-09 00:00:00 73 mm[Hg] [facility] Height 2018-12-09 00:00:00 68 [in_i] [facility] BMI (Body Mass 2018-12-09 00:00:00 37.6 kg/m2 [facility] Medical Index) Group BP Systolic 2018-12-09 00:00:00 122 mm[Hg] [facility] Body Weight 2018-12-09 00:00:00 3959 [oz_av] [facility] BP Diastolic 2018-12-04 00:00:00 77 mm[Hg] [facility] Height 2018-12-04 00:00:00 68 [in_i] [facility] BMI (Body Mass 2018-12-04 00:00:00 42 kg/m2 [facility] Medical Index) Group BP Systolic 2018-12-04 00:00:00 144 mm[Hg] [facility] Body Weight 2018-12-04 00:00:00 276.1 [lb_av] [facility] BP Diastolic 2018-12-03 00:00:00 90 mm[Hg] [facility] Height 2018-12-03 00:00:00 68 [in_i] [facility] BMI (Body Mass 2018-12-03 00:00:00 42 kg/m2 [facility] Medical Index) Group BP Systolic 2018-12-03 00:00:00 116 mm[Hg] [facility] Body Weight 2018-12-03 00:00:00 4416 [oz_av] [facility] BP Diastolic 2018-10-16 00:00:00 85 mm[Hg] [facility] Height 2018-10-16 00:00:00 68 [in_i] [facility] BMI (Body Mass 2018-10-16 00:00:00 42.1 kg/m2 [facility] Medical Index) Group BP Systolic 2018-10-16 00:00:00 120 mm[Hg] [facility] Body Weight 2018-10-16 00:00:00 4432 [oz_av] [facility] BP Diastolic 2018-08-25 00:00:00 81 mm[Hg] [facility] Height 2018-08-25 00:00:00 68 [in_i] [facility] BMI (Body Mass 2018-08-25 00:00:00 42.3 kg/m2 [facility] Medical Index) Group BP Systolic 2018-08-25 00:00:00 [...] BMI (Body Mass 2018-04-10 00:00:00 42.7 kg/m2 [facility] Medical Index) Group BP Systolic 2018-04-10 00:00:00 174 mm[Hg] [facility] Body Weight 2018-04-10 00:00:00 4496 [oz_av] [facility] Procedures Procedure Date / Time Performing Clinician Source Performed MAMMO, screening, digital, 2022-09-02 00:00:00 M [facility] bilateral Group CT, abdomen + pelvis, w/o 2022-04-26 00:00:00 [facility] POCT SARS-COV-2 ANTIGEN 2021-10-22 23:15:00 Yaya Samaniego [facility] ([facility] NOW) Medical Branch POCT MOLECULAR STREP 2021-10-22 23:02:00 Rhiannon Norton [facility] Medical Branch MAMMO, screening, digital, 2021-08-29 00:00:00 S [facility] ULTRASOUND, 2021-07-27 00:00[facility] WITH Group IMAGE DOCUMENTAITON, TRANSVAGINAL ULTRASOUND, 2021-07-13 00:00:00 [facility]TERUS REAL TIME WITH Group IMAGE DOCUMENTAITON, TRANSVAGINAL POCT MOLECULAR STREP 2021-04-29 17:04:00 Unknown, Attending [facility] ASSIGNMENT OF BENEFITS 2021-04-29 16:45:27 Doctor Unassigned, Un [facility] [place] [facility] COVID-19 (MOLECULAR 2021-02-03 16:36:00 Rhiannon Norton [facility] TESTING [facility] NUCLEIC ACID AMPLIFICATION) LAB ONLY COVID 2021-02-03 16:36:00 Rhiannon Norton [facility] [place] INTERPRETATION [facility] Hysteroscopy 2020-11-29 00:00:00 [facility] MRI, abdomen + pelvis, 2020-09-18 00:00:00 [facility] w[facility]wo [facility] MAMMO, screening, digital, 2020-08-29 00:00:00 S [facility] US, transvaginal 2019-04-05 00:00:00 Sabiha Schulte edical Group unlisted imaging order 2019-01-12 00:00:00 [facility] MRI, lumbar spine, w/o 2018-04-10 00:00:00 [facility] Delivery 2017-06-24 00:00:00 [facility] Section 2017-03-24 00:00:00 [facility] Procedure on Appendix 2016-01-23 00:00:[address] [facility] Appendectomy 2016-01-23 00:00:00 [facility] Aguiar dical Group Procedure on Gallbladder 2003-03-24 00:00:00 [facility] Removal of Tonsils 1999-03-24 00:00:00 [facility] Reduction Mammoplasty, 1996-03-24 00:00:00 [facility] Reduction Plasty of 1996-03-24 00:00:00 [facility] Breasts [facility] Eardrum Revision 1993-03-24 00:00:00 [facility] Laparoscopy [facility] Remove Tonsils and [facility] Breast [facility] Cholecystectomy [facility] ENT [facility] Dilation & Curettage [facility] (Surg) [facility] Plan of Care Planned Activity Planned Date Details Comments Source Diagnostic Test 2022-09-02 urinalysis, dipstick [facility] Pending 00:00:00 [code = urinalysis, Group dipstick] Diagnostic Test 2022-09-02 pap, LB + HR HPV [facility] Pending 00:00:00 [code = pap, LB + HR Group HPV] Diagnostic Test 2022-09-02 wet mount, vaginal [facility] [employer] [facility] Medical Pending 00:00:00 [code = wet mount, Group vaginal] Diagnostic Test 2022-07-23 rapid SARS CoV 2 Ag, [facility] Pending 00:00:00 QL [place], respiratory Hospital Clinics specimen [code = rapid SARS CoV 2 Ag, QL [place], respiratory specimen] Diagnostic Test 2022-07-23 rapid strep group A, [facility] Pending 00:00:00 throat [code = rapid [facility]osp[facility] Clin[facility] strep group A, throat] Diagnostic Test 2022-07-23 rapid flu (A+B) [facility] Pending 00:00:00 [code = rapid flu [facility] linics (A+B)] Instructions [facility] Instructions [facility] s Encounters Start End Encounter Admission Attending Care Care Encounter Source Date/Time Date/Time Type Type Clinicians Facility Department ID 2021-01-21 Emergency [facility] [id number] [facility]-09-02 2022-09-02 Olivier THOMAS [place] - [id number] Jessica landis 00:00:00 00:00:00 Discovery beba Mcdowell MD: [address] [place] [address] Group Kenaitze Anita - [address], [place] [address] , Ph. [phone] 2022-08-08 2022-08-08 Outpatient CHRETIEN_F [facility] [id number] [place] 00:00:00 00:00:00 518 [facility] 2022-08-08 2022-08-08 Outpatient CHRETIEN_F [facility] [id number] [place] 00:00:00 00:00:00 607 [facility] 2022-07-23 2022-07-23 Outpatient CHRETIEN_F [facility] [id number] [place] 00:00:00 00:00:00 502 [facility] 2022-07-23 2022-07-23 Laly [facility] [place] 00:00:00 00:00:00 [facility] SPORTS CLERK-SHANK CUTTER-B Hospital - ty C: [address] [facility], CLINIC [address], [place] [address] , Ph. 2022-06-25 2022-06-25 Outpatient CHRETIEN_F [facility] [id number] [place] 00:00:00 00:00:00 404 [facility] 2022-06-25 2022-06-25 Outpatient CHRETIEN_F [facility] [id number] [place] 00:00:00 00:00:00 411 [facility] 2022-06-25 2022-06-25 Laly [facility] [place] 00:00:00 00:00:00 [facility] SPORTS CLERK-SHANK CUTTER-B Hospital - ty C: [address] [facility], [address]INIC [address], [place] [address] , Ph. 2022-06-10 2022-06-10 Outpatient Merle ANDUJAR [facility] [id number] Univers 20:40:00 20:40:42 REENU ity [facility] 2022-06-10 2022-06-10 Urgent Jordan Andujar [facility] 1.2.840.11 [id number] Univers 20:40:00 20:40:42 Care Unknown, Attending [facility] [id number] ity [facility] [id number] Tor as STEVE?BLEA [id number] [facility] [address] MEDICAL OFFICE BUILDING 2022-06-10 2022-06-10 Outpatient R UNKNOWN, [facility] [id number] Univers 20:30:00 20:30:00 ATTENDING ity [facility] 2022-05-30 2022-05-30 Outpatient CHRETIEN_F [facility] [id number] [place] 00:00:00 00:00:00 309 Commun i ty Hospita [facility] 2022-05-30 2022-05-30 Laly [facility] [place] 00:00:00 00:00:00 Tobi [facility] mani SPORTS CLERK-SHANK CUTTER-B Hospital - ty C: [address] [facility], CLINIC Suite [facility], [place] [address] , Ph. 2022-04-26 2022-04-26 Outpatient CHRETIEN_F [facility] [id number] [place] 00:00:00 00:00:00 203 Commun i ty Hospita [facility] 2022-04-26 2022-04-26 Linda [facility] [place] 00:00:00 00:00:00 Tadeo Valenzuela APRN, MSN, Hospital - ty SHANK CUTTER-BC: [facility] [address] [place] [address], CLINIC [address] [place] [address] , Ph. 2022-04-25 2022-04-25 Laly [facility] [place] [id number] [place] 00:00:00 00:00:00 [facility] mmramanai SPORTS CLERK-SHANK CUTTER-B Hospital - ty C: [address] [facility], CLINIC [address], [place] [address] , Ph. 2022-04-22 2022-04-22 Laly [facility] [place] 30 [place] 00:00:00 00:00:00 Tadeo Britton APRN-SHANK CUTTER-B Hospital - ty C: [address] [facility], CLINIC [address], [place] [address] , Ph. 2022-03-19 2022-03-19 Urgent FedeYaya schulte [facility] 1.2.840.114 [id number] Univers 13:40:00 14:00:00 Care Unknown, Attending [facility] [id number] ity [facility] [id number] Tor as STEVE?BLEA [phone] [address] MEDICAL OFFICE BUILDING 2022-03-19 2022-03-19 Outpatient Merle SAMANIEGO [facility] [id number] Univers 13:40:00 13:40:00 YAYA itdavid [facility] 2022-03-19 2022-03-19 Outpatient CHRETIEN_F [facility] [id number] [place] 00:00:00 00:00:00 227 [facility] 2022-03-19 2022-03-19 Outpatient CHRETIEN_F [facility] [id number] [place] 00:00:00 00:00:00 130 [facility] 2022-03-19 2022-03-19 Outpatient CHRETIEN_F [facility] [id number] [place] 00:00:00 00:00:00 131 Commun [facility] Clinics 2022-03-19 2022-03-19 Outpatient CHRETIEN_F [facility] [id number] [place] 00:00:00 00:00:00 202 Commun i [facility] Clinics 2022-03-11 2022-03-11 Outpatient CHRETIEN_F [facility] [id number] [place] 00:00:00 00:00:00 219 Commun i [facility] Hospita [facility] Clinics 2022-03-11 2022-03-11 Laly [facility] [place] [id number] [place] 00:00:00 00:00:00 Tadeo Britton Co mmuni SPORTS CLERK-SHANK CUTTER-B Hospital - ty C: [address] [facility], CLINIC [address], [place] [address] , Ph. 2022-02-21 2022-02-21 Outpatient CHRETIEN_F [facility] [id number] - [place] 00:00:00 00:00:00 201 Commun i ty Hospita l Clinics 2022-02-21 2022-02-21 Laly [facility] [place] [id number] [place] 00:00:00 00:00:00 Tobi [facility] mmuni SPORTS CLERK-SHANK CUTTER-B Hospital - ty C: [address] [facility], CLINIC [address], [place] [address] , Ph. 2022-02-18 2022-02-18 Outpatient CHRETIEN_F [facility] 7906 - [place] 00:00:00 00:00:00 128 Commun i ty Hospita l Clinics 2022-02-18 2022-02-18 Laly [facility] [place] [id number] [place] 00:00:00 00:00:00 Tadeo Britton Ny иванuni SPORTS CLERK-SHANK CUTTER-B Hospital - ty C: [address] [facility], CLINIC [address], [place] [address] , Ph. 2022-01-15 2022-01-15 Outpatient CHRETIEN_F [facility] 7906 - [place] 00:00:00 00:00:00 025 Commun i ty Hospita [facility] Clinics 2022-01-15 2022-01-15 Laly [facility] [place] 00:00:00 00:00:00 Chretien, Community Ny иванuni SPORTS CLERK-SHANK CUTTER-B Hospital - ty C: [address] [facility], CLINIC [address], [place] [address] , Ph. 2021-12-19 2021-12-19 Outpatient CHRETIEN_F [facility] 7906 - [place] 00:00:00 00:00:00 928 Commun i ty [facility]osp[facility] Clinics 2021-12-04 2021-12-04 Outpatient G_Pappas [facility]G [id number] [place] 00:00:00 00:00:00 0612 [facility] 2021-12-04 2021-12-04 Outpatient G_Pappas [facility] MM[facility] [id number] [place] 00:00:00 00:00:00 0613 [facility] 2021-12-04 2021-12-04 Outpatient G_Pappas [facility] MMG [id number] [place] 00:00:00 00:00:00 0615 [facility] 2021-12-04 2021-12-04 Outpatient CHRETIEN_F [facility] 7906 - [place] 00:00:00 00:00:00 913 Commun i ty [facility]ospita [facility] 2021-12-04 2021-12-04 Laly [facility] [place] 13 [place] 00:00:00 00:00:00 Tobi [facility] mmuni SPORTS CLERK-SHANK CUTTER-B Hospital - ty C: [address] [facility], CLINIC [address], [place] [address] , Ph. 2021-12-04 2021-12-04 Outpatient Tobi [facility] [id number] 00:00:00 00:00:00 Laly [id number] 2021-11-07 2021-11-07 Outpatient CHRETIEN_F [facility] [id number] - [place] 00:00:00 00:00:00 817 Commun i ty Hospita [facility] Clinics 2021-11-04 2021-11-04 Outpatient G_Pappas MMG [facility] [id number] [place] 00:00:00 00:00:00 0814 [facility] 2021-10-24 2021-10-24 Outpatient CHRETIEN_F [facility] 7906 - [place] 00:00:00 00:00:00 803 Commun i ty Hospita [facility] Clinics 2021-10-24 2021-10-24 Laly [facility] [place] 00:00:00 00:00:00 Tobi, [facility] mmuni SPORTS CLERK-SHANK CUTTER-B Hospital [facility] tyler C: [address] [facility], CLINIC [address], [place] [address] , Ph. 2021-10-24 2021-10-24 [facility] [id number] [id number] 00:00:00 00:00:00 Laly [id number] 2021-10-24 2021-10-24 Outpatient Tobi, [facility] [id number] 00:00:00 00:00:00 Laly [id number] 2021-10-22 2021-10-22 Outpatient Merle NORTON [facility] [id number] Univers 18:00:00 18:29:12 RHIANNON ity [facility] 2021-10-22 2021-10-22 Urgent Yaya Samaniego [facility] 1.2.840.114 [id number] Univers 18:00:00 18:29:12 [facility] [id number] [facility] [id number] Tor as STEVE?BLEA [phone] [address] MEDICAL OFFICE BUILDING 2021-10-09 2021-10-09 Outpatient CHRETIEN_F [facility] 7906 - [place] 02:53:00 02:53:00 719 Commun i ty Hospita l Clinics 2021-09-10 2021-09-10 Outpatient CHRETIEN_F [facility] 7906 - [place] 04:32:00 04:32:00 620 Commun i ty Hospita [facility] 2021-09-10 2021-09-10 Laly [facility] [place] 00:00:00 00:00:00 Tobi [facility] mmuni SPORTS CLERK-SHANK CUTTER-B Hospital - ty C: [address] [facility], CLINIC [address], [place] [address] , Ph. 2021-09-10 2021-09-10 Outpatient Tobi, [facility] [id number] 00:00:00 00:00:00 Laly [id number] 2021-09-09 2021-09-09 Outpatient [facility] [id number] Univers 09:40:00 10:03:27 [facility] 2021-09-09 2021-09-09 Urgent [facility] 1.2.840.114 [id number] Univers 09:40:00 10:03:27 [facility] [id number] it y [facility] [id number] Tor as STEVE?BLEA [phone] [address] MEDICAL OFFICE [facility] 2021-08-30 2021-08-30 Outpatient G_July [facility] [id number] [place] 02:34:00 02:34:00 0609 beba [facility] 2021-08-29 2021-08-29 Outpatient CHRETIEN_F [facility] 7906 - [place] 02:29:00 02:29:00 608 Commun i ty Hospita l Clinics 2021-08-07 2021-08-07 Olivier G_Papstalin [facility] [place] - [id number] [place] 00:00:00 00:00:00 Discovery July 0517 beba MD: Eugenia [facility] - [address], [place] [address] , Ph. [phone] 2021-07-27 2021-07-27 Olivier G_Pappas [facility] - [id number] [place] 00:00:00 00:00:00 Discovery July 0506 beba MD: [address] [place] [address], [place] [address] , Ph. [phone] 2021-07-13 2021-07-13 Olivier G_Pappas [facility] - [id number] 2 [place] 00:00:00 00:00:00 Discovery July 0422 da MD: [address] [place] [address], [place] [address] , Ph. [phone] 2021-07-12 2021-07-12 Outpatient ChitoPappas [facility] [id number] [place] 10:47:00 10:47:00 0421 beba [facility] 2021-07-01 2021-07-01 Urgent Elvin Andrade [facility] 1.2.840.114 [id number] Univers 10:00:00 10:20:00 [facility] [id number] [facility] [id number] Tor as STEVE?BLEA [phone] [address] MEDICAL OFFICE [facility] 2021-07-01 2021-07-01 Outpatient Merle [facility] [id number] Univers 10:00:00 10:00:00 [facility] 2021-06-29 2021-06-29 Outpatient WATERS_S [facility] [id number] [place] 12:35:00 12:35:00 408 Commun i ty Hosp[facility] Clinics 2021-05-22 2021-05-22 Outpatient WATERS_S [facility] [id number] [place] 05:20:00 05:20:00 301 Commun i ty Hospita [facility] Clinics 2021-05-22 2021-05-22 Ольга [facility] [place] 00:00:00 00:00:00 Tadeo [facility] Comm uni SPORTS CLERK-MAKEUP EDITOR-C: Hospital - ty [address] [place] [address] [address], [place] [address] , Ph. 2021-05-22 2021-05-22 Outpatient Cari [facility] [id number] 00:00:00 00:00:00 Ольга [id number] 2021-05-09 2021-05-09 Outpatient CARI_S [facility] [id number] [place] 04:53:00 04:53:00 216 Commun i ty [facility] 2021-05-09 2021-05-09 [facility] [place] 00:00:00 00:00:00 [facility]-C: Hospital - ty [address] [place] [address] [address], [place] [address] , Ph. 2021-05-09 2021-05-09 Outpatient Cari [facility] [id number] 00:00:00 00:00:00 Ольга [id number] 2021-04-29 2021-04-29 Urgent Laurel Beavers [facility] 1.2.840.11 [id number] Univers 11:00:00 11:18:22 Care Unknown, Attending [facility] [id number] ity [facility] [id number] Tor as STEVE?BLEA [phone] [address] MEDICAL OFFICE BUILDING 2021-04-29 2021-04-29 Outpatient R NIMESH [facility] [id number] Univers 11:00:00 11:18:22 LAUREL espinoza [facility] 2021-04-29 2021-04-29 Orders Doctor WEISS 1.2.840.114 [id number] Univers 00:00:00 00:00:00 Only Unassigned, LUCINDA [id number] ity [place] [facility] [id number] Tor as [phone] [address] 2021-02-27 2021-02-27 Outpatient WATERS_S [facility] [id number] [place] 04:26:00 04:26:00 207 [facility] 2021-02-27 2021-02-27 Ольга [facility] [place] [id number] [place] 00:00:00 00:00:00 [facility] [address] Suite [facility], [place] [address] , Ph. 2021-02-27 2021-02-27 Outpatient Cari, [facility] [id number] 00:00:00 00:00:00 Ольга [id number] 2021-02-05 2021-02-05 Outpatient WATERS_S [facility] [id number] [place] 04:46:00 04:46:00 115 [facility] 2021-02-05 2021-02-05 [facility] [place] [id number] [place] 00:00:00 00:00:00 [facility]-C: [address], [place] [address] , Ph. 2021-02-05 2021-02-05 [facility] [id number] 00:00:00 00:00:00 Ольга [id number] 2021-02-05 2021-02-05 Outpatient [facility] [id number] 00:00:00 00:00:00 Ольга [id number] 2021-02-03 2021-02-03 Jailyn Isaacs [facility] 1.2.840.114 [id number] Univers 10:25:27 11:09:44 [facility] [id number] [facility] [id number] Tor as STEVE?BLEA [phone] Id ignacio [address] MEDICAL OFFICE BUILDING 2021-02-03 2021-02-03 Outpatient Merle NORTON [facility] [id number] Univers 10:20:00 11:09:44 RHIANNON [facility] 2021-01-24 2021-01-24 Outpatient WATERS_S [facility] [id number] [place] 12:36:00 12:36:00 103 Commun i ty [facility]osp[facility] 2021-01-24 2021-01-24 [facility] [id number] 00:00:00 00:00:00 Ольга [id number] 2021-01-24 2021-01-24 [facility] [place] [id number] [place] 00:00:00 00:00:00 [facility] uni SPORTS CLERK-MAKEUP EDITOR-C: Hospital [address] [address], [place] [address] , Ph. 2020-12-13 2020-12-13 Outpatient WATERS_S [facility] [id number] [place] 03:17:00 03:17:00 922 Commun i ty [facility] 2020-12-13 2020-12-13 [facility] [id number] 00:00:00 00:00:00 Ольга [id number] 2020-12-13 2020-12-13 [facility] [place] 00:00:00 00:00:[address] [facility] uni SPORTS CLERK-MAKEUP EDITOR-C: [address] [address], [place] [address] , Ph. 2020-11-17 2020-11-17 Outpatient WATERS_S [facility] [id number] [place] 12:33:00 12:33:00 827 Commun i ty Hospita l Clinics 2020-11-16 2020-11-16 Outpatient WATERS_S [facility] [id number] [place] 01:00:00 01:00:00 826 Commun i ty Hospita l Clinics 2020-11-16 2020-11-16 Outpatient Okeefe, [facility] [id number] 00:00:00 00:00:00 Ольга [id number] 2020-11-16 2020-11-16 Outpatient Okeefe, [facility] [id number] 00:00:00 00:00:00 Ольга [id number] 2020-11-16 2020-11-16 Ольга [facility] [place] 00:00:00 00:00:00 [facility] uni SPORTS CLERK-MAKEUP EDITOR-C: Hospital - ty [address] [place] [address] 668, [place] [address] , Ph. 2020-11-14 2020-11-14 Olivier De La Cruz [facility] [place] - [id number] [place] 00:00:00 00:00:00 Discovery July 0824 beba MD: [address] [place] [address] , Ph. [phone] 2020-09-18 2020-09-18 Outpatient WATERS_S [facility] [id number] [place] 04:01:00 04:01:00 628 Commun i ty [facility] 2020-09-18 2020-09-18 [facility] [place] 00:00:00 00:00:00 [facility] uni SPORTS CLERK-MAKEUP EDITOR-C: Hospital - ty [address] [place] [address] 668, [place] [address] , Ph. 2020-09-18 2020-09-18 Outpatient Okeefe, [facility] [id number] 00:00:00 00:00:00 Ольга [id number] 2020-09-18 2020-09-18 Outpatient Okeefe, [facility] [id number] 00:00:00 00:00:00 Ольга [id number] 2020-08-29 2020-08-29 Outpatient WATERS_S [facility] [id number] [place] 10:39:00 10:39:00 608 Commun i ty Hospita l Clinics 2020-08-29 2020-08-29 [facility] [place] 00:00:00 00:00:00 [facility] uni SPORTS CLERK-MAKEUP EDITOR-C: [address] [address], [place] [address] , Ph. 2020-08-29 2020-08-29 Outpatient Okeefe, [facility] [id number] 00:00:00 00:00:00 Ольга [id number] 2020-08-27 2020-08-27 Outpatient R [facility] [id number] Univers 09:00:00 09:00:00 [facility] 2020-07-20 2020-07-20 Outpatient WATERS_S [facility] [id number] [place] 12:28:00 12:28:00 429 Commun i ty Hospita l Clinics 2020-07-20 2020-07-20 Outpatient Okeefe, [facility] [id number] 00:00:00 00:00:00 Ольга [id number] 2020-07-20 2020-07-20 [facility] [place] 29 [place] 00:00:00 00:00:00 [facility] uni SPORTS CLERK-MAKEUP EDITOR-C: [address], [place] [address] , Ph. 2020-04-18 2020-04-18 Olivier [place] - [id number] [place] 00:00:00 00:00:00 Discovery July 0126 beba MD: [address] [place] [address] , Ph. [phone] 2020-03-26 2020-03-26 Outpatient Merle ANDRADE [facility] [id number] Univers 16:40:00 16:40:00 ELVIN ity [facility] 2020-03-10 2020-03-10 Outpatient TURNER_FA [facility] [id number] [place] 08:57:00 08:57:00 218 Commun i ty [facility]osp[facility] 2020-02-09 2020-02-09 Outpatient G_Pappas [facility] [id number] [place] 02:24:00 02:24:00 1118 beba [facility] 2020-02-01 2020-02-01 Olivier Cherelle_[place]app[place] - [id number] [place] 00:00:00 00:00:00 Discovery July 1110 da MD: [address] [place] [address] , Ph. [phone] 2020-01-21 2020-01-21 Outpatient G_Pappas [facility] [id number] [place] 11:55:00 11:55:00 1030 beba [facility] 2019-04-08 2019-04-08 Outpatient G_Pappas MMG MMG [id number] [place] 11:52:00 11:52:00 0116 beba [facility] 2019-04-05 2019-04-05 Olivier [place] - [id number] [place] 00:00:00 00:00:00 Discovery July 0113 beba MD: [address] [place] [address] , Ph. [phone] 2019-01-12 2019-01-12 Olivier [facility] [place] [place] - [id number] [place] 00:00:00 00:00:00 Discovery July 1022 beba MD: [address] [place] [address] - [address], [place] [address] , Ph. [phone] 2018-12-09 2018-12-09 [place] - [id number] [place] 00:00:00 00:00:00 MD Tara: [address] [place], [place] [address]da - [address], [facility] [place] [address] , Ph. 2018-12-04 2018-12-04 [place] - [phone] [place] 00:00:00 00:00:00 Discovery July 0913 beba MD: [address] [place], [place] [address]a - [address], [place] [address] , Ph. [phone] 2018-12-03 2018-12-03 [place] - [address] [place] 00:00:00 00:00:00 MD Tara: [address] [place], [place] [id number] - [address], [facility] [place] [address] , Ph. 2018-10-16 2018-10-16 [place] - [address] [place] 00:00:00 00:00:00 MD Tara: [address] [place] [address], [place] - [address], [facility] [place] [address] , Ph. 2018-08-25 2018-08-25 [place] - [address] [place] 00:00:00 00:00:00 MD Tara: [address] [place] [address], [place] - [address], [facility] [place] [address] , Ph. 2018-07-13 2018-07-13 [place] - [phone] [place] 00:00:00 00:00:00 MD Tara: [address] [place] [address] [address], [facility] [place] [address] , Ph. 2018-04-10 2018-04-10 Shae Ascencio [facility] [place] [place] - [address] [place] 00:00:00 00:00:00 MD Tara: [address] [place] [address], [facility] [address], [facility] [place] [address] , Ph. 2018-03-25 2018-03-25 Anthony [facility] [place] - [phone] [place] 00:00:00 00:00:00 Ck Winter [facility]: [address] [place] [address], [facility], [place] [phone] , Ph. Results Test Description Test Time Test Comments Results Result Comments Source Microscopic observation [Identifier] in Vaginal fluid by Wet 2022-09-02 15:57:32 preparation Test Item Value Reference Range Interpretation Comme nts Clue Cells (test code = Clue Cells) negative WBCs (test code = WBCs) negative Trichomonads (test code = Trichomonads) negative Epithelial cells (test code = Epithelial cells) normal RBCs (test code = RBCs) [facility] - [id number] 14:04:31 Test Item Value Reference Range Interpretation Comments Leukocytes (test code = Leukocytes) Negative Nitrite (test code = Nitrite) negative Urobilinogen (test code = .2 Urobilinogen) Protein (test code = Protein) Negative pH (test code = pH) 5.5 Blood (test code = Blood) Negative Specific [place] (test code = 1.010 Specific [place]) Ketone (test code = Ketone) Negative Bilirubin (test code = Bilirubin) Negative Glucose (test code = Glucose) Negative Appearance (test code = Appearance) Clear Color (test code = Color) [facility] Ag [Presence] in Respiratory specimen by Rapid [id number] 10:23:00 Test Item Value Reference Range Interpretation Comments SARS CoV 2 (test code = SARS CoV 2) negative [facility]ics[facility] A, [id number] 09:48:00 Test Item Value Reference Range Interpretation Comments Strep (test code = Strep) negative [facility] Hospital[facility]inalysis macro (dipstick) panel - Urine 2022-04-22 15:51:00 Test Item Value Reference Range Interpretation Comments Leukocytes (test code = Small Leukocytes) Nitrite (test code = negative Nitrite) Urobilinogen (test code = .2 Urobilinogen) Protein (test code = Negative Protein) pH (test code = pH) 5.0 Blood (test code = Blood) Hemolyzed: Trace Specific [place] (test code 1.010 = Specific [place]) Ketone (test code = Ketone) Negative Bilirubin (test code = Negative Bilirubin) Glucose (test code = Negative Glucose) Appearance (test code = Clear Appearance) Color (test code = Color) Yellow [facility] HospitalUrinalysis macro (dipstick) panel - Urine 2022-04-22 15:51:00 Test Item Value Reference Range Interpretation Comments Leukocytes (test code = Small Leukocytes) Nitrite (test code = negative Nitrite) Urobilinogen (test code = .2 Urobilinogen) Protein (test code = Negative Protein) pH (test code = pH) 5.0 Blood (test code = Blood) Hemolyzed: Trace Specific [place] (test code 1.010 = Specific [place]) Ketone (test code = Ketone) Negative Bilirubin (test code = Negative Bilirubin) Glucose (test code = Negative Glucose) Appearance (test code = Clear Appearance) Color (test code = Color) Yellow [facility] ClinicsUrinal[facility] macro (dipstick) panel - Urine 2022-04-22 15:51:00 Test Item Value Reference Range Interpretation Comments Leukocytes (test code = Small Leukocytes) Nitrite (test code = negative Nitrite) Urobilinogen (test code = .2 Urobilinogen) Protein (test code = Negative Protein) pH (test code = pH) 5.0 Blood (test code = Blood) Hemolyzed: Trace Specific [place] (test code 1.010 = Specific [place]) Ketone (test code = Ketone) Negative Bilirubin (test code = Negative Bilirubin) Glucose (test code = Negative Glucose) Appearance (test code = Clear Appearance) Color (test code = Color) Yellow [facility] Hospitalrapid strep group A, [id number] 13:37:00 Test Item Value Reference Range Interpretation Comments Strep (test code = Strep) positive [facility] HospitalSARS-CoV-2 (COVID-19) Ag [Presence] in Respiratory specimen by Rapid [id number] 13:37:00 Test Item Value Reference Range Interpretation Comments SARS CoV 2 (test code = SARS CoV 2) positive [facility] SARS-COV-2 ANTIGEN (BINAX NOW)2021-10-22 23:30:00 Test Item Value Reference Range Interpretation Comments POCT SARS-COV-2 ANTIGEN (test Not Detected Not Detected code = 5076) On board controls acceptable Yes with C Line (test code = 3574) Lab Interpretation (test code = Normal 64057-7) [facility] [id number] 23:10:36 Test Item Value Reference Range Interpretation Comments POCT Molecular Strep (test code = Negative Negative 93257-9) Lab Interpretation (test code = Normal 21414-6) [facility]ressUrinalysis macro (dipstick) panel - Urine 2021-08-07 09:27:09 Test Item Value Reference Range Interpretation Comments Leukocytes (test code = Leukocytes) Negative Nitrite (test code = Nitrite) negative Urobilinogen (test code = .2 Urobilinogen) Protein (test code = Protein) Negative pH (test code = pH) 6.0 Blood (test code = Blood) Small Specific [place] (test code = 1.025 Specific [place]) Ketone (test code = Ketone) Negative Bilirubin (test code = Bilirubin) Negative Glucose (test code = Glucose) Negative Appearance (test code = Appearance) Clear Color (test code = Color) Yellow [facility] W Auto Differential panel - [id number] 08:25:00 Test Item Value Reference Range Interpretation Comments white blood count (test code = 8.7 K/uL 4.0-11.5 white blood count) red blood count (test code = red 5.11 M/uL 3.80-5.20 blood count) hemoglobin (test code = 12.1 g/dL 10.5-15.7 hemoglobin) hematocrit (test code = 40.9 % 34.0-50.0 hematocrit) MCV [Entitic volume] (test code = 80.0 fL 86.0-100.0 L 98284-4) mean corpuscular hemoglobin (test 23.7 pg 26.2-33.4 [...] 44.4-80.1 leukocytes in Blood (test code = 63586-6) Immature granulocytes [#/volume] 0.04 K/uL 0.00-0.03 H in Blood (test code = 76615-7) lymphocyte% (test code = 27.6 % 10.0-50.0 lymphocyte%) mono % (test code = mono %) 6.1 % 3.6-12.0 eos % (test code = eos %) 2.4 % 0.0-5.4 Basophils/100 leukocytes in 0.6 % 0.1-1.2 Specimen (test code = 76561-7) Band form neutrophils [#/volume] 5.48 K/uL 1.56-6.13 in Blood (test code = 53140-3) Lymphocytes [#/volume] in Specimen 2.41 K/uL 1.18-3.74 by Automated count (test code = 81315-4) mono # (test code = mono #) 0.53 K/uL 0.24-0.86 eos # (test code = eos #) 0.21 K/uL 0.04-0.36 basophil # (test code = basophil 0.05 K/uL 0.01-0.08 #) NRBC% (test code = NRBC%) 0 /100 WBC 0-0.2 NRBC# (test code = NRBC#) 0 K/uL [facility] GroupUrinalysis macro (dipstick) panel - [id number] 10:17:35 Test Item Value Reference Range Interpretation Comments Leukocytes (test code = Leukocytes) Negative Nitrite (test code = Nitrite) negative Urobilinogen (test code = .2 Urobilinogen) Protein (test code = Protein) Negative pH (test code = pH) 5.5 Blood (test code = Blood) Negative Specific [place] (test code = 1.025 Specific [place]) Ketone (test code = Ketone) Negative Bilirubin (test code = Bilirubin) Negative Glucose (test code = Glucose) Negative Appearance (test code = Appearance) Clear Color (test code = Color) Yellow [facility] - [id number] 10:17:35 Test Item Value Reference Range Interpretation Comments Leukocytes (test code = Leukocytes) Negative Nitrite (test code = Nitrite) negative Urobilinogen (test code = .2 Urobilinogen) Protein (test code = Protein) Negative pH (test code = pH) 5.5 Blood (test code = Blood) Negative Specific [place] (test code = 1.025 Specific [place]) Ketone (test code = Ketone) Negative Bilirubin (test code = Bilirubin) Negative Glucose (test code = Glucose) Negative Appearance (test code = Appearance) Clear Color (test code = Color) Yellow [facility] + reflex to HR HPV if [id number] 00:00:00 Test Item Value Reference Range Interpretation Comments TP reflex HPV ASCUS (test code = TP normal reflex HPV ASCUS) [facility] Grouppap, LB + reflex to HR HPV if [id number] 00:00:00 Test Item Value Reference Range Interpretation Comments TP reflex HPV ASCUS (test code = TP normal reflex HPV ASCUS) [facility] GroupMicroscopic observation [Identifier] in Vaginal fluid by Wet [id number] 16:05:37 Test Item Value Reference Range Interpretation Comments Clue Cells (test code = Clue Cells) negative WBCs (test code = WBCs) negative Trichomonads (test code = negative Trichomonads) Epithelial cells (test code = normal Epithelial cells) RBCs (test code = RBCs) negative [facility] GroupMicroscopic observation [Identifier] in Vaginal fluid by Wet [id number] 16:05:37 Test Item Value Reference Range Interpretation Comments Clue Cells (test code = Clue Cells) negative WBCs (test code = WBCs) negative Trichomonads (test code = negative Trichomonads) Epithelial cells (test code = normal Epithelial cells) RBCs (test code = RBCs) negative [facility] GroupMicrosc[facility] observation [Identifier] in Vaginal fluid by Wet [id number] 16:05:37 Test Item Value Reference Range Interpretation Comments Clue Cells (test code = Clue Cells) negative WBCs (test code = WBCs) negative Trichomonads (test code = negative Trichomonads) Epithelial cells (test code = normal Epithelial cells) RBCs (test code = RBCs) negative [facility] GroupUrinalysis macro (dipstick) panel - [id number] 09:48:10 Test Item Value Reference Range Interpretation Comments Leukocytes (test code = Leukocytes) Negative Nitrite (test code = Nitrite) negative Urobilinogen (test code = .2 Urobilinogen) Protein (test code = Protein) Negative pH (test code = pH) 5.5 Blood (test code = Blood) Negative Specific [place] (test code = 1.030 Specific [place]) Ketone (test code = Ketone) Negative Bilirubin (test code = Bilirubin) Negative Glucose (test code = Glucose) Negative Appearance (test code = Appearance) Clear Color (test code = Color) Yellow [facility] GroupUrinalysis macro (dipstick) panel - [id number] 09:48:10 Test Item Value Reference Range Interpretation Comments Leukocytes (test code = Leukocytes) Negative Nitrite (test code = Nitrite) negative Urobilinogen (test code = .2 Urobilinogen) Protein (test code = Protein) Negative pH (test code = pH) 5.5 Blood (test code = Blood) Negative Specific [place] (test code = 1.030 Specific [place]) Ketone (test code = Ketone) Negative Bilirubin (test code = Bilirubin) Negative Glucose (test code = Glucose) Negative Appearance (test code = Appearance) Clear Color (test code = Color) Yellow [facility] GroupUrinalysis macro (dipstick) panel - [id number] 09:48:10 Test Item Value Reference Range Interpretation Comments Leukocytes (test code = Leukocytes) Negative Nitrite (test code = Nitrite) negative Urobilinogen (test code = .2 Urobilinogen) Protein (test code = Protein) Negative pH (test code = pH) 5.5 Blood (test code = Blood) Negative Specific [place] (test code = 1.030 Specific [place]) Ketone (test code = Ketone) Negative Bilirubin (test code = Bilirubin) Negative Glucose (test code = Glucose) Negative Appearance (test code = Appearance) Clear Color (test code = Color) Yellow [facility], [id number] 09:47:14 Test Item Value Reference Range Interpretation Comments Test (test code = positive Test) [facility], [id number] 09:47:14 Test Item Value Reference Range Interpretation Comments Test (test code = positive Test) [facility], [id number] 09:47:14 Test Item Value Reference Range Interpretation Comments Test (test code = positive Test) [facility] HospitalBacteria identified in Urine by [id number] 09:30:00Bacteria Ur [facility] W Auto Differential panel - [id number] 09:30:00 Test Item Value Reference Range Interpretation Comments white blood count (test code = 9.3 K/uL 4.0-11.5 white blood count) red blood count (test code = red 5.10 M/uL 3.80-5.20 blood count) hemoglobin (test code = 12.2 g/dL 10.5-15.7 hemoglobin) hematocrit (test code = 40.1 % 34.0-50.0 hematocrit) MCV [Entitic volume] (test code = 78.6 fL 86.0-100.0 L 06519-4) mean corpuscular hemoglobin (test 23.9 pg 26.2-33.4 [...] 44.4-80.1 leukocytes in Blood (test code = 68480-4) Immature granulocytes [#/volume] 0.04 K/uL 0.00-0.03 H in Blood (test code = 05569-5) lymphocyte% (test code = 21.5 % 10.0-50.0 lymphocyte%) mono % (test code = mono %) 6.3 % 3.6-12.0 eos % (test code = eos %) 1.7 % 0.0-5.4 Basophils/100 leukocytes in 0.5 % 0.1-1.2 Specimen (test code = 35790-6) Band form neutrophils [#/volume] 6.49 K/uL 1.56-6.13 H in Blood (test code = 74772-9) Lymphocytes [#/volume] in Specimen 2.01 K/uL 1.18-3.74 by Automated count (test code = 03203-0) mono # (test code = mono #) 0.59 K/uL 0.24-0.86 eos # (test code = eos #) 0.16 K/uL 0.04-0.36 basophil # (test code = basophil 0.05 K/uL 0.01-0.08 #) NRBC% (test code = NRBC%) 0 /100 WBC 0-0.2 NRBC# (test code = NRBC#) 0 K/uL [facility] GroupABO and Rh group [Type] in [id number] 09:30:00 Test Item Value Reference Range Interpretation Comments Rh [Type] in Blood (test code = 4+ 05118-0) ABO and Rh group panel - Blood Ab positive (test code = 91741-6) [facility] screen [Presence] in Serum or Plasma 2021-07-13 09:30:00 Test Item Value Reference Range Interpretation Comments Blood group antibody screen negative [Presence] in Serum or Plasma (test code = 890-4) [facility]Chlamydia trachomatis+Neisseria gonorrhoeae DNA [Presence] in Cervix by ELENO with probe [id number] 09:30:00 Test Item Value Reference Range Interpretation Comments Chlamydia sp Ag [Presence] in CT not detected Specimen (test code = 51097-5) [id number] (test code = zwo7031) NG not detected [facility]antib[facility] sensitivity testing, [id number] 09:30:00 Test Item Value Reference Range Interpretation [...] Minimum inhibitory concentration (BREE) (test code = 86907-8) cefTAZidime [Susceptibility] by <=2 Minimum inhibitory concentration (BREE) (test code = 133-9) cefTRIAXone [Susceptibility] by <=1 Minimum inhibitory concentration (BREE) (test code = 141-2) Ciprofloxacin [Susceptibility] by <=0.25 Minimum inhibitory concentration (BREE) (test code = 185-9) Ampicillin+Sulbactam =8/4 [Susceptibility] by Minimum inhibitory concentration (BREE) (test code = 32-3) Ertapenem [Susceptibility] by <=0.25 Minimum inhibitory concentration (BREE) (test code = 73207-1) Aztreonam [Susceptibility] by <=2 Minimum inhibitory concentration (BREE) (test code = 44-8) Cefepime [Susceptibility] by Minimum <=1 inhibitory concentration (BREE) (test code = 6644-9) Meropenem [Susceptibility] by <=0.5 Minimum inhibitory concentration (BREE) (test code = 6652-2) Moxifloxacin [Susceptibility] by <=1 Minimum inhibitory concentration (BREE) (test code = 66909-5) Amikacin [Susceptibility] by Minimum <=8 inhibitory concentration (BREE) (test code = 12-5) Piperacillin+Tazobactam =4/4 [Susceptibility] by Minimum inhibitory concentration (BREE) (test code = 412-7) Ceftaroline [Susceptibility] by <=0.25 Minimum inhibitory concentration (BREE) (test code = 36051-8) Tigecycline [Susceptibility] by <=1 Minimum inhibitory concentration (BREE) (test code = 22402-9) [facility]Bacteria identified in Urine by [id number] 09:30:00Bacteria Ur [facility] Differential panel - [id number] 09:30:00 Test Item Value Reference Range Interpretation Comments white blood count (test code = 9.3 K/uL 4.0-11.5 white blood count) red blood count (test code = red 5.10 M/uL 3.80-5.20 blood count) hemoglobin (test code = 12.2 g/dL 10.5-15.7 hemoglobin) hematocrit (test code = 40.1 % 34.0-50.0 hematocrit) MCV [Entitic volume] (test code = 78.6 fL 86.0-100.0 L 95782-7) mean corpuscular hemoglobin (test 23.9 pg 26.2-33.4 [...] 44.4-80.1 leukocytes in Blood (test code = 13890-8) Immature granulocytes [#/volume] 0.04 K/uL 0.00-0.03 H in Blood (test code = 88120-6) lymphocyte% (test code = 21.5 % 10.0-50.0 lymphocyte%) mono % (test code = mono %) 6.3 % 3.6-12.0 eos % (test code = eos %) 1.7 % 0.0-5.4 Basophils/100 leukocytes in 0.5 % 0.1-1.2 Specimen (test code = 80036-7) Band form neutrophils [#/volume] 6.49 K/uL 1.56-6.13 H in Blood (test code = 79861-7) Lymphocytes [#/volume] in Specimen 2.01 K/uL 1.18-3.74 by Automated count (test code = 29616-2) mono # (test code = mono #) 0.59 K/uL 0.24-0.86 eos # (test code = eos #) 0.16 K/uL 0.04-0.36 basophil # (test code = basophil 0.05 K/uL 0.01-0.08 #) NRBC% (test code = NRBC%) 0 /100 WBC 0-0.2 NRBC# (test code = NRBC#) 0 K/uL [facility] GroupAB[facility] and Rh group [Type] in [id number] 09:30:00 Test Item Value Reference Range Interpretation Comments Rh [Type] in Blood (test code = 4+ 01949-3) ABO and Rh group panel - Blood Ab positive (test code = 63930-9) [facility] antibody screen [Presence] in Serum or Plasma 2021-07-13 09:30:00 Test Item Value Reference Range Interpretation Comments Blood group antibody screen negative [Presence] in Serum or Plasma (test code = 890-4) [facility] GroupChlamydia trachomatis+Neisseria gonorrhoeae DNA [Presence] in Cervix by ELENO with probe [id number] 09:30:00 Test Item Value Reference Range Interpretation Comments Chlamydia sp Ag [Presence] in CT not detected Specimen (test code = 15098-7) [id number] (test code = wjk7145) NG not detected [facility] Groupantibiotic sensitivity testing, [id number] 09:30:00 Test Item Value Reference Range Interpretation [...] Minimum inhibitory concentration (BREE) (test code = 28488-4) cefTAZidime [Susceptibility] by <=2 Minimum inhibitory concentration (BREE) (test code = 133-9) cefTRIAXone [Susceptibility] by <=1 Minimum inhibitory concentration (BREE) (test code = 141-2) Ciprofloxacin [Susceptibility] by <=0.25 Minimum inhibitory concentration (BREE) (test code = 185-9) Ampicillin+Sulbactam =8/4 [Susceptibility] by Minimum inhibitory concentration (BREE) (test code = 32-3) Ertapenem [Susceptibility] by <=0.25 Minimum inhibitory concentration (BREE) (test code = 66990-4) Aztreonam [Susceptibility] by <=2 Minimum inhibitory concentration (BREE) (test code = 44-8) Cefepime [Susceptibility] by Minimum <=1 inhibitory concentration (BREE) (test code = 6644-9) Meropenem [Susceptibility] by <=0.5 Minimum inhibitory concentration (BREE) (test code = 6652-2) Moxifloxacin [Susceptibility] by <=1 Minimum inhibitory concentration (BREE) (test code = 79197-3) Amikacin [Susceptibility] by Minimum <=8 inhibitory concentration (BREE) (test code = 12-5) Piperacillin+Tazobactam =4/4 [Susceptibility] by Minimum inhibitory concentration (BREE) (test code = 412-7) Ceftaroline [Susceptibility] by <=0.25 Minimum inhibitory concentration (BREE) (test code = 19931-4) Tigecycline [Susceptibility] by <=1 Minimum inhibitory concentration (BREE) (test code = 58116-8) [facility]HIV [facility]+2 Ab [Presence] in [id number] 00:00:00HIV P24 AgHIV-1/2 AbB[facility] GroupReagin Ab [Presence] in Serum by RPR 2021-07-13 00:00:00 Test Item Value Reference Range Interpretation Comments Reagin Ab [Presence] in Serum by nonreactive nonreactive RPR (test code = 30112-6) [facility] HospitalHepatitis B virus surface Ag [Presence] in Serum 2021-07-13 00:00:00 Test Item Value Reference Range Interpretation Comments .hepatitis B surface antigen (test negative negative code = .hepatitis B surface antigen) [facility]HIV [facility]+2 Ab [Presence] in [id number] 00:00:00HIV P24 AgHIV-1/2 AbB[facility] GroupReagin Ab [Presence] in Serum by RPR 2021-07-13 00:00:00 Test Item Value Reference Range Interpretation Comments Reagin Ab [Presence] in Serum by nonreactive nonreactive RPR (test code = 89042-6) [facility]Hepatitis B virus surface Ag [Presence] in Serum 2021-07-13 00:00:00 Test Item Value Reference Range Interpretation Comments .hepatitis B surface antigen (test negative negative code = .hepatitis B surface antigen) [facility] HospitalPOCT MOLECULAR [id number] 17:11:45 Test Item Value Reference Range Interpretation Comments POCT Molecular Strep (test code = Negative Negative 75555-7) Lab Interpretation (test code = Normal 24217-2) [facility]-19[facility] Ag [Presence] in Respiratory specimen by Rapid [id number] 15:28:00 Test Item Value Reference Range Interpretation Comments SARS CoV 2 (test code = SARS CoV 2) positive [facility] group A, [id number] 15:23:00 Test Item Value Reference Range Interpretation Comments Strep (test code = Strep) negative [facility]rap[facility] strep group A, [id number] 10:42:00 Test Item Value Reference Range Interpretation Comments Strep (test code = Strep) negative [facility]rap[facility] strep group A, [id number] 10:42:00 Test Item Value Reference Range Interpretation Comments Strep (test code = Strep) [facility], [id number] 10:42:00 Test Item Value Reference Range Interpretation Comments Strep (test code = Strep) negative [facility]rap[facility] flu (A+B)2020-11-16 11:07:00 Test Item Value Reference Range Interpretation Comments FLU A (test code = FLU A) negative FLU B (test code = FLU B) negative [facility], [id number] 11:07:00 Test Item Value Reference Range Interpretation Comments Strep (test code = Strep) negative [facility] flu (A+B)2020-11-16 11:07:00 Test Item Value Reference Range Interpretation Comments FLU A (test code = FLU A) negative FLU B (test code = FLU B) negative [facility] group A, [id number] 11:07:00 Test Item Value Reference Range Interpretation Comments Strep (test code = Strep) negative [facility] flu (A+B)2020-11-16 11:07:00 Test Item Value Reference Range Interpretation Comments FLU A (test code = FLU A) negative FLU B (test code = FLU B) negative [facility] A, [id number] 11:07:00 Test Item Value Reference Range Interpretation Comments Strep (test code = Strep) negative [facility]pregnancy test, [id number] 10:29:00 Test Item Value Reference Range Interpretation Comments Test (test code = negative Test) [facility] HospitalUrinalysis macro (dipstick) panel - [id number] 10:21:00 Test Item Value Reference Range Interpretation Comments Leukocytes (test code = Leukocytes) Negative Nitrite (test code = Nitrite) negative Urobilinogen (test code = .2 Urobilinogen) Protein (test code = Protein) Negative pH (test code = pH) 5.5 Blood (test code = Blood) Negative Specific [place] (test code = 1.025 Specific [place]) Ketone (test code = Ketone) Negative Bilirubin (test code = Bilirubin) Negative Glucose (test code = Glucose) Negative Appearance (test code = Appearance) Clear Color (test code = Color) Yellow [facility] HospitalMullerian inhibiting substance [Mass/volume] in Serum or [id number] 00:00:00 Test Item Value Reference Range Interpretation Comments [place] inhibiting substance 0.399 NG/mL [Mass/volume] in Serum or Plasma (test code = 31261-8) [facility] HospitalMullerian inhibiting substance [Mass/volume] in Serum or [id number] 00:00:00 Test Item Value Reference Range Interpretation Comments [place] inhibiting substance 0.399 NG/mL [Mass/volume] in Serum or Plasma (test code = 24856-3) [facility] HospitalChoriogonadotropin.beta subunit ( test) [Presence] in Serum or [id number] 00:00:00 Test Item Value Reference Range Interpretation Comments Choriogonadotropin.be negative See_Comment [Auto mated message] The ta subunit ( system which generated test) [Presence] in this res ult transmitted Serum or Plasma (test refere nce range: code = 2110-5) negative < 6. The reference range was not used to interpr et this result as normal/abnormal . [facility] ( [facility]) [Presence] in Serum or [id number] 00:00:00 Test Item Value Reference Range Interpretation Comments Choriogonadotropin.be negative See_Comment [Auto mated message] The ta subunit ( system which generated test) [Presence] in this res ult transmitted Serum or Plasma (test refere nce range: code = 2110-5) negative < 6. The reference range was not used to interpr et this result as normal/abnormal . [facility] W Auto Differential panel - [id number] 00:00:00 Test Item Value Reference Range Interpretation Comments Leukocytes [#/volume] in Blood 8.9 x10e3/uL 3.4-10.8 by Automated count (test code = 6690-2) Erythrocytes [#/volume] in 5.15 x10e6/uL 3.77-5.28 Blood by Automated count (test code = 789-8) Hemoglobin [Mass/volume] in 11.1 g/dL 11.1-15.9 Blood (test code = 718-7) Hematocrit [Volume Fraction] of 36.9 % 34.0-46.6 Blood by Automated count (test code = 4544-3) Erythrocyte mean corpuscular 72 fL 79-97 L volume [Entitic volume] by Automated count (test code = 787-2) Erythrocyte mean corpuscular 21.6 pg 26.6-33.0 L hemoglobin [Entitic mass] by Automated count (test code = 785-6) Erythrocyte mean corpuscular 30.1 g/dL 31.5-35.7 L hemoglobin concentration [Mass/volume] by Automated count (test code = 786-4) Erythrocyte distribution width 16.0 % 11.7-15.4 H [Ratio] by Automated count (test code = 788-0) Platelets [#/volume] in Blood 438 x10e3/uL 150-450 by Automated count (test code = 777-3) Neutrophils/100 leukocytes in 67 % not estab. Blood by Automated count (test code = 770-8) Lymphocytes/100 leukocytes in 22 % not estab. Blood by Automated count (test code = 736-9) Monocytes/100 leukocytes in 7 % not estab. Blood by Automated count (test code = 5905-5) Eosinophils/100 leukocytes in 3 % not estab. Blood by Automated count (test code = 713-8) Basophils/100 leukocytes in 1 % not estab. Blood by Automated count (test code = 706-2) immature cells (test code = supervisor rework immature cells) Neutrophils [#/volume] in Blood 6.0 x10e3/uL 1.4-7.0 by Automated count (test code = 751-8) Lymphocytes [#/volume] in Blood 2.0 x10e3/uL 0.7-3.1 by Automated count (test code = 731-0) Monocytes [#/volume] in Blood 0.6 x10e3/uL 0.1-0.9 by Automated count (test code = 742-7) Eosinophils [#/volume] in Blood 0.2 x10e3/uL 0.0-0.4 by Automated count (test code = 711-2) Basophils [#/volume] in Blood 0.1 x10e3/uL 0.0-0.2 by Automated count (test code = 704-7) Immature granulocytes/100 0 % not estab. leukocytes in Blood by Automated count (test code = 87485-5) Immature granulocytes 0.0 x10e3/uL 0.0-0.1 [#/volume] in Blood by Automated count (test code = 92641-5) Nucleated erythrocytes/100 supervisor rework leukocytes [Ratio] in Blood by Automated count (test code = 76933-3) Morphology [Interpretation] in supervisor rework Blood Narrative (test code = 24667-8) [facility] - Serum or [id number] 00:00:00 Test Item Value Reference Range Interpretation Comments Glucose [Mass/volume] in 96 mg/dL 65-99 Serum or Plasma (test code = 2345-7) Urea nitrogen [Mass/volume] 15 mg/dL 6-24 in Serum or Plasma (test code = 3094-0) Creatinine [Mass/volume] in 0.59 mg/dL 0.57-1.00 Serum or Plasma (test code = 2160-0) Glomerular filtration 113 mL/min/1.73 >59 rate/1.73 sq M.predicted among non-blacks [Volume Rate/Area] in Serum, Plasma or Blood by Creatinine-based formula (CKD-EPI) (test code = 51494-5) Glomerular filtration 131 mL/min/1.73 >59 rate/1.73 sq M.predicted among blacks [Volume Rate/Area] in Serum, Plasma or Blood by Creatinine-based formula (CKD-EPI) (test code = 56197-2) Urea nitrogen/Creatinine 25 9-23 H [Mass Ratio] in Serum or Plasma (test code = 3097-3) Sodium [Moles/volume] in 139 mmol/L 134-144 Serum or Plasma (test code = 2951-2) Potassium [Moles/volume] in 4.2 mmol/L 3.5-5.2 Serum or Plasma (test code = 2823-3) Chloride [Moles/volume] in 101 mmol/L 96-106 Serum or Plasma (test code = 2074-0) Carbon dioxide, total 20 mmol/L 20-29 [Moles/volume] in Serum or Plasma (test code = 2027-) Calcium [Mass/volume] in 9.2 mg/dL 8.7-10.2 Serum or Plasma (test code = 24527-3) Protein [Mass/volume] in 7.2 g/dL 6.0-8.5 Serum or Plasma (test code = 2885-2) Albumin [Mass/volume] in 4.0 g/dL 3.8-4.8 Serum or Plasma (test code = 175-7) Globulin [Mass/volume] in 3.2 g/dL 1.5-4.5 Serum by calculation (test code = 11070-3) Albumin/Globulin [Mass Ratio] 1.3 1.2-2.2 in Serum or Plasma (test code = 1759-0) Bilirubin.total [Mass/volume] 0.2 mg/dL 0.0-1.2 in Serum or Plasma (test code = 1974-2) Alkaline phosphatase 76 IU/L 48-121 [Enzymatic activity/volume] in Serum or Plasma (test code = 6768-6) Aspartate aminotransferase 17 IU/L 0-40 [Enzymatic activity/volume] in Serum or Plasma (test code = 1920-8) Alanine aminotransferase 21 IU/L 0-32 [Enzymatic activity/volume] in Serum or Plasma (test code = 1742-6) [facility] - Serum or [id number] 00:00:00 Test Item Value Reference Range Interpretation Comments Cholesterol [Mass/volume] in Serum 189 mg/dL 100-199 or Plasma (test code = 2092-3) Triglyceride [Mass/volume] in Serum 114 mg/dL 0-149 or Plasma (test code = 2571-8) Cholesterol in HDL [Mass/volume] in 34 mg/dL >39 L Serum or Plasma (test code = 2084-9) Cholesterol in VLDL [Mass/volume] 21 mg/dL 5-40 in Serum or Plasma by calculation (test code = 14927-8) Cholesterol in LDL [Mass/volume] in 134 mg/dL 0-99 H Serum or Plasma by calculation (test code = 85172-4) Laboratory comment [Text] in Report supervisor rework Narrative (test code = 47666-1) [facility]oll[facility]in and Lutropin panel [Units/volume] - Serum or [id number] 00:00:00 Test Item Value Reference Range Interpretation Comments Lutropin [Units/volume] in Serum 4.2 mIU/mL or Plasma (test code = 96671-9) Follitropin [Units/volume] in 5.1 mIU/mL Serum or Plasma (test code = 45302-7) [facility] (T4) free [Mass/volume] in Serum or [id number] 00:00:00 Test Item Value Reference Range Interpretation Comments Thyroxine (T4) free [Mass/volume] 0.92 NG/dL 0.82-1.77 in Serum or Plasma (test code = 3024-7) [facility]25-Hydroxyvitamin D3+25-Hydroxyvitamin D2 [Mass/volume] in Serum or [id number] 00:00:00 Test Item Value Reference Range Interpretation Comments 25-Hydroxyvitamin 34.5 NG/mL 30.0-100.0 D3+25-Hydroxyvitamin D2 [Mass/volume] in Serum or Plasma (test code = 05271-0) [facility]ropin [Units/volume] in Serum or Plasma by Detection limit <= 0.005 mIU/[id number] 00:00:00 Test Item Value Reference Range Interpretation Comments Thyrotropin [Units/volume] in 3.080 uIU/mL 0.450-4.500 Serum or Plasma by Detection limit <= 0.005 mIU/L (test code = 18896-3) [facility] HospitalChoriogonadotropin.intact+Beta subunit [Units/volume] in Serum or [id number] 00:00:00 Test Item Value Reference Range Interpretation Comments Choriogonadotropin.intact+Beta subunit <1 [Units/volume] in Serum or Plasma (test code = 22226-1) [facility] Auto Differential panel - [id number] 00:00:00 Test Item Value Reference Range Interpretation Comments Leukocytes [#/volume] in Blood 8.9 x10e3/uL 3.4-10.8 by Automated count (test code = 6690-2) Erythrocytes [#/volume] in 5.15 x10e6/uL 3.77-5.28 Blood by Automated count (test code = 789-8) Hemoglobin [Mass/volume] in 11.1 g/dL 11.1-15.9 Blood (test code = 718-7) Hematocrit [Volume Fraction] of 36.9 % 34.0-46.6 Blood by Automated count (test code = 4544-3) Erythrocyte mean corpuscular 72 fL 79-97 L volume [Entitic volume] by Automated count (test code = 787-2) Erythrocyte mean corpuscular 21.6 pg 26.6-33.0 L hemoglobin [Entitic mass] by Automated count (test code = 785-6) Erythrocyte mean corpuscular 30.1 g/dL 31.5-35.7 L hemoglobin concentration [Mass/volume] by Automated count (test code = 786-4) Erythrocyte distribution width 16.0 % 11.7-15.4 H [Ratio] by Automated count (test code = 788-0) Platelets [#/volume] in Blood 438 x10e3/uL 150-450 by Automated count (test code = 777-3) Neutrophils/100 leukocytes in 67 % not estab. Blood by Automated count (test code = 770-8) Lymphocytes/100 leukocytes in 22 % not estab. Blood by Automated count (test code = 736-9) Monocytes/100 leukocytes in 7 % not estab. Blood by Automated count (test code = 5905-5) Eosinophils/100 leukocytes in 3 % not estab. Blood by Automated count (test code = 713-8) Basophils/100 leukocytes in 1 % not estab. Blood by Automated count (test code = 706-2) immature cells (test code = supervisor rework immature cells) Neutrophils [#/volume] in Blood 6.0 x10e3/uL 1.4-7.0 by Automated count (test code = 751-8) Lymphocytes [#/volume] in Blood 2.0 x10e3/uL 0.7-3.1 by Automated count (test code = 731-0) Monocytes [#/volume] in Blood 0.6 x10e3/uL 0.1-0.9 by Automated count (test code = 742-7) Eosinophils [#/volume] in Blood 0.2 x10e3/uL 0.0-0.4 by Automated count (test code = 711-2) Basophils [#/volume] in Blood 0.1 x10e3/uL 0.0-0.2 by Automated count (test code = 704-7) Immature granulocytes/100 0 % not estab. leukocytes in Blood by Automated count (test code = 32876-1) Immature granulocytes 0.0 x10e3/uL 0.0-0.1 [#/volume] in Blood by Automated count (test code = 19427-0) Nucleated erythrocytes/100 supervisor rework leukocytes [Ratio] in Blood by Automated count (test code = 32265-9) Morphology [Interpretation] in supervisor rework Blood Narrative (test code = 06831-3) [facility]Com[facility] 2000 panel - Serum or [id number] 00:00:00 Test Item Value Reference Range Interpretation Comments Glucose [Mass/volume] in 96 mg/dL 65-99 Serum or Plasma (test code = 2345-7) Urea nitrogen [Mass/volume] 15 mg/dL 6-24 in Serum or Plasma (test code = 3094-0) Creatinine [Mass/volume] in 0.59 mg/dL 0.57-1.00 Serum or Plasma (test code = 2160-0) Glomerular filtration 113 mL/min/1.73 >59 rate/1.73 sq M.predicted among non-blacks [Volume Rate/Area] in Serum, Plasma or Blood by Creatinine-based formula (CKD-EPI) (test code = 19096-9) Glomerular filtration 131 mL/min/1.73 >59 rate/1.73 sq M.predicted among blacks [Volume Rate/Area] in Serum, Plasma or Blood by Creatinine-based formula (CKD-EPI) (test code = 36010-0) Urea nitrogen/Creatinine 25 9-23 H [Mass Ratio] in Serum or Plasma (test code = 3097-3) Sodium [Moles/volume] in 139 mmol/L 134-144 Serum or Plasma (test code = 2951-2) Potassium [Moles/volume] in 4.2 mmol/L 3.5-5.2 Serum or Plasma (test code = 2823-3) Chloride [Moles/volume] in 101 mmol/L 96-106 Serum or Plasma (test code = 2074-0) Carbon dioxide, total 20 mmol/L 20-29 [Moles/volume] in Serum or Plasma (test code = 2027-) Calcium [Mass/volume] in 9.2 mg/dL 8.7-10.2 Serum or Plasma (test code = 09111-0) Protein [Mass/volume] in 7.2 g/dL 6.0-8.5 Serum or Plasma (test code = 2885-2) Albumin [Mass/volume] in 4.0 g/dL 3.8-4.8 Serum or Plasma (test code = 175-7) Globulin [Mass/volume] in 3.2 g/dL 1.5-4.5 Serum by calculation (test code = 65814-7) Albumin/Globulin [Mass Ratio] 1.3 1.2-2.2 in Serum or Plasma (test code = 1759-0) Bilirubin.total [Mass/volume] 0.2 mg/dL 0.0-1.2 in Serum or Plasma (test code = 1974-) Alkaline phosphatase 76 IU/L 48-121 [Enzymatic activity/volume] in Serum or Plasma (test code = 6768-6) Aspartate aminotransferase 17 IU/L 0-40 [Enzymatic activity/volume] in Serum or Plasma (test code = 192-8) Alanine aminotransferase 21 IU/L 0-32 [Enzymatic activity/volume] in Serum or Plasma (test code = 1742-6) [facility] ClinicsLipid 1996 panel - Serum or [id number] 00:00:00 Test Item Value Reference Range Interpretation Comments Cholesterol [Mass/volume] in Serum 189 mg/dL 100-199 or Plasma (test code = 2092-3) Triglyceride [Mass/volume] in Serum 114 mg/dL 0-149 or Plasma (test code = 2571-8) Cholesterol in HDL [Mass/volume] in 34 mg/dL >39 L Serum or Plasma (test code = 2084-9) Cholesterol in VLDL [Mass/volume] 21 mg/dL 5-40 in Serum or Plasma by calculation (test code = 67650-3) Cholesterol in LDL [Mass/volume] in 134 mg/dL 0-99 H Serum or Plasma by calculation (test code = 39832-2) Laboratory comment [Text] in Report supervisor rework Narrative (test code = 80727-3) [facility]Follitropin and Lutropin panel [Units/volume] - Serum or [id number] 00:00:00 Test Item Value Reference Range Interpretation Comments Lutropin [Units/volume] in Serum 4.2 mIU/mL or Plasma (test code = 59596-1) Follitropin [Units/volume] in 5.1 mIU/mL Serum or Plasma (test code = 02320-2) [facility]Thyroxine (T4) free [Mass/volume] in Serum or [id number] 00:00:00 Test Item Value Reference Range Interpretation Comments Thyroxine (T4) free [Mass/volume] 0.92 NG/dL 0.82-1.77 in Serum or Plasma (test code = 3024-7) [facility]25-Hydroxyvitamin D3+25-Hydroxyvitamin D2 [Mass/volume] in Serum or [id number] 00:00:00 Test Item Value Reference Range Interpretation Comments 25-Hydroxyvitamin 34.5 NG/mL 30.0-100.0 D3+25-Hydroxyvitamin D2 [Mass/volume] in Serum or Plasma (test code = 80595-6) [facility]Thyrotropin [Units/volume] in Serum or Plasma by Detection limit <= 0.005 mIU/[id number] 00:00:00 Test Item Value Reference Range Interpretation Comments Thyrotropin [Units/volume] in 3.080 uIU/mL 0.450-4.500 Serum or Plasma by Detection limit <= 0.005 mIU/L (test code = 22281-0) [facility] HospitalChoriogonadotropin.intact+Beta subunit [Units/volume] in Serum or [id number] 00:00:00 Test Item Value Reference Range Interpretation Comments Choriogonadotropin.intact+Beta subunit <1 [Units/volume] in Serum or Plasma (test code = 92841-4) [facility] HospitalUrinalysis macro (dipstick) panel - Urine 2020-04-18 16:13:50 Test Item Value Reference Range Interpretation Comments Leukocytes (test code = Leukocytes) Trace Nitrite (test code = Nitrite) negative Urobilinogen (test code = .2 Urobilinogen) Protein (test code = Protein) Negative pH (test code = pH) 6.5 Blood (test code = Blood) Negative Specific [place] (test code = 1.025 Specific [place]) Ketone (test code = Ketone) Trace Bilirubin (test code = Bilirubin) Negative Glucose (test code = Glucose) Negative Appearance (test code = Appearance) Clear Color (test code = Color) Yellow [facility] - [id number] 15:30:32 Test Item Value Reference Range Interpretation Comments Leukocytes (test code = Leukocytes) Negative Nitrite (test code = Nitrite) negative Urobilinogen (test code = .2 Urobilinogen) Protein (test code = Protein) Trace pH (test code = pH) 5.5 Blood (test code = Blood) Negative Specific [place] (test code = 1.030 Specific [place]) Ketone (test code = Ketone) Trace Bilirubin (test code = Bilirubin) Negative Glucose (test code = Glucose) Negative Appearance (test code = Appearance) Clear Color (test code = Color) Yellow [facility]dipstick[facility] panel - [id number] 09:12:32 Test Item Value Reference Range Interpretation Comments Leukocytes (test code = Leukocytes) Negative Nitrite (test code = Nitrite) negative Urobilinogen (test code = .2 Urobilinogen) Protein (test code = Protein) Negative pH (test code = pH) 6.0 Blood (test code = Blood) Negative Specific [place] (test code = 1.020 Specific [place]) Ketone (test code = Ketone) Negative Bilirubin (test code = Bilirubin) Negative Glucose (test code = Glucose) Negative Appearance (test code = Appearance) Clear Color (test code = Color) Yellow [facility] HospitalChoriogonadotropin.beta subunit [Units/volume] in Serum or [id number] 01:03:00 Test Item Value Reference Range Interpretation Comments HCG quantitative (test code = HCG <0.1 0-5 quantitative) [facility] GroupChoriogonadotropin.beta subunit [Units/volume] in Serum or [id number] 01:03:00 Test Item Value Reference Range Interpretation Comments HCG quantitative (test code = HCG <0.1 0-5 quantitative) [facility] (dipstick) panel - [id number] 14:48:00 Test Item Value Reference Range Interpretation Comments Leukocytes (test code = Leukocytes) Negative Nitrite (test code = Nitrite) negative Urobilinogen (test code = .2 Urobilinogen) Protein (test code = Protein) 30 pH (test code = pH) 5.5 Blood (test code = Blood) Negative Specific [place] (test code = 1.030 Specific [place]) Ketone (test code = Ketone) Negative Bilirubin (test code = Bilirubin) Small Glucose (test code = Glucose) Negative Appearance (test code = Appearance) Clear Color (test code = Color) Yellow [facility]rap[facility], [id number] 02:06:00Results [facility]
--- NOTE | 2022-09-15 03:54 | EDPHYS ---
Physician Documentation [facility] Name: Torri Fine Age: 46 yrs Sex: Female : 1975 Arrival Date: 09/15/2022 Time: 02:49 Bed 5 Private MD: ED Physician David Laguerre HPI: 09/15 03:43 This 46 yrs old Female presents to ER via Ambulatory with complaints of Vaginal ms3 Discharge, Vaginal Itching, Vaginal Pain. 03:43 46-year-old female with past medical history of asthma presents for yeast infection ms3 that has been ongoing for 2 weeks and progressively getting worse. Patient states she has been on nystatin, fluconazole, triamcinolone cream prescribed by her american history teacher. Patient denies relief from those treatments. Patient states her discomfort is a 6/10 and burning. Patient denies alleviating or inciting factors. Historical: - Allergies: 03:32 Ceclor; pf1 03:32 Codeine; pf1 03:32 Sulfa (Sulfonamide Antibiotics); pf1 - PMHx: 03:32 Asthma; Endometrosis; Kidney stones; Migraines; pf1 - PSHx: 03:32 Appendectomy; Cholecystectomy; section; pf1 - Immunization history:: Adult Immunizations not up to date, Client reports having NOT received the Covid vaccine. Last tetanus immunization: < 5 years ago Flu vaccine is not up to date. - Social history:: Smoking status: Patient denies any tobacco usage or history of. Patient uses alcohol, but reports only rare drinking. Patient/guardian denies using street drugs. ROS: 03:43 Positive for vaginal discharge, vaginal itching. ms3 03:43 Constitutional: Negative for fever, and chills. ENT: Negative for injury, pain, and discharge, Neck: Negative for injury, pain, and swelling, Cardiovascular: Negative for chest pain, and palpitations. Respiratory: Negative for shortness of breath, cough, wheezing, and pleuritic chest pain, Abdomen/GI: Negative for abdominal pain, nausea, vomiting, diarrhea, and constipation, MS/Extremity: Negative for injury and deformity, Skin: Negative for injury, rash, and discoloration. Exam: 03:43 Constitutional: This is a well developed, well nourished patient who is awake, alert, ms3 and in no acute distress. Head/Face: Normocephalic, atraumatic. Neck: Trachea midline, no cervical lymphadenopathy. Supple, full range of motion without nuchal rigidity, or vertebral point tenderness. No Meningismus. Chest/axilla: Normal chest wall appearance and motion. Nontender with no deformity. Cardiovascular: Regular rate and rhythm with a normal S1 and S2. No gallops, murmurs, or rubs. Normal PMI, no JVD. No pulse deficits. Respiratory: Lungs have equal breath sounds bilaterally, clear to auscultation and percussion. No rales, rhonchi or wheezes noted. No increased work of breathing, no retractions or nasal flaring. Abdomen/GI: Soft, non-tender, with normal bowel sounds. No distension or tympany. No guarding or rebound. No evidence of tenderness throughout. MS/ Extremity: Pulses equal, no cyanosis. Neurovascular intact. Full, normal range of motion. 04:02 : Pelvic Exam: External exam: erythema is noted, excoriation noted, reveals ms3 ulcerations on external genitalia, the nurse was present for the exam. Vital Signs: 03:27 BP 131 / 76; Pulse 80; Resp 16; Temp 98.1; Pulse Ox 100% on R/A; Weight 136.08 kg; pf1 Height 5 ft. 8 in. ; Pain 6/10; 03:27 Body Mass Index 45.61 (136.08 kg, 172.72 cm) pf1 03:27 Pain Scale: Adult pf1 MDM: 03:02 Patient medically screened. ms3 04:02 Differential diagnosis: vaginosis. Data reviewed: vital signs, nurses notes, and as a ms3 result, I will discharge patient. Counseling: I had a detailed discussion with the patient and/or guardian regarding: the historical points, exam findings, and any diagnostic results supporting the discharge/admit diagnosis, the need for outpatient follow up, to return to the emergency department if symptoms worsen or persist or if there are any questions or concerns that arise at home. Special discussion: I discussed with the patient/guardian in detail that at this point there is no indication for admission to the hospital. It is understood, however, that if the symptoms persist or worsen the patient needs to return immediately for re-evaluation. ED course: Patient has completed nystatin, 5 days of fluconazole without improvement. Instructed patient to discontinue triamcinolone. Patient can continue topical nystatin along with Ofeseconazole. Patient to follow-up with her american history teacher and 2 to 3 days. Patient understands agrees with plan. All questions were answered. Return precautions discussed include worsening symptoms, or any other concerns. Administered Medications: No medications were administered Disposition Summary: 09/15/22 03:54 Discharge Ordered Location: Home ms3 Condition: Stable ms3 Diagnosis - Candidiasis of vulva and vagina ms3 Followup: ms3 - With: Private Physician - When: 2 - 3 days - Reason: Recheck today's complaints Discharge Instructions: - Discharge Summary Sheet ms3 - Vaginal Yeast Infection, Adult ms3 Forms: - Medication Reconciliation Form ms3 - Thank You Letter ms3 - Antibiotic Education ms3 - Prescription Opioid Use ms3 Prescriptions: - oteseconazole 150 mg Oral capsule - take 4 capsule by ORAL route once Take 4 capsules on Day #1. Take 3 Capsules ms3 on Day #2. Take 1 Capsule on Day #14.; 8 capsule; Refills: 0, Product Selection Permitted Signatures: David Laguerre DO DO ms3 Deanne Knapp, RN RN pf1
--- NOTE | 2022-09-15 03:54 | ER ---
Nurse's Notes [facility] Name: Torri Fine Age: 46 yrs Sex: Female : 1975 Arrival Date: 09/15/2022 Time: 02:49 Bed 5 Private MD: Diagnosis: Candidiasis of vulva and vagina Presentation: 09/15 03:07 Chief complaint: Patient states: vaginal itching with burning sensation to vagina pf1 region and yeast infection,onset intermittent for 1 month. Patient stated completed 5 days of Diflucan on Friday and is currently using nystatin cream and triamcinolone cream. 03:27 Coronavirus screen: Vaccine status: Patient reports being unvaccinated. Client denies 1 travel out of the [place] in the last 14 days. At this time, the client does not indicate any symptoms associated with coronavirus-19. Ebola Screen: Patient negative for fever greater than or equal to 101.5 degrees Fahrenheit, and additional compatible Ebola Virus Disease symptoms. Initial Sepsis Screen: Does the patient meet any 2 criteria? No. Patient's initial sepsis screen is negative. Does the patient have a suspected source of infection? No. Patient's initial sepsis screen is negative. Risk Assessment: Do you want to hurt yourself or someone else? Patient reports no desire to harm self or others. 03:27 Method Of Arrival: Ambulatory pf1 03:27 Acuity: OLIVER 4 pf1 Historical: - Allergies: 03:32 Ceclor; pf1 03:32 Codeine; pf1 03:32 Sulfa (Sulfonamide Antibiotics); pf1 - PMHx: 03:32 Asthma; Endometrosis; Kidney stones; Migraines; pf1 - PSHx: 03:32 Appendectomy; Cholecystectomy; section; pf1 - Immunization history:: Adult Immunizations not up to date, Client reports having NOT received the Covid vaccine. Last tetanus immunization: < 5 years ago Flu vaccine is not up to date. - Social history:: Smoking status: Patient denies any tobacco usage or history of. Patient uses alcohol, but reports only rare drinking. Patient/guardian denies using street drugs. Screenin:33 [facility] ED Fall Risk Assessment (Adult) History of falling in the last 3 months, pf1 including since admission No falls in past 3 months (0 pts) Confusion or Disorientation No (0 pts) Intoxicated or Sedated No (0 pts) Impaired Gait No (0 pts) Mobility Assist Device Used No (0 pt) Altered Elimination No (0 pt) Score/Fall Risk Level 0 - 2 = Low Risk Oriented to surroundings, Maintained a safe environment, Educated pt \T\ family on fall prevention, incl call for assistance when getting out of bed, Assessed \T\ reinforced patient's understanding of fall precautions, Provided non-skid footwear, Hourly rounding (assess needs \T\ fall precautionary measures) done, Used ambulatory aids as needed (educated on \T\ assisted with), Used gait belt as appropriate. Abuse screen: Denies threats or abuse. Nutritional screening: No deficits noted. Tuberculosis screening: No symptoms or risk factors identified. Assessment: 03:30 General: Appears in no apparent distress. uncomfortable, obese, well groomed, well pf1 developed, Behavior is calm, cooperative, appropriate for age, quiet. 03:30 Pain: Complains of pain in vagina Pain currently is 6 out of 10 on a pain scale. Neuro: pf1 Level of Consciousness is awake, alert, obeys commands, Oriented to person, place, time, situation. Cardiovascular: No deficits noted. Capillary refill < 3 seconds Patient's skin is warm and dry. Respiratory: No deficits noted. Airway is patent Trachea midline Respiratory effort is even, unlabored, Respiratory pattern is regular, symmetrical. GI: No deficits noted. No signs and/or symptoms were reported involving the gastrointestinal system. : No deficits noted. No signs and/or symptoms were reported regarding the genitourinary system. : Lesions noted with itching and raw ulcerations to vagina region. EENT: No deficits noted. No signs and/or symptoms were reported regarding the EENT system. Vital Signs: 03:27 BP 131 / 76; Pulse 80; Resp 16; Temp 98.1; Pulse Ox 100% on R/A; Weight 136.08 kg; pf1 Height 5 ft. 8 in. ; Pain 6/10; 03:27 Body Mass Index 45.61 (136.08 kg, 172.72 cm) pf1 03:27 Pain Scale: Adult pf1 ED Course: 02:52 Patient arrived in ED. [id number] 02:56 David Laguerre DO is Attending Physician. ms3 03:30 Arm band placed on right wrist. pf1 03:31 Triage completed. pf1 03:33 Patient has correct armband on for positive identification. Bed in low position. Call pf1 light in reach. 03:45 Assist provider with pelvic exam: Performed by David Laguerre DO. pf1 04:02 Patient did not have IV access during this emergency room visit. pf1 Administered Medications: No medications were administered Medication: 04:03 VIS not applicable for this client. pf1 Outcome: 03:54 Discharge ordered by MD. ms3 04:02 Discharged to home ambulatory. pf1 04:02 Condition: unchanged 04:02 Discharge instructions given to patient, Instructed on discharge instructions, follow up and referral plans. Demonstrated understanding of instructions, follow-up care, medications, Prescriptions given X 1. 04:03 Patient left the ED. pf1 Signatures: David Laguerre DO DO ms3 Maria VictoriaMayra [id number] Deanne Knapp RN RN pf1 Corrections: (The following items were deleted from the chart) 03:32 03:27 Chief complaint: Patient states: vaginal itching with burning sensation to vagina pf1 region and yeast infection,onset intermittent for 1 month. Patient stated completed 5 days of Diflucan on Friday and is currently using nystatin cream and triamcinolone cream. pf1
[2022-09-15 04:09] VITALS: BP 131/76; TEMP 98.1; O2SAT 100
== END 2022-09-15 04:03 | disposition home or self-care (01) ==
LOC: ER 02:49
DX: B37.31 Acute candidiasis of vulva and vagina (principal); N89.8 Other specified noninflammatory disorders of vagina; L29.8 Other pruritus; R10.2 Pelvic and perineal pain; Z88.5 Allergy status to narcotic agent; Z88.8 Allergy status to other drugs, medicaments and biological substances
CPT/HCPCS: 99283

== ENCOUNTER 2023-08-16 21:12 | Emergency (ER) | payer BC ==
--- OUTSIDE RECORDS SUMMARY | 2023-08-16 21:20 | XMS REPORT | Continuity of Care Document ---
Author Name Unknown Address [address] [facility] [address] [place] [address] [facility] Address [address] [facility] [address] [place] [address] Care Team Providers Care Back Sewer Name Role Phone PCP, PATIENT DOES NOT HAVE A Primary Care Physic anna Unavailable VIANCA DE LA ROSA Attending Clinician UnavailJOSE Thompson Attending Clinician Unavailmaria BRITTON_Sugar Attending Clinician Unavailable G_July Attending Clinician Unavailable GC_GCGRTH_Otey_L Attending Clinician Unavailable Jordan Redding Attending Clinician Unknown, Attending Attending Clinician Unavailab JORDAN Berman Attending Clinician Unavailable UNKNOWN, ATTENDING Attending Clinician Unavailab larry Samaniego VENEER SHEET REPAIRER, Yaya Attending Clinician [phone] YAYA SAMANIEGO Attending Clinician Unavailable Freda Britton Attending Clinician [phone] RHIANNON NORTON Attending Clinician Unavailable Errol WALLER, Rhiannon Attending Clinician [phone] ELVIN ANDRADE Attending Clinician Unavailable Green VENEER SHEET REPAIRER, Elvin Attending Clinician [phone] WATERS_S Attending Clinician Unavailable Ольга Okeefe Attending Clinician [phone] Yonis VENEER SHEET REPAIRER, Laurel Attending Clinician [phone] LAUREL BEAVERS Attending Clinician Unavailable Doctor Unassigned, Gilson Attending Clinician U alie Arredondo MD, Jailyn Attending Clinician [phone] TURNER_NAV Attending Clinician Unavailable SHAE PACHECO Attending Clinician Unavailable ELEONORA FIGUEREDO Attending Clinician Unavailable FERNANDO HAYES Attending Clinician Unavailable TRINI LUJAN Attending Clinician Unavailab JOSE Messina Attending Clinician UnavailNILESH Aparicio Attending Clinician Unavailable JOSE MCDOWELL Admitting Clinician Unavailmaria e JOIETIEN_F Admitting Clinician Unavailable G_Pappas Admitting Clinician Unavailable GC_GCGRTH_Otey_L Admitting Clinician Unavailable WATERS_S Admitting Clinician Unavailable TURNER_NAV Admitting Clinician Unavailable Payers Payer Name Policy Type Policy Number Effective Date Expirati on Date Source BCBS [facility] [id number] 2017 00:00:00 BCBS 2 [id number] 2023 00:00:[place] [id number] 2022 00:00:[address] [facility] HEALTH[facility] OPTIONS (MEDICARE SUPPLEMENT) [id number] [place] [id number] 2017 00:00:00 Problems Condition Name Condition Details Condition Category Status Onset Date Resolution Date Last Treatment Date Treating Clinician Comments Source Postsurgic al menopause Postsurgic al Menopause Problem Active 07-27 00:00: 00 [facility] Pelvic mass Pelvic Mass Problem Active 5-06 00:00: 00 [facility] Superficia l incisional surgical site infection Superficia l Incisional Surgical Site Infection Problem Active 4- 00:00: 00 [facility] Uterine adenomyosi s Uterine Adenomyosi s Problem Active 4 00:00: 00 [facility] Superficia l incisional surgical site infection Superficia l Incisional Surgical Site Infection Problem Active 07-17 00:00: 00 [facility] Generalize d rash Generalize d Rash Problem Active 07-17 00:00: 00 [facility] Pain in left foot Pain in Left Foot Problem Active 06-18 00:00: 00 [facility] Type 2 diabetes mellitus Type 2 Diabetes Mellitus Problem Active 3-04 00:00: 00 [facility] Iron deficiency anemia Iron Deficiency Anemia Problem Active 2022-03 2 00:00: 00 [facility] Gastroesop hageal reflux disease Gastroesop hageal Reflux Disease Problem Active 2022-03 2-11 00:00: 00 [facility] Vitiligo Vitiligo Problem Active 9-13 00:00: 00 [facility] Epidermal nevus Epidermal Nevus Problem Active 9-13 00:00: 00 [facility] Dysuria Dysuria Problem Active 8-23 00:00: 00 [facility] Genital herpes simplex Genital Herpes Simplex Problem Active 6 00:00: 00 [facility] Ulceration of vulva Ulceration of Vulva Problem Active 6 00:00: 00 [facility] Pruritus of vulva Pruritus of Vulva Problem Active 6 00:00: 00 [facility] Allergic rhinitis Allergic Rhinitis Problem Active 4-04 00:00: 00 [facility] Candidiasi s of vagina Candidiasi s of Vagina Problem Active 2-10 00:00: 00 [facility] Left flank pain Left Flank Pain Problem Active 2- 00:00: 00 [facility] Acute urinary tract infection Acute Urinary Tract Infection Problem Active 1 00:00: 00 [facility] Type 2 diabetes mellitus Type 2 Diabetes Mellitus Problem Active 2021-03 2 00:00: 00 [facility] Hyperinsul inism Hyperinsul inism Problem Active 2021-03 00:00: 00 [facility] Vitamin D deficiency Vitamin D Deficiency Problem Active 2021-03 00:00: 00 [facility] Anemia Anemia Problem Active 2021-03 00:00: 00 [facility] Insomnia Insomnia Problem Active 2021-03 00:00: 00 [facility] Multiple joint pain Multiple Joint Pain Problem Active 2021-03 00:00: 00 [facility] Recurrent urinary tract infection Recurrent Urinary Tract Infection Problem Active 2021-03 0-25 00:00: 00 [facility] Acute pharyngiti s Acute Pharyngiti s Problem Active 9-13 00:00: 00 [facility] Streptococ waqar sore throat Streptococ waqar Sore Throat Problem Active 8-03 00:00: 00 [facility] Cough Cough Problem Active 8-03 00:00: 00 [facility] COVID-19 Covid-19 Problem Active 8-03 00:00: 00 [facility] Acute right otitis media Acute Right Otitis Media Problem Active 8-03 00:00: 00 [facility] Acute sinusitis Acute Sinusitis Problem Active 6-20 00:00: 00 [facility] History of delivery of macrosomal infant History of Delivery of Macrosomal Infant Problem Active 21 00:00: 00 [facility] History of pre-eclamp sherron History of Pre-eclamp sherron Problem Active 21 00:00: 00 [facility] Secondary dysmenorrh ea Secondary Dysmenorrh ea Problem Active 824 00:00: 00 [facility] Menorrhagi a Menorrhagi a Problem Active 824 00:00: 00 [facility] Depressive disorder Depressive Disorder Problem Active 2019-03 1- 00:00: 00 [facility] Seasonal allergy Seasonal Allergy Problem Active 17 00:00: 00 [facility] Low back pain Low Back Pain Problem Active 06-07 00:00: 00 [facility] Acute asthma Acute Asthma Problem Active 2018-03 1-14 00:00: 00 [facility] Migraine Migraine Problem Active 2018-03 0 00:00: 00 [facility] Asthma Asthma Problem Active 2018-03 0 00:00: 00 [facility] Body mass index 40+ - severely obese Body Mass Index 40+ - Severely Obese Problem Active 2018-03 0 00:00: 00 [facility] Family history of malignant neoplasm of breast in first degree relative Family History of Malignant Neoplasm of Breast in First Degree Relative Problem Active 2018-03 0-22 00:00: 00 [facility] Seasonal allergic rhinitis Seasonal Allergic Rhinitis Problem Active 9-12 00:00: 00 [facility] Gastroesop hageal reflux disease Gastroesop hageal Reflux Disease Problem Active 6-04 00:00: 00 [facility] Interverte bral disc prolapse Interverte bral Disc Prolapse Problem Active 18 00:00: 00 [facility] Low back pain Low Back Pain Problem Active 118 00:00: 00 [facility] Lumbar radiculopa thy Lumbar Radiculopa thy Problem Active 2019-0 1-18 00:00: 00 [facility] History of endometrio sis History of Endometrio sis Problem Active 9-17 00:00: 00 [facility] Left flank pain Left Flank Pain Problem Active 6-15 00:00: 00 [facility] Asthma Asthma Problem Active 8 00:00: 00 [facility] Chronic low back pain Chronic Low Back Pain Problem Active 10-17 00:00: 00 [facility] No known active problems No known active problems Disease [facility] Hyperchole sterolemia Hyperchole sterolemia Problem Active [facility] Obesity Obesity Problem Active [facility] 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 [facility] Cefaclor Propensi ty to adverse reaction s Active Nausea and/or Vomiting 2018-03 00:00: 00 [facility] Codeine Propensi ty to adverse reaction s Active Hives 2018-03 00:00: 00 [facility] Sulfa (Sulfona mide Antibiot ics) Propensi ty to adverse reaction s Active Unknown - See comments 2018-03 00:00: 00 Eye drop. [facility] CEFACLOR DRUG INGREDI Active N/V 2018-03 00:00: 00 [facility] CODEINE DRUG INGREDI Active Hives 2018-03 00:00: 00 [facility] SULFA (SULFONA MIDE ANTIBIOT ICS) Drug Class Active Unknown-Cmnt 2018-03 00:00: 00 [facility] CECLOR Allergy to substanc e Active [facility] Codeine Allergy to substanc e Active [facility] SULFA (SULFONA MIDE ANTIBIOT ICS) Allergy to substanc e Active [facility] Ambien Allergy to substanc e Active Other [facility] Social History Social Habit Start Date Stop Date Quantity Comments Source ASSERTION [facility] History SDOH Alcohol Std Drinks [facility] History SDOH Alcohol Binge [facility] History SDOH Alcohol Comment [facility] Exposure to SARS-CoV-2 (event) 2022-05-31 00:00:00 2022-06-10 20:19:00 Not sure [facility] Tobacco use and exposure 2022-06-10 00:00:00 2022-06-10 00:00:00 Smokeless tobacco non-user [facility] Alcohol intake 2022-06-10 00:00:00 2022-06-10 00:00:00 Ex-drinker (finding) [facility] History SDOH Alcohol Frequency 2019-01-15 00:00:00 2019-01-15 00:00:00 2 [facility] Sex Assigned At 1975 00:00:00 1975 00:00:00 [facility] Smoking Status Start Date Stop Date Source Never smoked tobacco [facility] Medications Ordered Medication Name Filled Medication Name Start Date Stop Date Current Medication? Ordering Clinician Indication Dosage Frequency Signature (SIG) Comments Components Source erythromyci n 5 mg/gram (0.5 %) ophthalmic ointment 06-10 00:00: 00 06-18 04:59 :00 No [id number] .5[in_u s] Place 0.5 Inches in left eye 4 (four) times daily for 7 days. [facility] methylPREDN ISolone (MEDROL, JIM,) 4 mg tablets 10-22 00:00: 00 Yes [id number] Take by mouth SEE-INSTRU CTIONS. follow package directions [facility] methylPREDN ISolone (MEDROL, JIM,) 4 mg tablets 09-09 00:00: 00 Yes [id number] Take by mouth SEE-INSTRU CTIONS. follow package directions [facility] citalopram 20 mg tablet 2- 11:08: 29 04-29 00:00 :00 No citalopram 20 mg tablet TK 1 T PO QD [facility] azithromyci n (ZITHROMAX) 250 mg tablet - 00:00: 00 Yes [id number] 250mg Take 1 tablet by mouth daily. [facility] methylPREDN ISolone (MEDROL, JIM,) 4 mg tablets 04-29 00:00: 00 10-22 00:00 :00 No [id number] Take by mouth SEE-INSTRU CTIONS. follow package directions [facility] maalox:diph enhydrAMINE :lidocaine 2 % viscous 1:1:1 2020-03 00:00: 00 Yes [id number] Gargle & spit 5 mL before meals. [facility] maalox:diph enhydrAMINE :lidocaine 2 % viscous 1:1:1 2020-03 00:00: 00 Yes [id number] Gargle & spit 5 mL before meals. [facility] citalopram 20 mg tablet 08-27 09:13: 05 Yes citalopram 20 mg tablet TK 1 T PO QD [facility] naproxen 500 mg tablet 3-24 00:00: 00 04-29 00:00 :00 No [id number] 500mg Take 1 tablet by mouth 2 (two) times daily with meals. [facility] proMETHazin e 25 mg tablet 1-03 00:00: 00 04-29 00:00 :00 No [id number] 25mg Take 1 tablet by mouth every 4 (four) hours as needed for Nausea and Vomiting (N/V). [facility] clindamycin HCl 300 mg capsule Take 1 capsule every 6 hours by oral route for 10 days. clindamycin HCl 300 mg capsule Take 1 capsule every 6 hours by oral route for 10 days. No 1capsul e(s) Q6H clindamyci n HCl 300 mg capsule Take 1 capsule every 6 hours by oral route for 10 days. [facility] estradiol 1 mg tablet TAKE 1 TABLET BY MOUTH EVERY DAY estradiol 1 mg tablet TAKE 1 TABLET BY MOUTH EVERY DAY No estradiol 1 mg tablet TAKE 1 TABLET BY MOUTH EVERY DAY [facility] ibuprofen 800 mg tablet TAKE 1 TABLET BY MOUTH EVERY 6 HOURS NEEDED FOR PAIN ibuprofen 800 mg tablet TAKE 1 TABLET BY MOUTH EVERY 6 HOURS NEEDED FOR PAIN No ibuprofen 800 mg tablet TAKE 1 TABLET BY MOUTH EVERY 6 HOURS NEEDED FOR PAIN [facility] tramadol 50 mg tablet TAKE 1 TABLET BY MOUTH EVERY 6 HOURS NEEDED tramadol 50 mg tablet TAKE 1 TABLET BY MOUTH EVERY 6 HOURS NEEDED No 1 Q6H tramadol 50 mg tablet TAKE 1 TABLET BY MOUTH EVERY 6 HOURS NEEDED [facility] triamcinolo ne acetonide 0.1 % topical cream APPLY THIN LAYER TOPICALLY TO THE AFFECTED AREA TWICE DAILY triamcinolo ne acetonide 0.1 % topical cream APPLY THIN LAYER TOPICALLY TO THE AFFECTED AREA TWICE DAILY No triamcinol one acetonide 0.1 % topical cream APPLY THIN LAYER TOPICALLY TO THE AFFECTED AREA TWICE DAILY [facility] amoxicillin 875 mg-potassiu m clavulanate 125 mg tablet TAKE 1 TABLET BY MOUTH EVERY 12 HOURS FOR 5 DAYS amoxicillin 875 mg-potassiu m clavulanate 125 mg tablet TAKE 1 TABLET BY MOUTH EVERY 12 HOURS FOR 5 DAYS No amoxicilli n 875 mg-potassi um clavulanat e 125 mg tablet TAKE 1 TABLET BY MOUTH EVERY 12 HOURS FOR 5 DAYS [facility] fluconazole 200 mg tablet TAKE 1 TABLET BY MOUTH DAILY FOR INFECTION fluconazole 200 mg tablet TAKE 1 TABLET BY MOUTH DAILY FOR INFECTION No fluconazol e 200 mg tablet TAKE 1 TABLET BY MOUTH DAILY FOR INFECTION [facility] Mounjaro 7.5 mg/0.5 mL subcutaneou s pen injector ADMINISTER 7.5 MG UNDER THE SKIN EVERY WEEK Mounjaro 7.5 mg/0.5 mL subcutaneou s pen injector ADMINISTER 7.5 MG UNDER THE SKIN EVERY WEEK No 7.5mg Q1W Mounjaro 7.5 mg/0.5 mL subcutaneo us pen injector ADMINISTER 7.5 MG UNDER THE SKIN EVERY WEEK [facility] OneTouch Delica Plus Lancet 33 gauge CHECK BLOOD SUGAR EVERY MORNING OneTouch Delica Plus Lancet 33 gauge CHECK BLOOD SUGAR EVERY MORNING No OneTouch Delica Plus Lancet 33 gauge CHECK BLOOD SUGAR EVERY MORNING [facility] OneTouch Ultra Test strips CHECK BLOOD SUGARS EVERY MORNING OneTouch Ultra Test strips CHECK BLOOD SUGARS EVERY MORNING No OneTouch Ultra Test strips CHECK BLOOD SUGARS EVERY MORNING [facility] OneTouch Ultra2 Meter USE DIRECTED TO TEST BLOOD SUGAR OneTouch Ultra2 Meter USE DIRECTED TO TEST BLOOD SUGAR No OneTouch Ultra2 Meter USE DIRECTED TO TEST BLOOD SUGAR [facility] Zyrtec 10 mg tablet Take 1 tablet every day by oral route. Zyrtec 10 mg tablet Take 1 tablet every day by oral route. No 1 Q1D Zyrtec 10 mg tablet Take 1 tablet every day by oral route. [facility] estradiol 1 mg tablet TAKE 1 TABLET BY MOUTH EVERY DAY estradiol 1 mg tablet TAKE 1 TABLET BY MOUTH EVERY DAY No 1 Q1D estradiol 1 mg tablet TAKE 1 TABLET BY MOUTH EVERY DAY [facility] hydrocodone 7.5 mg-acetamin ophen 325 mg tablet TAKE 1 TABLET BY MOUTH EVERY 6 HOURS NEEDED FOR PAIN hydrocodone 7.5 mg-acetamin ophen 325 mg tablet TAKE 1 TABLET BY MOUTH EVERY 6 HOURS NEEDED FOR PAIN No 1 Q6H hydrocodon e 7.5 mg-acetami nophen 325 mg tablet TAKE 1 TABLET BY MOUTH EVERY 6 HOURS NEEDED FOR PAIN [facility] ibuprofen 800 mg tablet TAKE 1 TABLET BY MOUTH EVERY 6 HOURS NEEDED FOR PAIN ibuprofen 800 mg tablet TAKE 1 TABLET BY MOUTH EVERY 6 HOURS NEEDED FOR PAIN No 1 Q6H ibuprofen 800 mg tablet TAKE 1 TABLET BY MOUTH EVERY 6 HOURS NEEDED FOR PAIN [facility] lidocaine HCl 3 % topical cream APPLY 1 APPLICATION TOPICALLY TO THE AFFECTED AREA THREE TIMES DAILY NEEDED lidocaine HCl 3 % topical cream APPLY 1 APPLICATION TOPICALLY TO THE AFFECTED AREA THREE TIMES DAILY NEEDED No lidocaine HCl 3 % topical cream APPLY 1 APPLICATIO N TOPICALLY TO THE AFFECTED AREA THREE TIMES DAILY NEEDED [facility] Mounjaro 7.5 mg/0.5 mL subcutaneou s pen injector ADMINISTER 7.5 MG UNDER THE SKIN EVERY WEEK Mounjaro 7.5 mg/0.5 mL subcutaneou s pen injector ADMINISTER 7.5 MG UNDER THE SKIN EVERY WEEK No Mounjaro 7.5 mg/0.5 mL subcutaneo us pen injector ADMINISTER 7.5 MG UNDER THE SKIN EVERY WEEK [facility] OneTouch Delica Plus Lancet 33 gauge CHECK BLOOD SUGAR EVERY MORNING OneTouch Delica Plus Lancet 33 gauge CHECK BLOOD SUGAR EVERY MORNING No OneTouch Delica Plus Lancet 33 gauge CHECK BLOOD SUGAR EVERY MORNING [facility] OneTouch Ultra Test strips CHECK BLOOD SUGARS EVERY MORNING OneTouch Ultra Test strips CHECK BLOOD SUGARS EVERY MORNING No OneTouch Ultra Test strips CHECK BLOOD SUGARS EVERY MORNING [facility] OneTouch Ultra2 Meter USE DIRECTED TO TEST BLOOD SUGAR OneTouch Ultra2 Meter USE DIRECTED TO TEST BLOOD SUGAR No OneTouch Ultra2 Meter USE DIRECTED TO TEST BLOOD SUGAR [facility] pantoprazol e 40 mg tablet,reddy yed release TAKE 1 TABLET BY MOUTH EVERY DAY pantoprazol e 40 mg tablet,reddy yed release TAKE 1 TABLET BY MOUTH EVERY DAY No pantoprazo le 40 mg tablet,del ayed release TAKE 1 TABLET BY MOUTH EVERY DAY [facility] Women's Multivitami n Women's Multivitami n No Women's Multivitam in [facility] clindamycin HCl 300 mg capsule clindamycin HCl 300 mg capsule No clindamyci n HCl 300 mg capsule [facility] fluconazole 200 mg tablet fluconazole 200 mg tablet No fluconazol e 200 mg tablet [facility] tramadol 50 mg tablet TAKE 1 TABLET BY MOUTH EVERY 6 HOURS NEEDED tramadol 50 mg tablet TAKE 1 TABLET BY MOUTH EVERY 6 HOURS NEEDED No tramadol 50 mg tablet TAKE 1 TABLET BY MOUTH EVERY 6 HOURS NEEDED [facility] triamcinolo ne acetonide 0.1 % topical cream APPLY THIN LAYER TOPICALLY TO THE AFFECTED AREA TWICE DAILY triamcinolo ne acetonide 0.1 % topical cream APPLY THIN LAYER TOPICALLY TO THE AFFECTED AREA TWICE DAILY No triamcinol one acetonide 0.1 % topical cream APPLY THIN LAYER TOPICALLY TO THE AFFECTED AREA TWICE DAILY [facility] doxycycline monohydrate 100 mg tablet TAKE 1 TABLET BY MOUTH TWICE DAILY FOR 7 DAYS doxycycline monohydrate 100 mg tablet TAKE 1 TABLET BY MOUTH TWICE DAILY FOR 7 DAYS No 1 BID doxycyclin e monohydrat e 100 mg tablet TAKE 1 TABLET BY MOUTH TWICE DAILY FOR 7 DAYS [facility] estradiol 2 mg tablet Take 1 tablet every day by oral route. estradiol 2 mg tablet Take 1 tablet every day by oral route. No 1 Q1D estradiol 2 mg tablet Take 1 tablet every day by oral route. [facility] fluconazole 100 mg tablet TAKE 1 TABLET BY MOUTH EVERY DAY FOR 3 DAYS fluconazole 100 mg tablet TAKE 1 TABLET BY MOUTH EVERY DAY FOR 3 DAYS No fluconazol e 100 mg tablet TAKE 1 TABLET BY MOUTH EVERY DAY FOR 3 DAYS [facility] metronidazo le 500 mg tablet TAKE 1 TABLET BY MOUTH TWICE DAILY FOR 7 DAYS metronidazo le 500 mg tablet TAKE 1 TABLET BY MOUTH TWICE DAILY FOR 7 DAYS No metronidaz ole 500 mg tablet TAKE 1 TABLET BY MOUTH TWICE DAILY FOR 7 DAYS [facility] Immunizations Ordered Immunization Name Filled Immunization Name Date Status Comments Source influenza, recombinant, quadrIvalent,injectab le, preservative free influenza, recombinant, quadrIvalent,injecta ble, preservative free Unknown Completed [facility] influenza, intradermal, quadrivalent, preservative free influenza, intradermal, quadrivalent, preservative free Unknown Completed [facility] Influenza, injectable, MDCK, quadrivalent Influenza, injectable, MDCK, quadrivalent Unknown Completed [facility] Tdap Tdap Unknown Completed [facility] Vital Signs Vital Name Observation Time Observation Value Comments S ource BP Diastolic 2023-08-04 00:00:00 79 mm[Hg] [facility] BP Systolic 2023-08-04 00:00:00 118 mm[Hg] [facility] Height 2023-08-04 00:00:00 68 [in_i] [facility] BMI (Body Mass Index) 2023-08-04 00:00:00 41.6 kg/m2 [facility] Body Weight 2023-08-04 00:00:00 273.5 [lb_av] [facility] BP Diastolic 2023-07-29 00:00:00 83 mm[Hg] [facility] BMI (Body Mass Index) 2023-07-29 00:00:00 42.3 kg/m2 [facility] BP Systolic 2023-07-29 00:00:00 115 mm[Hg] [facility] Body Weight 2023-07-29 00:00:00 4448 [oz_av] [facility] Height 2023-07-29 00:00:00 68 [in_i] [facility] BMI (Body Mass Index) 2023-07-28 00:00:00 42.1 kg/m2 [facility] Height 2023-07-28 00:00:00 68 [in_i] [facility] BP Diastolic 2023-07-28 00:00:00 85 mm[Hg] [facility] BP Systolic 2023-07-28 00:00:00 129 mm[Hg] [facility] Body Weight 2023-07-28 00:00:00 277 [lb_av] [facility] Height 2023-07-24 00:00:00 68 [in_i] [facility] BP Systolic 2023-07-24 00:00:00 112 mm[Hg] [facility] BP Diastolic 2023-07-24 00:00:00 74 mm[Hg] [facility] Body Weight 2023-07-24 00:00:00 277 [lb_av] [facility] BMI (Body Mass Index) 2023-07-24 00:00:00 42.1 kg/m2 [facility] BMI (Body Mass Index) 2023-07-21 00:00:00 42.8 kg/m2 [facility] Body Weight 2023-07-21 00:00:00 281.8 [lb_av] [facility] [facility] Diastolic 2023-07-21 00:00:00 77 mm[Hg] [facility] BP Systolic 2023-07-21 00:00:00 113 mm[Hg] [facility] Height 2023-07-21 00:00:00 68 [in_i] [facility] Body Weight 2023-07-18 00:00:00 4512 [oz_av] [facility] BMI (Body Mass Index) 2023-07-18 00:00:00 42.9 kg/m2 [facility] BP Diastolic 2023-07-18 00:00:00 76 mm[Hg] [facility] BP Systolic 2023-07-18 00:00:00 118 mm[Hg] [facility] Height 2023-07-18 00:00:00 68 [in_i] [facility] Height 2023-07-07 00:00:00 68 [in_i] [facility] Body Weight 2023-07-07 00:00:00 282.2 [lb_av] [facility] BP Systolic 2023-07-07 00:00:00 120 mm[Hg] [facility] BMI (Body Mass Index) 2023-07-07 00:00:00 42.9 kg/m2 [facility] BP Diastolic 2023-07-07 00:00:00 73 mm[Hg] [facility] BP Diastolic 2023-06-19 00:00:00 70 mm[Hg] [facility] Height 2023-06-19 00:00:00 68 [in_i] [facility] BMI (Body Mass Index) 2023-06-19 00:00:00 43.6 kg/m2 [facility] BP Systolic 2023-06-19 00:00:00 123 mm[Hg] [facility] Body Weight 2023-06-19 00:00:00 4592 [oz_av] [facility] Height 2023-05-26 00:00:00 68 [in_i] [facility] BP Systolic 2023-05-26 00:00:00 130 mm[Hg] [facility] BMI (Body Mass Index) 2023-05-26 00:00:00 43.7 kg/m2 [facility] Body Weight 2023-05-26 00:00:00 287.1 [lb_av] [facility] BP Diastolic 2023-05-26 00:00:00 86 mm[Hg] [facility] BP Diastolic 2023-05-16 00:00:00 81 mm[Hg] [facility] BP Systolic 2023-05-16 00:00:00 105 mm[Hg] [facility] Height 2023-05-16 00:00:00 68 [in_i] [facility] Body Weight 2023-05-16 00:00:00 4640 [oz_av] [facility] BMI (Body Mass Index) 2023-03-20 00:00:00 45.6 kg/m2 [facility] BP Diastolic 2023-03-20 00:00:00 71 mm[Hg] [facility] BP Systolic 2023-03-20 00:00:00 106 mm[Hg] [facility] Height 2023-03-20 00:00:00 68 [in_i] [facility] Body Weight 2023-03-20 00:00:00 4793.6 [oz_av] [facility] BP Diastolic 2023-03-03 00:00:00 79 mm[Hg] [facility] BMI (Body Mass Index) 2023-03-03 00:00:00 46 kg/m2 [facility] Height 2023-03-03 00:00:00 68 [in_i] [facility] Body Weight 2023-03-03 00:00:00 4841.6 [oz_av] [facility] BP Systolic 2023-03-03 00:00:00 125 mm[Hg] [facility] BP Systolic 2023-02-04 00:00:00 161 mm[Hg] [facility] BP Diastolic 2023-02-04 00:00:00 75 mm[Hg] [facility] Height 2023-02-04 00:00:00 68 [in_i] [facility] BMI (Body Mass Index) 2023-02-04 00:00:00 46.7 kg/m2 [facility] Body Weight 2023-02-04 00:00:00 4918 [oz_av] [facility] Height 2023-01-13 00:00:00 68 [in_i] [facility] BMI (Body Mass Index) 2023-01-13 00:00:00 48 kg/m2 [facility] Body Weight 2023-01-13 00:00:00 5052.8 [oz_av] [facility] BP Diastolic 2023-01-13 00:00:00 82 mm[Hg] [facility] BP Systolic 2023-01-13 00:00:00 139 mm[Hg] [facility] BP Diastolic 2022-12-10 00:00:00 87 mm[Hg] [facility] Height 2022-12-10 00:00:00 68 [in_i] [facility] BMI (Body Mass Index) 2022-12-10 00:00:00 48.5 kg/m2 [facility] BP Systolic 2022-12-10 00:00:00 136 mm[Hg] [facility] Body Weight 2022-12-10 00:00:00 5100.8 [oz_av] [facility] Body Weight 2022-12-04 00:00:00 5132.8 [oz_av] [facility] BP Diastolic 2022-12-04 00:00:00 80 mm[Hg] [facility] BMI (Body Mass Index) 2022-12-04 00:00:00 48.8 kg/m2 [facility] Height 2022-12-04 00:00:00 68 [in_i] [facility] BP Systolic 2022-12-04 00:00:00 139 mm[Hg] [facility] Height 2022-11-13 00:00:00 68 [in_i] [facility] BP Systolic 2022-11-13 00:00:00 127 mm[Hg] [facility] BMI (Body Mass Index) 2022-11-13 00:00:00 48.5 kg/m2 [facility] Body Weight 2022-11-13 00:00:00 5107.2 [oz_av] [facility] BP Diastolic 2022-11-13 00:00:00 56 mm[Hg] [facility] BP Diastolic 2022-10-03 00:00:00 78 mm[Hg] [facility] Height 2022-10-03 00:00:00 68 [in_i] [facility] BMI (Body Mass Index) 2022-10-03 00:00:00 47.7 kg/m2 [facility] BP Systolic 2022-10-03 00:00:00 147 mm[Hg] [facility] Body Weight 2022-10-03 00:00:00 5014.4 [oz_av] [facility] BP Diastolic 2022-09-17 00:00:00 87 mm[Hg] [facility] Height 2022-09-17 00:00:00 68 [in_i] [facility] BMI (Body Mass Index) 2022-09-17 00:00:00 47.5 kg/m2 [facility] BP Systolic 2022-09-17 00:00:00 141 mm[Hg] [facility] Body Weight 2022-09-17 00:00:00 312.6 [lb_av] [facility] BP Diastolic 2022-09-02 00:00:00 82 mm[Hg] [facility] Height 2022-09-02 00:00:00 68 [in_i] [facility] BMI (Body Mass Index) 2022-09-02 00:00:00 47.9 kg/m2 [facility] BP Systolic 2022-09-02 00:00:00 125 mm[Hg] [facility] Body Weight 2022-09-02 00:00:00 315 [lb_av] [facility] BP Diastolic 2022-07-23 00:00:00 76 mm[Hg] [facility] Height 2022-07-23 00:00:00 68 [in_i] [facility] BMI (Body Mass Index) 2022-07-23 00:00:00 48.4 kg/m2 [facility] BP Systolic 2022-07-23 00:00:00 140 mm[Hg] [facility] Body Weight 2022-07-23 00:00:00 5088 [oz_av] [facility] BP Diastolic 2022-06-25 00:00:00 88 mm[Hg] [facility] Height 2022-06-25 00:00:00 68 [in_i] [facility] BMI (Body Mass Index) 2022-06-25 00:00:00 47.9 kg/m2 [facility] BP Systolic 2022-06-25 00:00:00 144 mm[Hg] [facility] Body Weight 2022-06-25 00:00:00 5036.8 [oz_av] [facility] Systolic blood pressure 2022-06-11 01:28:00 122 mm[Hg] [facility] Diastolic blood pressure 2022-06-11 01:28:00 79 mm[Hg] [facility] Heart rate 2022-06-11 01:28:00 76 /min [facility] Body temperature 2022-06-11 01:28:00 36.61 Ema [facility] Respiratory rate 2022-06-11 01:28:00 18 /min [facility] Body height 2022-06-11 01:28:00 172.7 cm [facility] Body weight 2022-06-11 01:28:00 136.079 kg [facility] BMI 2022-06-11 01:28:00 45.61 kg/m2 [facility] Oxygen saturation in Arterial blood by Pulse oximetry 2022-06-11 01:28:00 99 /min [facility] BP Diastolic 2022-05-30 00:00:00 59 mm[Hg] [facility] Height 2022-05-30 00:00:00 68 [in_i] [facility] BMI (Body Mass Index) 2022-05-30 00:00:00 47.6 kg/m2 [facility] BP Systolic 2022-05-30 00:00:00 122 mm[Hg] [facility] Body Weight 2022-05-30 00:00:00 5004.8 [oz_av] [facility] BP Diastolic 2022-04-26 00:00:00 80 mm[Hg] [facility] Height 2022-04-26 00:00:00 68 [in_i] [facility] BP Systolic 2022-04-26 00:00:00 143 mm[Hg] [facility] BP Diastolic 2022-04-25 00:00:00 69 mm[Hg] [facility] Height 2022-04-25 00:00:00 68 [in_i] [facility] BP Systolic 2022-04-25 00:00:00 113 mm[Hg] [facility] BP Diastolic 2022-04-22 00:00:00 77 mm[Hg] [facility] Height 2022-04-22 00:00:00 68 [in_i] [facility] BMI (Body Mass Index) 2022-04-22 00:00:00 47.5 kg/m2 [facility] BP Systolic 2022-04-22 00:00:00 112 mm[Hg] [facility] Body Weight 2022-04-22 00:00:00 5001.6 [oz_av] [facility] Systolic blood pressure 2022-03-19 20:16:00 123 mm[Hg] [facility] Diastolic blood pressure 2022-03-19 20:16:00 82 mm[Hg] [facility] Heart rate 2022-03-19 20:16:00 81 /min [facility] Body temperature 2022-03-19 20:16:00 37 Ema [facility] Respiratory rate 2022-03-19 20:16:00 20 /min [facility] Body height 2022-03-19 20:16:00 172.7 cm [facility] Body weight 2022-03-19 20:16:00 141.159 kg [facility] BMI 2022-03-19 20:16:00 47.32 kg/m2 [facility] Oxygen saturation in Arterial blood by Pulse oximetry 2022-03-19 20:16:00 97 /min [facility] BP Diastolic 2022-03-11 00:00:00 69 mm[Hg] [facility] Height 2022-03-11 00:00:00 68 [in_i] [facility] BMI (Body Mass Index) 2022-03-11 00:00:00 47.1 kg/m2 [facility] BP Systolic 2022-03-11 00:00:00 109 mm[Hg] [facility] Body Weight 2022-03-11 00:00:00 4960 [oz_av] [facility] BP Diastolic 2022-02-21 00:00:00 69 mm[Hg] [facility] Height 2022-02-21 00:00:00 68 [in_i] [facility] BP Systolic 2022-02-21 00:00:00 109 mm[Hg] [facility] BP Diastolic 2022-02-18 00:00:00 75 mm[Hg] [facility] Height 2022-02-18 00:00:00 68 [in_i] [facility] BMI (Body Mass Index) 2022-02-18 00:00:00 47.8 kg/m2 [facility] BP Systolic 2022-02-18 00:00:00 113 mm[Hg] [facility] Body Weight 2022-02-18 00:00:00 5030.4 [oz_av] [facility] BP Diastolic 2022-01-15 00:00:00 68 mm[Hg] [facility] Height 2022-01-15 00:00:00 68 [in_i] [facility] BMI (Body Mass Index) 2022-01-15 00:00:00 47.3 kg/m2 [facility] BP Systolic 2022-01-15 00:00:00 113 mm[Hg] [facility] Body Weight 2022-01-15 00:00:00 4979.2 [oz_av] [facility] BP Diastolic 2021-12-04 00:00:00 77 mm[Hg] [facility] Height 2021-12-04 00:00:00 68 [in_i] [facility] BMI (Body Mass Index) 2021-12-04 00:00:00 46.7 kg/m2 [facility] BP Systolic 2021-12-04 00:00:00 125 mm[Hg] [facility] Body Weight 2021-12-04 00:00:00 4918.4 [oz_av] [facility] BP Diastolic 2021-10-24 00:00:00 78 mm[Hg] [facility] Height 2021-10-24 00:00:00 68 [in_i] [facility] BMI (Body Mass Index) 2021-10-24 00:00:00 45.6 kg/m2 [facility] BP Systolic 2021-10-24 00:00:00 127 mm[Hg] [facility] Body Weight 2021-10-24 00:00:00 4793.6 [oz_av] [facility] Systolic blood pressure 2021-10-22 23:00:00 107 mm[Hg] [facility] Diastolic blood pressure 2021-10-22 23:00:00 75 mm[Hg] [facility] Heart rate 2021-10-22 23:00:00 91 /min [facility] Body temperature 2021-10-22 23:00:00 36.67 Ema [facility] Respiratory rate 2021-10-22 23:00:00 16 /min [facility] Body height 2021-10-22 23:00:00 172.7 cm [facility] Body weight 2021-10-22 23:00:00 137.122 kg [facility] BMI 2021-10-22 23:00:00 45.96 kg/m2 [facility] Oxygen saturation in Arterial blood by Pulse oximetry 2021-10-22 23:00:00 97 /min [facility] BP Diastolic 2021-09-10 00:00:00 81 mm[Hg] [facility] Height 2021-09-10 00:00:00 68 [in_i] [facility] BMI (Body Mass Index) 2021-09-10 00:00:00 45.6 kg/m2 [facility] BP Systolic 2021-09-10 00:00:00 123 mm[Hg] [facility] Body Weight 2021-09-10 00:00:00 4800 [oz_av] [facility] Systolic blood pressure 2021-09-09 14:43:00 118 mm[Hg] [facility] Diastolic blood pressure 2021-09-09 14:43:00 81 mm[Hg] [facility] Heart rate 2021-09-09 14:43:00 92 /min [facility] Body temperature 2021-09-09 14:43:00 37.17 Ema [facility] Respiratory rate 2021-09-09 14:43:00 19 /min [facility] Body height 2021-09-09 14:43:00 172.7 cm [facility] Body weight 2021-09-09 14:43:00 139.027 kg [facility] BMI 2021-09-09 14:43:00 46.60 kg/m2 [facility] Oxygen saturation in Arterial blood by Pulse oximetry 2021-09-09 14:43:00 97 /min [facility] BP Diastolic 2021-08-07 00:00:00 90 mm[Hg] [facility] Height 2021-08-07 00:00:00 68 [in_i] [facility] BMI (Body Mass Index) 2021-08-07 00:00:00 46.6 kg/m2 [facility] BP Systolic 2021-08-07 00:00:00 152 mm[Hg] [facility] Body Weight 2021-08-07 00:00:00 306.2 [lb_av] [facility] BP Diastolic 2021-07-27 00:00:00 77 mm[Hg] [facility] Height 2021-07-27 00:00:00 68 [in_i] [facility] BMI (Body Mass Index) 2021-07-27 00:00:00 46 kg/m2 [facility] BP Systolic 2021-07-27 00:00:00 125 mm[Hg] [facility] Body Weight 2021-07-27 00:00:00 302.7 [lb_av] [facility] BP Diastolic 2021-07-13 00:00:00 85 mm[Hg] [facility] Height 2021-07-13 00:00:00 68 [in_i] [facility] BMI (Body Mass Index) 2021-07-13 00:00:00 45.9 kg/m2 [facility] BP Systolic 2021-07-13 00:00:00 138 mm[Hg] [facility] Body Weight 2021-07-13 00:00:00 301.8 [lb_av] [facility] Systolic blood pressure 2021-07-01 14:57:00 97 mm[Hg] [facility] Diastolic blood pressure 2021-07-01 14:57:00 68 mm[Hg] [facility] Heart rate 2021-07-01 14:57:00 87 /min [facility] Body [facility] 2021-07-01 14:57:00 36.94 Ema [facility] Respiratory rate 2021-07-01 14:57:00 17 /min [facility] Body height 2021-07-01 14:57:00 172.7 cm [facility] Body weight 2021-07-01 14:57:00 136.714 kg [facility] BMI 2021-07-01 14:57:00 45.83 kg/m2 [facility] Oxygen saturation in Arterial blood by Pulse oximetry 2021-07-01 14:57:00 98 /min [facility] BP Diastolic 2021-05-22 00:00:00 70 mm[Hg] [facility] Height 2021-05-22 00:00:00 68 [in_i] [facility] BMI (Body Mass Index) 2021-05-22 00:00:00 46.6 kg/m2 [facility] BP Systolic 2021-05-22 00:00:00 118 mm[Hg] [facility] Body Weight 2021-05-22 00:00:00 4899.2 [oz_av] [facility] BP Diastolic 2021-05-09 00:00:00 76 mm[Hg] [facility] Height 2021-05-09 00:00:00 68 [in_i] [facility] BMI (Body Mass Index) 2021-05-09 00:00:00 45.2 kg/m2 [facility] BP Systolic 2021-05-09 00:00:00 126 mm[Hg] [facility] Body Weight 2021-05-09 00:00:00 4758.4 [oz_av] [facility] Systolic blood pressure 2021-04-29 16:59:00 121 mm[Hg] [facility] Diastolic blood pressure 2021-04-29 16:59:00 74 mm[Hg] [facility] Heart rate 2021-04-29 16:59:00 99 /min [facility] Body temperature 2021-04-29 16:59:00 37 Ema [facility] Respiratory rate 2021-04-29 16:59:00 18 /min [facility] Body height 2021-04-29 16:59:00 172.7 cm [facility] Body weight 2021-04-29 16:59:00 137.803 kg [facility] BMI 2021-04-29 16:59:00 46.19 kg/m2 [facility] Oxygen saturation in Arterial blood by Pulse oximetry 2021-04-29 16:59:00 97 /min [facility] BP Diastolic 2021-02-27 00:00:00 80 mm[Hg] [facility] Height 2021-02-27 00:00:00 68 [in_i] [facility] BMI (Body Mass Index) 2021-02-27 00:00:00 45.6 kg/m2 [facility] BP Systolic 2021-02-27 00:00:00 121 mm[Hg] [facility] Body Weight 2021-02-27 00:00:00 4796.8 [oz_av] [facility] BP Diastolic 2021-02-05 00:00:00 71 mm[Hg] [facility] Height 2021-02-05 00:00:00 68 [in_i] [facility] BP Systolic 2021-02-05 00:00:00 122 mm[Hg] [facility] Systolic blood pressure 2021-02-03 16:37:00 126 mm[Hg] [facility] Diastolic blood pressure 2021-02-03 16:37:00 85 mm[Hg] [facility] Heart rate 2021-02-03 16:37:00 76 /min [facility] Body temperature 2021-02-03 16:37:00 36.56 Ema [facility] Respiratory rate 2021-02-03 16:37:00 18 /min [facility] Body weight 2021-02-03 16:37:00 140.161 kg [facility] BMI 2021-02-03 16:37:00 46.98 kg/m2 [facility] Oxygen saturation in Arterial blood by Pulse oximetry 2021-02-03 16:37:00 100 /min [facility] BP Diastolic 2021-01-24 00:00:00 78 mm[Hg] [facility] Height 2021-01-24 00:00:00 68 [in_i] [facility] BMI (Body Mass Index) 2021-01-24 00:00:00 47 kg/m2 [facility] BP Systolic 2021-01-24 00:00:00 129 mm[Hg] [facility] Body Weight 2021-01-24 00:00:00 4944 [oz_av] [facility] BP Diastolic 2020-12-13 00:00:00 68 mm[Hg] [facility] Height 2020-12-13 00:00:00 68 [in_i] [facility] BMI (Body Mass Index) 2020-12-13 00:00:00 47.5 kg/m2 [facility] BP Systolic 2020-12-13 00:00:00 135 mm[Hg] [facility] Body Weight 2020-12-13 00:00:00 4998.4 [oz_av] [facility] BP Diastolic 2020-11-16 00:00:00 71 mm[Hg] [facility] Height 2020-11-16 00:00:00 68 [in_i] [facility] BMI (Body Mass Index) 2020-11-16 00:00:00 46.8 kg/m2 [facility] BP Systolic 2020-11-16 00:00:00 124 mm[Hg] [facility] Body Weight 2020-11-16 00:00:00 4924.8 [oz_av] [facility] BP Diastolic 2020-11-14 00:00:00 93 mm[Hg] [facility] Height 2020-11-14 00:00:00 68 [in_i] [facility] BMI (Body Mass Index) 2020-11-14 00:00:00 47.1 kg/m2 [facility] BP Systolic 2020-11-14 00:00:00 136 mm[Hg] [facility] Body Weight 2020-11-14 00:00:00 309.5 [lb_av] [facility] BP Diastolic 2020-09-18 00:00:00 78 mm[Hg] [facility] BP Systolic 2020-09-18 00:00:00 127 mm[Hg] [facility] Body Weight 2020-09-18 00:00:00 4915.2 [oz_av] [facility] BP Diastolic 2020-08-29 00:00:00 68 mm[Hg] [facility] Height 2020-08-29 00:00:00 68 [in_i] [facility] BMI (Body Mass Index) 2020-08-29 00:00:00 48.5 kg/m2 [facility] BP Systolic 2020-08-29 00:00:00 115 mm[Hg] [facility] Body Weight 2020-08-29 00:00:00 5108 [oz_av] [facility] Body Weight 2020-07-20 00:00:00 4880 [oz_av] [facility] BP Diastolic 2020-07-20 00:00:00 82 mm[Hg] [facility] Height 2020-07-20 00:00:00 68 [in_i] [facility] BMI (Body Mass Index) 2020-07-20 00:00:00 46.4 kg/m2 [facility] BP Systolic 2020-07-20 00:00:00 149 mm[Hg] [facility] BP Diastolic 2020-04-18 00:00:00 88 mm[Hg] [facility] Height 2020-04-18 00:00:00 68 [in_i] [facility] BMI (Body Mass Index) 2020-04-18 00:00:00 44.2 kg/m2 [facility] BP Systolic 2020-04-18 00:00:00 111 mm[Hg] [facility] Body Weight 2020-04-18 00:00:00 290.8 [lb_av] [facility] BP Diastolic 2020-02-01 00:00:00 89 mm[Hg] [facility] Height 2020-02-01 00:00:00 68 [in_i] [facility] BMI (Body Mass Index) 2020-02-01 00:00:00 46.5 kg/m2 [facility] BP Systolic 2020-02-01 00:00:00 127 mm[Hg] [facility] Body Weight 2020-02-01 00:00:00 306 [lb_av] [facility] BP Diastolic 2019-04-05 00:00:00 74 mm[Hg] [facility] Height 2019-04-05 00:00:00 68 [in_i] [facility] BMI (Body Mass Index) 2019-04-05 00:00:00 20.8 kg/m2 [facility] BP Systolic 2019-04-05 00:00:00 109 mm[Hg] [facility] Body Weight 2019-04-05 00:00:00 137.1 [lb_av] [facility] BP Diastolic 2019-01-12 00:00:00 75 mm[Hg] [facility] Height 2019-01-12 00:00:00 68 [in_i] [facility] BMI (Body Mass Index) 2019-01-12 00:00:00 41.3 kg/m2 [facility] BP Systolic 2019-01-12 00:00:00 112 mm[Hg] [facility] Body Weight 2019-01-12 00:00:00 271.9 [lb_av] [facility] BP Diastolic 2018-12-09 00:00:00 73 mm[Hg] [facility] Height 2018-12-09 00:00:00 68 [in_i] [facility] BMI (Body Mass Index) 2018-12-09 00:00:00 37.6 kg/m2 [facility] BP Systolic 2018-12-09 00:00:00 122 mm[Hg] [facility] Body Weight 2018-12-09 00:00:00 3959 [oz_av] [facility] BP Diastolic 2018-12-04 00:00:00 77 mm[Hg] [facility] Height 2018-12-04 00:00:00 68 [in_i] [facility] BMI (Body Mass Index) 2018-12-04 00:00:00 42 kg/m2 [facility] BP Systolic 2018-12-04 00:00:00 144 mm[Hg] [facility] Body Weight 2018-12-04 00:00:00 276.1 [lb_av] [facility] BP Diastolic 2018-12-03 00:00:00 90 mm[Hg] [facility] Height 2018-12-03 00:00:00 68 [in_i] [facility] BMI (Body Mass Index) 2018-12-03 00:00:00 42 kg/m2 [facility] BP Systolic 2018-12-03 00:00:00 116 mm[Hg] [facility] Body Weight 2018-12-03 00:00:00 4416 [oz_av] [facility] BP Diastolic 2018-10-16 00:00:00 85 mm[Hg] [facility] Height 2018-10-16 00:00:00 68 [in_i] [facility] BMI (Body Mass Index) 2018-10-16 00:00:00 42.1 kg/m2 [facility] BP Systolic 2018-10-16 00:00:00 120 mm[Hg] [facility] Body Weight 2018-10-16 00:00:00 4432 [oz_av] [facility] BP Diastolic 2018-08-25 00:00:00 81 mm[Hg] [facility] Height 2018-08-25 00:00:00 68 [in_i] [facility] BMI (Body Mass Index) 2018-08-25 00:00:00 42.3 kg/m2 [facility] BP Systolic 2018-08-25 00:00:00 126 mm[Hg] [facility] Body Weight 2018-08-25 00:00:00 4448 [oz_av] [facility] BP Diastolic 2018-07-13 00:00:00 84 mm[Hg] [facility] Height 2018-07-13 00:00:00 68 [in_i] [facility] BP Systolic 2018-07-13 00:00:00 126 mm[Hg] [facility] BP Diastolic 2018-04-10 00:00:00 74 mm[Hg] [facility] Height 2018-04-10 00:00:00 68 [in_i] [facility] BMI (Body Mass Index) 2018-04-10 00:00:00 42.7 kg/m2 [facility] BP Systolic 2018-04-10 00:00:00 174 mm[Hg] [facility] [facility] Body Weight 2018-04-10 00:00:00 4496 [oz_av] [facility] Procedures Procedure Date / Time Performed Performing Clinician Source US, pelvis 2023-08-04 00:00:00 [facility] a [facility] US, pelvis 2023-07-28 00:00:00 [facility] Total Hysterectomy 2023-06-23 00:00:00 [facility] MAMMO, screening, digital, bilateral 2022-09-02 00:00:00 [facility] CT, abdomen + pelvis, w/o contrast 2022-04-26 00:00:00 [facility] POCT SARS-COV-2 ANTIGEN (BINAX NOW) 2021-10-22 23:15:00 Yaya Samaniego [facility] POCT MOLECULAR STREP 2021-10-22 23:02:00 Rhiannon Norton [facility] MAMMO, screening, digital, bilateral 2021-08-29 00:00:00 [facility] ULTRASOUND, UTERUS REAL TIME WITH IMAGE DOCUMENTAITON, TRANSVAGINAL 2021-07-27 00:00:00 [facility] ULTRASOUND, UTERUS REAL TIME WITH IMAGE DOCUMENTAITON, TRANSVAGINAL 2021-07-13 00:00:00 [facility] POCT MOLECULAR STREP 2021-04-29 17:04:00 Unknown, Atte nding [facility] ASSIGNMENT OF BENEFITS 2021-04-29 16:45:27 Docto r Unassigned, Gilson [facility] COVID-19 (MOLECULAR TESTING NUCLEIC ACID AMPLIFICATION) 2021-02-03 16:36:00 Rhiannon Norton [facility] LAB ONLY COVID INTERPRETATION 2021-02-03 16:36:00 Rhiannon Norton [facility] Hysteroscopy 2020-11-29 00:00:00 [facility] MRI, abdomen + pelvis, w/wo contrast 2020-09-18 00:00:00 [facility] MAMMO, screening, digital, bilateral 2020-08-29 00:00:00 [facility] US, transvaginal 2019-04-05 00:00:00 [facility] unlisted imaging order 2019-01-12 00:00:00 [facility] MRI, lumbar spine, w/o contrast 2018-04-10 00:00:00 [facility] Delivery 2017-06-24 00:00:00 [facility] Section 2017-03-24 00:00:[address] [facility] Appendectomy 2016-01-23 00:00:00 [facility] Procedure on Appendix 2016-01-23 00:00:00 [facility] Procedure on Gallbladder 2003-03-24 00:00:00 [facility] Removal of Tonsils 1999-03-24 00:00:00 [facility] Reduction Mammoplasty, Bilateral 1996-03-24 00:00:00 [facility] Reduction Plasty of Bilateral Breasts 1996-03-24 00:00:00 [facility] Eardrum Revision 1993-03-24 00:00:[address] [facility] Remove Tonsils and Adenoids [facility] Breast [facility] Dilation & Curettage (Surg) [facility] Laparoscopy [facility] Plan of Care Planned Activity Planned Date Details Comments Source Instructions [facility] Encounters Start Date/Time End Date/Time Encounter Type Admission Type Attending Clinicians Care Facility Care Department Encounter ID Source 2021-01-21 08:04:11 Emergency [facility] [id number] [facility] 2023-09-29 13:45:00 2023-09-29 13:45:00 Outpatient VIANCA DE LA ROSA [id number] Geovanna Cordova 2023-08-04 00:00:00 2023-08-04 00:00:00 Jose Mcdowell MD: [address] [place] [address], [address], [place] [address] , Ph. [phone] [facility] [id number] [facility] 2023-07-29 00:00:00 2023-07-29 00:00:00 Linda Valenzuela APRN, MSN, [facility]: [address], [address], [place] [address] , Ph. [facility] [id number] [facility] 2023-07-28 10:18:00 2023-07-28 10:18:00 Outpatient EL [facility] [id number] [facility] 2023-07-28 00:00:00 2023-07-28 00:00:00 Jose Mcdowell MD: [address] [place] [address], [address], [place] [address] , Ph. [phone] [facility] [id number] 0506 [facility] 2023-07-24 00:00:00 2023-07-24 00:00:00 Jose Mcdowell MD: [address] [facility], [address], [place] [address] , Ph. [phone] [facility] [id number] [facility] 2023-07-21 00:00:00 2023-07-21 00:00:00 Jose Mcdowell MD: [address] [place] [address], [address], [place] [address] , Ph. [phone] [facility]BGYN [id number] [facility] 2023-07-18 16:14:00 2023-07-19 13:14:00 Inpatient ER [facility] [id number] [facility] 2023-07-18 16:14:00 2023-07-19 13:14:00 observatio n [facility] [id number] 2023-07-18 00:00:00 2023-07-18 00:00:00 Freda CHAVEZ Britton-VENEER SHEET REPAIRER-B C: [address], [address], [place] [address] , Ph. [facility] [id number] [facility] 2023-07-09 10:47:00 2023-07-10 17:16:00 Inpatient JOSE LAO [facility] [id number] [facility] 2023-07-09 10:47:00 2023-07-10 17:16:00 inpatient encounter [facility] [id number] 2023-07-07 00:00:00 2023-07-07 00:00:00 Jose Mcdowell MD: [address] [place] [address], [address], [place] [address] , Ph. [phone] [facility] [id number] 0415 [facility] 2023-07-05 00:00:00 2023-07-05 00:00:00 Outpatient [facility] [id number] [facility] 2023-06-19 00:00:00 2023-06-19 00:00:00 Freda Britton APRN-VENEER SHEET REPAIRER-B C: [address], [address], [place] [address] , Ph. [facility] [id number] [facility] 2023-06-10 00:00:00 2023-06-10 00:00:00 Outpatient [facility]o [facility] [id number] [facility] 2023-06-06 00:00:00 2023-06-06 00:00:00 Outpatient G_Pappas [facility] [id number] [facility] 2023-05-26 00:00:00 2023-05-26 00:00:00 Outpatient G_Pappas [facility] [id number] [facility] 2023-05-26 00:00:00 2023-05-26 00:00:00 Outpatient [facility] [id number] [facility] 2023-05-26 00:00:00 2023-05-26 00:00:00 Jose Mcdowell MD: [address] [place] [address], [address] [address] , Ph. [phone] [facility] OBG[facility] [id number] [facility] 2023-05-19 00:00:00 2023-05-19 00:00:00 Outpatient [facility] [id number] [facility] 2023-05-16 00:00:00 2023-05-16 00:00:00 JULIANE Olmos C: [address] [place] [address], [address] [place] [address] , Ph. [facility] [id number] [facility] 2023-04-10 00:00:00 2023-04-10 00:00:00 Outpatient [facility] [id number] [facility] 2023-03-22 00:00:00 2023-03-22 00:00:00 Outpatient [facility] [id number] [facility] 2023-03-20 00:00:00 2023-03-20 00:00:00 JULIANE Olmos C: [address] [place] [address], [address] [place] [address], [place] [address] , Ph. [facility] [id number] [facility] 2023-03-14 00:00:00 2023-03-14 00:00:00 Outpatient [facility] [id number] [facility] 2023-03-03 00:00:00 2023-03-03 00:00:00 Freda Britton APRN-VENEER SHEET REPAIRER-B C: [address] [facility] [address], [address] [address] , Ph. [facility] [id number] [facility] 2023-02-28 00:00:00 2023-02-28 00:00:00 Outpatient [facility] [id number] [facility] 2023-02-15 00:00:00 2023-02-15 00:00:00 Outpatient [facility] [id number] [facility] 2023-02-04 00:00:00 2023-02-04 00:00:00 Freda Britton CREW PERSON-VENEER SHEET REPAIRER-B C: [address], [address] [address] , Ph. [facility] [id number] [facility] 2023-01-17 00:00:00 2023-01-17 00:00:00 Outpatient GC_GCGRTH_O tey_L PRIV [facility] [id number] [facility] 2023-01-16 00:00:00 2023-01-16 00:00:00 Outpatient [facility] [id number] [facility] 2023-01-13 00:00:00 2023-01-13 00:00:00 Freda Britton CREW PERSON-VENEER SHEET REPAIRER-B C: [address], [address], [place] [address] , Ph. [facility] [id number] [facility] 2022-12-30 00:00:00 2022-12-30 00:00:00 Outpatient [facility] [id number] [facility] 2022-12-30 00:00:00 2022-12-30 00:00:00 Outpatient [facility] [id number] [facility] 2022-12-10 00:00:00 2022-12-10 00:00:00 Freda Britton CREW PERSON-VENEER SHEET REPAIRER-B C: [address], [address] [address] , Ph. [facility] [id number] [facility] 2022-12-05 00:00:00 2022-12-05 00:00:00 Outpatient [facility] [id number] [facility] 2022-12-04 00:00:00 2022-12-04 00:00:00 Outpatient [facility] [id number] [facility] 2022-12-04 00:00:00 2022-12-04 00:00:00 Freda Britton CREW PERSON-VENEER SHEET REPAIRER-B C: [address] [facility], [address], [place] [address] , Ph. [facility] [id number] [facility] 2022-11-25 00:00:00 2022-11-25 00:00:00 Outpatient [facility] [id number] [facility] 2022-11-25 00:00:00 2022-11-25 00:00:00 Outpatient ALEX [facility] [id number] [facility] 2022-11-13 00:00:00 2022-11-13 00:00:00 Freda CHAVEZ Britton-VENEER SHEET REPAIRER-B C: [address], [address] [address] , Ph. [facility] [id number] [facility] 2022-10-11 00:00:00 2022-10-11 00:00:00 Outpatient G_Pappas [facility] [id number] [facility] 2022-10-03 00:00:00 2022-10-03 00:00:00 Freda Britton APRN-VENEER SHEET REPAIRER-B C: [address], [address] [address] , Ph. [facility] [id number] [facility] 2022-10-02 00:00:00 2022-10-02 00:00:00 Outpatient G_Pappas [facility] [id number] [facility] 2022-09-18 00:00:00 2022-09-18 00:00:00 Outpatient G_Pappas [facility] [id number] [facility] 2022-09-17 00:00:00 2022-09-17 00:00:00 Outpatient G_Pappas [facility] [id number] [facility] 2022-09-17 00:00:00 2022-09-17 00:00:00 Jose Mcdowell MD: [address] [place] [address], [address], [place] [address] , Ph. [phone] [facility] [id number] [facility] 2022-09-11 00:00:00 2022-09-11 00:00:00 Outpatient [facility] [id number] [facility] 2022-09-11 00:00:00 2022-09-11 00:00:00 Outpatient [facility] [id number] [facility] 2022-09-02 00:00:00 2022-09-02 00:00:00 Jose Mcdowell MD: [address] [place] [address], [address], [place] [address] , Ph. [phone] [facility] [id number] [facility] 2022-08-08 00:00:00 2022-08-08 00:00:00 Outpatient [facility] [id number] [facility] 2022-08-08 00:00:00 2022-08-08 00:00:00 Outpatient [facility] [id number] [facility] 2022-07-23 00:00:00 2022-07-23 00:00:00 Outpatient [facility] [id number] [facility] 2022-07-23 00:00:00 2022-07-23 00:00:00 Freda Britton APRN-VENEER SHEET REPAIRER-B C: [address] [place] [address], [address] [address] , Ph. [facility] [id number] [facility] 2022-06-25 00:00:00 2022-06-25 00:00:00 Outpatient [facility] [id number] [facility] 2022-06-25 00:00:00 2022-06-25 00:00:00 Outpatient [facility] [id number] [facility] 2022-06-25 00:00:00 2022-06-25 00:00:00 Freda CHAVEZ Britton-VENEER SHEET REPAIRER-B C: [address] [facility] [address], [address], [place] [address] , Ph. [facility] [id number] [facility] 2022-06-10 20:40:00 2022-06-10 20:40:42 Urgent Care Jordan Andujar Unknown, Attending [facility] [id number] [facility] 2022-06-10 20:40:00 2022-06-10 20:40:42 Outpatient R JORDAN ANDUJAR [facility] [id number] [facility] 2022-06-10 20:30:00 2022-06-10 20:30:00 Outpatient R UNKNOWN, ATTENDING [facility] [id number] [facility] 2022-05-30 00:00:00 2022-05-30 00:00:00 Outpatient [facility] [id number] [facility] 2022-05-30 00:00:00 2022-05-30 00:00:00 Freda Britton APRN-VENEER SHEET REPAIRER-B C: [address] [facility] [address], [address], [place] [address] , Ph. [facility] [id number] [facility] 2022-04-26 00:00:00 2022-04-26 00:00:00 Outpatient [facility] [id number] [facility] 2022-04-26 00:00:00 2022-04-26 00:00:00 Linda Valenzuela APRN, MSN, VENEER SHEET REPAIRER-BC: [address] [facility], [address] [place] [address] , Ph. [facility] [id number] [facility] 2022-04-25 00:00:00 2022-04-25 00:00:00 Freda Britton APRN-VENEER SHEET REPAIRER-B C: [address] [facility], [address], [place] [address] , Ph. [facility] [id number] [facility] 2022-04-22 00:00:00 2022-04-22 00:00:00 Freda Britton APRN-VENEER SHEET REPAIRER-B C: [address] [facility], [address] [place] [address] , Ph. [facility] [id number] [facility] 2022-03-19 13:40:00 2022-03-19 14:00:00 Urgent Care Yaya Samaniego Unknown, Attending [facility] [id number] [facility] 2022-03-19 13:40:00 2022-03-19 13:40:00 Outpatient R YAYA SAMANIEGO [facility] [id number] [facility] 2022-03-19 00:00:00 2022-03-19 00:00:00 Outpatient [facility] [id number] [facility] 2022-03-19 00:00:00 2022-03-19 00:00:00 Outpatient [facility] [id number] [facility] 2022-03-19 00:00:00 2022-03-19 00:00:00 Outpatient [facility] [id number] [facility] 2022-03-19 00:00:00 2022-03-19 00:00:00 Outpatient [facility] [id number] [facility] 2022-03-11 00:00:00 2022-03-11 00:00:00 Outpatient [facility] [id number] [facility] 2022-03-11 00:00:00 2022-03-11 00:00:00 LIZET Olmos-B C: [address] [place] [address], [address] [place] [address] , Ph. [facility] [id number] [facility] 2022-02-21 00:00:00 2022-02-21 00:00:00 Outpatient [facility] [id number] [facility] 2022-02-21 00:00:00 2022-02-21 00:00:00 CECILIA OlmosP-B C: [address] [place] [address], [address] [place] [address] , Ph. [facility] [id number] [facility] 2022-02-18 00:00:00 2022-02-18 00:00:00 Outpatient [facility] [id number] [facility] 2022-02-18 00:00:00 2022-02-18 00:00:00 LIZET Olmos-Gt C: [address] [place] [address], [address] [place] [address] , Ph. [facility] [id number] [facility] 2022-01-15 00:00:00 2022-01-15 00:00:00 Outpatient [facility] [id number] [facility] 2022-01-15 00:00:00 2022-01-15 00:00:00 Freda Britton APRN-VENEER SHEET REPAIRER-B C: [address] [facility] [address], [address] [address] , Ph. [facility] [id number] [facility] 2021-12-19 00:00:00 2021-12-19 00:00:00 Outpatient [facility] [id number] [facility] 2021-12-04 00:00:00 2021-12-04 00:00:00 Outpatient G_Pappas [facility] [id number] [facility] 2021-12-04 00:00:00 2021-12-04 00:00:00 Outpatient G_Pappas [facility] [id number] [facility] 2021-12-04 00:00:00 2021-12-04 00:00:00 Outpatient G_Pappas [facility] [id number] [facility] 2021-12-04 00:00:00 2021-12-04 00:00:00 Outpatient [facility] [id number] [facility] 2021-12-04 00:00:00 2021-12-04 00:00:00 Freda Britton APRN-VENEER SHEET REPAIRER-B C: [address] [facility] [address], [address] [address] , Ph. [facility] [id number] [facility] 2021-12-04 00:00:00 2021-12-04 00:00:00 Outpatient Freda Britton [facility] [id number] 2021-11-07 00:00:00 2021-11-07 00:00:00 Outpatient [facility] [id number] [facility] 2021-11-04 00:00:00 2021-11-04 00:00:00 Outpatient G_Pappas [facility] [id number] [facility] 2021-10-24 00:00:00 2021-10-24 00:00:00 Outpatient [facility] [id number] [facility] 2021-10-24 00:00:00 2021-10-24 00:00:00 Freda Britton CREW PERSON-VENEER SHEET REPAIRER-B C: [address] [facility] [address], [address] [address] , Ph. [facility] [id number] [facility] 2021-10-24 00:00:00 2021-10-24 00:00:00 Outpatient Freda Britton [facility] [id number] 2021-10-24 00:00:00 2021-10-24 00:00:00 Outpatient Freda Britton [facility] [id number] 2021-10-22 18:00:00 2021-10-22 18:29:12 Outpatient RHIANNON TINEO [facility] [id number] [facility] 2021-10-22 18:00:00 2021-10-22 18:29:12 Urgent Care Yaya Samaniego Amanda [facility] [id number] [facility] 2021-10-09 02:53:00 2021-10-09 02:53:00 Outpatient [facility] [id number] [facility] 2021-09-10 04:32:00 2021-09-10 04:32:00 Outpatient [facility] [id number] [facility] 2021-09-10 00:00:00 2021-09-10 00:00:00 Fredaterrence Britton APRN-VENEER SHEET REPAIRER-B C: [address] [place] [address], [address], [place] [address] , Ph. [facility] [id number] [facility] 2021-09-10 00:00:00 2021-09-10 00:00:00 Outpatient AntwanFreda srinivasan [facility] [id number] 2021-09-09 09:40:00 2021-09-09 10:03:27 Outpatient R ELVIN ANDRADE [facility] [id number] [facility] 2021-09-09 09:40:00 2021-09-09 10:03:27 Urgent Care lEvin Andrade [facility] [id number] [facility] 2021-08-30 02:34:00 2021-08-30 02:34:00 Outpatient G_Pappas [facility] [id number] [facility] 2021-08-29 02:29:00 2021-08-29 02:29:00 Outpatient [facility] [id number] [facility] 2021-08-07 00:00:00 2021-08-07 00:00:00 Jose Mcdowell MD: [address] [address] , Ph. [phone] G_Pappas [facility] [id number] [facility] 2021-07-30 10:00:00 2021-07-30 10:00:00 Outpatient BELINDA [facility] [id number] [facility] 2021-07-27 00:00:00 2021-07-27 00:00:00 Jose Mcdowell MD: [address] [address] , Ph. [phone] G_Pappas [facility] [id number] [facility] 2021-07-13 10:57:00 2021-07-13 10:57:00 Outpatient BELINDA [facility]OWELL [facility] [id number] [facility] 2021-07-13 00:00:00 2021-07-13 00:00:00 Jose Mcdowell MD: [address] [address], [place] [address] , Ph. [phone] [facility] [id number] [facility] 2021-07-12 10:47:00 2021-07-12 10:47:00 Outpatient G_P[facility]as [facility] [id number] [facility] 2021-07-01 10:00:00 2021-07-01 10:20:00 Urgent Care Elvin Andrade, [facility] [id number] [facility] 2021-07-01 10:00:00 2021-07-01 10:00:00 Outpatient RHIANNON TINEO [facility] [id number] [facility] 2021-06-29 12:35:00 2021-06-29 12:35:00 Outpatient [facility] [id number] 2021-05-22 05:20:00 2021-05-22 05:20:00 Outpatient [facility] [id number] [address] [facility] 2021-05-22 00:00:00 2021-05-22 00:00:00 Ольга OkeefeCHAVEZ-RUN BOAT OPERATOR-C: [address] [place] [address], [address] [address] , Ph. [facility] [id number] [facility] 2021-05-22 00:00:00 2021-05-22 00:00:00 Outpatient Ольга Okeefe [facility] [id number] 2021-05-09 04:53:00 2021-05-09 04:53:00 Outpatient [facility] [id number] [facility] 2021-05-09 00:00:00 2021-05-09 00:00:00 Ольга CHAVEZ Okeefe-RUN BOAT OPERATOR-C: [address] [place] [address], [address], [place] [address] , Ph. [facility] [id number] [facility] 2021-05-09 00:00:00 2021-05-09 00:00:00 Outpatient Ольга Okeefe [facility] [id number] 2021-04-29 11:00:00 2021-04-29 11:18:22 Urgent Care Laurel Beavers Unknown, Attending [facility] [id number] [facility] 2021-04-29 11:00:00 2021-04-29 11:18:22 Outpatient R LAUREL BEAVERS [facility] [id number] [facility] 2021-04-29 00:00:00 2021-04-29 00:00:00 Orders Only Doctor Unassigned, [facility] [id number] [id number] [facility] 2021-02-27 04:26:00 2021-02-27 04:26:00 Outpatient [facility] [id number] [facility] 2021-02-27 00:00:00 2021-02-27 00:00:00 GETACHEW PateC: [address] [place] [address], [address] [address] , Ph. [facility] [id number] [facility] 2021-02-27 00:00:00 2021-02-27 00:00:00 Outpatient Ольга Okeefe [facility] [id number] 2021-02-05 04:46:00 2021-02-05 04:46:00 Outpatient [facility] [id number] [facility] 2021-02-05 00:00:00 2021-02-05 00:00:00 KRISTA PateRUN BOAT OPERATOR-C: [address] [place] [address], [address] [address] , Ph. [facility] [id number] [facility] 2021-02-05 00:00:00 2021-02-05 00:00:00 Outpatient Ольга Okeefe [facility] [id number] 2021-02-05 00:00:00 2021-02-05 00:00:00 Outpatient Ольга Okeefe [facility] [id number] 2021-02-03 10:25:27 2021-02-03 11:09:44 Urgent Care Jailyn Arredondo, [facility] STEVE?[facility] [id number] [id number] [id number] [facility] 2021-02-03 10:20:00 2021-02-03 11:09:44 Outpatient Merle ERROL [facility] [id number] [facility] 2021-01-24 12:36:00 2021-01-24 12:36:00 Outpatient [facility] [id number] [facility] 2021-01-24 00:00:00 2021-01-24 00:00:00 Outpatient Ольга Okeefe [facility] [id number] 2021-01-24 00:00:00 2021-01-24 00:00:00 GETACHEW PateC: [address] [place] [address], [address], [place] [address] , Ph. [facility] [id number] [facility] ty [facility] l [facility] 2020-12-13 03:17:00 2020-12-13 03:17:00 Outpatient [facility] [id number] [facility] 2020-12-13 00:00:00 2020-12-13 00:00:00 Outpatient Ольга [facility]keefe [facility] [id number] 2020-12-13 00:00:00 2020-12-13 00:00:00 Ольга OkeefeKRISTARUN BOAT OPERATOR-C: [address] [facility], [address] [address] , Ph. [facility] [id number] [facility] 2020-11-17 12:33:00 2020-11-17 12:33:00 Outpatient [facility] [id number] [facility] 2020-11-16 01:00:00 2020-11-16 01:00:00 Outpatient [facility] [id number] [facility] 2020-11-16 00:00:00 2020-11-16 00:00:00 Outpatient Ольга Okeefe [facility] [id number] 2020-11-16 00:00:00 2020-11-16 00:00:00 Outpatient Ольга Okeefe [facility] [id number] 2020-11-16 00:00:00 2020-11-16 00:00:00 Ольга OkeefeKRISTARUN BOAT OPERATOR-C: [address] [place] [address], [address] [address] , Ph. [facility] [id number] [facility] 2020-11-14 00:00:00 2020-11-14 00:00:00 Jose Mcdowell MD: [address] [place] [address] , Ph. [phone] Cherelle_Pappas [facility] [phone] 0824 [facility] 2020-09-18 04:01:00 2020-09-18 04:01:00 Outpatient [facility] [id number] [facility] 2020-09-18 00:00:00 2020-09-18 00:00:00 Ольга OkeefeKRISTARUN BOAT OPERATOR-C: [address] [facility], [address] [address] , Ph. [facility] [id number] [facility] 2020-09-18 00:00:00 2020-09-18 00:00:00 Outpatient Ольга Okeefe [facility] [id number] 2020-09-18 00:00:00 2020-09-18 00:00:00 Outpatient Ольга Okeefe [facility] [id number] 2020-08-29 10:39:00 2020-08-29 10:39:00 Outpatient CONRAD [facility] [id number] [facility] 2020-08-29 00:00:00 2020-08-29 00:00:00 Ольга KRISTA OkeefeRUN BOAT OPERATOR-C: [address] [facility], [address] [address] , Ph. [facility] [id number] [facility] 2020-08-29 00:00:00 2020-08-29 00:00:00 Outpatient Ольга Okeefe [facility] [id number] 2020-08-27 09:00:00 2020-08-27 09:00:00 Outpatient R [facility] [id number] [facility] 2020-07-20 12:28:00 2020-07-20 12:28:00 Outpatient [facility] [id number] [facility] 2020-07-20 00:00:00 2020-07-20 00:00:00 Outpatient Ольга Okeefe [facility] [id number] 2020-07-20 00:00:00 2020-07-20 00:00:00 Ольга Okeefe CREW PERSON-RUN BOAT OPERATOR-C: [address] [place] [address], [address] [place] [address] , Ph. [facility] [id number] [facility] 2020-04-18 00:00:00 2020-04-18 00:00:00 Jose Mcdowell MD: [address] [place] [address] , Ph. [phone] [facility] [id number] 0126 [facility] 2020-03-26 16:40:00 2020-03-26 16:40:00 Outpatient ELVIN CHRISTENSEN [facility] [id number] [facility] 2020-03-10 08:57:00 2020-03-10 08:57:00 Outpatient [facility] [id number] [facility] 2020-02-09 02:24:00 2020-02-09 02:24:00 Outpatient G_Pappas [facility] [id number] [facility] 2020-02-01 00:00:00 2020-02-01 00:00:00 Jose Mcdowell MD: [address] [place] [address] , Ph. [phone] G_Pappas [facility] [id number] [facility] 2020-01-21 11:55:00 2020-01-21 11:55:00 Outpatient [facility] [id number] [facility] 2019-04-08 11:52:00 2019-04-08 11:52:00 Outpatient G_Pappas [facility] [id number] [facility] 2019-04-05 00:00:00 2019-04-05 00:00:00 Jose Mcdowell MD: [address] [facility] [address], [place] [address] , Ph. [phone] [facility] [id number] [facility] 2019-01-29 13:09:00 2019-01-29 13:09:00 Outpatient JOSE LAO [facility] [id number] [facility] 2019-01-22 16:00:00 2019-01-22 16:00:00 Outpatient JOSE LAO [facility] [id number] [facility] 2019-01-12 12:01:00 2019-01-12 12:01:00 Outpatient JOSE LAO [facility] [id number] [facility] 2019-01-12 00:00:00 2019-01-12 00:00:00 Jose Mcdowell MD: [address] [facility] [address] [address] , Ph. [phone] [facility] 2018-12-09 00:00:00 2018-12-09 00:00:00 Shae Pahceco MD: [address] [facility] [address], [place] [address] , Ph. [facility] 18 [facility] 2018-12-04 14:57:00 2018-12-04 14:57:00 Outpatient BELINDA JOSE MCDOWELL [facility] [id number] [facility] 2018-12-04 00:00:00 2018-12-04 00:00:00 Jose Mcdowell MD: [address], [place] [address] , Ph. [phone] [facility] 912 [facility] 2018-12-03 00:00:00 2018-12-03 00:00:00 Shae Pacheco MD: [address], [place] [address] , Ph. [facility] 12 [facility] 2018-10-16 00:00:00 2018-10-16 00:00:00 Shae Pacheco MD: [address], [address], [place] [address] , Ph. [facility] 0726 [facility] 2018-08-25 00:00:00 2018-08-25 00:00:00 Shae Pacheco MD: [address], [address], [place] [address] , Ph. [facility] 0604 [facility] 2018-07-13 11:37:00 2018-07-13 11:37:00 Outpatient SHAE COVINGTON [facility] [id number] [facility] 2018-07-13 00:00:00 2018-07-13 00:00:00 Shae Pacheco MD: [address], [address], [place] [address] , Ph. [facility] 0422 [facility] 2018-04-10 00:00:00 2018-04-10 00:00:00 Shae Pacheco MD: [address], [address], [place] [address] , Ph. [facility] 0118 [facility] 2018-03-25 14:55:00 2018-03-25 17:31:00 Emergency ER OWOELEONORA [facility] [id number] [facility] 2018-03-25 00:00:00 2018-03-25 00:00:00 Anthony Cantu MD: [address], [address], [place] [address] , Ph. [facility] 0102 [facility] 2018-01-23 09:38:00 2018-01-23 09:38:00 Outpatient SHAE C[facility]INGTON [facility] [id number] [facility] 2018-01-12 09:08:00 2018-01-12 11:48:00 Emergency ER ELEONORA FIGUEREDO [facility] [id number] [facility] 2017-12-08 14:07:00 2017-12-08 14:07:00 Outpatient BELINDA JULYJOSE [facility] [id number] [facility] 2017-09-05 16:14:00 2017-09-05 19:35:00 Emergency ER OWELEONORA Bravo [facility] [id number] [facility] 2017-06-24 05:33:00 2017-06-26 10:00:00 Inpatient JOSE [facility]O [facility] [id number] [facility] 2017-06-19 17:16:00 2017-06-19 20:40:00 Emergency BELINDA MCDOWELLJOSE [facility] [id number] [facility] 2017-06-06 21:03:00 2017-06-06 22:33:00 Emergency ER JULY, JOSE [facility] [id number] [facility] 2017-06-05 14:40:00 2017-06-05 14:40:00 Outpatient EL JULY, JOSE [facility] [id number] [facility] 2017-05-30 08:43:00 2017-05-30 08:43:00 Outpatient EL FREDDYFERNANDO [facility] [id number] [facility] 2017-05-25 03:22:00 2017-05-25 04:35:00 Emergency ER JULY, JOSE [facility] [id number] [facility] 2017-05-11 19:42:00 2017-05-12 19:00:00 Inpatient ER JULY, JOSE [facility] [id number] [facility] 2017-04-25 17:28:00 2017-04-26 12:21:00 Inpatient ER JULY, JOSE [facility] [id number] [facility] 2017-04-21 14:54:00 2017-04-21 14:54:00 Outpatient EL JULY, JOSE [facility] [id number] [facility] 2017-04-19 19:38:00 2017-04-19 20:25:00 Emergency ER JULY, JOSE [facility] [id number] [facility] 2017-04-18 09:09:00 2017-04-18 09:09:00 Outpatient EL JULY, JOSE [facility] [id number] [facility] 2017-04-17 15:04:00 2017-04-17 15:04:00 Outpatient EL JULY, JOSE [facility] [id number] [facility] 2017-03-22 18:12:00 2017-03-22 21:51:00 Emergency ER JULY, JOSE [facility] [id number] [facility] 2017-02-27 21:00:00 2017-02-28 14:35:00 Inpatient ER JULY, JOSE [facility] [id number] [facility] 2017-02-24 13:23:00 2017-02-24 13:23:00 Outpatient EL JULY, JOSE [facility] [id number] [facility] 2017-02-21 16:52:00 2017-02-21 16:52:00 Outpatient EL JULY, JOSE [facility] [id number] [facility] 2017-01-28 13:26:00 2017-01-28 13:26:00 Outpatient EL JULY, JOSE [facility] [id number] [facility] 2016-12-31 15:59:00 2016-12-31 19:30:00 Emergency ER JULY, JOSE [facility] [id number] [facility] 2016-12-13 11:39:00 2016-12-13 14:52:00 Emergency ER JULY, JOSE [facility] [id number] [facility] 2016-11-12 14:48:00 2016-11-12 14:48:00 Outpatient EL JULY, JOSE [facility] [id number] [facility] 2016-11-04 12:15:00 2016-11-04 12:15:00 Outpatient BELINDA PACHECOSHAE NICHOLS [facility] [id number] [facility] 2016-10-14 09:20:00 2016-10-14 09:20:00 Outpatient BELINDA FOSTERSHAE NICHOLS [facility] [id number] [facility] 2016-07-31 05:46:00 2016-07-31 08:09:00 Emergency ER TRINI LUJAN [facility] [id number] [facility] 2015-09-12 11:36:00 2015-09-12 11:36:00 Outpatient JOSE SU [facility] [id number] [facility] 2015-08-01 09:50:00 2015-08-01 09:50:00 Outpatient JOSE SU [facility] [id number] [facility] 2015-07-20 08:54:00 2015-07-20 08:54:00 Outpatient SHAE COVINGTON [facility] [id number] [facility] 2015-07-17 18:09:00 2015-07-17 20:58:00 Emergency ER ELEONORA FIGUEREDO [facility] [id number] [facility] 2015-06-27 09:21:00 2015-06-27 09:21:00 Outpatient EL NILESH YBARRA [facility] [id number] [facility] 2015-05-15 14:53:00 2015-05-15 14:53:00 Outpatient SHAE COVINGTON [facility] [id number] [facility] 2015-03-04 15:35:00 2015-03-04 20:15:00 Emergency ER ZULLYANISHATRINI [facility] [id number] [facility] Results Test Description Test Time Test Comments Results Result Co mments Source [facility] macro (dipstick) panel - [id number] 09:33:57* Test Item Value Reference Range Interpretation Comme nts Leukocytes (test code = Leukocytes) Trace Nitrite (test code = Nitrite) negative Urobilinogen (test code = Urobilinogen) .2 Protein (test code = Protein) Negative pH (test code = pH) 5.5 Blood (test code = Blood) Non-Hemolyzed: Trace Specific [place] (test code = [place]) 1.030 Ketone (test code = Ketone) Negative Bilirubin (test code = Bilirubin) Negative Glucose (test code = Glucose) Negative Appearance (test code = Appearance) Clear Color (test code = Color) Yellow [facility] macro (dipstick) panel - [id number] 10:17:06* Test Item Value Reference Range Interpretation Comme nts Leukocytes (test code = Leukocytes) Trace Nitrite (test code = Nitrite) negative Urobilinogen (test code = Urobilinogen) .2 Protein (test code = Protein) Negative pH (test code = pH) 6.0 Blood (test code = Blood) Negative Specific [place] (test code = Specific [place]) 1.025 Ketone (test code = Ketone) Negative Bilirubin (test code = Bilirubin) Negative Glucose (test code = Glucose) Negative Appearance (test code = Appearance) Clear Color (test code = Color) Yellow [facility] macro (dipstick) panel - [id number] 10:17:06* Test Item Value Reference Range Interpretation Comme nts Leukocytes (test code = Leukocytes) Trace Nitrite (test code = Nitrite) negative Urobilinogen (test code = Urobilinogen) .2 Protein (test code = Protein) Negative pH (test code = pH) 6.0 Blood (test code = Blood) Negative Specific [place] (test code = Specific [place]) 1.025 Ketone (test code = Ketone) Negative Bilirubin (test code = Bilirubin) Negative Glucose (test code = Glucose) Negative Appearance (test code = Appearance) Clear Color (test code = Color) Yellow [facility] macro (dipstick) panel - [id number] 10:17:06* Test Item Value Reference Range Interpretation Comme nts Leukocytes (test code = Leukocytes) Trace Nitrite (test code = Nitrite) negative Urobilinogen (test code = Urobilinogen) .2 Protein (test code = Protein) Negative pH (test code = pH) 6.0 Blood (test code = Blood) Negative [place] (test code = Specific [place]) 1.025 Ketone (test code = Ketone) Negative Bilirubin (test code = Bilirubin) Negative Glucose (test code = Glucose) Negative Appearance (test code = Appearance) Clear Color (test code = Color) Yellow [facility] macro (dipstick) panel - [id number] 10:17:06* Test Item Value Reference Range Interpretation Comme nts Leukocytes (test code = Leukocytes) Trace Nitrite (test code = Nitrite) negative Urobilinogen (test code = Urobilinogen) .2 Protein (test code = Protein) Negative pH (test code = pH) 6.0 Blood (test code = Blood) Negative [place] (test code = Specific [place]) 1.025 Ketone (test code = Ketone) Negative Bilirubin (test code = Bilirubin) Negative Glucose (test code = Glucose) Negative Appearance (test code = Appearance) Clear Color (test code = Color) Yellow [facility] Group[facility] flu (A+B)2023-07-18 10:59:00* Test Item Value Reference Range Interpretation Comme nts FLU A (test code = FLU A) negative FLU B (test code = FLU B) negative [facility] strep group A, [id number] 10:59:00 * Test Item Value Reference Range Interpretation Comme nts Strep (test code = Strep) [facility] Ag [Presence] in Respiratory system specimen by Rapid [id number] 10:58:00* Test Item Value Reference Range Interpretation Comme nts SARS CoV 2 (test code = SARS CoV 2) negative [facility] W Auto Differential panel - [id number] 05:21:00* Test Item Value Reference Range Interpretation Comme nts white blood count (test code = white blood count) 12.3 K/uL 4.0-11.5 H red blood count (test code = red blood count) 4.21 M/uL 3.80-5.20 hemoglobin (test code = hemoglobin) 10.7 g/dL 10.5-15.7 hematocrit (test code = hematocrit) 35.4 % 34.0-50.0 mean corpuscular volume (romana t code = mean corpuscular volume) 84.1 fL 86.0-100.0 L mean corpuscular hemoglobin (test code = mean corpuscular hemoglobin) 25.4 pg 26.2-33.4 L mean corpuscular HGB conc (t est code = mean corpuscular HGB conc) 30.2 g/dL 30.0-34.0 red cell distribution width (test code = red cell distribution width) 15.2 % 12.0-15.5 platelet count (test code = platelet count) 338 K/uL 165-450 mean platelet volume (test c ode = mean platelet volume) 11.2 fL 9.4-12.6 neutrophils % (test code = neutrophils %) 79.5 % 44.4-80.1 Ig% (test code = Ig%) 0.5 % 0.0-0.4 H lymphocyte% (test code = lymphocyte%) 12.9 % 10.0-50.0 mono % (test code = mono %) 6.8 % 3.6-12.0 eos % (test code = eos %) 0.1 % 0.0-5.4 basophil % (test code = baso miguel %) 0.2 % 0.1-1.2 absolute neutrophil count (t est code = absolute neutrophil count) 9.75 K/uL 1.56-6.13 H Ig# (test code = Ig#) 0.06 K/uL 0.00-0.03 H lymph # (test code = lymph #) 1.58 K/uL 1.18-3.74 mono # (test code = mono #) 0.83 K/uL 0.24-0.86 eos # (test code = eos #) 0.01 K/uL 0.04-0.36 L basophil # (test code = baso miguel #) 0.03 K/uL 0.01-0.08 NRBC% (test code = NRBC%) 0 /100 WBC 0-0.2 NRBC# (test code = NRBC#) 0 K/uL [facility] W Auto Differential panel - [id number] 05:21:00 * Test Item Value Reference Range Interpretation Comme nts white blood count (test code = white blood count) 12.3 K/uL 4.0-11.5 H red blood count (test code = red blood count) 4.21 M/uL 3.80-5.20 hemoglobin (test code = hemoglobin) 10.7 g/dL 10.5-15.7 hematocrit (test code = hematocrit) 35.4 % 34.0-50.0 mean corpuscular volume (romana t code = mean corpuscular volume) 84.1 fL 86.0-100.0 L mean corpuscular hemoglobin (test code = mean corpuscular hemoglobin) 25.4 pg 26.2-33.4 L mean corpuscular HGB conc (t est code = mean corpuscular HGB conc) 30.2 g/dL 30.0-34.0 red cell distribution width (test code = red cell distribution width) 15.2 % 12.0-15.5 platelet count (test code = platelet count) 338 K/uL 165-450 mean platelet volume (test c ode = mean platelet volume) 11.2 fL 9.4-12.6 neutrophils % (test code = neutrophils %) 79.5 % 44.4-80.1 Ig% (test code = Ig%) 0.5 % 0.0-0.4 H lymphocyte% (test code = lymphocyte%) 12.9 % 10.0-50.0 mono % (test code = mono %) 6.8 % 3.6-12.0 eos % (test code = eos %) 0.1 % 0.0-5.4 basophil % (test code = baso miguel %) 0.2 % 0.1-1.2 absolute neutrophil count (t est code = absolute neutrophil count) 9.75 K/uL 1.56-6.13 H Ig# (test code = Ig#) 0.06 K/uL 0.00-0.03 H lymph # (test code = lymph #) 1.58 K/uL 1.18-3.74 mono # (test code = mono #) 0.83 K/uL 0.24-0.86 eos # (test code = eos #) 0.01 K/uL 0.04-0.36 L basophil # (test code = baso miguel #) 0.03 K/uL 0.01-0.08 NRBC% (test code = NRBC%) 0 /100 WBC 0-0.2 NRBC# (test code = NRBC#) 0 K/uL [facility] W Auto Differential panel - [id number] 05:21:00 * Test Item Value Reference Range Interpretation Comme nts white blood count (test code = white blood count) 12.3 K/uL 4.0-11.5 H red blood count (test code = red blood count) 4.21 M/uL 3.80-5.20 hemoglobin (test code = hemoglobin) 10.7 g/dL 10.5-15.7 hematocrit (test code = hematocrit) 35.4 % 34.0-50.0 mean corpuscular volume (romana t code = mean corpuscular volume) 84.1 fL 86.0-100.0 L mean corpuscular hemoglobin (test code = mean corpuscular hemoglobin) 25.4 pg 26.2-33.4 L mean corpuscular HGB conc (t est code = mean corpuscular HGB conc) 30.2 g/dL 30.0-34.0 red cell distribution width (test code = red cell distribution width) 15.2 % 12.0-15.5 platelet count (test code = platelet count) 338 K/uL 165-450 mean platelet volume (test c ode = mean platelet volume) 11.2 fL 9.4-12.6 neutrophils % (test code = neutrophils %) 79.5 % 44.4-80.1 Ig% (test code = Ig%) 0.5 % 0.0-0.4 H lymphocyte% (test code = lymphocyte%) 12.9 % 10.0-50.0 mono % (test code = mono %) 6.8 % 3.6-12.0 eos % (test code = eos %) 0.1 % 0.0-5.4 basophil % (test code = baso miguel %) 0.2 % 0.1-1.2 absolute neutrophil count (t est code = absolute neutrophil count) 9.75 K/uL 1.56-6.13 H Ig# (test code = Ig#) 0.06 K/uL 0.00-0.03 H lymph # (test code = lymph #) 1.58 K/uL 1.18-3.74 mono # (test code = mono #) 0.83 K/uL 0.24-0.86 eos # (test code = eos #) 0.01 K/uL 0.04-0.36 L basophil # (test code = baso miguel #) 0.03 K/uL 0.01-0.08 NRBC% (test code = NRBC%) 0 /100 WBC 0-0.2 NRBC# (test code = NRBC#) 0 K/uL [facility] W Auto Differential panel - [id number] 05:21:00 * Test Item Value Reference Range Interpretation Comme nts white blood count (test code = white blood count) 12.3 K/uL 4.0-11.5 H red blood count (test code = red blood count) 4.21 M/uL 3.80-5.20 hemoglobin (test code = hemoglobin) 10.7 g/dL 10.5-15.7 hematocrit (test code = hematocrit) 35.4 % 34.0-50.0 mean corpuscular volume (romana t code = mean corpuscular volume) 84.1 fL 86.0-100.0 L mean corpuscular hemoglobin (test code = mean corpuscular hemoglobin) 25.4 pg 26.2-33.4 L mean corpuscular HGB conc (t est code = mean corpuscular HGB conc) 30.2 g/dL 30.0-34.0 red cell distribution width (test code = red cell distribution width) 15.2 % 12.0-15.5 platelet count (test code = platelet count) 338 K/uL 165-450 mean platelet volume (test c ode = mean platelet volume) 11.2 fL 9.4-12.6 neutrophils % (test code = neutrophils %) 79.5 % 44.4-80.1 Ig% (test code = Ig%) 0.5 % 0.0-0.4 H lymphocyte% (test code = lymphocyte%) 12.9 % 10.0-50.0 mono % (test code = mono %) 6.8 % 3.6-12.0 eos % (test code = eos %) 0.1 % 0.0-5.4 basophil % (test code = baso miguel %) 0.2 % 0.1-1.2 absolute neutrophil count (t est code = absolute neutrophil count) 9.75 K/uL 1.56-6.13 H Ig# (test code = Ig#) 0.06 K/uL 0.00-0.03 H lymph # (test code = lymph #) 1.58 K/uL 1.18-3.74 mono # (test code = mono #) 0.83 K/uL 0.24-0.86 eos # (test code = eos #) 0.01 K/uL 0.04-0.36 L basophil # (test code = baso miguel #) 0.03 K/uL 0.01-0.08 NRBC% (test code = NRBC%) 0 /100 WBC 0-0.2 NRBC# (test code = NRBC#) 0 K/uL [facility] [id number] 07:07:00* Test Item Value Reference Range Interpretation Comme [facility] blood glucose monitoring (te st code = blood glucose monitoring) 102 mg/dL 70.0-110 [facility] [id number] 07:07:00* Test Item Value Reference Range Interpretation Comme [facility] blood glucose monitoring (te st code = blood glucose monitoring) 102 mg/dL 70.0-110 [facility] [id number] 07:07:00* Test Item Value Reference Range Interpretation Comme [facility] blood glucose monitoring (te st code = blood glucose monitoring) 102 mg/dL 70.0-110 [facility] [id number] 07:07:00* Test Item Value Reference Range Interpretation Comme [facility] blood glucose monitoring (te st code = blood glucose monitoring) 102 mg/dL 70.0-110 [facility] metabolic [id number] 12:44:00* Test Item Value Reference Range Interpretation Comme [facility] glucose (test code = glucose) 96 mg/dL 74-106 blood urea nitrogen (test co de = blood urea nitrogen) 14 mg/dL 6-20 osmolality calculated,serum (test code = osmolality calculated,serum) 278 mOsm/kg 280-300 L creatinine (test code = creatinine) 0.69 mg/dL 0.50-0.90 glomerular filtration rate ( test code = glomerular filtration rate) > 60.00 BUN/creatinine ratio (test c ode = BUN/creatinine ratio) 20.3 12.0-20.0 H sodium level (test code = so dium level) 139 mmol/L 135-145 potassium level (test code = potassium level) 4.1 mmol/L 3.5-5.2 chloride level (test code = chloride level) 102 mmol/L 98-108 CO2 (test code = CO2) 25 mmol/L 21-32 anion gap (test code = anion gap) 16.1 mEq/L 12.0-20.0 calcium level (test code = calcium level) 9.4 mg/dL 8.6-10.0 [facility] metabolic [id number] 12:44:00* Test Item Value Reference Range Interpretation Comme nts glucose (test code = glucose) 96 mg/dL 74-106 blood urea nitrogen (test co de = blood urea nitrogen) 14 mg/dL 6-20 osmolality calculated,serum (test code = osmolality calculated,serum) 278 mOsm/kg 280-300 L creatinine (test code = creatinine) 0.69 mg/dL 0.50-0.90 glomerular filtration rate ( test code = glomerular filtration rate) > 60.00 BUN/creatinine ratio (test c ode = BUN/creatinine ratio) 20.3 12.0-20.0 H sodium level (test code = so dium level) 139 mmol/L 135-145 potassium level (test code = potassium level) 4.1 mmol/L 3.5-5.2 chloride level (test code = chloride level) 102 mmol/L 98-108 CO2 (test code = CO2) 25 mmol/L 21-32 anion gap (test code = anion gap) 16.1 mEq/L 12.0-20.0 calcium level (test code = calcium level) 9.4 mg/dL 8.6-10.0 [facility] metabolic [id number] 12:44:00* Test Item Value Reference Range Interpretation Comme nts glucose (test code = glucose) 96 mg/dL 74-106 blood urea nitrogen (test co de = blood urea nitrogen) 14 mg/dL 6-20 osmolality calculated,serum (test code = osmolality calculated,serum) 278 mOsm/kg 280-300 L creatinine (test code = creatinine) 0.69 mg/dL 0.50-0.90 glomerular filtration rate ( test code = glomerular filtration rate) > 60.00 BUN/creatinine ratio (test c ode = BUN/creatinine ratio) 20.3 12.0-20.0 H sodium level (test code = so dium level) 139 mmol/L 135-145 potassium level (test code = potassium level) 4.1 mmol/L 3.5-5.2 chloride level (test code = chloride level) 102 mmol/L 98-108 CO2 (test code = CO2) 25 mmol/L 21-32 anion gap (test code = anion gap) 16.1 mEq/L 12.0-20.0 calcium level (test code = calcium level) 9.4 mg/dL 8.6-10.0 [facility] metabolic [id number] 12:44:00* Test Item Value Reference Range Interpretation Comme nts glucose (test code = glucose) 96 mg/dL 74-106 blood urea nitrogen (test co de = blood urea nitrogen) 14 mg/dL 6-20 osmolality calculated,serum (test code = osmolality calculated,serum) 278 mOsm/kg 280-300 L creatinine (test code = creatinine) 0.69 mg/dL 0.50-0.90 glomerular filtration rate ( test code = glomerular filtration rate) > 60.00 BUN/creatinine ratio (test c ode = BUN/creatinine ratio) 20.3 12.0-20.0 H sodium level (test code = so dium level) 139 mmol/L 135-145 potassium level (test code = potassium level) 4.1 mmol/L 3.5-5.2 chloride level (test code = chloride level) 102 mmol/L 98-108 CO2 (test code = CO2) 25 mmol/L 21-32 anion gap (test code = anion gap) 16.1 mEq/L 12.0-20.0 calcium level (test code = calcium level) 9.4 mg/dL 8.6-10.0 [facility] W Auto Differential panel - [id number] 12:22:00 * Test Item Value Reference Range Interpretation Comme nts white blood count (test code = white blood count) 10.1 K/uL 4.0-11.5 red blood count (test code = red blood count) 5.16 M/uL 3.80-5.20 hemoglobin (test code = hemoglobin) 13.2 g/dL 10.5-15.7 hematocrit (test code = hematocrit) 42.3 % 34.0-50.0 mean corpuscular volume (romana t code = mean corpuscular volume) 82.0 fL 86.0-100.0 L mean corpuscular hemoglobin (test code = mean corpuscular hemoglobin) 25.6 pg 26.2-33.4 L mean corpuscular HGB conc (t est code = mean corpuscular HGB conc) 31.2 g/dL 30.0-34.0 red cell distribution width (test code = red cell distribution width) 14.8 % 12.0-15.5 platelet count (test code = platelet count) 400 K/uL 165-450 mean platelet volume (test c ode = mean platelet volume) 11.1 fL 9.4-12.6 neutrophils % (test code = neutrophils %) 73.0 % 44.4-80.1 Ig% (test code = Ig%) 0.3 % 0.0-0.4 lymphocyte% (test code = lymphocyte%) 19.4 % 10.0-50.0 mono % (test code = mono %) 5.4 % 3.6-12.0 eos % (test code = eos %) 1.3 % 0.0-5.4 basophil % (test code = baso miguel %) 0.6 % 0.1-1.2 absolute neutrophil count (t est code = absolute neutrophil count) 7.37 K/uL 1.56-6.13 H Ig# (test code = Ig#) 0.03 K/uL 0.00-0.03 lymph # (test code = lymph #) 1.96 K/uL 1.18-3.74 mono # (test code = mono #) 0.55 K/uL 0.24-0.86 eos # (test code = eos #) 0.13 K/uL 0.04-0.36 basophil # (test code = baso miguel #) 0.06 K/uL 0.01-0.08 NRBC% (test code = NRBC%) 0 /100 WBC 0-0.2 NRBC# (test code = NRBC#) 0 K/uL [facility] W Auto Differential panel - [id number] 12:22:00 * Test Item Value Reference Range Interpretation Comme nts white blood count (test code = white blood count) 10.1 K/uL 4.0-11.5 red blood count (test code = red blood count) 5.16 M/uL 3.80-5.20 hemoglobin (test code = hemoglobin) 13.2 g/dL 10.5-15.7 hematocrit (test code = hematocrit) 42.3 % 34.0-50.0 mean corpuscular volume (romana t code = mean corpuscular volume) 82.0 fL 86.0-100.0 L mean corpuscular hemoglobin (test code = mean corpuscular hemoglobin) 25.6 pg 26.2-33.4 L mean corpuscular HGB conc (t est code = mean corpuscular HGB conc) 31.2 g/dL 30.0-34.0 red cell distribution width (test code = red cell distribution width) 14.8 % 12.0-15.5 platelet count (test code = platelet count) 400 K/uL 165-450 mean platelet volume (test c ode = mean platelet volume) 11.1 fL 9.4-12.6 neutrophils % (test code = neutrophils %) 73.0 % 44.4-80.1 Ig% (test code = Ig%) 0.3 % 0.0-0.4 lymphocyte% (test code = lymphocyte%) 19.4 % 10.0-50.0 mono % (test code = mono %) 5.4 % 3.6-12.0 eos % (test code = eos %) 1.3 % 0.0-5.4 basophil % (test code = baso miguel %) 0.6 % 0.1-1.2 absolute neutrophil count (t est code = absolute neutrophil count) 7.37 K/uL 1.56-6.13 H Ig# (test code = Ig#) 0.03 K/uL 0.00-0.03 lymph # (test code = lymph #) 1.96 K/uL 1.18-3.74 mono # (test code = mono #) 0.55 K/uL 0.24-0.86 eos # (test code = eos #) 0.13 K/uL 0.04-0.36 basophil # (test code = baso miguel #) 0.06 K/uL 0.01-0.08 NRBC% (test code = NRBC%) 0 /100 WBC 0-0.2 NRBC# (test code = NRBC#) 0 K/uL [facility] W Auto Differential panel - [id number] 12:22:00 * Test Item Value Reference Range Interpretation Comme nts white blood count (test code = white blood count) 10.1 K/uL 4.0-11.5 red blood count (test code = red blood count) 5.16 M/uL 3.80-5.20 hemoglobin (test code = hemoglobin) 13.2 g/dL 10.5-15.7 hematocrit (test code = hematocrit) 42.3 % 34.0-50.0 mean corpuscular volume (romana t code = mean corpuscular volume) 82.0 fL 86.0-100.0 L mean corpuscular hemoglobin (test code = mean corpuscular hemoglobin) 25.6 pg 26.2-33.4 L mean corpuscular HGB conc (t est code = mean corpuscular HGB conc) 31.2 g/dL 30.0-34.0 red cell distribution width (test code = red cell distribution width) 14.8 % 12.0-15.5 platelet count (test code = platelet count) 400 K/uL 165-450 mean platelet volume (test c ode = mean platelet volume) 11.1 fL 9.4-12.6 neutrophils % (test code = neutrophils %) 73.0 % 44.4-80.1 Ig% (test code = Ig%) 0.3 % 0.0-0.4 lymphocyte% (test code = lymphocyte%) 19.4 % 10.0-50.0 mono % (test code = mono %) 5.4 % 3.6-12.0 eos % (test code = eos %) 1.3 % 0.0-5.4 basophil % (test code = baso miguel %) 0.6 % 0.1-1.2 absolute neutrophil count (t est code = absolute neutrophil count) 7.37 K/uL 1.56-6.13 H Ig# (test code = Ig#) 0.03 K/uL 0.00-0.03 lymph # (test code = lymph #) 1.96 K/uL 1.18-3.74 mono # (test code = mono #) 0.55 K/uL 0.24-0.86 eos # (test code = eos #) 0.13 K/uL 0.04-0.36 basophil # (test code = baso miguel #) 0.06 K/uL 0.01-0.08 NRBC% (test code = NRBC%) 0 /100 WBC 0-0.2 NRBC# (test code = NRBC#) 0 K/uL [facility] W Auto Differential panel - [id number] 12:22:00 * Test Item Value Reference Range Interpretation Comme nts white blood count (test code = white blood count) 10.1 K/uL 4.0-11.5 red blood count (test code = red blood count) 5.16 M/uL 3.80-5.20 hemoglobin (test code = hemoglobin) 13.2 g/dL 10.5-15.7 hematocrit (test code = hematocrit) 42.3 % 34.0-50.0 mean corpuscular volume (romana t code = mean corpuscular volume) 82.0 fL 86.0-100.0 L mean corpuscular hemoglobin (test code = mean corpuscular hemoglobin) 25.6 pg 26.2-33.4 L mean corpuscular HGB conc (t est code = mean corpuscular HGB conc) 31.2 g/dL 30.0-34.0 red cell distribution width (test code = red cell distribution width) 14.8 % 12.0-15.5 platelet count (test code = platelet count) 400 K/uL 165-450 mean platelet volume (test c ode = mean platelet volume) 11.1 fL 9.4-12.6 neutrophils % (test code = neutrophils %) 73.0 % 44.4-80.1 Ig% (test code = Ig%) 0.3 % 0.0-0.4 lymphocyte% (test code = lymphocyte%) 19.4 % 10.0-50.0 mono % (test code = mono %) 5.4 % 3.6-12.0 eos % (test code = eos %) 1.3 % 0.0-5.4 basophil % (test code = baso miguel %) 0.6 % 0.1-1.2 absolute neutrophil count (t est code = absolute neutrophil count) 7.37 K/uL 1.56-6.13 H Ig# (test code = Ig#) 0.03 K/uL 0.00-0.03 lymph # (test code = lymph #) 1.96 K/uL 1.18-3.74 mono # (test code = mono #) 0.55 K/uL 0.24-0.86 eos # (test code = eos #) 0.13 K/uL 0.04-0.36 basophil # (test code = baso miguel #) 0.06 K/uL 0.01-0.08 NRBC% (test code = NRBC%) 0 /100 WBC 0-0.2 NRBC# (test code = NRBC#) 0 K/uL [facility] macro (dipstick) panel - [id number] 10:15:25* Test Item Value Reference Range Interpretation Comme nts Leukocytes (test code = Leukocytes) Negative Nitrite (test code = Nitrite) negative Urobilinogen (test code = Urobilinogen) .2 Protein (test code = Protein) Negative pH (test code = pH) 5.5 Blood (test code = Blood) Negative [place] (test code = [place]) 1.030 Ketone (test code = Ketone) Negative Bilirubin (test code = Bilirubin) Negative Glucose (test code = Glucose) Negative Appearance (test code = Appearance) Clear Color (test code = Color) Yellow [facility] macro (dipstick) panel - [id number] 10:15:25* Test Item Value Reference Range Interpretation Comme nts Leukocytes (test code = Leukocytes) Negative Nitrite (test code = Nitrite) negative Urobilinogen (test code = Urobilinogen) .2 Protein (test code = Protein) Negative pH (test code = pH) 5.5 Blood (test code = Blood) Negative [place] (test code = [place]) 1.030 Ketone (test code = Ketone) Negative Bilirubin (test code = Bilirubin) Negative Glucose (test code = Glucose) Negative Appearance (test code = Appearance) Clear Color (test code = Color) Yellow [facility] macro (dipstick) panel - [id number] 10:15:25* Test Item Value Reference Range Interpretation Comme nts Leukocytes (test code = Leukocytes) Negative Nitrite (test code = Nitrite) negative Urobilinogen (test code = Urobilinogen) .2 Protein (test code = Protein) Negative pH (test code = pH) 5.5 Blood (test code = Blood) Negative [place] (test code = [place]) 1.030 Ketone (test code = Ketone) Negative Bilirubin (test code = Bilirubin) Negative Glucose (test code = Glucose) Negative Appearance (test code = Appearance) Clear Color (test code = Color) Yellow [facility] - [id number] 10:15:25* Test Item Value Reference Range Interpretation Comme nts Leukocytes (test code = Leukocytes) Negative Nitrite (test code = Nitrite) negative Urobilinogen (test code = Urobilinogen) .2 Protein (test code = Protein) Negative pH (test code = pH) 5.5 Blood (test code = Blood) Negative [place] (test code = [place]) 1.030 Ketone (test code = Ketone) Negative Bilirubin (test code = Bilirubin) Negative Glucose (test code = Glucose) Negative Appearance (test code = Appearance) Clear Color (test code = Color) Yellow [facility]dipstick[facility] panel - [id number] 10:15:25* Test Item Value Reference Range Interpretation Comme nts Leukocytes (test code = Leukocytes) Negative Nitrite (test code = Nitrite) negative Urobilinogen (test code = Urobilinogen) .2 Protein (test code = Protein) Negative pH (test code = pH) 5.5 Blood (test code = Blood) Negative [place] (test code = [place]) 1.030 Ketone (test code = Ketone) Negative Bilirubin (test code = Bilirubin) Negative Glucose (test code = Glucose) Negative Appearance (test code = Appearance) Clear Color (test code = Color) Yellow [facility], [id number] 10:15:01* Test Item Value Reference Range Interpretation Comme nts Test (test code = Test) negative [facility], [id number] 10:15:01* Test Item Value Reference Range Interpretation Comme nts Test (test code = Test) negative [facility], [id number] 10:15:01* Test Item Value Reference Range Interpretation Comme nts Test (test code = Test) negative [facility], [id number] 10:15:01* Test Item Value Reference Range Interpretation Comme nts Test (test code = Test) negative [facility], [id number] 10:15:01* Test Item Value Reference Range Interpretation Comme nts Test (test code = Test) negative [facility] GroupT[facility]/FREE [id number] 22:56:00* Test Item Value Reference Range Interpretation Comme nts TSH (test code = 09191540) 3.22 mIU/L N Reference Range > or = 20 Years 0.40-4.50 Ranges First trimester 0.26-2.66 Second trimester 0.55-2.73 Third trimester 0.43-2.91 T4, FREE (test code = 97246917) 1.0 ng/dL 0.8-1.8 N FASTING[facility], ROSWELLLIPID PANEL (REFL)2023-06-16 22:56:00* Test Item Value Reference Range Interpretation Comme nts CHOLESTEROL, TOTAL (test code = 99556719) 179 mg/dL <200 N HDL CHOLESTEROL (test code = 92387867) 39 mg/dL >=50 L TRIGLYCERIDES (test code = 66524006) 105 mg/dL <150 N LDL-CHOLESTEROL (test code = 15535838) 119 mg/dL (calc) H Reference range: <100 Desirable range <100 mg/dL for primary prevention; <70 mg/dL for patients with CHD or diabetic patients with > or = 2 CHD risk factors. LDL-C is now calculated using the Duarte calculation, which is a validated novel method providing better accuracy than the Friedewald equation in the estimation of LDL-C. Josue GUEVARA et al. MARCELLE. 2013;310(19): 9660-9188 (http://education.[employer].Pharnext /faq/MRW333) CHOL/HDLC RATIO (test code = 62997056) 4.6 (calc) <5.0 N NON HDL CHOLESTEROL (test code = 30438087) 140 mg/dL (calc) <130 H For patients with diabetes plus 1 major ASCVD risk factor, treating to a non-HDL-C goal of <100 mg/dL (LDL-C of <70 mg/dL) is considered a therapeutic option. FASTING:[facility] ROSWELLCOMP META [id number] 22:56:00* Test Item Value Reference Range Interpretation Comme nts GLUCOSE (test code = 57990839) 91 mg/dL 65-99 N Fasting referenc e interval UREA NITROGEN (BUN) (test code = 73708906) 13 mg/dL 7-25 N CREATININE (test code = 19328847) 0.60 mg/dL 0.50-0.99 N EGFR (test code = 74417926) 113 mL/min/1.73m2 >=60 N BUN/CREATININE RATIO (test code = 50803006) SEE NOTE: (calc) 6-22 N Not Reported: BUN and Creatinine are within reference range. SODIUM (test code = 85596037) 136 mmol/L 135-146 N POTASSIUM (test code = 11822555) 4.2 mmol/L 3.5-5.3 N CHLORIDE (test code = 45856859) 102 mmol/L 98-110 N CARBON DIOXIDE (test code = 51263421) 27 mmol/L 20-32 N CALCIUM (test code = 60038505) 9.5 mg/dL 8.6-10.2 N PROTEIN, TOTAL (test code = 01628924) 7.2 g/dL 6.1-8.1 N ALBUMIN (test code = 38565867) 4.0 g/dL 3.6-5.1 N GLOBULIN (test code = 96945731) 3.2 g/dL (calc) 1.9-3.7 N ALBUMIN/GLOBULIN RATIO (test code = 53107286) 1.3 (calc) 1.0-2.5 N BILIRUBIN, TOTAL (test code = 24691455) 0.3 mg/dL 0.2-1.2 N ALKALINE PHOSPHATASE (test code = 52950591) 64 U/L 31-125 N AST (test code = 43821668) 15 U/L 10-35 N ALT (test code = 70093286) 17 U/L 6-29 N FASTING:[facility] ROSWELLHEMOGLOBIN [id number] 22:56:00* Test Item Value Reference Range Interpretation Comments HEMOGLOBIN A1c (test code = 13017582) 5.6 % of total Hgb <5.7 N For the purpose of s creening for the presence ofdiabetes: <5.7% Consistent with the absence of diabetes5.7-6.4% Consistent with increased risk for diabetes (prediabetes)> or =6.5% Consistent with diabetes This assay result is consistent with a decreased riskof diabetes. Currently, no consensus exists regarding use ofhemoglobin A1c for diagnosis of diabetes in children. According to [place] Diabetes Association (ADA)guidelines, hemoglobin A1c <7.0% represents optimalcontrol in non- diabetic patients. Differentmetrics may apply to specific patient populations. Standards of Medical Care in Diabetes(ADA). This test was performed on the Gricel erickson c503 platform.Effective 02/03/23, a change in test platforms from theAllozyne to the Gricel erickson c503 may have [id number] results compared to historical results.[facility], the [employer] platform relative to the [employer] had an average increase in HbA1c value of< or = 0.3%. This difference is within accepted variability established by the National GlycohemoglobinStandardization Program. Note that not all individualswill have had a shift in their results and directcomparisons between historical and current results fortesting conducted on different platforms is notrecommended. FASTING:[facility]-OH,TOTAL,[id number] 22:56:00* Test Item Value Reference Range Interpretation Comme nts VITAMIN D,25-OH,TOTAL,IA (test code = 36197718) 65 ng/mL 30-100 N Vitamin D Status 25-OH Vitamin D: Deficiency: <20 ng/mLInsufficiency: 20 - 29 ng/mLOptimal: > or = 30 ng/mL For 25-OH Vitamin D testing on patients on D2-supplementation and patients for whom quantitation of D2 and D3 fractions is required, the QuestAssureD(TM)25-OH VIT D, (D2,D3), LC/MS/MS is recommended: order code 35624 (patients >2yrs). See Note 1 Note 1 For additional information, please refer to http://education.[employer]/faq/TKE878 (This link is being provided for informational/educationa l purposes only.) FASTING:[facility] (DIFF/PLT)2023-06-16 22:56:00* Test Item Value Reference Range Interpretation Comme nts WHITE BLOOD CELL COUNT (test code = 19667793) 8.9 Thousand/uL 3.8-10.8 N RED BLOOD CELL COUNT (test code = 85343887) 5.15 Million/uL 3.80-5.10 H HEMOGLOBIN (test code = 45446660) 12.7 g/dL 11.7-15.5 N HEMATOCRIT (test code = 52683707) 41.4 % 35.0-45.0 N MCV (test code = 53661005) 80.4 fL 80.0-100.0 N MCH (test code = 27409400) 24.7 pg 27.0-33.0 L MCHC (test code = 13571727) 30.7 g/dL 32.0-36.0 L RDW (test code = 91326885) 14.9 % 11.0-15.0 N PLATELET COUNT (test code = 55413997) 397 Thousand/uL 140-400 N MPV (test code = 40022801) 11.6 fL 7.5-12.5 N ABSOLUTE NEUTROPHILS (test code = 85782705) 6061 cells/uL 9460-0934 N ABSOLUTE LYMPHOCYTES (test code = 83901450) 2100 cells/uL 850-3900 N ABSOLUTE MONOCYTES (test cod e = 22832212) 543 cells/uL 200-950 N ABSOLUTE EOSINOPHILS (test code = 68542542) 134 cells/uL 15-500 N ABSOLUTE BASOPHILS (test cod e = 90884974) 62 cells/uL 0-200 N NEUTROPHILS (test code = 96876546) 68.1 % N LYMPHOCYTES (test code = 43041296) 23.6 % N MONOCYTES (test code = 45927764) 6.1 % N EOSINOPHILS (test code = 88547003) 1.5 % N BASOPHILS (test code = 85345856) 0.7 % N FASTING:[facility] [[email or web address] W Auto Differential panel - Blood 2023-06-16 00:00:00* Test Item Value Reference Range Interpretation Comme nts Leukocytes [#/volume] in Blood by Automated count (test code = 6690-2) 8.9 thousand/uL 3.8-10.8 Erythrocytes [#/volume] in Blood by Automated count (test code = 789-8) 5.15 million/uL 3.80-5.10 H Hemoglobin [Mass/volume] in Blood (test code = 718-7) 12.7 g/dL 11.7-15.5 Hematocrit [Volume Fraction] of Blood by Automated count (test code = 4544-3) 41.4 % 35.0-45.0 MCV [Entitic volume] by Automated count (test code = 787-2) 80.4 fL 80.0-100.0 MCH [Entitic mass] by Automated count (test code = 785-6) 24.7 pg 27.0-33.0 L MCHC [Mass/volume] by Automated count (test code = 786-4) 30.7 g/dL 32.0-36.0 L Erythrocyte distribution width [Ratio] by Automated count (test code = 788-0) 14.9 % 11.0-15.0 Platelets [#/volume] in Bloo d by Automated count (test code = 777-3) 397 thousand/uL 140-400 Platelet mean volume [Entiti c volume] in Blood by Sully (test code = 776-5) 11.6 fL 7.5-12.5 Neutrophils [#/volume] in Blood by Automated count (test code = 751-8) 6061 cells/uL 2579-4151 Lymphocytes [#/volume] in Blood by Automated count (test code = 731-0) 2100 cells/uL 850-3900 Monocytes [#/volume] in Bloo d by Automated count (test code = 742-7) 543 cells/uL 200-950 Eosinophils [#/volume] in Blood by Automated count (test code = 711-2) 134 cells/uL 15-500 Basophils [#/volume] in Bloo d by Automated count (test code = 704-7) 62 cells/uL 0-200 Neutrophils/100 leukocytes i n Blood by Automated count (test code = 770-8) 68.1 % Lymphocytes/100 leukocytes i n Blood by Automated count (test code = 736-9) 23.6 % Monocytes/100 leukocytes in Blood by Automated count (test code = 5905-5) 6.1 % Eosinophils/100 leukocytes i n Blood by Automated count (test code = 713-8) 1.5 % Basophils/100 leukocytes in Blood by Automated count (test code = 706-2) 0.7 % [facility]25-Hydroxyvitamin D3+25-Hydroxyvitamin D2 [Mass/volume] in Serum or [id number] 00:00:00* Test Item Value Reference Range Interpretation Comme nts 25-Hydroxyvitamin D3+25-Hydroxyvitamin D2 [Mass/volume] in Serum or Plasma (test code = 08078-3) 65 NG/mL 30-100 [facility]/Hemoglobin.total in Blood 2023-06-16 00:00:00* Test Item Value Reference Range Interpretation Comme nts Hemoglobin A1c/Hemoglobin.total in Blood (test code = 4548-4) 5.6 % of total HGB <5.7 [facility] - Serum or [id number] 00:00:00* Test Item Value Reference Range Interpretation Comme nts Cholesterol [Mass/volume] in Serum or Plasma (test code = 2093-3) 179 mg/dL <200 Cholesterol in HDL [Mass/volume] in Serum or Plasma (test code = 2085-9) 39 mg/dL See_Comment L [Automated [employer] The system which generated this result transmitted reference range: > or = 50. The reference range was not used to interpret this result as normal/abnormal. Triglyceride [Mass/volume] in Serum or Plasma (test code = 2571-8) 105 mg/dL <150 Cholesterol in LDL [Mass/volume] in Serum or Plasma by calculation (test code = 26399-3) 119 mg/dL (calc) H Cholesterol.total/Cho lesterol in HDL [Mass Ratio] in Serum or Plasma (test code = 9830-1) 4.6 (calc) <5.0 Cholesterol non HDL [Mass/volume] in Serum or Plasma (test code = 33908-8) 140 mg/dL (calc) <130 H [facility] - Serum or Plasma 2023-06-16 00:00:00* Test Item Value Reference Range Interpretation Comme nts Thyrotropin [Units/volume] i n Serum or Plasma (test code = 3016-3) 3.22 mIU/L Thyroxine (T4) free [Mass/vo lume] in Serum or Plasma (test code = 3024-7) 1.0 NG/dL 0.8-1.8 [facility] 2000 [facility] - Serum or [id number] 00:00:00* Test Item Value Reference Range Interpretation Comme nts Glucose [Mass/volume] in Serum or Plasma (test code = 2345-7) 91 mg/dL 65-99 Urea nitrogen [Mass/volume] in Serum or Plasma (test code = 3094-0) 13 mg/dL 7-25 Creatinine [Mass/volume] in Serum or Plasma (test code = 2160-0) 0.60 mg/dL 0.50-0.99 Glomerular filtration rate/1.73 sq M.predicted [Volume Rate/Area] in Serum, Plasma or Blood by Creatinine-based formula (CKD-EPI 2020) (test code = 35647-2) 113 mL/min/1.73m 2 See_Comment [Automated message] The system which generated this result transmitted reference range: > or = 60. The reference range was not used to interpret this result as normal/abnormal. Urea nitrogen/Creatinine [Mass Ratio] in Serum or Plasma (test code = 3097-3) see note: 6-22 Sodium [Moles/volume] in Serum or Plasma (test code = 2951-2) 136 mmol/L 135-146 Potassium [Moles/volume] in Serum or Plasma (test code = 2823-3) 4.2 mmol/L 3.5-5.3 Chloride [Moles/volume] in Serum or Plasma (test code = 2075-0) 102 mmol/L 98-110 Carbon dioxide, total [Moles/volume] in Serum or Plasma (test code = 2027-) 27 mmol/L 20-32 Calcium [Mass/volume] in Serum or Plasma (test code = 64135-1) 9.5 mg/dL 8.6-10.2 Protein [Mass/volume] in Serum or Plasma (test code = 2885-2) 7.2 g/dL 6.1-8.1 Albumin [Mass/volume] in Serum or Plasma (test code = 1751-7) 4.0 g/dL 3.6-5.1 Globulin [Mass/volume] in Serum by calculation (test code = 13635-9) 3.2 g/dL (calc) 1.9-3.7 Albumin/Globulin [Mass Ratio] in Serum or Plasma (test code = 1759-0) 1.3 (calc) 1.0-2.5 Bilirubin.total [Mass/volume] in Serum or Plasma (test code = 1975-2) 0.3 mg/dL 0.2-1.2 Alkaline phosphatase [Enzymatic activity/volume] in Serum or Plasma (test code = 6768-6) 64 U/L 31-125 Aspartate aminotransferase [Enzymatic activity/volume] in Serum or Plasma (test code = 1920-8) 15 U/L 10-35 Alanine aminotransferase [Enzymatic activity/volume] in Serum or Plasma (test code = 1742-6) 17 U/L 6-29 [facility] Hospital[facility]inal[facility] macro (dipstick) panel - Urine 2023-05-26 10:28:27* Test Item Value Reference Range Interpretation Comme nts Leukocytes (test code = Leukocytes) Negative Nitrite (test code = Nitrite) negative Urobilinogen (test code = Urobilinogen) .2 Protein (test code = Protein) 30 pH (test code = pH) 5.5 Blood (test code = Blood) Negative Specific [place] (test code = Specific [place]) 1.030 Ketone (test code = Ketone) Negative Bilirubin (test code = Bilirubin) Negative Glucose (test code = Glucose) Negative Appearance (test code = Appearance) Clear Color (test code = Color) Yellow [facility] Grouppregnancy test, [id number] 10:14:47* Test Item Value Reference Range Interpretation Comme nts Test (test code = Test) negative [facility] (dipstick) panel - [id number] 11:13:00* Test Item Value Reference Range Interpretation Comme nts Leukocytes (test code = Leukocytes) Trace Nitrite (test code = Nitrite) negative Urobilinogen (test code = Urobilinogen) .2 Protein (test code = Protein) Negative pH (test code = pH) 5.5 Blood (test code = Blood) Negative Specific [place] (test code = Specific [place]) 1.025 Ketone (test code = Ketone) Negative Bilirubin (test code = Bilirubin) Negative Glucose (test code = Glucose) Negative Appearance (test code = Appearance) Cloudy Color (test code = Color) Yellow [facility] AllianceSilva,TIBC,DEDRA [id number] 13:05:00* Test Item Value Reference Range Interpretation Comme nts IRON, TOTAL (test code = 27106455) 34 mcg/dL 40-190 L IRON BINDING CAPACITY (test code = 66905886) 433 mcg/dL (calc) 250-450 N % SATURATION (test code = 31781450) 8 % (calc) 16-45 L FERRITIN (test code = 53607169) 12 ng/mL 16-232 L [facility]LLTSH/FREE [id number] 13:05:00* Test Item Value Reference Range Interpretation Comme nts TSH (test code = 39848176) 3.28 mIU/L N Reference Range > or = 20 Years 0.40-4.50 Ranges First trimester 0.26-2.66 Second trimester 0.55-2.73 Third trimester 0.43-2.91 T4, FREE (test code = 49896422) 1.0 ng/dL 0.8-1.8 N FASTING:[facility] [id number] 13:05:00* Test Item Value Reference Range Interpretation Comme nts GLUCOSE (test code = 49451896) 91 mg/dL 65-99 N Fasting referenc e interval UREA NITROGEN (BUN) (test code = 26466809) 16 mg/dL 7-25 N CREATININE (test code = 18781452) 0.62 mg/dL 0.50-0.99 N EGFR (test code = 83755679) 112 mL/min/1.73m2 >=60 N BUN/CREATININE RATIO (test code = 65451775) SEE NOTE: (calc) 6-22 N Not Reported: BUN and Creatinine are within reference range. SODIUM (test code = 69151759) 137 mmol/L 135-146 N POTASSIUM (test code = 88480849) 4.5 mmol/L 3.5-5.3 N CHLORIDE (test code = 04512676) 101 mmol/L 98-110 N CARBON DIOXIDE (test code = 98770293) 29 mmol/L 20-32 N CALCIUM (test code = 76827451) 9.1 mg/dL 8.6-10.2 N PROTEIN, TOTAL (test code = 11236456) 7.1 g/dL 6.1-8.1 N ALBUMIN (test code = 80512031) 4.0 g/dL 3.6-5.1 N GLOBULIN (test code = 93733321) 3.1 g/dL (calc) 1.9-3.7 N ALBUMIN/GLOBULIN RATIO (test code = 78733731) 1.3 (calc) 1.0-2.5 N BILIRUBIN, TOTAL (test code = 61612895) 0.4 mg/dL 0.2-1.2 N ALKALINE PHOSPHATASE (test code = 52773151) 58 U/L 31-125 N AST (test code = 97714908) 14 U/L 10-35 N ALT (test code = 42659885) 18 U/L 6-29 N [facility] [id number] 13:05:00* Test Item Value Reference Range Interpretation Comme [facility] HEMOGLOBIN A1c (test code = 80554007) 5.3 % of total Hgb <5.7 N For the purpose of screening for the presence ofdiabetes: <5.7% Consistent with the absence of diabetes5.7-6.4% Consistent with increased risk for diabetes (prediabetes)> or =6.5% Consistent with diabetes This assay result is consistent with a decreased riskof diabetes. Currently, no consensus exists regarding use ofhemoglobin A1c for diagnosis of diabetes in children. According to [place] Diabetes Association (ADA)guidelines, hemoglobin A1c <7.0% represents optimalcontrol in non- diabetic patients. Differentmetrics may apply to specific patient populations. Standards of Medical Care in Diabetes(ADA). FASTING:[facility]ITAL[facility] D [id number] 13:05:00* Test Item Value Reference Range Interpretation Comme nts VITAMIN D, 25-OH, TOTAL (test code = 63566973) 37 ng/mL 30-100 N (Note) Vitamin D , 25-Hydroxy reports concentrations of two common forms, 25-OHD2 and 25-OHD3. 25-OHD3 indicates both endogenous production and supplementation. 25-OHD2 is an indicator of exogenous sources such as diet or supplementation. Therapy is based on measurement of Total 25-OHD, with levels <20 ng/mL indicative of Vitamin D deficiency, while levels between 20 ng/mL and 30 ng/mL suggest insufficiency. Optimal levels are > or = 30 ng/mL. For additional information, please refer to [email or web address]/[email or web address] VITAMIN D, 25-OH, D3 (test code = 71316066) 37 ng/mL N Reference range: Not established VITAMIN D, 25-OH, D2 (test code = 43868714) <4.0 ng/mL N (Note)Reference range: Not established This test was developed and its analytical performancecharacteristics have been determined by [employer]. It has not beencleared or approved by the [place] Food and Drug Administration. Thisassay has been validated pursuant to the CLIA regulation and is usedfor Clinical purposes.[facility] [address] [address],[address] [place] [address] [id number] [place] Note 1 Note 1 For additional information, please refer to [email or web address]/[email or web address] (This link is being provided for informational/educational purposes only.) FASTING:[facility] [[email or web address]] (DIFF/PLT)2023-03-08 13:05:00* Test Item Value Reference Range Interpretation Comme nts WHITE BLOOD CELL COUNT (test code = 57530525) 8.1 Thousand/uL 3.8-10.8 N RED BLOOD CELL COUNT (test code = 96353257) 5.34 Million/uL 3.80-5.10 H HEMOGLOBIN (test code = 15331466) 12.3 g/dL 11.7-15.5 N HEMATOCRIT (test code = 75702489) 40.8 % 35.0-45.0 N MCV (test code = 04743432) 76.4 fL 80.0-100.0 L MCH (test code = 09124703) 23.0 pg 27.0-33.0 L MCHC (test code = 40181208) 30.1 g/dL 32.0-36.0 L RDW (test code = 01111355) 16.8 % 11.0-15.0 H PLATELET COUNT (test code = 23198869) 416 Thousand/uL 140-400 H MPV (test code = 31290154) 11.4 fL 7.5-12.5 N ABSOLUTE NEUTROPHILS (test code = 14818619) 5095 cells/uL 0908-2551 N ABSOLUTE LYMPHOCYTES (test code = 06716121) 2228 cells/uL 850-3900 N ABSOLUTE MONOCYTES (test cod e = 20218948) 502 cells/uL 200-950 N ABSOLUTE EOSINOPHILS (test code = 85424064) 203 cells/uL 15-500 N ABSOLUTE BASOPHILS (test cod e = 72625311) 73 cells/uL 0-200 N NEUTROPHILS (test code = 72794066) 62.9 % N LYMPHOCYTES (test code = 05363158) 27.5 % N MONOCYTES (test code = 75333601) 6.2 % N EOSINOPHILS (test code = 70064816) 2.5 % N BASOPHILS (test code = 30169031) 0.9 % N [facility]STING[facility] [id number] 13:05:00* Test Item Value Reference Range Interpretation Comme nts VITAMIN B12 (test code = 77083328) 392 pg/mL 200-1100 N Please Note: Alt melissa the reference range for [id number] is 200-1100 pg/mL, it has been reported that between5 and 10% of patients with values between 200 and 400pg/mL may experience neuropsychiatric and hematologicabnormalities due to occult B12 deficiency; less than 1%of patients with values above 400 pg/mL will have symptoms. [facility] 1996 panel - Serum or Plasma 2022-12-06 00:00:00* Test Item Value Reference Range Interpretation Comme nts Cholesterol [Mass/volume] in Serum or Plasma (test code = 2093-3) 193 mg/dL <200 Cholesterol in HDL [Mass/volume] in Serum or Plasma (test code = 2085-9) 37 mg/dL See_Comment L [Automated [employer] The system which generated this result transmitted reference range: > or = 50. The reference range was not used to interpret this result as normal/abnormal. Triglyceride [Mass/volume] in Serum or Plasma (test code = 2571-8) 118 mg/dL <150 Cholesterol in LDL [Mass/volume] in Serum or Plasma by calculation (test code = 10050-8) 133 mg/dL (calc) H Cholesterol.total/Cho lesterol.in HDL [Mass ratio] in Serum or Plasma (test code = 9830-1) 5.2 (calc) <5.0 H Cholesterol non HDL [Mass/volume] in Serum or Plasma (test code = 26264-2) 156 mg/dL (calc) <130 H [facility] - Serum or Plasma 2022-12-06 00:00:00* Test Item Value Reference Range Interpretation Comme nts Thyrotropin [Units/volume] i n Serum or Plasma (test code = 3016-3) 3.46 mIU/L Thyroxine (T4) free [Mass/vo lume] in Serum or Plasma (test code = 3024-7) 0.9 NG/dL 0.8-1.8 [facility]Com[facility] 2000 panel - Serum or [id number] 00:00:00* Test Item Value Reference Range Interpretation Comme nts Glucose [Mass/volume] in Serum or Plasma (test code = 2345-7) 102 mg/dL 65-99 H Urea nitrogen [Mass/volume] in Serum or Plasma (test code = 3094-0) 21 mg/dL 7-25 Creatinine [Mass/volume] in Serum or Plasma (test code = 2160-0) 0.62 mg/dL 0.50-0.99 Glomerular filtration rate/1.73 sq M.predicted [Volume Rate/Area] in Serum, Plasma or Blood by Creatinine-based formula (CKD-EPI 2020) (test code = 17359-6) 112 mL/min/1.73m 2 See_Comment [Automated message] The system which generated this result transmitted reference range: > or = 60. The reference range was not used to interpret this result as normal/abnormal. Urea nitrogen/Creatinine [Mass Ratio] in Serum or Plasma (test code = 3097-3) see note: 6-22 Sodium [Moles/volume] in Serum or Plasma (test code = 2951-2) 136 mmol/L 135-146 Potassium [Moles/volume] in Serum or Plasma (test code = 2823-3) 4.6 mmol/L 3.5-5.3 Chloride [Moles/volume] in Serum or Plasma (test code = 2075-0) 103 mmol/L 98-110 Carbon dioxide, total [Moles/volume] in Serum or Plasma (test code = 2027-9) 27 mmol/L 20-32 Calcium [Mass/volume] in Serum or Plasma (test code = 13508-4) 9.0 mg/dL 8.6-10.2 Protein [Mass/volume] in Serum or Plasma (test code = 2885-2) 7.1 g/dL 6.1-8.1 Albumin [Mass/volume] in Serum or Plasma (test code = 1751-7) 3.9 g/dL 3.6-5.1 Globulin [Mass/volume] in Serum by calculation (test code = 30608-4) 3.2 g/dL (calc) 1.9-3.7 Albumin/Globulin [Mass Ratio] in Serum or Plasma (test code = 1759-0) 1.2 (calc) 1.0-2.5 Bilirubin.total [Mass/volume] in Serum or Plasma (test code = 1975-) 0.3 mg/dL 0.2-1.2 Alkaline phosphatase [Enzymatic activity/volume] in Serum or Plasma (test code = 6768-6) 61 U/L 31-125 Aspartate aminotransferase [Enzymatic activity/volume] in Serum or Plasma (test code = 1920-8) 12 U/L 10-35 Alanine aminotransferase [Enzymatic activity/volume] in Serum or Plasma (test code = 1742-6) 19 U/L 6-29 [facility] HospitalHemoglobin A1c/Hemoglobin.total in Blood 2022-12-06 00:00:00* Test Item Value Reference Range Interpretation Comme nts Hemoglobin A1c/Hemoglobin.total in Blood (test code = 4548-4) 6.0 % of total HGB <5.7 H [facility] Hospital[facility] 1996 panel - Serum or [id number] 00:00:00* Test Item Value Reference Range Interpretation Comme nts Cholesterol [Mass/volume] in Serum or Plasma (test code = 2093-3) 193 mg/dL <200 Cholesterol in HDL [Mass/volume] in Serum or Plasma (test code = 2085-9) 37 mg/dL See_Comment L [Automated [employer] The system which generated this result transmitted reference range: > or = 50. The reference range was not used to interpret this result as normal/abnormal. Triglyceride [Mass/volume] in Serum or Plasma (test code = 2571-8) 118 mg/dL <150 Cholesterol in LDL [Mass/volume] in Serum or Plasma by calculation (test code = 81591-4) 133 mg/dL (calc) H Cholesterol.total/Cho lesterol.in HDL [Mass ratio] in Serum or Plasma (test code = 9830-1) 5.2 (calc) <5.0 H Cholesterol non HDL [Mass/volume] in Serum or Plasma (test code = 14957-9) 156 mg/dL (calc) <130 H [facility] - Serum or Plasma 2022-12-06 00:00:00* Test Item Value Reference Range Interpretation Comme nts Thyrotropin [Units/volume] i n Serum or Plasma (test code = 3016-3) 3.46 mIU/L Thyroxine (T4) free [Mass/vo lume] in Serum or Plasma (test code = 3024-7) 0.9 NG/dL 0.8-1.8 [facility]Com[facility] 2000 panel - Serum or [id number] 00:00:00* Test Item Value Reference Range Interpretation Comme nts Glucose [Mass/volume] in Serum or Plasma (test code = 2345-7) 102 mg/dL 65-99 H Urea nitrogen [Mass/volume] in Serum or Plasma (test code = 3094-0) 21 mg/dL 7-25 Creatinine [Mass/volume] in Serum or Plasma (test code = 2160-0) 0.62 mg/dL 0.50-0.99 Glomerular filtration rate/1.73 sq M.predicted [Volume Rate/Area] in Serum, Plasma or Blood by Creatinine-based formula (CKD-EPI 2020) (test code = 07418-0) 112 mL/min/1.73m 2 See_Comment [Automated message] The system which generated this result transmitted reference range: > or = 60. The reference range was not used to interpret this result as normal/abnormal. Urea nitrogen/Creatinine [Mass Ratio] in Serum or Plasma (test code = 3097-3) see note: 6-22 Sodium [Moles/volume] in Serum or Plasma (test code = 2951-2) 136 mmol/L 135-146 Potassium [Moles/volume] in Serum or Plasma (test code = 2823-3) 4.6 mmol/L 3.5-5.3 Chloride [Moles/volume] in Serum or Plasma (test code = 2074-0) 103 mmol/L 98-110 Carbon dioxide, total [Moles/volume] in Serum or Plasma (test code = 2027-11) 27 mmol/L 20-32 Calcium [Mass/volume] in Serum or Plasma (test code = 91919-3) 9.0 mg/dL 8.6-10.2 Protein [Mass/volume] in Serum or Plasma (test code = 2885-2) 7.1 g/dL 6.1-8.1 Albumin [Mass/volume] in Serum or Plasma (test code = 1751-7) 3.9 g/dL 3.6-5.1 Globulin [Mass/volume] in Serum by calculation (test code = 06141-8) 3.2 g/dL (calc) 1.9-3.7 Albumin/Globulin [Mass Ratio] in Serum or Plasma (test code = 1759-0) 1.2 (calc) 1.0-2.5 Bilirubin.total [Mass/volume] in Serum or Plasma (test code = 1974-) 0.3 mg/dL 0.2-1.2 Alkaline phosphatase [Enzymatic activity/volume] in Serum or Plasma (test code = 6768-6) 61 U/L 31-125 Aspartate aminotransferase [Enzymatic activity/volume] in Serum or Plasma (test code = 1920-8) 12 U/L 10-35 Alanine aminotransferase [Enzymatic activity/volume] in Serum or Plasma (test code = 1742-6) 19 U/L 6-29 [facility] HospitalHemoglobin A1c/Hemoglobin.total in Blood 2022-12-06 00:00:00* Test Item Value Reference Range Interpretation Comme nts Hemoglobin A1c/Hemoglobin.total in Blood (test code = 4548-4) 6.0 % of total HGB <5.7 H [facility] 1996 panel - Serum or [id number] 00:00:00* Test Item Value Reference Range Interpretation Comme nts Cholesterol [Mass/volume] in Serum or Plasma (test code = 2092-3) 193 mg/dL <200 Cholesterol in HDL [Mass/volume] in Serum or Plasma (test code = 2084-11) 37 mg/dL See_Comment L [Automated messa ge] The system which generated this result transmitted reference range: > or = 50. The reference range was not used to interpret this result as normal/abnormal. Triglyceride [Mass/volume] in Serum or Plasma (test code = 2571-8) 118 mg/dL <150 Cholesterol in LDL [Mass/volume] in Serum or Plasma by calculation (test code = 34540-9) 133 mg/dL (calc) H Cholesterol.total/Cho lesterol.in HDL [Mass ratio] in Serum or Plasma (test code = 9830-1) 5.2 (calc) <5.0 H Cholesterol non HDL [Mass/volume] in Serum or Plasma (test code = 76651-3) 156 mg/dL (calc) <130 H [facility] T[facility] TSH [facility] - Serum or Plasma 2022-12-06 00:00:00* Test Item Value Reference Range Interpretation Comme nts Thyrotropin [Units/volume] i n Serum or Plasma (test code = 3016-3) 3.46 mIU/L Thyroxine (T4) free [Mass/vo lume] in Serum or Plasma (test code = 3024-7) 0.9 NG/dL 0.8-1.8 [facility]Com[facility] 2000 panel - Serum or [id number] 00:00:00* Test Item Value Reference Range Interpretation Comme nts Glucose [Mass/volume] in Serum or Plasma (test code = 2345-7) 102 mg/dL 65-99 H Urea nitrogen [Mass/volume] in Serum or Plasma (test code = 3094-0) 21 mg/dL 7-25 Creatinine [Mass/volume] in Serum or Plasma (test code = 2160-0) 0.62 mg/dL 0.50-0.99 Glomerular filtration rate/1.73 sq M.predicted [Volume Rate/Area] in Serum, Plasma or Blood by Creatinine-based formula (CKD-EPI 2020) (test code = 35656-2) 112 mL/min/1.73m 2 See_Comment [Automated message] The system which generated this result transmitted reference range: > or = 60. The reference range was not used to interpret this result as normal/abnormal. Urea nitrogen/Creatinine [Mass Ratio] in Serum or Plasma (test code = 3097-3) see note: 6-22 Sodium [Moles/volume] in Serum or Plasma (test code = 2951-2) 136 mmol/L 135-146 Potassium [Moles/volume] in Serum or Plasma (test code = 2823-3) 4.6 mmol/L 3.5-5.3 Chloride [Moles/volume] in Serum or Plasma (test code = 2074-0) 103 mmol/L 98-110 Carbon dioxide, total [Moles/volume] in Serum or Plasma (test code = 2027-) 27 mmol/L 20-32 Calcium [Mass/volume] in Serum or Plasma (test code = 21867-5) 9.0 mg/dL 8.6-10.2 Protein [Mass/volume] in Serum or Plasma (test code = 2885-2) 7.1 g/dL 6.1-8.1 Albumin [Mass/volume] in Serum or Plasma (test code = 1751-7) 3.9 g/dL 3.6-5.1 Globulin [Mass/volume] in Serum by calculation (test code = 39290-5) 3.2 g/dL (calc) 1.9-3.7 Albumin/Globulin [Mass Ratio] in Serum or Plasma (test code = 1759-0) 1.2 (calc) 1.0-2.5 Bilirubin.total [Mass/volume] in Serum or Plasma (test code = 1974-) 0.3 mg/dL 0.2-1.2 Alkaline phosphatase [Enzymatic activity/volume] in Serum or Plasma (test code = 6768-6) 61 U/L 31-125 Aspartate aminotransferase [Enzymatic activity/volume] in Serum or Plasma (test code = 1920-8) 12 U/L 10-35 Alanine aminotransferase [Enzymatic activity/volume] in Serum or Plasma (test code = 1742-6) 19 U/L 6-29 [facility]/Hemoglobin.total in Blood 2022-12-06 00:00:00* Test Item Value Reference Range Interpretation Comme nts Hemoglobin A1c/Hemoglobin.total in Blood (test code = 4548-4) 6.0 % of total HGB <5.7 H [facility] HospitalUrinalysis macro (dipstick) panel - Urine 2022-11-13 11:29:00* Test Item Value Reference Range Interpretation Comme nts Leukocytes (test code = Leukocytes) Trace Nitrite (test code = Nitrite) negative Urobilinogen (test code = Urobilinogen) .2 Protein (test code = Protein) Negative pH (test code = pH) 6.5 Blood (test code = Blood) Negative [place] (test code = [place]) 1.020 Ketone (test code = Ketone) Negative Bilirubin (test code = Bilirubin) Negative Glucose (test code = Glucose) Negative Appearance (test code = Appearance) Slightly Cloudy Color (test code = Color) Yellow [facility] - Urine 2022-11-13 11:29:00* Test Item Value Reference Range Interpretation Comme nts Leukocytes (test code = Leukocytes) Trace Nitrite (test code = Nitrite) negative Urobilinogen (test code = Urobilinogen) .2 Protein (test code = Protein) Negative pH (test code = pH) 6.5 Blood (test code = Blood) Negative [place] (test code = [place]) 1.020 Ketone (test code = Ketone) Negative Bilirubin (test code = Bilirubin) Negative Glucose (test code = Glucose) Negative Appearance (test code = Appearance) Slightly Cloudy Color (test code = Color) Yellow [facility] - Urine 2022-11-13 11:29:00* Test Item Value Reference Range Interpretation Comme nts Leukocytes (test code = Leukocytes) Trace Nitrite (test code = Nitrite) negative Urobilinogen (test code = Urobilinogen) .2 Protein (test code = Protein) Negative pH (test code = pH) 6.5 Blood (test code = Blood) Negative [place] (test code = [place]) 1.020 Ketone (test code = Ketone) Negative Bilirubin (test code = Bilirubin) Negative Glucose (test code = Glucose) Negative Appearance (test code = Appearance) Slightly Cloudy Color (test code = Color) Yellow [facility] - Urine 2022-11-13 11:29:00* Test Item Value Reference Range Interpretation Comme nts Leukocytes (test code = Leukocytes) Trace Nitrite (test code = Nitrite) negative Urobilinogen (test code = Urobilinogen) .2 Protein (test code = Protein) Negative pH (test code = pH) 6.5 Blood (test code = Blood) Negative [place] (test code = [place]) 1.020 Ketone (test code = Ketone) Negative Bilirubin (test code = Bilirubin) Negative Glucose (test code = Glucose) Negative Appearance (test code = Appearance) Slightly Cloudy Color (test code = Color) Yellow [facility]Micro[facility] observation [Identifier] in Vaginal fluid by Wet [id number] 14:42:45* Test Item Value Reference Range Interpretation Comme nts Clue Cells (test code = Clue Cells) negative WBCs (test code = WBCs) negative Trichomonads (test code = Trichomonads) negative Epithelial cells (test code = Epithelial cells) normal RBCs (test code = RBCs) negative [facility] (dipstick) panel - [id number] 13:43:53* Test Item Value Reference Range Interpretation Comme nts Leukocytes (test code = Leukocytes) Large Nitrite (test code = Nitrite) negative Urobilinogen (test code = Urobilinogen) .2 Protein (test code = Protein) 100 pH (test code = pH) 5.5 Blood (test code = Blood) Large [place] (test code = [place]) 1.030 Ketone (test code = Ketone) Negative Bilirubin (test code = Bilirubin) Negative Glucose (test code = Glucose) Negative Appearance (test code = Appearance) Clear Color (test code = Color) Yellow [facility] + HR [id number] 00:00:00* Test Item Value Reference Range Interpretation Comme nts TP highrisk HPV,16/18 (test code = TP highrisk HPV,16/18) normal HPV (test code = HPV) normal [facility] GroupMicroscopic observation [Identifier] in Vaginal fluid by Wet [id number] 15:57:32* Test Item Value Reference Range Interpretation Comme nts Clue Cells (test code = Clue Cells) negative WBCs (test code = WBCs) negative Trichomonads (test code = Trichomonads) negative Epithelial cells (test code = Epithelial cells) normal RBCs (test code = RBCs) negative [facility] GroupMicroscopic observation [Identifier] in Vaginal fluid by Wet [id number] 15:57:32* Test Item Value Reference Range Interpretation Comme nts Clue Cells (test code = Clue Cells) negative WBCs (test code = WBCs) negative Trichomonads (test code = Trichomonads) negative Epithelial cells (test code = Epithelial cells) normal RBCs (test code = RBCs) negative [facility]Ur[facility] (dipstick) panel - [id number] 14:04:31* Test Item Value Reference Range Interpretation Comme nts Leukocytes (test code = Leukocytes) Negative Nitrite (test code = Nitrite) negative Urobilinogen (test code = Urobilinogen) .2 Protein (test code = Protein) Negative pH (test code = pH) 5.5 Blood (test code = Blood) Negative [place] (test code = [place]) 1.010 Ketone (test code = Ketone) Negative Bilirubin (test code = Bilirubin) Negative Glucose (test code = Glucose) Negative Appearance (test code = Appearance) Clear Color (test code = Color) Yellow [facility]Ur[facility] (dipstick) panel - [id number] 14:04:31* Test Item Value Reference Range Interpretation Comme nts Leukocytes (test code = Leukocytes) Negative Nitrite (test code = Nitrite) negative Urobilinogen (test code = Urobilinogen) .2 Protein (test code = Protein) Negative pH (test code = pH) 5.5 Blood (test code = Blood) Negative [place] (test code = [place]) 1.010 Ketone (test code = Ketone) Negative Bilirubin (test code = Bilirubin) Negative Glucose (test code = Glucose) Negative Appearance (test code = Appearance) Clear Color (test code = Color) Yellow [facility] Ag [Presence] in Respiratory specimen by Rapid [id number] 10:23:00* Test Item Value Reference Range Interpretation Comme nts SARS CoV 2 (test code = SARS CoV 2) negative [facility] Clinicsrap[facility] A, [id number] 09:48:00 * Test Item Value Reference Range Interpretation Comme nts Strep (test code = Strep) negative [facility] ClinicsUrinalysis macro (dipstick) panel - Urine 2022-04-22 15:51:00* Test Item Value Reference Range Interpretation Comme nts Leukocytes (test code = Leukocytes) Small Nitrite (test code = Nitrite) negative Urobilinogen (test code = Urobilinogen) .2 Protein (test code = Protein) Negative pH (test code = pH) 5.0 Blood (test code = Blood) Hemolyzed: Trace [place] (test code = [place]) 1.010 Ketone (test code = Ketone) Negative Bilirubin (test code = Bilirubin) Negative Glucose (test code = Glucose) Negative Appearance (test code = Appearance) Clear Color (test code = Color) Yellow [facility]stick) panel - Urine 2022-04-22 15:51:00* Test Item Value Reference Range Interpretation Comme nts Leukocytes (test code = Leukocytes) Small Nitrite (test code = Nitrite) negative Urobilinogen (test code = Urobilinogen) .2 Protein (test code = Protein) Negative pH (test code = pH) 5.0 Blood (test code = Blood) Hemolyzed: Trace [place] (test code = [place]) 1.010 Ketone (test code = Ketone) Negative Bilirubin (test code = Bilirubin) Negative Glucose (test code = Glucose) Negative Appearance (test code = Appearance) Clear Color (test code = Color) Yellow [facility]dipstick) panel - Urine 2022-04-22 15:51:00* Test Item Value Reference Range Interpretation Comme nts Leukocytes (test code = Leukocytes) Small Nitrite (test code = Nitrite) negative Urobilinogen (test code = Urobilinogen) .2 Protein (test code = Protein) Negative pH (test code = pH) 5.0 Blood (test code = Blood) Hemolyzed: Trace [place] (test code = [place]) 1.010 Ketone (test code = Ketone) Negative Bilirubin (test code = Bilirubin) Negative Glucose (test code = Glucose) Negative Appearance (test code = Appearance) Clear Color (test code = Color) Yellow [facility], [id number] 13:37:00 * Test Item Value Reference Range Interpretation Comme nts Strep (test code = Strep) positive [facility] ([facility]-19[facility] Ag [Presence] in Respiratory specimen by Rapid [id number] 13:37:00* Test Item Value Reference Range Interpretation Comme nts SARS CoV 2 (test code = SARS CoV 2) positive [facility]POCT SARS-COV-2 ANTIGEN (BINAX NOW)2021-10-22 23:30:00* Test Item Value Reference Range Interpretation Comme nts POCT SARS-COV-2 ANTIGEN (romana t code = 5076) Not Detected Not Detected On board controls acceptable with C Line (test code = 3574) Yes Lab Interpretation (test cod e = 63944-5) [facility] [id number] 23:10:36* Test Item Value Reference Range Interpretation Comme nts POCT Molecular Strep (test c ode = 20659-4) Negative Negative Lab Interpretation (test cod e = 60324-9) Normal [facility] - Urine 2021-08-07 09:27:09* Test Item Value Reference Range Interpretation Comme nts Leukocytes (test code = Leukocytes) Negative Nitrite (test code = Nitrite) negative Urobilinogen (test code = Urobilinogen) .2 Protein (test code = Protein) Negative pH (test code = pH) 6.0 Blood (test code = Blood) Small [place] (test code = [place]) 1.025 Ketone (test code = Ketone) Negative Bilirubin (test code = Bilirubin) Negative Glucose (test code = Glucose) Negative Appearance (test code = Appearance) Clear Color (test code = Color) Yellow [facility] W Auto Differential panel - [id number] 08:25:00 * Test Item Value Reference Range Interpretation Comme nts white blood count (test code = white blood count) 8.7 K/uL 4.0-11.5 red blood count (test code = red blood count) 5.11 M/uL 3.80-5.20 hemoglobin (test code = hemoglobin) 12.1 g/dL 10.5-15.7 hematocrit (test code = hematocrit) 40.9 % 34.0-50.0 MCV [Entitic volume] (test c ode = 45052-0) 80.0 fL 86.0-100.0 L mean corpuscular hemoglobin (test code = mean corpuscular hemoglobin) 23.7 pg 26.2-33.4 L mean corpuscular HGB conc (t est code = mean corpuscular HGB conc) 29.6 g/dL 30.0-34.0 L red cell distribution width (test code = red cell distribution width) 14.6 % 12.0-15.5 platelet count (test code = platelet count) 349 K/uL 165-450 mean platelet volume (test c ode = mean platelet volume) 11.8 fL 9.4-12.6 Segmented neutrophils/100 leukocytes in Blood (test code = 30286-0) 62.8 % 44.4-80.1 Immature granulocytes [#/vol ume] in Blood (test code = 42956-6) 0.04 K/uL 0.00-0.03 H lymphocyte% (test code = lymphocyte%) 27.6 % 10.0-50.0 mono % (test code = mono %) 6.1 % 3.6-12.0 eos % (test code = eos %) 2.4 % 0.0-5.4 Basophils/100 leukocytes in Specimen (test code = 75244-8) 0.6 % 0.1-1.2 Band form neutrophils [#/vol ume] in Blood (test code = 68360-1) 5.48 K/uL 1.56-6.13 Lymphocytes [#/volume] in Sp ecimen by Automated count (test code = 71853-3) 2.41 K/uL 1.18-3.74 mono # (test code = mono #) 0.53 K/uL 0.24-0.86 eos # (test code = eos #) 0.21 K/uL 0.04-0.36 basophil # (test code = baso miguel #) 0.05 K/uL 0.01-0.08 NRBC% (test code = NRBC%) 0 /100 WBC 0-0.2 NRBC# (test code = NRBC#) 0 K/uL [facility]Ur[facility] macro (dipstick) panel - [id number] 10:17:35* Test Item Value Reference Range Interpretation Comme nts Leukocytes (test code = Leukocytes) Negative Nitrite (test code = Nitrite) negative Urobilinogen (test code = Urobilinogen) .2 Protein (test code = Protein) Negative pH (test code = pH) 5.5 Blood (test code = Blood) Negative [place] (test code = [place]) 1.025 Ketone (test code = Ketone) Negative Bilirubin (test code = Bilirubin) Negative Glucose (test code = Glucose) Negative Appearance (test code = Appearance) Clear Color (test code = Color) Yellow [facility] UnitUr[facility]ysis macro (dipstick) panel - [id number] 10:17:35* Test Item Value Reference Range Interpretation Comme nts Leukocytes (test code = Leukocytes) Negative Nitrite (test code = Nitrite) negative Urobilinogen (test code = Urobilinogen) .2 Protein (test code = Protein) Negative pH (test code = pH) 5.5 Blood (test code = Blood) Negative [place] (test code = [place]) 1.025 Ketone (test code = Ketone) Negative Bilirubin (test code = Bilirubin) Negative Glucose (test code = Glucose) Negative Appearance (test code = Appearance) Clear Color (test code = Color) Yellow [facility], LB + reflex to HR HPV if [id number] 00:00:00* Test Item Value Reference Range Interpretation Comme nts TP reflex HPV ASCUS (test co de = TP reflex HPV ASCUS) normal [facility], LB + reflex to HR HPV if [id number] 00:00:00* Test Item Value Reference Range Interpretation Comme nts TP reflex HPV ASCUS (test co de = TP reflex HPV ASCUS) normal [facility] GroupMicroscopic observation [Identifier] in Vaginal fluid by Wet [id number] 16:05:37* Test Item Value Reference Range Interpretation Comme nts Clue Cells (test code = Clue Cells) negative WBCs (test code = WBCs) negative Trichomonads (test code = Trichomonads) negative Epithelial cells (test code = Epithelial cells) normal RBCs (test code = RBCs) negative [facility] GroupMicroscopic observation [Identifier] in Vaginal fluid by Wet [id number] 16:05:37* Test Item Value Reference Range Interpretation Comme nts Clue Cells (test code = Clue Cells) negative WBCs (test code = WBCs) negative Trichomonads (test code = Trichomonads) negative Epithelial cells (test code = Epithelial cells) normal RBCs (test code = RBCs) negative [facility] GroupMicroscopic observation [Identifier] in Vaginal fluid by Wet [id number] 16:05:37* Test Item Value Reference Range Interpretation Comme nts Clue Cells (test code = Clue Cells) negative WBCs (test code = WBCs) negative Trichomonads (test code = Trichomonads) negative Epithelial cells (test code = Epithelial cells) normal RBCs (test code = RBCs) negative [facility] UnitUr[facility] macro (dipstick) panel - [id number] 09:48:10* Test Item Value Reference Range Interpretation Comme nts Leukocytes (test code = Leukocytes) Negative Nitrite (test code = Nitrite) negative Urobilinogen (test code = Urobilinogen) .2 Protein (test code = Protein) Negative pH (test code = pH) 5.5 Blood (test code = Blood) Negative [place] (test code = [place]) 1.030 Ketone (test code = Ketone) Negative Bilirubin (test code = Bilirubin) Negative Glucose (test code = Glucose) Negative Appearance (test code = Appearance) Clear Color (test code = Color) Yellow [facility] UnitUr[facility]ysis macro (dipstick) panel - [id number] 09:48:10* Test Item Value Reference Range Interpretation Comme nts Leukocytes (test code = Leukocytes) Negative Nitrite (test code = Nitrite) negative Urobilinogen (test code = Urobilinogen) .2 Protein (test code = Protein) Negative pH (test code = pH) 5.5 Blood (test code = Blood) Negative [place] (test code = [place]) 1.030 Ketone (test code = Ketone) Negative Bilirubin (test code = Bilirubin) Negative Glucose (test code = Glucose) Negative Appearance (test code = Appearance) Clear Color (test code = Color) Yellow [facility] UnitUr[facility] macro (dipstick) panel - [id number] 09:48:10* Test Item Value Reference Range Interpretation Comme nts Leukocytes (test code = Leukocytes) Negative Nitrite (test code = Nitrite) negative Urobilinogen (test code = Urobilinogen) .2 Protein (test code = Protein) Negative pH (test code = pH) 5.5 Blood (test code = Blood) Negative [place] (test code = [place]) 1.030 Ketone (test code = Ketone) Negative Bilirubin (test code = Bilirubin) Negative Glucose (test code = Glucose) Negative Appearance (test code = Appearance) Clear Color (test code = Color) Yellow [facility], [id number] 09:47:14* Test Item Value Reference Range Interpretation Comme nts Test (test code = Test) positive [facility], [id number] 09:47:14* Test Item Value Reference Range Interpretation Comme nts Test (test code = Test) positive [facility], [id number] 09:47:14* Test Item Value Reference Range Interpretation Comme nts Test (test code = Test) positive [facility] UnitBacteria identified in Urine by [id number] 09:30:00Bacteria Ur [facility] W Auto Differential panel - [id number] 09:30:00* Test Item Value Reference Range Interpretation Comme nts white blood count (test code = white blood count) 9.3 K/uL 4.0-11.5 red blood count (test code = red blood count) 5.10 M/uL 3.80-5.20 hemoglobin (test code = hemoglobin) 12.2 g/dL 10.5-15.7 hematocrit (test code = hematocrit) 40.1 % 34.0-50.0 MCV [Entitic volume] (test c ode = 88824-8) 78.6 fL 86.0-100.0 L mean corpuscular hemoglobin (test code = mean corpuscular hemoglobin) 23.9 pg 26.2-33.4 L mean corpuscular HGB conc (t est code = mean corpuscular HGB conc) 30.4 g/dL 30.0-34.0 red cell distribution width (test code = red cell distribution width) 14.7 % 12.0-15.5 platelet count (test code = platelet count) 376 K/uL 165-450 mean platelet volume (test c ode = mean platelet volume) 11.4 fL 9.4-12.6 Segmented neutrophils/100 leukocytes in Blood (test code = 42962-1) 69.6 % 44.4-80.1 Immature granulocytes [#/vol ume] in Blood (test code = 35635-3) 0.04 K/uL 0.00-0.03 H lymphocyte% (test code = lymphocyte%) 21.5 % 10.0-50.0 mono % (test code = mono %) 6.3 % 3.6-12.0 eos % (test code = eos %) 1.7 % 0.0-5.4 Basophils/100 leukocytes in Specimen (test code = 77232-6) 0.5 % 0.1-1.2 Band form neutrophils [#/vol ume] in Blood (test code = 86941-5) 6.49 K/uL 1.56-6.13 H Lymphocytes [#/volume] in Sp ecimen by Automated count (test code = 53896-7) 2.01 K/uL 1.18-3.74 mono # (test code = mono #) 0.59 K/uL 0.24-0.86 eos # (test code = eos #) 0.16 K/uL 0.04-0.36 basophil # (test code = baso miguel #) 0.05 K/uL 0.01-0.08 NRBC% (test code = NRBC%) 0 /100 WBC 0-0.2 NRBC# (test code = NRBC#) 0 K/uL [facility] Rh [facility] [Type] in [id number] 09:30:00* Test Item Value Reference Range Interpretation Comme nts Rh [Type] in Blood (test cod e = 49879-7) 4+ ABO and Rh group panel - Blo od (test code = 35345-2) Ab positive [facility] GroupBlood group antibody screen [Presence] in Serum or Plasma 2021-07-13 09:30:00* Test Item Value Reference Range Interpretation Comme nts Blood group antibody screen [Presence] in Serum or Plasma (test code = 890-4) negative [facility] GroupChlamydia trachomatis+Neisseria gonorrhoeae DNA [Presence] in Cervix by ELENO with probe [id number] 09:30:00* Test Item Value Reference Range Interpretation Comme nts Chlamydia sp Ag [Presence] i n Specimen (test code = 47230-6) CT not detected [id number] (test code = fkj9525) NG not detected [facility] Groupantibiotic sensitivity testing, [id number] 09:30:00* Test Item Value Reference Range Interpretation Comme nts Gentamicin [Susceptibility] by Minimum inhibitory concentration (BREE) (test code = 267-5) <=2 Ampicillin [Susceptibility] by Minimum inhibitory concentration (BREE) (test code = 28-1) >16 Cefazolin [Susceptibility] b y Minimum inhibitory concentration (BREE) (test code = 76-0) 2 ug/mL Trimethoprim+Sulfamethoxazol e [Susceptibility] by Minimum inhibitory concentration (BREE) (test code = 516-5) =0.5 Tetracycline [Susceptibility ] by Minimum inhibitory concentration (BREE) (test code = 496-0) <=2 Amoxicillin+Clavulanate [Susceptibility] by Minimum inhibitory concentration (BREE) (test code = 20-8) =4/2 Tobramycin [Susceptibility] by Minimum inhibitory concentration (BREE) (test code = 508-2) <=2 Nitrofurantoin [Susceptibili ty] by Minimum inhibitory concentration (BREE) (test code = 363-2) 32 ug/mL cefOXitin [Susceptibility] b y Minimum inhibitory concentration (BREE) (test code = 116-4) <=4 levoFLOXacin [Susceptibility ] by Minimum inhibitory concentration (BREE) (test code = 11128-4) <=0.5 cefTAZidime [Susceptibility] by Minimum inhibitory concentration (BREE) (test code = 133-9) <=2 cefTRIAXone [Susceptibility] by Minimum inhibitory concentration (BREE) (test code = 141-2) <=1 Ciprofloxacin [Susceptibilit y] by Minimum inhibitory concentration (BREE) (test code = 185-9) <=0.25 Ampicillin+Sulbactam [Susceptibility] by Minimum inhibitory concentration (BREE) (test code = 32-3) =8/4 Ertapenem [Susceptibility] b y Minimum inhibitory concentration (BREE) (test code = 77639-5) <=0.25 Aztreonam [Susceptibility] b y Minimum inhibitory concentration (BREE) (test code = 44-8) <=2 Cefepime [Susceptibility] by Minimum inhibitory concentration (BREE) (test code = 6644-9) <=1 Meropenem [Susceptibility] b y Minimum inhibitory concentration (BREE) (test code = 6652-2) <=0.5 Moxifloxacin [Susceptibility ] by Minimum inhibitory concentration (BREE) (test code = 96271-5) <=1 Amikacin [Susceptibility] by Minimum inhibitory concentration (BREE) (test code = 12-5) <=8 Piperacillin+Tazobactam [Susceptibility] by Minimum inhibitory concentration (BREE) (test code = 412-7) =4/4 Ceftaroline [Susceptibility] by Minimum inhibitory concentration (BREE) (test code = 47433-0) <=0.25 Tigecycline [Susceptibility] by Minimum inhibitory concentration (BREE) (test code = 69474-6) <=1 [facility] UnitBacteria identified in Urine by [id number] 09:30:00Bacteria Ur [facility] W Auto Differential panel - [id number] 09:30:00* Test Item Value Reference Range Interpretation Comme nts white blood count (test code = white blood count) 9.3 K/uL 4.0-11.5 red blood count (test code = red blood count) 5.10 M/uL 3.80-5.20 hemoglobin (test code = hemoglobin) 12.2 g/dL 10.5-15.7 hematocrit (test code = hematocrit) 40.1 % 34.0-50.0 MCV [Entitic volume] (test c ode = 82908-4) 78.6 fL 86.0-100.0 L mean corpuscular hemoglobin (test code = mean corpuscular hemoglobin) 23.9 pg 26.2-33.4 L mean corpuscular HGB conc (t est code = mean corpuscular HGB conc) 30.4 g/dL 30.0-34.0 red cell distribution width (test code = red cell distribution width) 14.7 % 12.0-15.5 platelet count (test code = platelet count) 376 K/uL 165-450 mean platelet volume (test c ode = mean platelet volume) 11.4 fL 9.4-12.6 Segmented neutrophils/100 leukocytes in Blood (test code = 89207-4) 69.6 % 44.4-80.1 Immature granulocytes [#/vol ume] in Blood (test code = 24483-5) 0.04 K/uL 0.00-0.03 H lymphocyte% (test code = lymphocyte%) 21.5 % 10.0-50.0 mono % (test code = mono %) 6.3 % 3.6-12.0 eos % (test code = eos %) 1.7 % 0.0-5.4 Basophils/100 leukocytes in Specimen (test code = 45161-9) 0.5 % 0.1-1.2 Band form neutrophils [#/vol ume] in Blood (test code = 48185-4) 6.49 K/uL 1.56-6.13 H Lymphocytes [#/volume] in Sp ecimen by Automated count (test code = 92045-6) 2.01 K/uL 1.18-3.74 mono # (test code = mono #) 0.59 K/uL 0.24-0.86 eos # (test code = eos #) 0.16 K/uL 0.04-0.36 basophil # (test code = baso miguel #) 0.05 K/uL 0.01-0.08 NRBC% (test code = NRBC%) 0 /100 WBC 0-0.2 NRBC# (test code = NRBC#) 0 K/uL [facility]AB[facility] Rh group [Type] in [id number] 09:30:00* Test Item Value Reference Range Interpretation Comme nts Rh [Type] in Blood (test cod e = 95437-1) 4+ ABO and Rh group panel - Blo od (test code = 09316-0) Ab positive [facility]Blood [facility] antibody screen [Presence] in Serum or Plasma 2021-07-13 09:30:00* Test Item Value Reference Range Interpretation Comme nts Blood group antibody screen [Presence] in Serum or Plasma (test code = 890-4) negative [facility] GroupChlamydia trachomatis+Neisseria gonorrhoeae DNA [Presence] in Cervix by ELENO with probe [id number] 09:30:00* Test Item Value Reference Range Interpretation Comme nts Chlamydia sp Ag [Presence] i n Specimen (test code = 21524-6) CT not detected [id number] (test code = [id number]) NG not detected [facility] Group[facility]iotic sensitivity testing, inqoekh1375-77-79 09:30:00* Test Item Value Reference Range Interpretation Comme nts Gentamicin [Susceptibility] by Minimum inhibitory concentration (BREE) (test code = 267-5) <=2 Ampicillin [Susceptibility] by Minimum inhibitory concentration (BREE) (test code = 28-1) >16 Cefazolin [Susceptibility] b y Minimum inhibitory concentration (BREE) (test code = 76-0) 2 ug/mL Trimethoprim+Sulfamethoxazol e [Susceptibility] by Minimum inhibitory concentration (BREE) (test code = 516-5) =0.5 Tetracycline [Susceptibility ] by Minimum inhibitory concentration (BREE) (test code = 496-0) <=2 Amoxicillin+Clavulanate [Susceptibility] by Minimum inhibitory concentration (BREE) (test code = 20-8) =4/2 Tobramycin [Susceptibility] by Minimum inhibitory concentration (BREE) (test code = 508-2) <=2 Nitrofurantoin [Susceptibili ty] by Minimum inhibitory concentration (BREE) (test code = 363-2) 32 ug/mL cefOXitin [Susceptibility] b y Minimum inhibitory concentration (BREE) (test code = 116-4) <=4 levoFLOXacin [Susceptibility ] by Minimum inhibitory concentration (BREE) (test code = 97860-0) <=0.5 cefTAZidime [Susceptibility] by Minimum inhibitory concentration (BREE) (test code = 133-9) <=2 cefTRIAXone [Susceptibility] by Minimum inhibitory concentration (BREE) (test code = 141-2) <=1 Ciprofloxacin [Susceptibilit y] by Minimum inhibitory concentration (BREE) (test code = 185-9) <=0.25 Ampicillin+Sulbactam [Susceptibility] by Minimum inhibitory concentration (BREE) (test code = 32-3) =8/4 Ertapenem [Susceptibility] b y Minimum inhibitory concentration (BREE) (test code = 81438-8) <=0.25 Aztreonam [Susceptibility] b y Minimum inhibitory concentration (BREE) (test code = 44-8) <=2 Cefepime [Susceptibility] by Minimum inhibitory concentration (BREE) (test code = 6644-9) <=1 Meropenem [Susceptibility] b y Minimum inhibitory concentration (BREE) (test code = 6652-2) <=0.5 Moxifloxacin [Susceptibility ] by Minimum inhibitory concentration (BREE) (test code = 56398-5) <=1 Amikacin [Susceptibility] by Minimum inhibitory concentration (BREE) (test code = 12-5) <=8 Piperacillin+Tazobactam [Susceptibility] by Minimum inhibitory concentration (BREE) (test code = 412-7) =4/4 Ceftaroline [Susceptibility] by Minimum inhibitory concentration (BREE) (test code = 81888-5) <=0.25 Tigecycline [Susceptibility] by Minimum inhibitory concentration (BREE) (test code = 98231-0) <=1 [facility] GroupHIV 1+2 Ab [Presence] in [id number] 00:00:00HIV P24 AgHIV-1/2 AbMatagorda Medical GroupReagin Ab [Presence] in Serum by RPR 2021-07-13 00:00:00* Test Item Value Reference Range Interpretation Comme nts Reagin Ab [Presence] in Seru m by RPR (test code = 97017-3) nonreactive nonreactive [facility] GroupHepatitis B virus surface Ag [Presence] in Serum 2021-07-13 00:00:00* Test Item Value Reference Range Interpretation Comme nts .hepatitis B surface antigen (test code = .hepatitis B surface antigen) negative negative [facility] GroupHIV 1+2 Ab [Presence] in [id number] 00:00:00HIV P24 AgHIV-1/2 AbMatayale [facility] hospitala [facility] GroupReagin Ab [Presence] in Serum by RPR 2021-07-13 00:00:00* Test Item Value Reference Range Interpretation Comme nts Reagin Ab [Presence] in Seru m by RPR (test code = 08069-3) nonreactive nonreactive [facility] GroupHepatitis B virus surface Ag [Presence] in Serum 2021-07-13 00:00:00* Test Item Value Reference Range Interpretation Comme nts .hepatitis B surface antigen (test code = .hepatitis B surface antigen) negative negative [facility] UnitPOCT MOLECULAR [id number] 17:11:45* Test Item Value Reference Range Interpretation Comme nts POCT Molecular Strep (test c ode = 56407-7) Negative Negative Lab Interpretation (test cod e = 82898-3) [facility] Ag [Presence] in Respiratory specimen by Rapid zgfiprhxwup0798-74-73 15:28:00* Test Item Value Reference Range Interpretation Comme nts SARS CoV 2 (test code = SARS CoV 2) [facility], [id number] 15:23:00 * Test Item Value Reference Range Interpretation Comme nts Strep (test code = Strep) negative [facility] strep group A, [id number] 10:42:00 * Test Item Value Reference Range Interpretation Comme nts Strep (test code = Strep) negative [facility] strep group A, [id number] 10:42:00 * Test Item Value Reference Range Interpretation Comme nts Strep (test code = Strep) negative [facility], [id number] 10:42:00 * Test Item Value Reference Range Interpretation Comme nts Strep (test code = Strep) [facility]16 11:07:00* Test Item Value Reference Range Interpretation Comme nts FLU A (test code = FLU A) negative FLU B (test code = FLU B) negative [facility], [id number] 11:07:00 * Test Item Value Reference Range Interpretation Comme nts Strep (test code = Strep) negative [facility]2020-11-16 11:07:00* Test Item Value Reference Range Interpretation Comme nts FLU A (test code = FLU A) negative FLU B (test code = FLU B) negative [facility], [id number] 11:07:00 * Test Item Value Reference Range Interpretation Comme nts Strep (test code = Strep) negative [facility]2020-[facility]-16 11:07:00* Test Item Value Reference Range Interpretation Comme nts FLU A (test code = FLU A) negative FLU B (test code = FLU B) negative [facility], [id number] 11:07:00 * Test Item Value Reference Range Interpretation Comme nts Strep (test code = Strep) negative [facility] Clinicspregnancy test, [id number] 10:29:00* Test Item Value Reference Range Interpretation Comme nts Test (test code = Test) negative [facility] UnitUrinalysis macro (dipstick) panel - [id number] 10:21:00* Test Item Value Reference Range Interpretation Comme nts Leukocytes (test code = Leukocytes) Negative Nitrite (test code = Nitrite) negative Urobilinogen (test code = Urobilinogen) .2 Protein (test code = Protein) Negative pH (test code = pH) 5.5 Blood (test code = Blood) Negative Specific [place] (test code = Specific [place]) 1.025 Ketone (test code = Ketone) Negative Bilirubin (test code = Bilirubin) Negative Glucose (test code = Glucose) Negative Appearance (test code = Appearance) Clear Color (test code = Color) Yellow [facility] UnitMullerian inhibiting substance [Mass/volume] in Serum or Rdoiyn5933-51-15 00:00:00* Test Item Value Reference Range Interpretation Comme nts Mullerian inhibiting substan ce [Mass/volume] in Serum or Plasma (test code = 83584-2) 0.399 NG/mL [facility] ClinicsMullerian inhibiting substance [Mass/volume] in Serum or Awjheq6969-38-36 00:00:00* Test Item Value Reference Range Interpretation Comme nts Mullerian inhibiting substan ce [Mass/volume] in Serum or Plasma (test code = 00297-3) 0.399 NG/mL [facility] HospitalChoriogonadotropin.beta subunit ( test) [Presence] in Serum or Uvoqjg8664-66-50 00:00:00* Test Item Value Reference Range Interpretation Comme nts Choriogonadotropin.be ta subunit ( test) [Presence] in Serum or Plasma (test code = 2110-5) negative See_Comment [Automated Leospherea ge] The system which generated this result transmitted reference range: negative <6. The reference range was not used to interpret this result as normal/abnormal. [facility] ClinicsChoriogonadotropin.beta subunit ( test) [Presence] in Serum or [id number] 00:00:00* Test Item Value Reference Range Interpretation Comme nts Choriogonadotropin.be ta subunit ( test) [Presence] in Serum or Plasma (test code = 2110-5) negative See_Comment [Automated Leospherea ge] The system which generated this result transmitted reference range: negative <6. The reference range was not used to interpret this result as normal/abnormal. [facility] W Auto Differential panel - [id number] 00:00:00* Test Item Value Reference Range Interpretation Comme nts Leukocytes [#/volume] in Blo od by Automated count (test code = 6690-2) 8.9 x10e3/uL 3.4-10.8 Erythrocytes [#/volume] in Blood by Automated count (test code = 789-8) 5.15 x10e6/uL 3.77-5.28 Hemoglobin [Mass/volume] in Blood (test code = 718-7) 11.1 g/dL 11.1-15.9 Hematocrit [Volume Fraction] of Blood by Automated count (test code = 4544-3) 36.9 % 34.0-46.6 Erythrocyte mean corpuscular volume [Entitic volume] by Automated count (test code = 787-2) 72 fL 79-97 L Erythrocyte mean corpuscular hemoglobin [Entitic mass] by Automated count (test code = 785-6) 21.6 pg 26.6-33.0 L Erythrocyte mean corpuscular hemoglobin concentration [Mass/volume] by Automated count (test code = 786-4) 30.1 g/dL 31.5-35.7 L Erythrocyte distribution wid th [Ratio] by Automated count (test code = 788-0) 16.0 % 11.7-15.4 H Platelets [#/volume] in Bloo d by Automated count (test code = 777-3) 438 x10e3/uL 150-450 Neutrophils/100 leukocytes i n Blood by Automated count (test code = 770-8) 67 % not estab. Lymphocytes/100 leukocytes i n Blood by Automated count (test code = 736-9) 22 % not estab. Monocytes/100 leukocytes in Blood by Automated count (test code = 5905-5) 7 % not estab. Eosinophils/100 leukocytes i n Blood by Automated count (test code = 713-8) 3 % not estab. Basophils/100 leukocytes in Blood by Automated count (test code = 706-2) 1 % not estab. immature cells (test code = immature cells) compress engineer Neutrophils [#/volume] in Bl ood by Automated count (test code = 751-8) 6.0 x10e3/uL 1.4-7.0 Lymphocytes [#/volume] in Bl ood by Automated count (test code = 731-0) 2.0 x10e3/uL 0.7-3.1 Monocytes [#/volume] in Bloo d by Automated count (test code = 742-7) 0.6 x10e3/uL 0.1-0.9 Eosinophils [#/volume] in Bl ood by Automated count (test code = 711-2) 0.2 x10e3/uL 0.0-0.4 Basophils [#/volume] in Bloo d by Automated count (test code = 704-7) 0.1 x10e3/uL 0.0-0.2 Immature granulocytes/100 leukocytes in Blood by Automated count (test code = 60730-1) 0 % not estab. Immature granulocytes [#/volume] in Blood by Automated count (test code = 94052-8) 0.0 x10e3/uL 0.0-0.1 Nucleated erythrocytes/100 leukocytes [Ratio] in Blood by Automated count (test code = 68927-5) compress engineer Morphology [Interpretation] in Blood Narrative (test code = 12225-5) compress engineer [facility] HospitalCom[facility] 2000 panel - Serum or Jrxblw3694-98-89 00:00:00* Test Item Value Reference Range Interpretation Comme nts Glucose [Mass/volume] in Serum or Plasma (test code = 2345-7) 96 mg/dL 65-99 Urea nitrogen [Mass/volume] in Serum or Plasma (test code = 3094-0) 15 mg/dL 6-24 Creatinine [Mass/volume] in Serum or Plasma (test code = 2160-0) 0.59 mg/dL 0.57-1.00 Glomerular filtration rate/1.73 sq M.predicted among non-blacks [Volume Rate/Area] in Serum, Plasma or Blood by Creatinine-based formula (CKD-EPI) (test code = 36544-8) 113 mL/min/1.73 >59 Glomerular filtration rate/1.73 sq M.predicted among blacks [Volume Rate/Area] in Serum, Plasma or Blood by Creatinine-based formula (CKD-EPI) (test code = 20513-0) 131 mL/min/1.73 >59 Urea nitrogen/Creatinine [Mass Ratio] in Serum or Plasma (test code = 3097-3) 25 9-23 H Sodium [Moles/volume] in Serum or Plasma (test code = 2951-2) 139 mmol/L 134-144 Potassium [Moles/volume] in Serum or Plasma (test code = 2823-3) 4.2 mmol/L 3.5-5.2 Chloride [Moles/volume] in Serum or Plasma (test code = 2075-0) 101 mmol/L 96-106 Carbon dioxide, total [Moles/volume] in Serum or Plasma (test code = 2027-9) 20 mmol/L 20-29 Calcium [Mass/volume] in Serum or Plasma (test code = 48280-1) 9.2 mg/dL 8.7-10.2 Protein [Mass/volume] in Serum or Plasma (test code = 2885-2) 7.2 g/dL 6.0-8.5 Albumin [Mass/volume] in Serum or Plasma (test code = 1751-7) 4.0 g/dL 3.8-4.8 Globulin [Mass/volume] in Serum by calculation (test code = 46257-3) 3.2 g/dL 1.5-4.5 Albumin/Globulin [Mass Ratio ] in Serum or Plasma (test code = 1759-0) 1.3 1.2-2.2 Bilirubin.total [Mass/volume ] in Serum or Plasma (test code = 1974-2) 0.2 mg/dL 0.0-1.2 Alkaline phosphatase [Enzymatic activity/volume] in Serum or Plasma (test code = 6768-6) 76 IU/L 48-121 Aspartate aminotransferase [Enzymatic activity/volume] in Serum or Plasma (test code = 1920-8) 17 IU/L 0-40 Alanine aminotransferase [Enzymatic activity/volume] in Serum or Plasma (test code = 1742-6) 21 IU/L 0-32 [facility] ClinicsLipid 1996 panel - Serum or Wafyvw6162-09-79 00:00:00* Test Item Value Reference Range Interpretation Comme nts Cholesterol [Mass/volume] in Serum or Plasma (test code = 2093-3) 189 mg/dL 100-199 Triglyceride [Mass/volume] i n Serum or Plasma (test code = 2571-8) 114 mg/dL 0-149 Cholesterol in HDL [Mass/vol ume] in Serum or Plasma (test code = 2085-9) 34 mg/dL >39 L Cholesterol in VLDL [Mass/vo lume] in Serum or Plasma by calculation (test code = 35391-6) 21 mg/dL 5-40 Cholesterol in LDL [Mass/vol ume] in Serum or Plasma by calculation (test code = 27798-5) 134 mg/dL 0-99 H Laboratory comment [Text] in Report Narrative (test code = 71463-4) compress engineer [facility] ClinicsFollitropin and Lutropin panel [Units/volume] - Serum or Vlafqm7534-31-86 00:00:00* Test Item Value Reference Range Interpretation Comme nts Lutropin [Units/volume] in S edmundo or Plasma (test code = 11514-4) 4.2 mIU/mL Follitropin [Units/volume] i n Serum or Plasma (test code = 15572-2) 5.1 mIU/mL [facility] ClinicsThyroxine (T4) free [Mass/volume] in Serum or [id number] 00:00:00* Test Item Value Reference Range Interpretation Comme nts Thyroxine (T4) free [Mass/vo lume] in Serum or Plasma (test code = 3024-7) 0.92 NG/dL 0.82-1.77 [facility] Zvlbuhb42-Xcmqpxkycmexur D3+25-Hydroxyvitamin D2 [Mass/volume] in Serum or Ytxppu6745-25-27 00:00:00* Test Item Value Reference Range Interpretation Comme nts 25-Hydroxyvitamin D3+25-Hydroxyvitamin D2 [Mass/volume] in Serum or Plasma (test code = 95873-8) 34.5 NG/mL 30.0-100.0 [facility] ClinicsThyrotropin [Units/volume] in Serum or Plasma by Detection limit <= 0.005 mIU/[id number] 00:00:00* Test Item Value Reference Range Interpretation Comme nts Thyrotropin [Units/volume] i n Serum or Plasma by Detection limit <= 0.005 mIU/L (test code = 18672-2) 3.080 uIU/mL 0.450-4.500 [facility] HospitalChoriogonadotropin.intact+Beta subunit [Units/volume] in Serum or Gixuxt6436-95-04 00:00:00* Test Item Value Reference Range Interpretation Comme nts Choriogonadotropin.intact+Be ta subunit [Units/volume] in Serum or Plasma (test code = 53062-1) <1 [facility] W Auto Differential panel - [id number] 00:00:00* Test Item Value Reference Range Interpretation Comme nts Leukocytes [#/volume] in Blo od by Automated count (test code = 6690-2) 8.9 x10e3/uL 3.4-10.8 Erythrocytes [#/volume] in Blood by Automated count (test code = 789-8) 5.15 x10e6/uL 3.77-5.28 Hemoglobin [Mass/volume] in Blood (test code = 718-7) 11.1 g/dL 11.1-15.9 Hematocrit [Volume Fraction] of Blood by Automated count (test code = 4544-3) 36.9 % 34.0-46.6 Erythrocyte mean corpuscular volume [Entitic volume] by Automated count (test code = 787-2) 72 fL 79-97 L Erythrocyte mean corpuscular hemoglobin [Entitic mass] by Automated count (test code = 785-6) 21.6 pg 26.6-33.0 L Erythrocyte mean corpuscular hemoglobin concentration [Mass/volume] by Automated count (test code = 786-4) 30.1 g/dL 31.5-35.7 L Erythrocyte distribution wid th [Ratio] by Automated count (test code = 788-0) 16.0 % 11.7-15.4 H Platelets [#/volume] in Bloo d by Automated count (test code = 777-3) 438 x10e3/uL 150-450 Neutrophils/100 leukocytes i n Blood by Automated count (test code = 770-8) 67 % not estab. Lymphocytes/100 leukocytes i n Blood by Automated count (test code = 736-9) 22 % not estab. Monocytes/100 leukocytes in Blood by Automated count (test code = 5905-5) 7 % not estab. Eosinophils/100 leukocytes i n Blood by Automated count (test code = 713-8) 3 % not estab. Basophils/100 leukocytes in Blood by Automated count (test code = 706-2) 1 % not estab. immature cells (test code = immature cells) compress engineer Neutrophils [#/volume] in Bl ood by Automated count (test code = 751-8) 6.0 x10e3/uL 1.4-7.0 Lymphocytes [#/volume] in Bl ood by Automated count (test code = 731-0) 2.0 x10e3/uL 0.7-3.1 Monocytes [#/volume] in Bloo d by Automated count (test code = 742-7) 0.6 x10e3/uL 0.1-0.9 Eosinophils [#/volume] in Bl ood by Automated count (test code = 711-2) 0.2 x10e3/uL 0.0-0.4 Basophils [#/volume] in Bloo d by Automated count (test code = 704-7) 0.1 x10e3/uL 0.0-0.2 Immature granulocytes/100 leukocytes in Blood by Automated count (test code = 10014-0) 0 % not estab. Immature granulocytes [#/volume] in Blood by Automated count (test code = 06061-8) 0.0 x10e3/uL 0.0-0.1 Nucleated erythrocytes/100 leukocytes [Ratio] in Blood by Automated count (test code = 33420-7) compress engineer Morphology [Interpretation] in Blood Narrative (test code = 52724-8) compress engineer [facility] HospitalCom[facility] 2000 panel - Serum or [id number] 00:00:00* Test Item Value Reference Range Interpretation Comme nts Glucose [Mass/volume] in Serum or Plasma (test code = 2345-7) 96 mg/dL 65-99 Urea nitrogen [Mass/volume] in Serum or Plasma (test code = 3094-0) 15 mg/dL 6-24 Creatinine [Mass/volume] in Serum or Plasma (test code = 2160-0) 0.59 mg/dL 0.57-1.00 Glomerular filtration rate/1.73 sq M.predicted among non-blacks [Volume Rate/Area] in Serum, Plasma or Blood by Creatinine-based formula (CKD-EPI) (test code = 31981-8) 113 mL/min/1.73 >59 Glomerular filtration rate/1.73 sq M.predicted among blacks [Volume Rate/Area] in Serum, Plasma or Blood by Creatinine-based formula (CKD-EPI) (test code = 30541-5) 131 mL/min/1.73 >59 Urea nitrogen/Creatinine [Mass Ratio] in Serum or Plasma (test code = 3097-3) 25 9-23 H Sodium [Moles/volume] in Serum or Plasma (test code = 2951-2) 139 mmol/L 134-144 Potassium [Moles/volume] in Serum or Plasma (test code = 2823-3) 4.2 mmol/L 3.5-5.2 Chloride [Moles/volume] in Serum or Plasma (test code = 2074-0) 101 mmol/L 96-106 Carbon dioxide, total [Moles/volume] in Serum or Plasma (test code = 2027-) 20 mmol/L 20-29 Calcium [Mass/volume] in Serum or Plasma (test code = 19233-9) 9.2 mg/dL 8.7-10.2 Protein [Mass/volume] in Serum or Plasma (test code = 2885-2) 7.2 g/dL 6.0-8.5 Albumin [Mass/volume] in Serum or Plasma (test code = 1751-7) 4.0 g/dL 3.8-4.8 Globulin [Mass/volume] in Serum by calculation (test code = 23803-9) 3.2 g/dL 1.5-4.5 Albumin/Globulin [Mass Ratio ] in Serum or Plasma (test code = 1759-0) 1.3 1.2-2.2 Bilirubin.total [Mass/volume ] in Serum or Plasma (test code = 1974-) 0.2 mg/dL 0.0-1.2 Alkaline phosphatase [Enzymatic activity/volume] in Serum or Plasma (test code = 6768-6) 76 IU/L 48-121 Aspartate aminotransferase [Enzymatic activity/volume] in Serum or Plasma (test code = 1920-8) 17 IU/L 0-40 Alanine aminotransferase [Enzymatic activity/volume] in Serum or Plasma (test code = 1742-6) 21 IU/L 0-32 [facility] panel - Serum or Uqnemt5963-16-54 00:00:00* Test Item Value Reference Range Interpretation Comme nts Cholesterol [Mass/volume] in Serum or Plasma (test code = 2093-3) 189 mg/dL 100-199 Triglyceride [Mass/volume] i n Serum or Plasma (test code = 2571-8) 114 mg/dL 0-149 Cholesterol in HDL [Mass/vol ume] in Serum or Plasma (test code = 2085-9) 34 mg/dL >39 L Cholesterol in VLDL [Mass/vo lume] in Serum or Plasma by calculation (test code = 73211-2) 21 mg/dL 5-40 Cholesterol in LDL [Mass/vol ume] in Serum or Plasma by calculation (test code = 75482-6) 134 mg/dL 0-99 H Laboratory comment [Text] in Report Narrative (test code = 01078-7) compress engineer [facility] HospitalFollitropin and Lutropin panel [Units/volume] - Serum or [id number] 00:00:00* Test Item Value Reference Range Interpretation Comme nts Lutropin [Units/volume] in S edmundo or Plasma (test code = 16021-5) 4.2 mIU/mL Follitropin [Units/volume] i n Serum or Plasma (test code = 06974-3) 5.1 mIU/mL [facility] ClinicsThyroxine (T4) free [Mass/volume] in Serum or Ptkwnr4054-02-21 00:00:00* Test Item Value Reference Range Interpretation Comme nts Thyroxine (T4) free [Mass/vo lume] in Serum or Plasma (test code = 3024-7) 0.92 NG/dL 0.82-1.77 [facility] Wupronf65-Qbxdjygzsjgess D3+25-Hydroxyvitamin D2 [Mass/volume] in Serum or Zbdqff1465-72-45 00:00:00* Test Item Value Reference Range Interpretation Comme nts 25-Hydroxyvitamin D3+25-Hydroxyvitamin D2 [Mass/volume] in Serum or Plasma (test code = 13940-2) 34.5 NG/mL 30.0-100.0 [facility] HospitalThyrotropin [Units/volume] in Serum or Plasma by Detection limit <= 0.005 mIU/U1379-84-71 00:00:00* Test Item Value Reference Range Interpretation Comme nts Thyrotropin [Units/volume] i n Serum or Plasma by Detection limit <= 0.005 mIU/L (test code = 28140-8) 3.080 uIU/mL 0.450-4.500 [facility] HospitalChoriogonadotropin.intact+Beta subunit [Units/volume] in Serum or Jvoptw5734-23-40 00:00:00* Test Item Value Reference Range Interpretation Comme nts Choriogonadotropin.intact+Be ta subunit [Units/volume] in Serum or Plasma (test code = 64455-3) <1 [facility] HospitalUrinalysis macro (dipstick) panel - Urine 2020-04-18 16:13:50* Test Item Value Reference Range Interpretation Comme nts Leukocytes (test code = Leukocytes) Trace Nitrite (test code = Nitrite) negative Urobilinogen (test code = Urobilinogen) .2 Protein (test code = Protein) Negative pH (test code = pH) 6.5 Blood (test code = Blood) Negative Specific [place] (test code = Specific [place]) 1.025 Ketone (test code = Ketone) Trace Bilirubin (test code = Bilirubin) Negative Glucose (test code = Glucose) Negative Appearance (test code = Appearance) Clear Color (test code = Color) Yellow [facility] UnitUrinalysis macro (dipstick) panel - [id number] 15:30:32* Test Item Value Reference Range Interpretation Comme nts Leukocytes (test code = Leukocytes) Negative Nitrite (test code = Nitrite) negative Urobilinogen (test code = Urobilinogen) .2 Protein (test code = Protein) Trace pH (test code = pH) 5.5 Blood (test code = Blood) Negative Specific [place] (test code = Specific [place]) 1.030 Ketone (test code = Ketone) Trace Bilirubin (test code = Bilirubin) Negative Glucose (test code = Glucose) Negative Appearance (test code = Appearance) Clear Color (test code = Color) Yellow [facility] UnitUrinalysis macro (dipstick) panel - [id number] 09:12:32* Test Item Value Reference Range Interpretation Comme nts Leukocytes (test code = Leukocytes) Negative Nitrite (test code = Nitrite) negative Urobilinogen (test code = Urobilinogen) .2 Protein (test code = Protein) Negative pH (test code = pH) 6.0 Blood (test code = Blood) Negative Specific [place] (test code = [place]) 1.020 Ketone (test code = Ketone) Negative Bilirubin (test code = Bilirubin) Negative Glucose (test code = Glucose) Negative Appearance (test code = Appearance) Clear Color (test code = Color) Yellow [facility] UnitChoriogonadotropin.beta subunit [Units/volume] in Serum or Qivcii6660-90-06 01:03:00* Test Item Value Reference Range Interpretation Comme nts HCG quantitative (test code = HCG quantitative) <0.1 0-5 [facility] UnitChoriogonadotropin.beta subunit [Units/volume] in Serum or [id number] 01:03:00* Test Item Value Reference Range Interpretation Comme nts HCG quantitative (test code = HCG quantitative) <0.1 0-5 [facility] UnitUrinalysis macro (dipstick) panel - [id number] 14:48:00* Test Item Value Reference Range Interpretation Comme nts Leukocytes (test code = Leukocytes) Negative Nitrite (test code = Nitrite) negative Urobilinogen (test code = Urobilinogen) .2 Protein (test code = Protein) 30 pH (test code = pH) 5.5 Blood (test code = Blood) Negative Specific [place] (test code = Specific [place]) 1.030 Ketone (test code = Ketone) Negative Bilirubin (test code = Bilirubin) Small Glucose (test code = Glucose) Negative Appearance (test code = Appearance) Clear Color (test code = Color) Yellow [facility], [id number] 02:06:00Results [facility]
[2023-08-16] MEDS ORDERED: KETOROLAC 30 MG/ML INJ ONE (21:48)
[2023-08-16] MEDS ORDERED: ONDANSETRON 4 MG/2 ML VIAL ONE (21:48)
[2023-08-16] MEDS ORDERED: NA CHLORIDE 0.9% 1,000 ML ONE (21:48)
[2023-08-16 22:29] LABS: Absolute Basophils 0.1 K/uL (0-0.5); Absolute Eosinophils 0.2 K/uL (0-0.5); Absolute Lymphocytes (CBC) 1.8 K/uL (0.7-4.9); Absolute Monocytes 0.6 K/uL (0.1-1.3); Absolute Neutrophil 6.3 K/uL (1.8-8.0); Basophils % 0.9 % (0-1.3); Eosinophils % 2.2 % (0-4.4); Hematocrit 40.8 % (36.0-45.0); Hemoglobin 13.4 g/dL (12.0-15.0); Lymphocytes % 20.4 % (15.3-44.8); MCH 26.2 pg (27.0-35.0); MCHC 32.7 g/dL (32.0-36.0); MCV 79.9 fL (80-100); MPV 9.4 fL (7.6-11.3); Monocytes % 6.5 % (3.3-12.3); Platelets 336 thou/uL (152-406); RBC Red Blood Cell Count 5.11 M/uL (3.86-4.86); Red Cell Distribution Width 15.4 % (12.1-15.2)
[2023-08-16 22:33] LABS: Specific Gravity > 1.030 (1.005-1.030); Urine Bacteria <20 /HPF (<20); Urine Bilirubin NEGATIVE (Negative); Urine Blood Negative (Negative); Urine Clarity Turbid (Clear); Urine Color Yellow (Yellow); Urine Culture Reflex Order NOT NEEDED; Urine Glucose NEGATIVE (Negative); Urine Ketones NEGATIVE (Negative); Urine Microscopic Reflex YN ORDER UMIC; Urine Mucus 4+ /HPF (None Seen); Urine Nitrite NEGATIVE (Negative); Urine Protein 1+ (Negative); Urine RBC <5 /HPF (None Seen); Urine Urobilinogen Normal (Normal); Urine WBC <5 /HPF (<5); Urine pH 5.5 (5.0-7.0)
[2023-08-16 22:41] LABS: PTT, Activated Partial Thromb 33.5 SECONDS (24.3-36.9); Protime INR 1.09
[2023-08-16 22:53] LABS: ALT/SGPT 26 U/L (13-56); Albumin 3.5 g/dL (3.4-5.0); Albumin/Globulin Ratio 0.7 (1.1-1.8); Alkaline Phosphatase 90 U/L (45-117); Anion Gap 11.5 mEq/L (5.0-15.0); BUN Blood Urea Nitrogen 15 mg/dL (7-18); Bicarbonate 22 mEq/L (21-32); Bilirubin Total 0.6 mg/dL (0.2-1.0); Globulin 4.8 g/dL (2.3-3.5); Glomerular Filtration Rate 97 ml/min (=/>90); Glucose Level 98 mg/dL (74-106); Lipase 28 U/L (13-75); Potassium 3.5 mEq/L (3.5-5.1); Protein, Total 8.3 g/dL (6.4-8.2); Sodium Level 134 mEq/L (136-145)
[2023-08-16 22:55] LABS: AST/SGOT < 10 U/L (15-37)
[2023-08-17] MEDS ORDERED: ONDANSETRON 4 MG/2 ML VIAL ONE (00:14)
--- NOTE | 2023-08-17 00:59 | EDPHYS ---
Physician Documentation [facility] Name: Torri Fine Age: 47 yrs Sex: Female : 1975 Arrival Date: 08/16/2023 Time: 21:12 Bed 15 Private MD: ED Physician Wes Baires HPI: 08/15 23:57 This 47 yrs old Female presents to ER via Ambulatory with complaints of Abdominal Pain. kb 23:57 Pt is a 47 year old female who presents with abd pain. States she had a hysterectomy 6 kb weeks ago and has had some form of pain since then. States she has had intermittent constipation and diarrhea. Today the pain has been worse with nausea and diarrhea. denies fever, urinary symptoms. . 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 - Infectious Disease History:: Denies. - Social history:: Smoking status: Patient denies any tobacco usage or history of. Patient/guardian denies using alcohol, street drugs. ROS: 23:21 Constitutional: As per HPI kb Exam: 23:21 Constitutional: This is a well developed, well nourished patient who is awake, alert, kb and in no acute distress. Head/Face: Normocephalic, atraumatic. ENT: Moist Mucous membranes Cardiovascular: Regular rate Respiratory: Respirations even and unlabored. No increased work of breathing. Talking in full sentences Skin: Warm, dry with normal turgor. Normal color. MS/ Extremity: Pulses equal, no cyanosis. Neurovascular intact. Full, normal range of motion. Neuro: Awake and alert, GCS 15, oriented to person, place, time, and situation. Moves all extremities. Normal gait. 23:21 Abdomen/GI: Inspection: abdomen appears normal, Bowel sounds: normal, Palpation: moderate abdominal tenderness, in all quadrants, 08/16 00:02 ECG was reviewed by the Attending Physician. Vital Signs: 08/15 21:24 BP 120 / 88; Pulse 118; Resp 17 S; Temp 99.1(O); Pulse Ox 98% on R/A; Weight 124.74 kg lg3 (R); Height 5 ft. 8 in. (R); 22:34 Pulse 93; Resp 24; Pulse Ox 100% on R/A; jw7 22:50 BP 96 / 83; Pulse 89; Resp 20; Pulse Ox 99% on R/A; pf1 23:30 BP 106 / 76; Pulse 87; Resp 20; Pulse Ox 99% ; pf1 08/16 00:22 BP 112 / 77; Pulse 85; Resp 16; Temp 98.5; Pulse Ox 99% on R/A; Pain 7/10; pf1 08/15 21:24 Body Mass Index 41.81 (124.74 kg, 172.72 cm) lg3 08/16 00:22 Pain Scale: Adult pf1 MDM: 08/15 21:26 Patient medically screened. kb 08/16 00:57 Differential diagnosis: non-specific abd pain, urinary tract infection, ovarian cyst, kb gastroenteritis. Data reviewed: vital signs, nurses notes. Counseling: I had a detailed discussion with the patient and/or guardian regarding the historical points, exam findings, and any diagnostic results supporting the discharge/admit diagnosis, lab results, radiology results, the need for outpatient follow up, an OB/Gyne specialist, to return to the emergency department if symptoms worsen or persist or if there are any questions or concerns that arise at home. 08/15 21:27 Order name: CBC with Diff; Complete Time: 22:30 kb 08/15 21: Order name: CMP; Complete Time: 22:58 kb 08/15 21:27 Order name: Lipase; Complete Time: 22:58 kb 08/15 21: Order name: Urinalysis w/ reflexes; Complete Time: 22:34 kb 08/15 21:31 Order name: Blood Culture Adult (2) 08/15 21:31 Order name: Lactate w/ 2H reflex if indic.; Complete Time: 22:58 kb 08/15 21:31 Order name: Protime (+inr); Complete Time: 22:58 kb 08/15 21: Order name: Ptt, Activated; Complete Time: 22:58 kb 08/15 23:00 Order name: Glucose, Ancillary Testing; Complete Time: 23:06 EDMS 08/15 21:27 Order name: CT Abd/Pelvis - IV Contrast Only kb 08/15 21:27 Order name: IV Saline Lock; Complete Time: 22:33 kb 08/15 21:27 Order name: Labs collected and sent; Complete Time: 22:33 kb 08/15 21:31 Order name: Accucheck; Complete Time: 22:34 kb 08/15 21:31 Order name: Cardiac monitoring; Complete Time: 22:34 kb 08/15 21:31 Order name: EKG - Nurse/Tech; Complete Time: 22:34 kb 08/15 21:31 Order name: IV Saline Lock - Large Bore; Complete Time: 22:33 kb 08/15 21:31 Order name: O2 Per Protocol; Complete Time: 22:33 kb 08/15 21:31 Order name: O2 Sat Monitoring; Complete Time: 22:33 kb 08/15 21:31 Order name: Vital Signs; Complete Time: 22:34 kb EC:02 Rate is 91 beats/min. Rhythm is regular. QRS [place] is Normal. ND interval is normal at kb 188 msec. QRS interval is normal at 86 msec. QT interval is normal at 452 msec. Administered Medications: 08/15 22:30 Drug: NS 0.9% IV 1000 ml IV at 1 bolus Per protocol; 1000 mL bolus Route: IV; Rate: 1 pf1 bolus; Site: left antecubital; 22:52 Follow up: Response: No adverse reaction; Marked relief of symptoms pf1 08/16 00:00 Follow up: Response: No adverse reaction; Marked relief of symptoms; IV Status: pf1 Completed infusion; IV Intake: 1000ml 08/15 22:30 Drug: TORadol - Ketorolac IVP 15 mg IVP once Route: IVP; Site: left antecubital; pf1 22:52 Follow up: Response: No adverse reaction; Marked relief of symptoms; Pain is decreased pf1 22:30 Drug: Ondansetron IVP 4 mg IVP once; over 2 minutes Route: IVP; Site: left antecubital; pf1 22:51 Follow up: Response: No adverse reaction; Marked relief of symptoms pf1 08/16 00:16 Drug: Ondansetron IVP 4 mg IVP once; over 2 minutes Route: IVP; Site: left antecubital; pf1 00:22 Follow up: Response: No adverse reaction; Marked relief of symptoms pf1 Disposition Summary: 08/17/23 00:58 Discharge Ordered Notes: Location: Home kb Condition: Stable kb Diagnosis - Other ovarian cysts kb - enterocolitis kb Followup: kb - With: Emergency Department - When: As needed - Reason: Worsening of condition Followup: kb - With: Private Physician - When: 2 - 3 days - Reason: Recheck today's complaints, Continuance of care, Re-evaluation by your physician Discharge Instructions: - Discharge Summary Sheet kb - Viral Gastroenteritis, Adult, [id number] kb - Ovarian Cyst, [id number] kb Forms: - Medication Reconciliation Form kb - Antibiotic Education kb - Prescription Opioid Use kb - Patient Portal Instructions kb - Leadership Thank You Letter kb Prescriptions: - Diclofenac Sodium 75 mg Oral tablet, delayed release (enteric coated) - take 1 tablet ORAL route 2 times per day As needed; 30 tablet; Refills: 0, kb Product Selection Permitted Addendum: 08/18/2023 01:17 I was immediately available for consultation during this patient's visit. I did not e c2 personally see the patient or discuss the patient with the ALYSIA. . Signatures: Dispatcher [employer] Linsey Rankin, AKASH-Ana HAGERP-Jolene Kan, RN RN lg3 Deanne Knapp RN RN pf1 Wes Baires MD MD ec2 Corrections: (The following items were deleted from the chart) 08/15 21:32 21:32 BLOOD CULTURE*+BA.LAB.BRZ ordered. EDMS EDMS 21:32 21:32 LACTATE+C.LAB.BRZ ordered. EDMS EDMS 21:32 21:32 PROTIME (+INR)+COAG.LAB.BRZ ordered. EDMS EDMS 21:32 21:32 PTT, ACTIVATED+COAG.LAB.BRZ ordered. EDMS EDMS
--- NOTE | 2023-08-17 00:59 | ER ---
Nurse's Notes [facility] Name: Torri Fine Age: 47 yrs Sex: Female : 1975 Arrival Date: 08/16/2023 Time: 21:12 Bed 15 Private MD: Diagnosis: Other ovarian cysts;enterocolitis Presentation: 08/15 21:24 Chief complaint: Patient states: generalized ABD pain radiating to back. status post lg3 total hysterectomy with abscess. Coronavirus screen: Client denies travel out of the [place] in the last 14 days. At this time, the client does not indicate any symptoms associated with coronavirus-19. Ebola Screen: No symptoms or risks identified at this time. Initial Sepsis Screen: Does the patient meet any 2 criteria? No. Patient's initial sepsis screen is negative. Does the patient have a suspected source of infection? No. Patient's initial sepsis screen is negative. Risk Assessment: Do you want to hurt yourself or someone else? Patient reports no desire to harm self or others. Onset of symptoms is unknown. 21:24 Method Of Arrival: Ambulatory lg3 21:24 Acuity: OLIVER 3 lg3 Triage Assessment: 21:26 General: Appears in no apparent distress. uncomfortable, Behavior is calm, cooperative. lg3 Pain: Complains of pain in abdomen Pain radiates to back. EENT: No deficits noted. No signs and/or symptoms were reported regarding the EENT system. Neuro: No deficits noted. Cervantes Agitation-Sedation Scale (RASS): 0 - Alert and Calm Level of Consciousness is awake, alert, obeys commands, Oriented to person, place, time, situation. Cardiovascular: No deficits noted. Denies chest pain, shortness of breath, Capillary refill < 3 seconds Clubbing of nail beds is absent JVD is absent Patient's skin is warm and dry. Respiratory: No deficits noted. Airway is patent Respiratory effort is even, unlabored, Respiratory pattern is regular, symmetrical. GI: Abdomen is round non-distended, obese, Reports lower abdominal pain, upper abdominal pain, nausea, vomiting. : No deficits noted. No signs and/or symptoms were reported regarding the genitourinary system. Derm: No deficits noted. No signs and/or symptoms reported regarding the dermatologic system. Skin is intact, is healthy with good turgor, Skin is dry, Skin is normal, Skin temperature is warm. Musculoskeletal: No deficits noted. No signs and/or symptoms reported regarding the musculoskeletal system. Circulation, motion, and sensation intact. Range of motion: intact in all extremities. 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 - Infectious Disease History:: Denies. - Social history:: Smoking status: Patient denies any tobacco usage or history of. Patient/guardian denies using alcohol, street drugs. Screenin:30 [facility] ED Fall Risk Assessment (Adult) History of falling in the last 3 months, pf1 including since admission No falls in past 3 months (0 pts) Confusion or Disorientation No (0 pts) Intoxicated or Sedated No (0 pts) Impaired Gait No (0 pts) Mobility Assist Device Used No (0 pt) Altered Elimination No (0 pt) Score/Fall Risk Level 0 - 2 = Low Risk Oriented to surroundings, Maintained a safe environment, Educated pt \T\ family on fall prevention, incl call for assistance when getting out of bed, Assessed \T\ reinforced patient's understanding of fall precautions, Provided non-skid footwear, Hourly rounding (assess needs \T\ fall precautionary measures) done, Used ambulatory aids as needed (educated on \T\ assisted with), Used gait belt as appropriate. Abuse screen: Denies threats or abuse. Nutritional screening: No deficits noted. Tuberculosis screening: No symptoms or risk factors identified. Assessment: 21:30 General: Appears in no apparent distress. uncomfortable, well groomed, well developed, pf1 Behavior is calm, cooperative, appropriate for age, quiet. 21:30 Pain: Complains of pain in back and abdomen Pain currently is 10 out of 10 on a pain pf1 scale. Neuro: No deficits noted. Level of Consciousness is awake, alert, obeys commands, Oriented to person, place, time, situation. Cardiovascular: No deficits noted. Capillary refill < 3 seconds Patient's skin is warm and dry. Respiratory: No deficits noted. Airway is patent Respiratory effort is even, unlabored, Respiratory pattern is regular, symmetrical, Breath sounds are clear bilaterally. GI: Abdomen is round non-distended, Bowel sounds present X 4 quads. Reports lower abdominal pain. : No deficits noted. No signs and/or symptoms were reported regarding the genitourinary system. EENT: No deficits noted. No signs and/or symptoms were reported regarding the EENT system. Derm: No deficits noted. No signs and/or symptoms reported regarding the dermatologic system. Musculoskeletal: Reports pain in back. 22:30 Reassessment: Patient appears in no apparent distress at this time. Patient and/or pf1 family updated on plan of care and expected duration. Pain level reassessed. Patient is alert, oriented x 3, equal unlabored respirations, skin warm/dry/pink. 23:30 Reassessment: Patient appears in no apparent distress at this time. Patient and/or pf1 family updated on plan of care and expected duration. Pain level reassessed. Patient is alert, oriented x 3, equal unlabored respirations, skin warm/dry/pink. Patient states symptoms have improved. 08/16 00:30 Reassessment: Patient appears in no apparent distress at this time. Patient and/or pf1 family updated on plan of care and expected duration. Pain level reassessed. Patient is alert, oriented x 3, equal unlabored respirations, skin warm/dry/pink. Patient states symptoms have improved. Vital Signs: 08/15 21:24 BP 120 / 88; Pulse 118; Resp 17 S; Temp 99.1(O); Pulse Ox 98% on R/A; Weight 124.74 kg lg3 (R); Height 5 ft. 8 in. (R); 22:34 Pulse 93; Resp 24; Pulse Ox 100% on R/A; jw7 22:50 BP 96 / 83; Pulse 89; Resp 20; Pulse Ox 99% on R/A; pf1 23:30 BP 106 / 76; Pulse 87; Resp 20; Pulse Ox 99% ; pf1 08/16 00:22 BP 112 / 77; Pulse 85; Resp 16; Temp 98.5; Pulse Ox 99% on R/A; Pain 7/10; pf1 08/15 21:24 Body Mass Index 41.81 (124.74 kg, 172.72 cm) lg3 08/16 00:22 Pain Scale: Adult pf1 ED Course: 08/15 21:14 Patient arrived in ED. gm2 21:26 Linsey Goldstein [facility]NP-C [facility] kb 21:26 Wes Baires MD is Attending Physician. kb 21:26 Triage completed. lg3 21:26 Arm band placed on left wrist. lg3 21:30 Patient has correct armband on for positive identification. Placed in gown. Bed in low pf1 position. Call light in reach. Side rails up X 1. 22:00 Inserted saline lock: 20 gauge in left antecubital area, using aseptic technique. Blood jw7 collected. 22:00 First set of blood cultures drawn by me. jw7 22:15 Initial lab(s) drawn, by me, sent to lab. Second set of blood cultures drawn by me. jw7 22:17 Urine collected: clean catch specimen, cloudy. jw7 22:33 CMP Sent. jw7 22:34 Lipase Sent. jw7 22:34 Blood Culture Adult (2) Sent. jw7 22:34 Lactate w/ 2H reflex if indic. Sent. jw7 22:34 Protime (+inr) Sent. jw7 22:34 Ptt, Activated Sent. jw7 22:50 No provider procedures requiring assistance completed. pf1 23:37 CT Abd/Pelvis - IV Contrast Only In Process Unspecified. EDMS 08/16 01:08 IV discontinued, intact, bleeding controlled, No redness/swelling at site. Pressure pf1 dressing applied. 01:09 Provided Education on: prscription. pf1 Administered Medications: 08/15 22:30 Drug: NS 0.9% IV 1000 ml IV at 1 bolus Per protocol; 1000 mL bolus Route: IV; Rate: 1 pf1 bolus; Site: left antecubital; 22:52 Follow up: Response: No adverse reaction; Marked relief of symptoms pf1 08/16 00:00 Follow up: Response: No adverse reaction; Marked relief of symptoms; IV Status: pf1 Completed infusion; IV Intake: 1000ml 08/15 22:30 Drug: TORadol - Ketorolac IVP 15 mg IVP once Route: IVP; Site: left antecubital; pf1 22:52 Follow up: Response: No adverse reaction; Marked relief of symptoms; Pain is decreased pf1 22:30 Drug: Ondansetron IVP 4 mg IVP once; over 2 minutes Route: IVP; Site: left antecubital; pf1 22:51 Follow up: Response: No adverse reaction; Marked relief of symptoms pf1 08/16 00:16 Drug: Ondansetron IVP 4 mg IVP once; over 2 minutes Route: IVP; Site: left antecubital; pf1 00:22 Follow up: Response: No adverse reaction; Marked relief of symptoms pf1 Medication: 01:09 VIS not applicable for this client. pf1 Intake: 00:00 IV: 1000ml; Total: 1000ml. pf1 Outcome: 00:58 Discharge ordered by . kb 01:08 Discharged to home ambulatory, pf1 01:08 Condition: improved 01:08 Discharge instructions given to patient, Instructed on discharge instructions, follow up and referral plans. Demonstrated understanding of instructions, follow-up care, medications, Prescriptions given X 1, 01:09 Patient left the ED. pf1 Signatures: Dispatcher [employer] EDMS Linsey Goldstein, REYC APPRENTICE/LINEMAN-Jolene Kan RN RN lg3 Sharona Redd RN RN jw7 Deanne Knapp RN RN pf1 Neli Elliott gm2 Corrections: (The following items were deleted from the chart) 01:08 00:22 BP 112 / 77; Pulse 85bpm; Resp 16bpm; Pulse Ox 99% RA; pf1 pf1
[2023-08-17 01:34] VITALS: BP 112/77; TEMP 98.5; O2SAT 99
--- NOTE | 2023-08-17 16:16 | RAD REPORT ---
EXAM DESCRIPTION: CT - Abdomen Pelvis W Contrast - 08/17/2023 6:26 am CLINICAL HISTORY: 47 years Female, ABD PAIN TECHNIQUE: Helical CT axial images are obtained from the lung bases to the pubic symphysis with IV c ontrast. No oral contrast was administered. Multiplanar reconstruction. This exam was performed accor ding to our departmental dose-optimization program, which includes automated exposure control, adjust ment of the mA and/or kV according to patient size and/or use of iterative reconstruction technique. COMPARISON: 04/26/2022 12/22/2021 FINDINGS: LUNG BASES: No basilar consolidation or effusions. LIVER: Normal in size. Normal attenuation. No focal masses. HEPATOBILIARY: Status post cholecystectomy. No intra- or extrahepatic ductal dilatation. SPLEEN: Normal size. Sub-5 mm calcified granulomata. PANCREAS: Normal size and contour. No focal mass. ADRENAL GLANDS: Normal size. No adrenal masses. KIDNEYS: Bilateral kidneys are normal in size without obstructing calculi or hydronephrosis. No nep hrolithiasis. No significant cysts are present. No focal solid mass. BOWEL AND MESENTERY: Fluid-filled nondistended distal half of small bowel and fluid-filled nondistend ed and her colon.. No small or large bowel dilatation. No colonic diverticulosis. Status post appen dectomy. No abnormal mesenteric lymphadenopathy. No free fluid or pneumoperitoneum. RETROPERITONEUM: Normal caliber abdominal aorta without aneurysm. No abnormal retroperitoneal lymphad enopathy. PELVIS: Urinary bladder is suboptimally distended. Status post hysterectomy. Interval increase si ze of large left ovarian cyst measuring 9.5 cm in greatest diameter (previously 7.2 cm). Normal-appea ring right adnexal region. ABDOMINAL WALL: The abdominal wall is intact. BONES: No suspicious osseous lytic or blastic lesions seen. IMPRESSION: 1. Fluid-filled nondistended distal half of small bowel and fluid-filled nondistended colon, suggestive of a diarrheal illness/enterocolitis. 2. Otherwise, no other acute intra-abdominal or pelvic disease. 3. Interval increase size of large left ovarian cyst measuring 9.5 cm in greatest diameter (previou sly 7.2 cm). 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 4. Status post cholecystectomy, appendectomy, and hysterectomy. Electronically signed by: Jackson Hancock MD 08/17/2023 12:41 AM CDT RP N Due to temporary technical issues with the PACS/Fluency reporting system, reports are being signed by the in house radiologists without review as a courtesy to insure prompt reporting. The interpreting radiologist is fully responsible for the content of the report.
--- NOTE | 2023-08-19 14:21 | EKG ---
Test Date: 2023-08-16 Test Time: 22:36:13 Heat Reader: BF MEASUREMENT RESULTS: Intervals: Rate: 95 [place]: 186 QRSD: 86 QT: 374 QTc: 469 [place]: P: 55 [place]: 186 QRS: 102 T: 58 INTERPRETIVE STATEMENTS: Sinus rhythm with fusion complexes Low voltage QRS Borderline ECG No previous ECG available for comparison Electronically Signed On 08-19-23 14:14:10 CDT by Romario Forbes
--- NOTE | 2023-08-19 14:21 | EKG ---
Test Date: 2023-08-16 Test Time: 22:37:02 Roll Up Operator: CORAL MEASUREMENT RESULTS: Intervals: Rate: 91 FL: 188 QRSD: 86 QT: 368 QTc: 452 [place]: P: 45 [place]: 188 QRS: 101 T: 40 INTERPRETIVE STATEMENTS: Normal sinus rhythm Low voltage QRS Borderline ECG Compared to ECG 08/16/2023 22:36:13 Fusion complex(es) no longer present Electronically Signed On 08-19-23 14:14:09 CDT by Romario Forbes
== END 2023-08-17 01:09 | disposition home or self-care (01) ==
LOC: ER 21:12
DX: K52.9 Noninfective gastroenteritis and colitis, unspecified (principal); N83.292 Other ovarian cyst, left side; Z90.710 Acquired absence of both cervix and uterus; Z88.1 Allergy status to other antibiotic agents; Z88.2 Allergy status to sulfonamides; Z88.5 Allergy status to narcotic agent
CPT/HCPCS: 96361; 93005 ×2; 87040 ×2; 85025; 81001; 36415; 85610; 82947; 83605; 85730; 83690; 80053; 74177; 96375; 96374; 99284; Q9967; J2405 ×2; J7030